=== PATIENT | female | born 1980 | race Caucasian/White ===

== ENCOUNTER → 2018-03-25 11:57 | Outpatient (CLI) | payer MEDICAID, SELFPAY ==
[2018-03-25 14:32] LABS: Microalbumin,Random Urine < 5.0 mg/L (NO RANGE EST.)
[2018-03-25 14:34] LABS: Hematocrit 38.5 % (37-47); Hemoglobin 12.8 g/dl (12.0-15.0); Mean Corp Hgb Conc 33.2 g/gl (32-36); Mean Corpuscular Hgb 27.9 pg (27.0-32.0); Mean Corpuscular Volume 84.1 fL (81-99); Mean Platelet Vol. 9.6 fl (6.2-12.0); Neutrophil % 53.5 % (47-70); Platelet Count 330 K/mm3 (150-450); RBC Distribution Width CV 12.7 % (11.6-14.6); RBC Distribution Width SD 38.5 fl (35.1-43.9); Red Blood Count 4.58 M/mm3 (4.2-5.4); White Blood Count 7.6 K/mm3 (4.4-11.0)
[2018-03-25 14:35] LABS: Absolute Lymphocyte Count 2.82 X10^3/ul (0.83-4.51); Absolute Neutrophil Count 4.1 X10^3/uL (2.0-7.7); Basophil# 0.05 X10^3/uL; Basophil% 0.7 % (0-1); Eosinophil# 0.25 X10^3/uL; Eosinophils% 3.3 % (0-5); Lymphocyte # 2.82 X10^3/ul (4.0); Lymphocyte % 37.1 % (19-41); Monocyte% 5.3 % (0-10); Neutrophil # 4.08 X10^3/uL (2.7-7.7); POSITIVE COUNT NO; POSITIVE DIFFERENTIAL NO; POSITIVE MORPHOLOGY NO
[2018-03-25 14:37] LABS: Hemoglobin A1c 5.9 % (4.2-6.3)
[2018-03-25 14:39] LABS: ALB/GLOB Ratio 1.2 RATIO (0.9-2.4); AST(SGOT) 18 U/L (15-37); Alanine Aminotransfer ALT/SGPT 30 U/L (13-56); Alkaline Phosphatase 62 U/L (45-117); Anion Gap 8 (5-15); BUN 12 mg/dL (7-18); BUN/Creat Ratio 19.6 RATIO (10-20); Calcium,Total 8.4 mg/dL (8.5-10.1); Chloride 105 mmol/L (98-107); Cholesterol 156 mg/dL (200); Creatinine, Serum 0.61 mg/dL (0.55-1.02); EST Glomerular Filtration Rate 116 mL/min (>60); Est Glom Filt Rate - Afr Amer 140 mL/min (>60); Globulin 3.3 g/dL (2.2-4.2); Glucose 88 mg/dL (74-106); High Density Lipoprotein 29 mg/dL; Potassium 3.9 mmol/L (3.5-5.1); Protein, Total 7.3 g/dL (6.4-8.2); Sodium Level 139 mmol/L (136-145); T4 Free Direct 1.02 ng/dL (0.76-1.46); Thyroid Stim Hormone (TSH) 0.81 uIU/mL (0.358-3.74); Triglycerides 374 mg/dL; Very Low Density Lipoprotein 75 mg/dL (5-40)
[2018-03-26 10:59] LABS: Thyroid Peroxidase AB 10 IU/mL (0-34)
== END ==
PROVIDERS: Family Provider Family Medicine; PCP Family Medicine; Visit Provider Family Medicine
DX: E03.9 Hypothyroidism, unspecified (principal); E78.00 Pure hypercholesterolemia, unspecified; E11.9 Type 2 diabetes mellitus without complications
CPT/HCPCS: 36415; 80053; 80061; 82043; 82570; 83036; 84439; 84443; 85025; 86376

== ENCOUNTER → 2018-04-20 11:27 | Outpatient (CLI) | payer OTHER, SELFPAY ==
--- NOTE | 2018-04-20 13:41 | STRESSREP ---
Stress Test Report Date: 04/20/2018 Procedure: Exercise tolerance test Indications: Pain Consent: Per the patient Procedure: The patient exercised on a Harman protocol for 7 minutes and 30 seconds completing Stage II and 1 minute and 30 seconds of Stage III achieving a peak heart rate of 155 bpm (85 % predicted maximal heart rate) with a peak blood pressure 146/70 mmHg and a peak MET capacity of approximately 9 MET's. The baseline ECG demonstrated normal sinus rhythm. The peak exercise ECG demonstrated somatic/motion artifact with no obvious ECG changes. There were no cardiac dysrhythmias pretest, during exercise, or recovery. The functional capacity was considered bridge. The patient had vague chest discomfort at peak exercise with spontaneous resolution in recovery. The examination was discontinued secondary to dyspnea. Impression: 1. Technically adequate (percent predicted maximal heart rate greater than 85%) exercise tolerance test 2. Peak exercise ECG with somatic/motion artifact with no obvious ECG changes 3. There were no cardiac dysrhythmias during exercise or recovery This note was generated with [employer] software. It may contain incorrect words, spelling, and punctuation that were not noted in checking the note before signing.
== END ==
PROVIDERS: Family Provider Family Medicine; PCP Family Medicine; Referring Provider Family Medicine; Visit Provider Family Medicine
DX: R07.9 Chest pain, unspecified (principal)
CPT/HCPCS: 93017

== ENCOUNTER → 2018-08-10 11:02 | Outpatient (CLI) | payer MEDICAID, SELFPAY ==
[2017-11-13 16:20] VITALS: BMI 38.9
[2018-08-10 13:59] LABS: Absolute Lymphocyte Count 2.18 X10^3/ul (0.83-4.51); Absolute Neutrophil Count 5.5 X10^3/uL (2.0-7.7); Basophil# 0.04 X10^3/uL; Basophil% 0.5 % (0-1); Eosinophil# 0.29 X10^3/uL; Eosinophils% 3.4 % (0-5); Hematocrit 38.9 % (37-47); Hemoglobin 12.5 g/dl (12.0-15.0); Lymphocyte # 2.18 X10^3/ul (4.0); Lymphocyte % 25.3 % (19-41); Mean Corp Hgb Conc 32.1 g/gl (32-36); Mean Corpuscular Hgb 27.4 pg (27.0-32.0); Mean Corpuscular Volume 85.3 fL (81-99); Mean Platelet Vol. 9.6 fl (6.2-12.0); Monocyte# 0.59 X10^3/uL; Monocyte% 6.8 % (0-10); Neutrophil # 5.49 X10^3/uL (2.7-7.7); Neutrophil % 63.7 % (47-70); Platelet Count 270 K/mm3 (150-450); RBC Distribution Width CV 13.4 % (11.6-14.6); RBC Distribution Width SD 41.2 fl (35.1-43.9); Red Blood Count 4.56 M/mm3 (4.2-5.4); White Blood Count 8.6 K/mm3 (4.4-11.0)
[2018-08-10 14:02] LABS: POSITIVE COUNT NO; POSITIVE DIFFERENTIAL NO; POSITIVE MORPHOLOGY NO
[2018-08-10 14:19] LABS: Hemoglobin A1c 6.6 % (4.2-6.3)
[2018-08-10 15:18] LABS: ALB/GLOB Ratio 1.2 RATIO (0.9-2.4); AST(SGOT) 22 U/L (15-37); Alanine Aminotransfer ALT/SGPT 35 U/L (13-56); Albumin, Serum 3.8 g/dL (3.2-5.0); Alkaline Phosphatase 65 U/L (45-117); Anion Gap 12 (5-15); BUN 7 mg/dL (7-18); BUN/Creat Ratio 13.1 RATIO (10-20); Calcium,Total 8.5 mg/dL (8.5-10.1); Chloride 105 mmol/L (98-107); Cholesterol 165 mg/dL (200); Creatinine, Serum 0.54 mg/dL (0.55-1.02); EST Glomerular Filtration Rate 134 mL/min (>60); Est Glom Filt Rate - Afr Amer 162 mL/min (>60); Globulin 3.1 g/dL (2.2-4.2); Glucose 62 mg/dL (74-106); High Density Lipoprotein 32 mg/dL; Potassium 3.8 mmol/L (3.5-5.1); Protein, Total 6.9 g/dL (6.4-8.2); Sodium Level 141 mmol/L (136-145); Thyroid Stim Hormone (TSH) 2.02 uIU/mL (0.358-3.74); Triglycerides 287 mg/dL; Very Low Density Lipoprotein 57 mg/dL (5-40)
== END ==
PROVIDERS: Family Provider Family Medicine; PCP Family Medicine; Visit Provider Family Medicine
DX: E11.9 Type 2 diabetes mellitus without complications (principal); E78.00 Pure hypercholesterolemia, unspecified; E03.9 Hypothyroidism, unspecified
CPT/HCPCS: 36415; 80053; 80061; 83036; 84443; 85025

== ENCOUNTER → 2018-12-20 16:18 | Outpatient (CLI) | payer MEDICAID, SELFPAY ==
[2017-11-13 16:20] VITALS: BMI 38.9
[2018-12-20 17:34] LABS: Absolute Lymphocyte Count 3.02 X10^3/ul (0.83-4.51); Absolute Neutrophil Count 5.5 X10^3/uL (2.0-7.7); Basophil# 0.04 X10^3/uL; Basophil% 0.4 % (0-1); Eosinophil# 0.31 X10^3/uL; Eosinophils% 3.3 % (0-5); Hematocrit 37.9 % (37-47); Hemoglobin 12.5 g/dl (12.0-15.0); Lymphocyte # 3.02 X10^3/ul (4.0); Lymphocyte % 32.3 % (19-41); Mean Corpuscular Hgb 27.1 pg (27.0-32.0); Mean Platelet Vol. 9.8 fl (6.2-12.0); Monocyte% 5.4 % (0-10); Neutrophil # 5.46 X10^3/uL (2.7-7.7); Neutrophil % 58.5 % (47-70); Platelet Count 283 K/mm3 (150-450); RBC Distribution Width CV 13.2 % (11.6-14.6); RBC Distribution Width SD 38.3 fl (35.1-43.9); Red Blood Count 4.62 M/mm3 (4.2-5.4); White Blood Count 9.3 K/mm3 (4.4-11.0)
[2018-12-20 17:56] LABS: Hemoglobin A1c 6.2 % (4.2-6.3)
[2018-12-20 17:57] LABS: POSITIVE COUNT NO; POSITIVE DIFFERENTIAL NO; POSITIVE MORPHOLOGY NO
[2018-12-20 18:23] LABS: Microalbumin,Random Urine 18.2 mg/L (NO RANGE EST.); Microalbumin:Creatinine Ratio 15.4 mg/g CRE (<30 mg/g CRE)
[2018-12-20 18:33] LABS: ALB/GLOB Ratio 1.3 RATIO (0.9-2.4); AST(SGOT) 17 U/L (15-37); Alanine Aminotransfer ALT/SGPT 26 U/L (13-56); Albumin, Serum 3.9 g/dL (3.2-5.0); Alkaline Phosphatase 54 U/L (45-117); Anion Gap 12 (5-15); BUN 15 mg/dL (7-18); BUN/Creat Ratio 26.3 RATIO (10-20); Calcium,Total 9.2 mg/dL (8.5-10.1); Chloride 104 mmol/L (98-107); Creatinine, Serum 0.57 mg/dL (0.55-1.02); EST Glomerular Filtration Rate 125 mL/min (>60); Est Glom Filt Rate - Afr Amer 151 mL/min (>60); Globulin 3.1 g/dL (2.2-4.2); Glucose 77 mg/dL (74-106); Potassium 4.1 mmol/L (3.5-5.1); Sodium Level 140 mmol/L (136-145); Thyroid Stim Hormone (TSH) 0.86 uIU/mL (0.358-3.74)
== END ==
PROVIDERS: Family Provider Family Medicine; PCP Family Medicine; Referring Provider Family Medicine; Visit Provider Family Medicine
DX: E03.9 Hypothyroidism, unspecified (principal); E11.9 Type 2 diabetes mellitus without complications; J45.909 Unspecified asthma, uncomplicated
CPT/HCPCS: 36415; 80053; 82043; 82570; 83036; 84439; 84443; 85025

== ENCOUNTER → 2019-04-11 16:11 | Outpatient (CLI) | payer OTHER, SELFPAY ==
--- NOTE | 2019-04-11 16:43 | MRI_ITS ---
STUDY: MRI BRAIN WITH AND WITHOUT CONTRAST REASON FOR EXAM: Female, 38 years old. Occipital headache TECHNIQUE: Standardized multiplanar fat and water weighted pulse sequences were obtained. IV Dotarem 19 was administered for the contrast portion of the examination. COMPARISON: None. FINDINGS: Normal size of the ventricles and extra-axial spaces for the patient's age. Normal white matter tracts of the supratentorial brain. Normal bilateral basal ganglia. Normal thalami. There is no extra-axial fluid accumulation. Normal flow voids within the major intracranial circulation suggesting patency by spin echo criteria. Normal venous enhancement. There is no enhancing intra-axial or extra-axial abnormality. Normal sella turcica, pituitary gland, infundibular stalk, optic chiasm and hypothalamus. Normal tectal plate and pineal gland. Normal midbrain, fredo and medulla. Normal cerebellum. Normal basal cisterns. Normal bilateral temporal bones. Normal bilateral internal auditory canals. No demonstrated orbital abnormality, within the constraints of a routine brain study. Normal visualized paranasal sinuses. Normal calvarium and skull base. Normal visualized soft tissue structures. Normal visualized upper cervical spine. MRI/Brain W/WO Contrast IMPRESSION: Normal unenhanced and enhanced MRI of the brain. Electronically Signed: Janie Matson, at 18:45 EDT Tel , Service support ,
== END ==
LOC: MRI 16:13
PROVIDERS: Family Provider Family Medicine; PCP Family Medicine; Referring Provider Family Medicine; Visit Provider Family Medicine
DX: H47.10 Unspecified papilledema (principal)
CPT/HCPCS: 70553; A9575

== ENCOUNTER 2019-05-20 16:35 | Emergency (ER) | payer OTHER, BC, SELFPAY ==
[2019-05-20 16:36] VITALS: BP 148/77; PULSE 75; RESP 17; TEMP 36.1; O2SAT 96; BMI 35.0
--- NOTE | 2019-05-20 16:41 | ED.RN ---
PT REPORTS SINCE HER WORK INCIDENT SHE HAS BEEN FIRED FROM HER JOB. UNABLE TO FIND COMPANY ON [employer]. CHARGE NURSE SUMAN INFORMED OF PT CIRCUMSTANCES.
--- NOTE | 2019-05-20 16:46 | CT_ITS ---
STUDY: CT BRAIN WITHOUT CONTRAST REASON FOR EXAM: Female, 38 years old. Trauma RADIATION DOSAGE (If Supplied By Facility): DLP = ( 728.62 ) mGycm TECHNIQUE: Transaxial CT imaging of the brain was performed without administration of intravenous contrast material. Individualized dose optimization techniques were used for this CT. COMPARISON: CT head April 11, 2019 FINDINGS: There is no acute bleed or infarct. There are normal white matter tracts. The ventricles are normal in configuration. There is no hydrocephalus. The visualized paranasal sinuses are clear. The mastoid air cells are well aerated. There is no skull fracture. CT/Brain/Head without Contrast IMPRESSION: No acute intracranial abnormality. Electronically Signed: Davis Marin, at 17:08 EST Tel , Service support ,
--- NOTE | 2019-05-20 16:46 | CT_ITS ---
STUDY: CT CERVICAL SPINE WITHOUT CONTRAST REASON FOR EXAM: Female, 38 years old. Headache, recent trauma RADIATION DOSAGE (If Supplied By Facility): CTDIvol = ( 27.24 ) mGy, DLP = ( 511.87 ) mGycm TECHNIQUE: High resolution transaxial imaging was performed without contrast material. Sagittal and coronal images were reconstructed. Individualized dose optimization techniques were used for this CT. COMPARISON: None FINDINGS: Normal craniovertebral junction. Normal anterior atlantoaxial articulation. Normal odontoid process. Normal cervical lordosis. Normal vertebral bodies and posterior osseous elements. C2-3: Normal endplates. Normal disc height and morphology. Normal central canal and intervertebral neuroforamina. C3-4: Normal endplates. Normal disc height and morphology. Normal central canal and intervertebral neuroforamina. C4-5: Normal endplates. Mild disc space narrowing with posterior spurring Normal central canal. There is bilateral foraminal narrowing. C5-6: Normal endplates. Moderate disc space narrowing with prominent posterior spurring to the right of midline. There is right-sided central canal stenosis and bilateral foraminal narrowing. Normal central canal and intervertebral neuroforamina. C6-7: Normal endplates. Normal disc height and morphology. Normal central canal and intervertebral neuroforamina. C7-T1: Normal endplates. Normal disc height and morphology. Normal central canal and intervertebral neuroforamina. Normal visualized soft tissue structures. CT/Spine Cervical without Contras IMPRESSION: No demonstrate a fracture or suspicious osseous lesion Degenerative changes at C4-5 and C5-6 as described, findings most pronounced at C5-6. Electronically Signed: Jered Renae MD at 17:12 EST , Service support ,
--- NOTE | 2019-05-20 16:49 | ED.VISSUMM ---
- ER Visit Summary Date of Service: 05/20/19 Chief Complaint: Head injury History of Present Illness: The patient is a 38 F with a head injury. A box fell on the top of her head on May 16 while she was at work. She has had a headache and right neck pain since. Pain is worse when she moves her neck. She does have some paresthesias in her right forearm, but they are not new. She denies any new paresthesias, weakness, or numbness. Denies any vision changes, nosebleed, ear discharge, or any other associated symptoms. She did not lose consciousness. Denies blood thinners. Physical Examination: Afebrile and vital signs unremarkable. Head and neck atraumatic. HEENT is unremarkable. Right cervical spine tender to palpation. Good strength. Right ulnar forearm paresthesias, not new. 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 Neurovascularly intact. No focal or lateralizing neurologic abnormalities. Test Results: CT brain and cervical spine pending. Emergency Department Course and Treatment: Patient declined pain meds. Will proceed with imaging. CT brain unremarkable. CT cervical spine show degenerative changes. No fractures, bleeding, or other acute process. Patient will be referred to [facility] care for follow-up. Treatment Plan: As above Disposition: Discharge Impression: 1. Concussion 2. Cervical strain This note was generated with [employer] dictation software. It may contain incorrect words, spelling, and punctuation that were not noted in review of the chart prior to signing ED Disposition - Plan for ED Patient: Referrals: Armaan Hadley MD [Primary Care Provider] -
--- NOTE | 2019-05-20 17:24 | DCINST.ED_ITS ---
ED Disposition - Plan for ED Patient: Instructions: Neck Problems: Relieving Your Symptoms Referrals: Corporate,[facility] [GROUP OF PHYSICIANS] -
--- NOTE | 2019-05-20 17:24 | ED.DEP ---
ED Disposition - Plan for ED Patient: Instructions: Neck Problems: Relieving Your Symptoms Referrals: Corporate,[facility] [GROUP OF PHYSICIANS] -
== END 2019-05-20 17:30 | disposition home or self-care (01) ==
PROVIDERS: Emergency Provider Emergency Medicine; Family Provider Family Medicine; PCP Family Medicine
DX: S06.0X0A Concussion without loss of consciousness, initial encounter (principal); W20.8XXA Other cause of strike by thrown, projected or falling object, initial encounter; Y93.89 Activity, other specified; Y92.89 Other specified places as the place of occurrence of the external cause; Y99.0 Civilian activity done for income or pay; R20.2 Paresthesia of skin; S16.1XXA Strain of muscle, fascia and tendon at neck level, initial encounter; I10 Essential (primary) hypertension; E11.9 Type 2 diabetes mellitus without complications; Z72.0 Tobacco use; Z79.899 Other long term (current) drug therapy; Z79.84 Long term (current) use of oral hypoglycemic drugs; E03.9 Hypothyroidism, unspecified
CPT/HCPCS: 70450; 72125; 99283

== ENCOUNTER 2019-06-11 18:16 | Emergency (ER) | payer MEDICAID, SELFPAY ==
[2019-05-26 09:57] VITALS: BMI 35.0
[2019-06-11 18:17] VITALS: BP 148/84; PULSE 72; RESP 18; TEMP 36.8; O2SAT 97; BMI 35.9
--- NOTE | 2019-06-11 18:42 | ED.VISSUMM ---
- ER Visit Summary Date of Service: 06/11/19 Chief Complaint: [Laceration to right thumb] History of Present Illness: The patient is a 38 F [presents to the ER with a laceration to the right thumb that occurred prior to arrival in the emergency department. Patient states she was using a cheese slicer when she accidentally lacerated her thumb. Patient is right-hand dominant. Patient is up-to-date on tetanus. Patient has history of diabetes.] Physical Examination: [Right thumb-patient has an avulsion type laceration measuring approximately 1.5 cm x 1 cm across the medial aspect of the distal phalanx. The avulsion is superficial however it is oozing venous blood. She is neurovascular intact distally. Normal range of motion at the IP joint and normal strength.] Test Results: [None indicated] Emergency Department Course and Treatment: [We used Gelfoam to get good hemostasis to the wound. Clean dressing was applied. Patient did irrigate the wound at home.] Treatment Plan: [Patient to follow-up with primary care physician for wound check in 3 to 5 days. We will leave the Gelfoam on until it falls off naturally.] Disposition: [Discharged home in stable condition] Impression: [Dermal avulsion right thumb] This note was generated with [employer] dictation software. It may contain incorrect words, spelling, and punctuation that were not noted in review of the chart prior to signing ED Disposition - Plan for ED Patient: Referrals: Armaan Hadley MD [Primary Care Provider] -
--- NOTE | 2019-06-11 18:44 | ED.DEP ---
ED Disposition - Plan for ED Patient: Instructions: Skin Avulsion Referrals: Armaan Hadley MD [Primary Care Provider] - 3-5 Days
[2019-06-11 19:21] VITALS: RESP 16
== END 2019-06-11 19:22 | disposition home or self-care (01) ==
LOC: ED 18:46
PROVIDERS: Emergency Provider Emergency Medicine; Family Provider Family Medicine; PCP Family Medicine
DX: S61.011A Laceration without foreign body of right thumb without damage to nail, initial encounter (principal); W27.4XXA Contact with kitchen utensil, initial encounter; Y92.9 Unspecified place or not applicable; Y99.9 Unspecified external cause status; E11.9 Type 2 diabetes mellitus without complications; Z72.0 Tobacco use
CPT/HCPCS: 99282

== ENCOUNTER → 2019-06-22 07:51 | Outpatient (CLI) | payer MEDICAID, SELFPAY ==
[2019-06-15 14:03] VITALS: BMI 35.9
--- NOTE | 2019-06-22 07:53 | US_ITS ---
STUDY: ABDOMINAL ULTRASOUND - RIGHT UPPER QUADRANT REASON FOR VISIT: Female, 38 years old postprandial epigastric pain. TECHNIQUE: Ultrasound evaluation of the right upper quadrant was performed with real-time and static clarke-scale imaging. TECHNICAL QUALITY: Adequate. COMPARISON: None. FINDINGS: Liver: The liver measures 16.9 cm. There is increased echogenicity consistent with fatty infiltration. The bile ducts are within normal limits. There is hepatic color flow. The direction of portal flow is hepatopetal. There is no demonstrated mass lesion. Gallbladder: Normal distended gallbladder. The gallbladder wall measures 1.6 mm. There is a negative sonographic Fan''s sign. There is no pericholecystic fluid. There are no gallstones. There is a 1.2 cm x 1 cm x 0.6 cm gallbladder polyp in the region of the neck of the gallbladder. Common Bile Duct (C.B.D.): The common bile duct measures 4.8 mm. Pancreas: Normal size of the head, body and tail of the pancreas. There is normal echogenicity of the pancreas. There is no demonstrated pancreatic mass or cyst. Right Kidney: Normal size of the right kidney. The right kidney measures 11.3 cm x 6.3 cm x 4.7 cm. Normal renal cortex. The right cortex measures 1.4 cm. There is no demonstrated renal mass or cyst. There is no right hydronephrosis. US/Abdomen Limited IMPRESSION: 1.2 cm x 1 cm x 0.6 cm polyp in the neck of the gallbladder. Electronically Signed: Jesu Tomas, at 15:38 EST , Service support ,
== END ==
PROVIDERS: Family Provider Family Medicine; PCP Family Medicine; Referring Provider Family Medicine; Visit Provider Family Medicine
DX: R10.11 Right upper quadrant pain (principal)
CPT/HCPCS: 76705

== ENCOUNTER 2019-07-04 10:00 | Outpatient (RCR) | payer MEDICAID, SELFPAY ==
[2019-05-26 09:57] VITALS: BMI 35.0
--- NOTE | 2019-06-06 17:13 | HP.PTEVAL_ITS ---
Patient's Visit Information HERMILO GONZALEZ is a 38 year old F referred to Physical Therapy by NINA Mary with a diagnosis of concussion, strain of muscle fascia and tendon of the neck.. Date of Evaluation: 06/06/19 Physical Therapist: OMEGA Wills - Subjective Findings: This incident happened 05-16-19. Pt was putting a box on a skid and did not have it up there all the way and it fell down and hit her on the head. She did not lose consciousness. Pt thought she was ok until she woke up and then her neck hurt and pain down her R arm. She tried to report it at work but it did not get filled out the day of. And a few days later she was fired for no reason. She waited to get insurance cards and went to ER and had an MRI. Current symptoms: still getting pain down her back and down R back of arm to the elbow. Not constant and depends on position of head sometimes. Sometimes she can get pain between her shoulder blades and the R of her spine. She has had some numbness in her back since the injury but none now. She has some dizziness but does relate it to the concussion and she has had that feeling before the accident. She has had no memory issues. She is sleeping like she ususally does which is not a lot. She gets about 8 hours of sleeping depending. She gets vertigo episodes in the past and has constand sinus infection going on but that happened before the accident/concusiion - Pain neck pain Pain Intensity (Out of 10): 0 R arm pain Pain Intensity (Out of 10): 0 - Objective R handed: R 85# and L 82#. c-spine AROM: flexion 100%, Ext 75%, R SB 100%, L SB 50% normal ROM, and approx 90% normal ROtation B. Bicep DTR 2+/3. chin tucks X 10 ( caused posterior c-spine pain and scapular pain more on the R side of spine and caused her to get a little dizzy) Attempted 10 additional chin tucks but not so much to end range.....(pt had less pain and no dizzy).... Chin tucks for an additional pain caused pain down the R side of arm to the elbo w....stopped shortly after stopped the chin tuck. Posture: sits with fw head and rounded shoulders and increase PPT. Palpation: Tender along the R side of the spine and scapular area on the R.... FGA . CATSIB: 110/120. Smooth pursuit horizontal and vertical caused no dizziness and she was able to follow. VOR X 1 caused slight dizziness. amb with head turns vertical and horizontal cause some slight dizziness danie subsides quickly after stopping. - Balance Scores Functional Gait Assessment Score: 26 % Disability: 13.3400 CATSIB Score (Max score 120 seconds): 110 - Rehabilitation Potential Rehabilitation Potential: Good - Anticipated Interventions Thank you for the opportunity to evaluate your patient. For Medicare and Medicare HMO plans, please review the plan of care and approve it. It will need to be FAXED BACK to us at [phone] for Medicare purposes. For Medicare only, by signing this I certify the plan of care. Please let me know if there are questions or concerns regarding this plan of care. Physician Signature: Date:
[2019-06-20 17:30] LABS: Absolute Lymphocyte Count 3.31 X10^3/uL (0.83-4.51); Absolute Neutrophil Count 6.3 X10^3/uL (2.0-7.7); Basophil# 0.07 X10^3/uL; Basophil% 0.7 % (0-1); Eosinophil# 0.29 X10^3/uL; Eosinophils% 2.8 % (0-5); Hematocrit 40.2 % (37-47); Hemoglobin 13.2 g/dL (12.0-15.0); Lymphocyte # 3.31 X10^3/ul (4.0); Lymphocyte % 31.4 % (19-41); Mean Corp Hgb Conc 32.8 g/dL (32-36); Mean Corpuscular Hgb 27.6 pg (27.0-32.0); Mean Corpuscular Volume 83.9 fL (81-99); Mean Platelet Vol. 9.6 fl (6.2-12.0); Monocyte# 0.53 X10^3/uL; NRBC Flagged by Analyzer 0 % (0-5); Neutrophil % 59.8 % (47-70); Platelet Count 307 K/mm3 (150-450); RBC Distribution Width CV 12.3 % (11.6-14.6); RBC Distribution Width SD 37.4 fl (35.1-43.9); Red Blood Count 4.79 M/mm3 (4.2-5.4); White Blood Count 10.5 K/mm3 (4.4-11.0)
[2019-06-20 17:47] LABS: ALB/GLOB Ratio 1.2 RATIO (0.9-2.4); AST(SGOT) 17 U/L (15-37); Alanine Aminotransfer ALT/SGPT 30 U/L (13-56); Alkaline Phosphatase 61 U/L (45-117); Anion Gap 3 (5-15); BUN 14 mg/dL (7-18); BUN/Creat Ratio 21.2 RATIO (10-20); Calcium,Total 8.9 mg/dL (8.5-10.1); Chloride 106 mmol/L (98-107); Creatinine, Serum 0.66 mg/dL (0.55-1.02); EST Glomerular Filtration Rate 105 mL/min (>60); Est Glom Filt Rate - Afr Amer 127 mL/min (>60); Globulin 3.4 g/dL (2.2-4.2); Glucose 87 mg/dL (74-106); Potassium 4.3 mmol/L (3.5-5.1); Protein, Total 7.4 g/dL (6.4-8.2); Sodium Level 137 mmol/L (136-145)
--- NOTE | 2019-07-04 11:33 | HP.PTDCSUM ---
HP - PT D/C Summary It has been my pleasure to treat HERMILO GONZALEZ under orders from NINA Mary, for the diagnosis of concussion, strain of muscle fascia and tendon of the neck. for a total of 11 visit(s). Discharge Date: 07/04/19 Please see the following information for a summary of their discharge status. - Subjective Subjective: Pt reports that she is ready to be discharged. Pt reports that she has been feeling ok. She gets AUGUSTIN sometimes but not sure that it is due to the concussion. She has had no arm pain. Pt feels that she is back to normal. - Pain neck pain Pain Intensity (Out of 10): 0 R arm pain Pain Intensity (Out of 10): 0 AUGUSTIN Pain Intensity (Out of 10): 2 - Overall Improvement % Improvement: 100 - Objective Objective/Function: VOR X 1 horizontal in sitting pt has a tiny bit of dizziness after 30 sec in sitting. VOR X 1 vertical in sitting pt has a trace bit of dizziness. FGA . CATSIB 120/120 - Plan Plan: DC PT to HEP - D/C Information Discharge Comments: DC PT to HEP If there are questions or concerns regarding this patient's physical therapy, please feel free to call me at [phone]. Thank you for the referral of this patient. Sincerely, Corinne Sutherland, MPT
== END 2019-07-04 19:00 | disposition home or self-care (01) ==
LOC: PT 10:00
PROVIDERS: Family Medicine; Family Provider Family Medicine; PCP Family Medicine; Referring Provider Physician Assistant; Visit Provider Physician Assistant
DX: S06.0X9D Concussion with loss of consciousness of unspecified duration, subsequent encounter (principal); S16.1XXD Strain of muscle, fascia and tendon at neck level, subsequent encounter
CPT/HCPCS: 36415; 80053; 85025; 97110; 97162; 97530

== ENCOUNTER → 2019-07-05 09:40 | Outpatient (CLI) | payer MEDICAID, SELFPAY ==
[2019-07-04 11:03] VITALS: BMI 35.9
[2019-07-05 12:04] LABS: Absolute Lymphocyte Count 1.93 X10^3/uL (0.83-4.51); Absolute Neutrophil Count 4.7 X10^3/uL (2.0-7.7); Basophil# 0.07 X10^3/uL; Eosinophil# 0.28 X10^3/uL; Eosinophils% 3.8 % (0-5); Hematocrit 39.5 % (37-47); Hemoglobin 12.9 g/dL (12.0-15.0); Lymphocyte # 1.93 X10^3/ul (4.0); Lymphocyte % 26.2 % (19-41); Mean Corp Hgb Conc 32.7 g/dL (32-36); Mean Corpuscular Hgb 27.2 pg (27.0-32.0); Mean Corpuscular Volume 83.2 fL (81-99); Mean Platelet Vol. 9.8 fl (6.2-12.0); Monocyte% 5.4 % (0-10); NRBC Flagged by Analyzer 0 % (0-5); Neutrophil # 4.66 X10^3/uL (2.7-7.7); Neutrophil % 63.3 % (47-70); Platelet Count 286 K/mm3 (150-450); RBC Distribution Width CV 12.8 % (11.6-14.6); RBC Distribution Width SD 38.8 fl (35.1-43.9); Red Blood Count 4.75 M/mm3 (4.2-5.4); White Blood Count 7.4 K/mm3 (4.4-11.0)
[2019-07-05 12:25] LABS: Hemoglobin A1c 6.3 % (4.2-6.3)
[2019-07-05 12:32] LABS: ALB/GLOB Ratio 1.1 RATIO (0.9-2.4); AST(SGOT) 16 U/L (15-37); Alanine Aminotransfer ALT/SGPT 30 U/L (13-56); Albumin, Serum 3.8 g/dL (3.2-5.0); Alkaline Phosphatase 59 U/L (45-117); Anion Gap 8 (5-15); BUN 13 mg/dL (7-18); BUN/Creat Ratio 16.9 RATIO (10-20); Calcium,Total 8.6 mg/dL (8.5-10.1); Chloride 106 mmol/L (98-107); Cholesterol 215 mg/dL (200); Creatinine, Serum 0.77 mg/dL (0.55-1.02); EST Glomerular Filtration Rate 88 mL/min (>60); Est Glom Filt Rate - Afr Amer 107 mL/min (>60); Globulin 3.5 g/dL (2.2-4.2); Glucose 111 mg/dL (74-106); High Density Lipoprotein 36 mg/dL; Potassium 4.1 mmol/L (3.5-5.1); Protein, Total 7.3 g/dL (6.4-8.2); Sodium Level 138 mmol/L (136-145); T4 Free Direct 1.13 ng/dL (0.76-1.46); Thyroid Stim Hormone (TSH) 2.25 uIU/mL (0.358-3.74); Triglycerides 222 mg/dL; Very Low Density Lipoprotein 44 mg/dL (5-40)
[2019-07-05 12:50] LABS: Microalbumin,Random Urine 14.7 mg/L (NO RANGE EST.); Microalbumin:Creatinine Ratio 13.2 mg/g CRE (<30 mg/g CRE)
== END ==
PROVIDERS: Family Provider Family Medicine; PCP Family Medicine; Visit Provider Family Medicine
DX: E11.9 Type 2 diabetes mellitus without complications (principal); E03.9 Hypothyroidism, unspecified; E78.00 Pure hypercholesterolemia, unspecified; J45.909 Unspecified asthma, uncomplicated
CPT/HCPCS: 36415; 80053; 80061; 82043; 82570; 83036; 84439; 84443; 85025

== ENCOUNTER → 2019-08-19 14:04 | Outpatient (CLI) | payer MEDICAID, SELFPAY ==
[2019-07-04 11:03] VITALS: BMI 35.9
[2019-08-19 15:40] LABS: Hematocrit 39.9 % (37-47); Hemoglobin 13.4 g/dL (12.0-15.0); Mean Corp Hgb Conc 33.6 g/dL (32-36); Mean Corpuscular Volume 83.3 fL (81-99); Mean Platelet Vol. 9.5 fl (6.2-12.0); Platelet Count 308 K/mm3 (150-450); RBC Distribution Width CV 12.3 % (11.6-14.6); RBC Distribution Width SD 36.9 fl (35.1-43.9); Red Blood Count 4.79 M/mm3 (4.2-5.4)
[2019-08-19 16:12] LABS: hCG Titer Quant., Serum < 1 mIU/mL (1-3)
== END ==
PROVIDERS: PCP Family Medicine; Referring Provider Otolaryngology; Visit Provider Otolaryngology
DX: Z01.812 Encounter for preprocedural laboratory examination (principal)
CPT/HCPCS: 36415; 84702; 85027

== ENCOUNTER → 2019-08-26 | Outpatient (CLI) | payer MEDICAID, SELFPAY ==
[2019-07-04 11:03] VITALS: BMI 35.9
--- NOTE | 2019-08-26 | SEP_PTH ---
PATIENT: HERMILO GONZALEZ [facility] U#:[id number] AGE/SX: 38/F ROOM: RE08/26/[address]: Dr. Miguel Yao MD : 1980 BED: DIS: 08/26/2019 SPEC #: [id number] RECD: 08/26/19 15:31 STATUS: MATHEW ALAN #: [id number] INES: 08/26/19 00:[address]: Miguel Yao DEPT: SURGICAL PATHOLOGY RECD BY: Tez Bustillo ENTERED: 08/29/19 09:17 SP TYPE: SEPTUM OTHR DR: Dr. Armaan Hadley MD [facility] Tissues: A - Nasal septum, NOS B - Ethmoid sinus, NOS Procedures: Decalcification bone/plaque Surgery Specimen Level III Surgery Specimen Level IV HEADER OPERATION: Septoplasty, right maxillary antrostomy with tissue removal; right anterior ethmoidectomy, submucous resection inferior turbinates PRE-OP DIAGNOSIS: Allergic rhinitis, chronic sinusitis, maxillary sinus polyp, deviated nasal septum TISSUE SUBMITTED: A - Septum, B - Right sinus contents MICROSCOPIC DIAGNOSIS A. Septum: Fragments of bone and cartilage, clinically deviated nasal septum. B. Right sinus contents: Fragments of respiratory mucosa with chronic inflammation and bone. SJ:irena 09/01/19 MICROSCOPIC DESCRIPTION Slides are reviewed. GROSS DESCRIPTION A - Received in fixative is one container labeled with the patient's name and designated septum. The specimen consists of multiple irregular fragments of joshi-white bone and cartilage that in aggregate measure 2.5 x 1.5 x 0.2 cm. The specimen is totally submitted in one cassette after decalcification. B - Received in fixative is one container labeled with the patient's name and designated right sinus contents. The specimen consists of multiple irregular fragments of light joshi soft tissue that in aggregate measure 2 x 1 x 0.1 cm. The specimen is totally submitted in one cassette. / AM:irena 08/29/19 TC:3 CPT: 88597, 34315, 53299
== END | disposition home or self-care (01) ==
LOC: LABSPEC 16:02
PROVIDERS: PCP Family Medicine; Referring Provider Otolaryngology; Visit Provider Otolaryngology
DX: J30.9 Allergic rhinitis, unspecified (principal); J32.9 Chronic sinusitis, unspecified; J33.8 Other polyp of sinus; J34.2 Deviated nasal septum
CPT/HCPCS: 88304; 88305; 88311

== ENCOUNTER → 2019-09-15 10:58 | Outpatient (CLI) | payer MEDICAID, SELFPAY ==
[2019-09-06 07:25] VITALS: BMI 35.6
[2019-09-15 11:00] VITALS: PULSE 105; PULSE 110; PULSE 111; PULSE 116; PULSE 118; PULSE 120; PULSE 87; PULSE 97; O2SAT 94; O2SAT 95; O2SAT 96; O2SAT 97; O2SAT 98
--- NOTE | 2019-09-16 10:42 | PCM.PSN.6M ---
PSN 6 Minute Walk Test - 6 Minute Walk Test 6 Minute Walk Test: 6 Minute Walk Test PSN:6-Minute Walk Test Start: 09/15/19 11:47 Freq: Status: Active Protocol: RESP.6MINW Document 09/15/19 11:00 EW (Rec: 09/15/19 11:50 EW [id number]) 6 Minute Walk Test Date Performed 09/15/19 Time Performed 11:00 Height 5 ft 4 in Weight: 200 lb Weight in Pounds 200.[address]: David Patricio Assistive device used: None Pre-test Oxygen Delivery Method Room Air Pulse Ox (%) 97 Pulse Rate (60-100 beats/min) 87 Dyspnea Emily Scale (0-10) 1 Exertion Emily Scale (6-20) 6 1st minute Oxygen Delivery Method Room Air Pulse Ox (%) 96 Pulse Rate (60-100 beats/min) 105 H 2nd minute Oxygen Delivery Method Room Air Pulse Ox (%) 95 Pulse Rate (60-100 beats/min) 116 H 3rd minute Oxygen Delivery Method Room Air Pulse Ox (%) 95 Pulse Rate (60-100 beats/min) 118 H 4th minute Oxygen Delivery Method Room Air Pulse Ox (%) 95 Pulse Rate (60-100 beats/min) 110 H 5th minute Oxygen Delivery Method Room Air Pulse Ox (%) 95 Pulse Rate (60-100 beats/min) 111 H 6th minute Oxygen Delivery Method Room Air Pulse Ox (%) 94 Pulse Rate (60-100 beats/min) 120 H Post-test Oxygen Delivery Method Room Air Pulse Ox (%) 98 Pulse Rate (60-100 beats/min) 97 Dyspnea Emily Scale (0-10) 2 Exertion Emily Scale (6-20) 8 Full Laps Walked 24 Partial Lap, Number of Tiles Walked 14 Total Distance Walked (ft) 1430 - Interpretation Interpretation: The patient ambulated 1430 feet over the course of 6 minutes beginning on room air without assistive devices or breaks. Pretesting oxygen saturation was noted to be 97% on room air. With ambulation, the raudel oxygen saturation was 94% with exertion. There was no significant exertional oxygen desaturation. - Recommendations Recommendations: There is no indication for the use of supplemental oxygen at this time.
== END ==
PROVIDERS: PCP Family Medicine; Referring Provider Internal Medicine Critical Care Medicine; Visit Provider Internal Medicine Critical Care Medicine
DX: J45.909 Unspecified asthma, uncomplicated (principal)
CPT/HCPCS: 94618

== ENCOUNTER → 2019-09-19 20:24 | Outpatient (CLI) | payer MEDICAID, SELFPAY ==
[2019-09-06 07:25] VITALS: BMI 35.6
== END ==
PROVIDERS: PCP Family Medicine; Referring Provider Internal Medicine Critical Care Medicine; Visit Provider Internal Medicine Critical Care Medicine
DX: G47.33 Obstructive sleep apnea (adult) (pediatric) (principal)
CPT/HCPCS: 95811

== ENCOUNTER → 2019-09-20 10:01 | Outpatient (CLI) | payer MEDICAID, SELFPAY ==
[2019-09-06 07:25] VITALS: BMI 35.6
--- NOTE | 2019-09-20 15:03 | PFTCOMP ---
COMPLETE PULMONARY FUNCTION TEST INTERPRETATION Brief HPI: Patient is a 38 year old female, currently under the care of Dr. Patricio, who presents to [facility] for complete pulmonary function tests secondary to diagnosis of asthma. Respiratory therapist reports good effort and reproducible results. Interpretation: Forced expiration spirometry shows no large airways obstructive ventilatory defect with an FEV1 of 97% predicted. There is no significant bronchodilator response by strict ATS criteria. Spirograms are of good quality and plateau normally. The respiratory flow volume loop shows a normal pattern. Lung volumes by body plethysmography show a normal total lung capacity at 4.32 L, 86% predicted. All other lung volumes are within reduced symmetrically. Diffusion capacity by carbon monoxide is normal at 81% predicted. The airway resistance is normal. No previous pulmonary function tests were available for review. Impression: These pulmonary function tests are grossly within normal limits.
== END ==
PROVIDERS: PCP Family Medicine; Referring Provider Internal Medicine Critical Care Medicine; Visit Provider Internal Medicine Critical Care Medicine
DX: J45.909 Unspecified asthma, uncomplicated (principal)
CPT/HCPCS: 94060; 94726; 94729

== ENCOUNTER → 2019-10-27 11:00 | Outpatient (CLI) | payer MEDICAID, SELFPAY ==
[2019-10-19 08:08] VITALS: BMI 35.6
== END ==
PROVIDERS: PCP Family Medicine; Visit Provider Nurse Practitioner Acute Care
DX: Z46.89 Encounter for fitting and adjustment of other specified devices (principal)

== ENCOUNTER → 2019-12-22 10:00 | Outpatient (CLI) | payer MEDICAID, SELFPAY ==
[2019-11-30 08:49] VITALS: BMI 35.6
== END ==
PROVIDERS: PCP Family Medicine; Visit Provider Nurse Practitioner Acute Care
DX: Z46.89 Encounter for fitting and adjustment of other specified devices (principal)

== ENCOUNTER → 2019-12-26 14:06 | Outpatient (CLI) | payer MEDICAID, SELFPAY ==
[2019-11-30 08:49] VITALS: BMI 35.6
--- NOTE | 2019-12-26 14:07 | RAD_ITS ---
STUDY: X-RAY CHEST REASON FOR EXAM: Female, 39 years old. SOB TECHNIQUE: PA and lateral views of the chest. COMPARISON: 07/05/2017 FINDINGS: The lungs are clear and expanded. There is no demonstrated pleural abnormality. Normal size heart. Normal mediastinum and [place]. Normal visualized pulmonary arteries. Normal visualized aortic arch and descending thoracic aorta. Normal visualized thoracic spine. Normal visualized ribs, clavicles, and shoulders. There is no demonstrated abnormality of the visualized soft tissue structures of the upper abdomen. RAD/Chest PA and Lateral IMPRESSION: Normal x-ray examination of the chest. Electronically Signed: Jered Renae MD at 14:52 EDT , Service support ,
[2019-12-26 17:11] LABS: AST(SGOT) 28 U/L (15-37); Alanine Aminotransfer ALT/SGPT 40 U/L (13-56); Albumin, Serum 3.8 g/dL (3.2-5.0); Alkaline Phosphatase 70 U/L (45-117); Anion Gap 11 (5-15); BUN 16 mg/dL (7-18); BUN/Creat Ratio 20.4 RATIO (10-20); Calcium,Total 8.8 mg/dL (8.5-10.1); Chloride 96 mmol/L (98-107); Cholesterol 225 mg/dL (200); Creatinine, Serum 0.78 mg/dL (0.55-1.02); EST Glomerular Filtration Rate 86 mL/min (>60); Est Glom Filt Rate - Afr Amer 104 mL/min (>60); Globulin 3.7 g/dL (2.2-4.2); Glucose 253 mg/dL (74-106); High Density Lipoprotein 26 mg/dL; Potassium 3.3 mmol/L (3.5-5.1); Protein, Total 7.5 g/dL (6.4-8.2); Sodium Level 135 mmol/L (136-145); Triglycerides 1605 mg/dL
== END ==
PROVIDERS: PCP Family Medicine; Referring Provider Family Medicine; Visit Provider Family Medicine
DX: R06.02 Shortness of breath (principal); E78.00 Pure hypercholesterolemia, unspecified; E11.9 Type 2 diabetes mellitus without complications
CPT/HCPCS: 36415; 71046; 80053; 80061

== ENCOUNTER 2019-12-29 17:04 | Emergency (ER) | payer MEDICAID, SELFPAY ==
[2019-11-30 08:49] VITALS: BMI 35.6
[2019-12-29 17:05] VITALS: BP 150/94; PULSE 118; RESP 18; TEMP 36.6; O2SAT 94; BMI 37.4
[2019-12-29 17:22] VITALS: BP 150/94; PULSE 118; RESP 18; TEMP 36.6; O2SAT 94
--- NOTE | 2019-12-29 17:23 | EKG12_ITS ---
Test Reason : SOB Blood Pressure : / mmHG Vent. Rate : 110 BPM Atrial Rate : 110 BPM P-R Int : 142 ms QRS Dur : 072 ms QT Int : 336 ms P-R-T Axes : 051 012 023 degrees QTc Int : 454 ms Sinus tachycardia Possible Left atrial enlargement Borderline ECG Confirmed by BHARAT SANTILLAN, MANI ([id number]), telegraph editor BANDAR NUNEZ ([id number]) on 01/03/2020 11:12:05 AM Referred By: Armaan Hadley Confirmed By:MANI NICHOLSON MD
--- NOTE | 2019-12-29 17:50 | RAD_ITS ---
STUDY: X-RAY CHEST REASON FOR EXAM: Female, 39 years old. SOB TECHNIQUE: Single AP portable view of the chest. COMPARISON: December 26, 2019 FINDINGS: The lungs are clear and expanded. There is no demonstrated pleural abnormality. Normal size heart. Normal mediastinum and [place]. Normal visualized pulmonary arteries. Normal visualized aortic arch and descending thoracic aorta. Normal visualized thoracic spine. Normal visualized ribs, clavicles, and shoulders. There is no demonstrated abnormality of the visualized soft tissue structures of the upper abdomen. RAD/Chest 1 View (Portable) IMPRESSION: Normal x-ray examination of the chest. Electronically Signed: Gama Barbosa MD at 18:15 EDT , Service support ,
[2019-12-29] MEDS: 0.9% Normal Saline 1,000 ML 150 ML IV (17:53)
[2019-12-29 18:00] LABS: Absolute Neutrophil Count 10.6 X10^3/uL (2.0-7.7); Basophil# 0.05 X10^3/uL; Basophil% 0.4 % (0-1); Eosinophil# 0.14 X10^3/uL; Eosinophils% 1.1 % (0-5); Hematocrit 41.4 % (37-47); Hemoglobin 13.6 g/dL (12.0-15.0); Lymphocyte % 12.8 % (19-41); Mean Corp Hgb Conc 32.9 g/dL (32-36); Mean Corpuscular Hgb 27.8 pg (27.0-32.0); Mean Corpuscular Volume 84.7 fL (81-99); Mean Platelet Vol. 9.5 fl (6.2-12.0); Monocyte# 0.76 X10^3/uL; Monocyte% 5.7 % (0-10); NRBC Flagged by Analyzer 0 % (0-5); Neutrophil # 10.56 X10^3/uL (2.7-7.7); Neutrophil % 79.5 % (47-70); Platelet Count 278 K/mm3 (150-450); RBC Distribution Width CV 12.7 % (11.6-14.6); RBC Distribution Width SD 38.9 fl (35.1-43.9); Red Blood Count 4.89 M/mm3 (4.2-5.4); White Blood Count 13.3 K/mm3 (4.4-11.0)
[2019-12-29 18:15] LABS: ALB/GLOB Ratio 0.9 RATIO (0.9-2.4); AST(SGOT) 26 U/L (15-37); Alanine Aminotransfer ALT/SGPT 44 U/L (13-56); Albumin, Serum 3.7 g/dL (3.2-5.0); Alkaline Phosphatase 71 U/L (45-117); Anion Gap 8 (5-15); BUN 13 mg/dL (7-18); BUN/Creat Ratio 13.8 RATIO (10-20); Calcium,Total 8.8 mg/dL (8.5-10.1); Chloride 103 mmol/L (98-107); Creatinine, Serum 0.94 mg/dL (0.55-1.02); EST Glomerular Filtration Rate 70 mL/min (>60); Est Glom Filt Rate - Afr Amer 84 mL/min (>60); Estimated Creatinine Clearance 68.01 ml/min; Glucose 241 mg/dL (74-106); Potassium 3.7 mmol/L (3.5-5.1); Protein, Total 7.7 g/dL (6.4-8.2); Sodium Level 137 mmol/L (136-145)
[2019-12-29 18:19] VITALS: BP 124/76; PULSE 107; RESP 18; TEMP 36.6; O2SAT 96
[2019-12-29 18:19] LABS: D-Dimer Quantitative (DVT/PE) 0.78 FEU/ug/m (0.27-0.49)
--- NOTE | 2019-12-29 18:29 | CT_ITS ---
STUDY: CTA CHEST REASON FOR EXAM: Female, 39 years old. PE/SOB. Hx of asthma, diabetes and seizures RADIATION DOSAGE (If Supplied By Facility): CTDIvol = ( 11.48 ) mGy, DLP = ( 530.36 ) mGycm TECHNIQUE: The examination was performed with the intravenous administration of Isovue 370 100ml. Post-processing of the angiographic images was performed, with multiplanar reformation and 3D reconstruction. Individualized dose optimization techniques were used for this CT. COMPARISON: None. FINDINGS: There is suboptimal due to poor enhancement of the main pulmonary artery and right and left pulmonary arteries. There is inadequate/poor enhancement of the bilateral peripheral pulmonary arteries. No large embolus is seen in the main pulmonary arteries. The smaller branches cannot be adequately evaluated on this study rendering them nondiagnostic. Normal thoracic aorta and visualized great vessels. There is no demonstrated aortic dissection. Normal heart size and pericardium. Normal mediastinum. Normal hilar regions. Normal visualized trachea and bronchi. The lungs are well expanded. No consolidation or pulmonary edema or pleural effusion is seen. A 4 mm subpleural nodule is present in the anterior superior aspect of the right lower lobe see image #138/247 series #2. This nodule is somewhat flat and slightly increased in density suggesting a developing granuloma or nodular fibrosis and is favored to be benign. No additional nodules are seen. Normal pleura. Normal chest wall structures. There are degenerative changes of thoracic spine. Normal visualized upper abdomen. CT/CTA Chest W/WO Contrast IMPRESSION: 1. There is suboptimal due to poor enhancement of the main pulmonary artery and right and left pulmonary arteries. There is inadequate/poor enhancement of the bilateral peripheral pulmonary arteries. No large embolus is seen in the main pulmonary arteries. The smaller branches cannot be adequately evaluated on this study rendering them nondiagnostic. 2. Consider nuclear medicine perfusion scan for further assessment of pulmonary embolism. 3. No consolidation or pulmonary edema or pleural effusion is seen. 4. A 4 mm subpleural nodule is present in the anterior superior aspect of the right lower lobe see image #138/247 series #2. This nodule is somewhat flat and slightly increased in density suggesting a developing granuloma or nodular fibrosis and is favored to be benign. No additional nodules are seen. A follow-up exam can be obtained in 6 months and if no changes are seen no further imaging of this nodule will be required. Electronically Signed: Gama Barbosa MD at 19:44 EDT , Service support ,
--- NOTE | 2019-12-29 18:55 | ED.DCSUM_ITS ---
- ER Visit Summary Date of Service: 12/29/19 Chief Complaint: Shortness of breath History of Present Illness: The patient is a [address] Sanchez. She reports she has shortness of breath began 2 weeks ago. Its moderate currently and at worst. Is worsened by exertion. Is unchanged by laying flat. She reports that she used her albuterol MDI with no relief. Patient reports that she has minimal cough and this is nonproductive. However, she has had subjective fever and chills. She reports that she has chest pain that began 2 weeks ago. It is a sharp pain is 5-10 at worst and she is pain- free currently. Last seconds at a time. Is increased with breathing. Denies any personal or family history of DVT. No recent travel. No ankle swelling or calf pain. Patient had a COVID-19 test 6 days ago that was negative. 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 Physical Examination: Vitals: Stable. Afebrile. General: Well-nourished and well-developed. Head: Normocephalic atraumatic. Neck: Supple, no lymphadenopathy. No JVD. Nontender. Cardiovascular: Regular rate and rhythm. No murmurs. Respiratory: No respiratory distress. Clear to auscultation bilaterally. Abdominal: Soft, nontender, nondistended, normal bowel sounds. No guarding, rebound, or peritoneal signs. Back: Nontender. Extremities: Nontender, no edema. Skin: Normal color, no rash. Neurologic: Alert and oriented ?3. Cranial nerves II through XII are intact. Normal strength and sensation. Psych: Normal affect. Test Results: EKG is sinus tach at [address] changes. There is no old EKG for comparison. Troponin is negative. D-dimer is elevated at 0.78. LFTs are normal. Chem-7 shows a glucose of 241. CBC shows a white count of 13.3 with 80 segmented neutrophils and 13 lymphocytes. Clinical Impression(s) from Imaging Studies Chest X-Ray 12/29/19 17:50 IMPRESSION: Normal x-ray examination of the chest. Electronically Signed: Gama Barbosa MD at 18:15 EDT , Service support , Chest CTA 12/29/19 18:29 IMPRESSION: 1. There is suboptimal due to poor enhancement of the main pulmonary artery and right and left pulmonary arteries. There is inadequate/poor enhancement of the bilateral peripheral pulmonary arteries. No large embolus is seen in the main pulmonary arteries. The smaller branches cannot be adequately evaluated on this study rendering them nondiagnostic. 2. Consider nuclear medicine perfusion scan for further assessment of pulmonary embolism. 3. No consolidation or pulmonary edema or pleural effusion is seen. 4. A 4 mm subpleural nodule is present in the anterior superior aspect of the right lower lobe see image #138/247 series #2. This nodule is somewhat flat and slightly increased in density suggesting a developing granuloma or nodular fibrosis and is favored to be benign. No additional nodules are seen. A follow-up exam can be obtained in 6 months and if no changes are seen no further imaging of this nodule will be required. Electronically Signed: Gama Barbosa MD at 19:44 EDT , Service support , Emergency Department Course and Treatment: Patient refused pain or nausea medications. She is resting comfortably. Due to an inadequate CTA of the chest I obtained lower extremity Dopplers on the patient. They are negative. Clinically I do not think the patient has a PE. She has a minimally elevated heart rate at 103. She is not hypoxic. She has a normal troponin. Treatment Plan: Patient will be discharged instructions to follow-up with her primary care physician in 3 to 5 days if not improving. I did discuss with her that she may still have coronavirus. She is instructed to quarantine herself. Return to the emergency department for any worsening symptoms. Disposition: To home in improved and stable condition. Impression: 1 1. Dyspnea, uncertain cause. 2. 4 mm right lower lobe nodule. This note was generated with [employer] software. It may contain incorrect words, spelling, and punctuation that were not noted in review of the chart prior to signing ED Disposition - Plan for ED Patient: Instructions: ED Dyspnea Referrals: Armaan Hadley MD [Primary Care Provider] - 3-5 Days if not improving
[2019-12-29 19:00] VITALS: BP 132/81; PULSE 105; RESP 19; TEMP 36.6; O2SAT 98
--- NOTE | 2019-12-29 20:00 | US_ITS ---
STUDY: VENOUS DOPPLER ULTRASOUND - BILATERAL LOWER EXTREMITIES REASON FOR EXAM: Female, 39 years old. SHORTNESS OF BREATH TECHNIQUE: Ultrasound evaluation of the deep vein system to include lowe-scale imaging and compression was performed. Lowe-scale imaging and Doppler sonographic evaluation, including duplex spectral analysis and qualitative color flow sonography, was performed. COMPARISON: None. FINDINGS: RIGHT LEG Common Femoral Vein: Normal compression, spontaneity and augmentation. Normal color Doppler. Common Femoral Vein/Greater Saphenous Junction: Normal compression, spontaneity and augmentation. Normal color Doppler. Deep Femoral Vein: Normal compression, spontaneity and augmentation. Normal color Doppler. Femoral Proximal: Normal compression, spontaneity and augmentation. Normal color Doppler. Femoral Middle: Normal compression, spontaneity and augmentation. Normal color Doppler. Femoral Distal: Normal compression, spontaneity and augmentation. Normal color Doppler. Popliteal Vein: Normal compression, spontaneity and augmentation. Normal color Doppler. Posterior Tibial Vein: Normal compression, spontaneity and augmentation. Normal color Doppler. Peroneal Vein: Normal compression, spontaneity and augmentation. Normal color Doppler. LEFT LEG Common Femoral Vein: Normal compression, spontaneity and augmentation. Normal color Doppler. Common Femoral Vein/Greater Saphenous Junction: Normal compression, spontaneity and augmentation. Normal color Doppler. Deep Femoral Vein: Normal compression, spontaneity and augmentation. Normal color Doppler. Femoral Proximal: Normal compression, spontaneity and augmentation. Normal color Doppler. Femoral Middle: Normal compression, spontaneity and augmentation. Normal color Doppler. Femoral Distal: Normal compression, spontaneity and augmentation. Normal color Doppler. Popliteal Vein: Normal compression, spontaneity and augmentation. Normal color Doppler. Posterior Tibial Vein: Normal compression, spontaneity and augmentation. Normal color Doppler. Peroneal Vein: Normal compression, spontaneity and augmentation. Normal color Doppler. US/Venous Duplex Imag/Nicanor Extrem IMPRESSION: Normal venous Doppler ultrasound of the bilateral lower extremities. Electronically Signed: Gama Barbosa MD at 21:06 EDT , Service support ,
[2019-12-29 21:09] VITALS: BP 129/78; PULSE 98; RESP 16; O2SAT 98
== END 2019-12-29 21:28 | disposition home or self-care (01) ==
LOC: ED 18:56
PROVIDERS: Emergency Provider Emergency Medicine; PCP Family Medicine
DX: R06.00 Dyspnea, unspecified (principal); R91.1 Solitary pulmonary nodule; R07.9 Chest pain, unspecified; R05 Cough; R53.1 Weakness; R11.0 Nausea; E11.9 Type 2 diabetes mellitus without complications; J45.909 Unspecified asthma, uncomplicated; G47.33 Obstructive sleep apnea (adult) (pediatric); E03.9 Hypothyroidism, unspecified; Z82.49 Family history of ischemic heart disease and other diseases of the circulatory system
CPT/HCPCS: 71045; 71275; 80053; 84484; 85025; 85379; 87040; 87633; 87635; 93005; 93970; 94799; 96360; 96361; 99284; G2023; J7030; Q9967; U0003

== ENCOUNTER 2020-01-01 20:51 | Emergency (ER) | payer MEDICAID, SELFPAY ==
[2020-01-01 20:53] VITALS: BP 130/92; PULSE 93; RESP 17; TEMP 36.6; O2SAT 96; BMI 36.9
[2020-01-01 21:05] LABS: Bedside Glucose 157 mg/dL (70-110)
[2020-01-01 21:33] LABS: Absolute Lymphocyte Count 3.02 X10^3/uL (0.83-4.51); Basophil# 0.05 X10^3/uL; Basophil% 0.5 % (0-1); Eosinophil# 0.26 X10^3/uL; Eosinophils% 2.6 % (0-5); Hematocrit 40.7 % (37-47); Hemoglobin 13.3 g/dL (12.0-15.0); Lymphocyte # 3.02 X10^3/ul (4.0); Lymphocyte % 29.6 % (19-41); Mean Corp Hgb Conc 32.7 g/dL (32-36); Mean Corpuscular Hgb 27.7 pg (27.0-32.0); Mean Corpuscular Volume 84.8 fL (81-99); Mean Platelet Vol. 9.4 fl (6.2-12.0); Monocyte% 7.9 % (0-10); NRBC Flagged by Analyzer 0 % (0-5); Neutrophil % 58.8 % (47-70); Platelet Count 306 K/mm3 (150-450); RBC Distribution Width CV 12.7 % (11.6-14.6); RBC Distribution Width SD 38.6 fl (35.1-43.9); White Blood Count 10.2 K/mm3 (4.4-11.0)
--- NOTE | 2020-01-01 21:34 | ED.DCSUM_ITS ---
History of Present Illness Chief Complaint: Hyperglycemia Detail of Chief Complaint: Numerous symptoms and concerns Informant: Patient Onset: Days Context: Sudden Onset Timing: Continuous - Shortness of breath is continuous Quality: Dyspnea at rest Location: Also believes something is wrong and she does not feel right Current Severity: - - Unable to quantitate severity Worsened by: Nothing Relieved by: Nothing Associated Symptoms: Please read HPI Narrative: Patient is a 39-year-old woman with history of diabetes who was seen on the . She had a significant work-up. The CTA of the chest was suboptimal because of poor timing of contrast. There was no central or significant pulmonary embolus that was noted. A peripheral embolus could be missed. She denies fever, chills night sweats. She denies rhinorrhea, congestion or postnasal drainage. She denies change or loss of taste or smell. She denies sore throat. She denies chest pain. She does report shortness of breath. She denies cough. She does report nausea without vomiting diarrhea. She denies dysuria, frequency, urgency or hematuria. She denies polyuria polydipsia. She denies change in vision. She denies history of PE or DVT. There is no history of trauma. There is no rash or skin lesions noted. There is no bruising noted. Prior similar symptoms: Yes Recent Illness/Hospitalization: Yes - Past Medical History (1) Borderline personality disorder Status: Acute (2) Diabetes Status: Acute (3) Endometriosis Status: Acute (4) History of seizure Status: Acute (5) SOB (shortness of breath) Status: Acute (6) Thyroid disease Status: Acute (7) ZHANNA (obstructive sleep apnea) Status: Chronic Past Medical History - Allergies and Home Meds Allergies/Adverse Reactions: Allergies amoxicillin Allergy (Verified 01/01/20 20:51) Hives Penicillins Allergy (Verified 01/01/20 20:51) Hives phenazopyridine [From Pyridium] Adverse Reaction (Verified 01/01/20 20:51) Other sulfamethoxazole [From Bactrim] Adverse Reaction (Verified 01/01/20 20:51) Other trimethoprim [From Bactrim] Adverse Reaction (Verified 01/01/20 20:51) Other SEASONAL Allergy (Uncoded 01/01/20 20:51) Shortness of breath Primary Care Physician: Armaan Hadley MD [Primary Care Provider] - Prior records reviewed: Yes Surgical History: hysterectomy, - - Septoplasty Lives: Alone Smoking Status: Former smoker Alcohol: None Drugs: None Review of Systems General: Reports: Malaise. Denies: Chills, Fever, Subjective, Sweats, Weight loss Eyes: Denies: Visual changes - bilaterally, Blurred Vision - bilaterally, Diplopia ENT: Denies: Bilateral ear pain, Rhinorrhea, Sore throat Cardiovascular: Denies: Chest pain, Palpitations Respiratory: Reports: Dyspnea. Denies: Cough, Sputum, Dyspnea on exertion, Paroxysmal nocturnal dyspnea Gastrointestinal: Reports: Nausea. Denies: Abdominal pain, Vomiting Genitourinary: Denies: Dysuria, Hematuria, Frequency Musculoskeletal: Reports: Back pain - History of chronic back pain. Denies: Myalgias, Arthralgias, Neck pain, Swelling, Extremity Pain Skin: Denies: Rash, Wounds Neurological: Denies: Headache, Weakness, Numbness Psych: Reports: Depression Hematologic: Reports: Easy bruising. Denies: Easy bleeding Allergy: Denies: Uticaria, Swelling of the mouth, Swelling of the tongue Physical Exam Vital Signs/Narrative: Vital Signs Temp Pulse Resp BP Pulse Ox 01/01/20 20:53 97.8 F 93 17 130/92 H 96 Inital Vital Signs reviewed: Yes General: Well nourished, Well developed, Obese, No Acute Distress Head: Normocephalic, Atraumatic Eyes: Perrl, EOMI ENT: Moist mucous membranes, No rhinorrhea Neck: Supple, Nontender Cardiovascular: Regular rate, Regular rhythm, No murmurs, Normal S1, Normal S2 Respiratory: No distress, CTA bilaterally, Chest nontender Abdomen: Soft, Nontender, Nondistended, Normal bowel sounds, No masses Back: Nontender, Normal Inspection. Negative for: CVA tenderness, Spinal tenderness Extremities: Nontender, No edema, - - There is no asymmetry, swelling, discoloration, leg vein distention, palpable cords or tenderness along the distribution of the deep venous system. Skin: Normal color, No rash, No Trauma. Negative for: Cyanosis, Diaphoresis, Jaundice Neurological: Alert, Oriented x3, Cranial nerves II-XII grossly intact, Normal Strength, Normal Sensation Psychological: Depressed Diagnostic/Tx/Re-eval Laboratory Results 06/28/20 06/28/20 06/28/20 21:00 21:10 21:10 WBC 10.2 RBC 4.80 Hgb 13.3 Hct 40.7 MCV 84.8 MCH 27.7 MCHC 32.7 RDW Std Deviation 38.6 RDW Coeff of Sarai 12.7 Plt Count 306 MPV 9.4 Immature Gran % (Auto) 0.600 Neut % (Auto) 58.8 Lymph % (Auto) 29.6 [place] % (Auto) 7.9 Eos % (Auto) 2.6 Baso % (Auto) 0.5 Absolute Neuts (auto) 6.0 Absolute Lymphs (auto) 3.02 Nucleated RBC % 0 Sodium 139 Potassium 3.6 Chloride 105 Carbon Dioxide 26.0 Anion Gap 8 BUN 8 Creatinine 0.64 Estim Creat Clear Calc 99.89 Est GFR (MDRD) Af Amer 131 Est GFR (MDRD) Non-Af 108 BUN/Creatinine Ratio 12.5 Glucose 145 H Calcium 9.4 Urine Color Urine Clarity Urine pH Ur Specific [place] Urine Protein Urine Glucose (UA) Urine Ketones Urine Occult Blood Urine Nitrite Urine Bilirubin Urine Urobilinogen Ur Leukocyte Esterase POC Glucose 157 H 01/01/20 21:20 WBC RBC Hgb Hct MCV MCH MCHC RDW Std Deviation RDW Coeff of Sarai Plt Count MPV Immature Gran % (Auto) Neut % (Auto) Lymph % (Auto) [place] % (Auto) Eos % (Auto) Baso % (Auto) Absolute Neuts (auto) Absolute Lymphs (auto) Nucleated RBC % Sodium Potassium Chloride Carbon Dioxide Anion Gap BUN Creatinine Estim Creat Clear Calc Est GFR (MDRD) Af Amer Est GFR (MDRD) Non-Af BUN/Creatinine Ratio Glucose Calcium Urine Color Yellow Urine Clarity Clear Urine pH 6.0 Ur Specific [place] 1.015 Urine Protein 100 H Urine Glucose (UA) Normal Urine Ketones Negative Urine Occult Blood Negative Urine Nitrite Negative Urine Bilirubin Negative Urine Urobilinogen 1 H Ur Leukocyte Esterase 25 H POC Glucose Patient's laboratory work-up is unremarkable. She will be discharged to home. - Medical Decision Making Records from December 28 were read. Laboratory values were reviewed. Blood sugar is 157. Since patient had a CAT scan with no evidence of pneumothorax, effusion or any significant pathology a chest x-ray was not obtained today. Since she reported high blood sugar today a BMP was obtained. She also reports history of hypokalemia. She is concerned she may have a urinary tract infection and reason for UA. ED Disposition - Plan for ED Patient: Disposition: Home or Assisted Living Diagnosis: Dyspnea, Hyperglycemia due to type 2 diabetes mellitus Instructions: ED Dyspnea Referrals: Armaan Hadley MD [Primary Care Provider] - 1 Week if not improving
[2020-01-01 21:41] LABS: Color, Urine Yellow (Yellow); Glucose, Dipstick Normal (Normal); Ketone-Dipstick Negative (Negative); Leukocyte Esterase-Dipstick 25 /ul (Negative); Nitrite-Dipstick Negative (Negative); Occult Blood-Urine Negative /ul (Negative); Protein-Dipstick 100 mg/dl (Negative); Specific Gravity, Urine 1.015 (1.002-1.030); Urine Bilirubin Dipstick Negative (Negative); Urine Clarity Clear (Clear); Urine Urobilinogen 1 mg/dl (Normal)
[2020-01-01 21:52] LABS: Anion Gap 8 (5-15); BUN 8 mg/dL (7-18); BUN/Creat Ratio 12.5 RATIO (10-20); Calcium,Total 9.4 mg/dL (8.5-10.1); Chloride 105 mmol/L (98-107); Creatinine, Serum 0.64 mg/dL (0.55-1.02); EST Glomerular Filtration Rate 108 mL/min (>60); Est Glom Filt Rate - Afr Amer 131 mL/min (>60); Estimated Creatinine Clearance 99.89 ml/min; Glucose 145 mg/dL (74-106); Potassium 3.6 mmol/L (3.5-5.1); Sodium Level 139 mmol/L (136-145)
--- NOTE | 2020-01-01 22:05 | ED.RN ---
PT ASKED FOR HS OF LABS/TEST RESULTS. SHE WAS PROVIDED WITH INFORMATION ON [facility].
== END 2020-01-01 22:06 | disposition home or self-care (01) ==
PROVIDERS: Emergency Provider Emergency Medicine; PCP Family Medicine
DX: R06.00 Dyspnea, unspecified (principal); E11.65 Type 2 diabetes mellitus with hyperglycemia; E07.9 Disorder of thyroid, unspecified; F60.3 Borderline personality disorder; G47.33 Obstructive sleep apnea (adult) (pediatric); Z87.891 Personal history of nicotine dependence; Z88.0 Allergy status to penicillin; Z88.1 Allergy status to other antibiotic agents; Z88.2 Allergy status to sulfonamides; Z90.710 Acquired absence of both cervix and uterus
CPT/HCPCS: 80048; 81002; 82962; 85025; 99284; A4216

== ENCOUNTER → 2020-01-02 16:57 | Outpatient (CLI) | payer MEDICAID, SELFPAY ==
[2020-01-01 20:53] VITALS: BMI 36.9
[2020-01-04 16:08] LABS: Endomysial Antibody IgA Negative (Negative)
[2020-01-07 17:45] LABS: Immunoglobulin A 106 mg/dL (87-352); t-Transglutaminase IgA <2 U/mL (0-3)
== END ==
PROVIDERS: PCP Family Medicine; Referring Provider Family Medicine; Visit Provider Family Medicine
DX: K90.0 Celiac disease (principal)
CPT/HCPCS: 36415; 82784; 83516; 86255

== ENCOUNTER → 2020-01-05 10:13 | Outpatient (CLI) | payer MEDICAID, SELFPAY ==
[2020-01-01 20:53] VITALS: BMI 36.9
--- NOTE | 2020-01-05 10:19 | NM_ITS ---
CLINICAL: 39-year-old diabetic female with reported history of abdominal pain. SEMI-SOLID PHASE 99m Tc SULFUR COLLOID GASTRIC EMPTYING STUDY COMPARISON: None available FINDINGS: The patient was administered 1.1 mCi of 99m Tc sulfur colloid mixed with oatmeal and consumed per os. Image acquisitions in the anterior-posterior projections for a total of 60 minutes. There is prompt visualization of the stomach. There is no gastroesophageal reflux identified. First order kinetics are maintained throughout the duration of the acquisitions. The T1/2 linear fit was calculated to be 78.87 minutes, (Normal: 12-56 minutes). NM/Gastric Emptying Study IMPRESSION: 1. ABNORMAL 99m Tc sulfur colloid semi-solid phase (oatmeal) gastric emptying imaging examination. A. There is delayed semi-solid phase gastric emptying compared to normal controls with maintained first order kinetics throughout all components of the examination. (Alonso et al, J Nucl Med Tech 38: 186, 2010). Electronically Signed: Wali Fan DO at 22:54 EDT Tel , Service support ,
== END ==
PROVIDERS: PCP Family Medicine; Referring Provider Family Medicine; Visit Provider Family Medicine
DX: R68.81 Early satiety (principal)
CPT/HCPCS: 78264; A9541

== ENCOUNTER 2020-02-01 14:59 | Outpatient (RCR) | payer MEDICAID, SELFPAY ==
[2020-01-25 08:35] VITALS: BMI 36.8
== END 2020-02-03 23:59 ==
LOC: NS 14:59
PROVIDERS: PCP Family Medicine; Visit Provider Family Medicine
DX: E11.9 Type 2 diabetes mellitus without complications (principal); K31.84 Gastroparesis
CPT/HCPCS: G0108

== ENCOUNTER 2020-02-07 13:00 | Outpatient (RCR) | payer MEDICAID, SELFPAY ==
[2020-01-25 08:35] VITALS: BMI 36.8
== END 2020-02-07 23:59 | disposition home or self-care (01) ==
LOC: DC 13:00
PROVIDERS: PCP Family Medicine; Visit Provider Family Medicine
DX: Z71.3 Dietary counseling and surveillance (principal); E11.9 Type 2 diabetes mellitus without complications; K31.84 Gastroparesis
CPT/HCPCS: 97802

== ENCOUNTER → 2020-02-29 06:57 | Outpatient (CLI) | payer MEDICAID, SELFPAY ==
[2020-01-25 08:35] VITALS: BMI 36.8
--- NOTE | 2020-03-02 10:10 | BRONCHALL ---
Bronchoprovocation Challenge - Bronchoprovocation Challenge Bronchoprovocation Challenge: INTRODUCTION: The patient is a 39-year-old female that presents for a bronchoprovocation challenge secondary to a diagnosis of asthma. Respiratory therapy reported good patient effort and reproducible results. INTERPRETATION: Initial spirometry did not show any large airways obstructive ventilatory defect and preserved airflows throughout. The patient was then given progressively increasing doses of methacholine in a standardized fashion. At no point during testing did the patient's FEV1 drop by 20% to be considered a positive test. IMPRESSION: Negative methacholine challenge.
== END ==
PROVIDERS: PCP Family Medicine; Referring Provider Internal Medicine Critical Care Medicine; Visit Provider Internal Medicine Critical Care Medicine
DX: J45.909 Unspecified asthma, uncomplicated (principal)
CPT/HCPCS: 94070; 95070; J3490; J7674

== ENCOUNTER → 2020-03-15 10:28 | Outpatient (CLI) | payer MEDICAID, SELFPAY ==
[2020-03-08 11:40] VITALS: BMI 36.7
[2020-03-15 13:21] LABS: ALB/GLOB Ratio 1.1 RATIO (0.9-2.4); AST(SGOT) 18 U/L (15-37); Alanine Aminotransfer ALT/SGPT 26 U/L (13-56); Alkaline Phosphatase 67 U/L (45-117); Anion Gap 9 (5-15); BUN 12 mg/dL (7-18); Calcium,Total 8.9 mg/dL (8.5-10.1); Chloride 107 mmol/L (98-107); Cholesterol 156 mg/dL (200); Creatinine, Serum 0.67 mg/dL (0.55-1.02); EST Glomerular Filtration Rate 104 mL/min (>60); Est Glom Filt Rate - Afr Amer 125 mL/min (>60); Globulin 3.6 g/dL (2.2-4.2); Glucose 123 mg/dL (74-106); High Density Lipoprotein 30 mg/dL; Potassium 3.8 mmol/L (3.5-5.1); Protein, Total 7.6 g/dL (6.4-8.2); Sodium Level 139 mmol/L (136-145); T4 Free Direct 1.13 ng/dL (0.76-1.46); Thyroid Stim Hormone (TSH) 1.52 uIU/mL (0.358-3.74); Triglycerides 241 mg/dL; Very Low Density Lipoprotein 48 mg/dL (5-40)
[2020-03-15 13:35] LABS: Microalbumin,Random Urine 16.5 mg/L (NO RANGE EST.); Microalbumin:Creatinine Ratio 12.8 mg/g CRE (<30 mg/g CRE)
== END ==
PROVIDERS: PCP Family Medicine; Referring Provider Family Medicine; Visit Provider Family Medicine
DX: E11.9 Type 2 diabetes mellitus without complications (principal); E03.9 Hypothyroidism, unspecified; E78.00 Pure hypercholesterolemia, unspecified
CPT/HCPCS: 36415; 80053; 80061; 82043; 82570; 83036; 84439; 84443

== ENCOUNTER 2020-04-23 07:57 | Day surgery (SDC) | payer MEDICAID, SELFPAY ==
[2020-01-25 08:35] VITALS: BMI 36.8
[2020-04-04 09:50] VITALS: BMI 36.7
--- NOTE | 2020-04-23 08:10 | EKG12_ITS ---
Test Reason : PREOP Blood Pressure : / mmHG Vent. Rate : 076 BPM Atrial Rate : 076 BPM P-R Int : 156 ms QRS Dur : 080 ms QT Int : 386 ms P-R-T Axes : 024 008 010 degrees QTc Int : 434 ms Normal sinus rhythm Nonspecific T wave abnormality Abnormal ECG When compared with ECG of 29-DEC-2019 17:30, No significant change was found Confirmed by CHARLEEN SANTILLAN, ANGEL ([id number]), news copy editor BANDAR NUNEZ ([id number]) on 04/25/2020 1:09:37 P M Referred By: Miguel Yao Confirmed By:EMILY VILLASEÑOR MD
[2020-04-23 08:24] VITALS: BP 114/71; PULSE 73; RESP 16; TEMP 36.7; O2SAT 96; BMI 35.9
[2020-04-23] MEDS: Lactated Ringers 1,000 ML 100 ML IV (08:35)
[2020-04-23 08:45] LABS: Anion Gap 10 (5-15); BUN 11 mg/dL (7-18); BUN/Creat Ratio 15.9 RATIO (10-20); Calcium,Total 8.7 mg/dL (8.5-10.1); Chloride 103 mmol/L (98-107); Creatinine, Serum 0.69 mg/dL (0.55-1.02); EST Glomerular Filtration Rate 99 mL/min (>60); Est Glom Filt Rate - Afr Amer 120 mL/min (>60); Estimated Creatinine Clearance 92.65 ml/min; Glucose 135 mg/dL (74-106); Potassium 3.9 mmol/L (3.5-5.1); Sodium Level 139 mmol/L (136-145)
--- NOTE | 2020-04-23 09:03 | DCINST_ITS ---
You will use the following diet at home:: Regular Discharge Activity: No Restrictions, - - No nose blowing for a week. Use saline if needed. Allergies/Adverse Reactions: Allergies amoxicillin Allergy (Verified 04/23/20 08:16) Hives Penicillins Allergy (Verified 04/23/20 08:16) Hives phenazopyridine [From Pyridium] Adverse Reaction (Verified 04/23/20 08:16) Other sulfamethoxazole [From Bactrim] Adverse Reaction (Verified 04/23/20 08:16) Other trimethoprim [From Bactrim] Adverse Reaction (Verified 04/23/20 08:16) Other SEASONAL Allergy (Uncoded 04/23/20 08:16) Shortness of breath Medications to take at Discharge Alprazolam [Xanax] 0.5 mg PO DAILY PRN PRN 12/29/19 Atorvastatin Calcium [Lipitor] 20 mg PO QHS 12/29/19 Beet Root 2 tab PO DAILY 12/29/19 Cetirizine HCl 10 mg PO DAILY 12/29/19 Lactobacillus Acidophilus [Probiotic Acidophilus] 1 ea PO DAILY 12/29/19 Levothyroxine Sodium [Synthroid] 100 mcg PO [id number] 12/29/19 Levothyroxine Sodium [Synthroid] 150 mcg PO WAGNER 12/29/19 Lisinopril 2.5 mg PO QHS 12/29/19 Metformin HCl [Metformin HCl ER] 500 mg PO BID 12/29/19 Methylphenidate HCl 5 mg PO BID 12/29/19 Milk Thistle 500 mg PO BID 12/29/19 Multivit with Calcium,Iron,Min [Multiple Vitamins For Women] 1 tab PO DAILY 12/29/19 Oregano Oil [Oil of Oregano] 1,500 mg PO DAILY 12/29/19 paroxetine HCl 20 mg tablet 70 mg PO DAILY tab 04/04/20 Albuterol Inhaler [Ventolin Hfa (SP)] 2 puff INHALATION Q6H PRN PRN 04/12/20 Primary Care Physician: Armaan Hadley MD [Primary Care Provider] - Test Results: Test results from this visit will be discussed in further detail at your follow- up appointment, if applicable.
[2020-04-23 09:51] LABS: Bedside Glucose 140 mg/dL (70-110)
--- NOTE | 2020-04-23 09:51 | OP.PCM_ITS ---
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 She was placed in supine position on the operating table. She was given local MAC anesthesia. The nose was prepped and draped sterilely. 1% lidocaine with epinephrine was injected into the intended injection site as well as along the left lateral sidewall of the nose bilaterally. The Latera implant was aligned above the right external valve and marked. The Latera needle was inserted toward the septum and lateral to the lower lateral cartilage using a ball tipped probe for eversion. Next, the needle was placed in the supraperichondrial plane until it was driven to its intended location. The implant was deployed and held externally while the needle was removed. The Latera needle was inserted toward the septum and lateral to the lower lateral cartilage using a ball tipped probe for eversion on the left hand side. Next, the needle was placed in the supraperichondrial plane until it was driven to its intended location. The implant was deployed and held externally while the needle was removed. Visual inspection and palpation reveal perfect position of the implant bilaterally. Hemostasis was ensured. The procedure was terminated. She was removed from the OR in stable condition. Blood loss minimal, replacement none. Sponge, needle and instrument count were correct at the end of the procedure.
[2020-04-23 10:12] VITALS: BP 110/70; BP 114/71; PULSE 71; RESP 18; TEMP 36.7; O2SAT 92
[2020-04-23 11:16] VITALS: BP 114/71
== END 2020-04-23 11:17 | disposition home or self-care (01) ==
LOC: SDC 07:57 → AC 07:58
PROVIDERS: Anesthesiology; PCP Family Medicine; Referring Provider Otolaryngology; Visit Provider Otolaryngology
PROC: (CPT 30520; principal; 2020-04-23 09:20)
DX: M95.0 Acquired deformity of nose (principal); R09.81 Nasal congestion; E78.00 Pure hypercholesterolemia, unspecified; E03.9 Hypothyroidism, unspecified; Z79.899 Other long term (current) drug therapy; Z87.891 Personal history of nicotine dependence; Z20.828 Contact with and (suspected) exposure to other viral communicable diseases
CPT/HCPCS: 30999; 36415; 80048; 82962; 87635; 93005; C9803; J7120; U0003

== ENCOUNTER 2020-04-25 08:41 | Day surgery (SDC) | payer MEDICAID, SELFPAY ==
[2020-04-04 09:50] VITALS: BMI 36.7
[2020-04-25] VITALS (7 sets, daily range): BP systolic 82–127; BP diastolic 56–82; PULSE 60–84; RESP 16–18; TEMP 36.1–36.6; O2SAT 95–97; BMI 35.9
--- NOTE | 2020-04-25 08:03 | HP_ITS ---
Intake Vital Signs 04/04/20 BMI 36.7 04/04/20 Height 5 ft 4 in 04/04/20 Weight: 210 lb 04/04/20 BP 136/85 H 04/04/20 Blood Pressure Location Rt brachial 04/04/20 Position Sitting 04/04/20 Respiration 16 04/04/20 Pulse 70 04/04/20 Pulse Source Monitor 04/04/20 Temp 97.7 F L 04/04/20 Temp Source Temporal 04/04/20 Pulse Oximetry (%) 97 04/04/20 Oxygen Delivery Method room air Intake Visit Reasons: Upper/Lower Scope Chief Complaint: discuss Upper/ Lower scope Assistant County Engineer Required: No Is patient in pain?: Yes (Epigastric/ RUQ pain) Pain scale (1-10): 3 Allergies amoxicillin Allergy (Verified 04/04/20 09:39) Hives Penicillins Allergy (Verified 04/04/20 09:39) Hives phenazopyridine [From Pyridium] Adverse Reaction (Verified 04/04/20 09:39) Other sulfamethoxazole [From Bactrim] Adverse Reaction (Verified 04/04/20 09:39) Other trimethoprim [From Bactrim] Adverse Reaction (Verified 04/04/20 09:39) Other SEASONAL Allergy (Uncoded 04/04/20 09:39) Shortness of breath Medications Alprazolam [Xanax] 0.5 mg PO DAILY PRN PRN 12/29/19 [History Confirmed 04/04/20] Atorvastatin Calcium [Lipitor] 20 mg PO QHS 12/29/19 [History Confirmed 04/04/20] Beet Root 2 tab PO DAILY 12/29/19 [History Confirmed 04/04/20] Cetirizine HCl 10 mg PO DAILY 12/29/19 [History Confirmed 04/04/20] Lactobacillus Acidophilus [Probiotic Acidophilus] 1 ea PO DAILY 12/29/19 [History Confirmed 04/04/20] Levothyroxine Sodium [Synthroid] 100 mcg PO MOTUWETHFRSA 12/29/19 [History Confirmed 04/04/20] Levothyroxine Sodium [Synthroid] 150 mcg PO WAGNER 12/29/19 [History Confirmed 04/04/20] Lisinopril 2.5 mg PO QHS 12/29/19 [History Confirmed 04/04/20] Metformin HCl [Metformin HCl ER] 500 mg PO BID 12/29/19 [History Confirmed 04/04/20] Methylphenidate HCl 5 mg PO BID 12/29/19 [History Confirmed 04/04/20] Milk Thistle 500 mg PO BID 12/29/19 [History Confirmed 04/04/20] Multivit with Calcium,Iron,Min [Multiple Vitamins For Women] 1 tab PO DAILY 12/29/19 [History Confirmed 04/04/20] Oregano Oil [Oil of Oregano] 1,500 mg PO DAILY 12/29/19 [History Confirmed 04/04/20] albuterol sulfate 2.5 mg INHALATION Q4H PRN #180 ml 03/15/20 [Rx Confirmed 04/04/20] albuterol sulfate 90 mcg/actuation aerosol inhaler 2 puff INHALATION Q6H PRN #18 g 03/15/20 [Rx Confirmed 04/04/20] paroxetine HCl 20 mg tablet 70 mg PO DAILY tab 04/04/20 [History Confirmed 04/04/20] PFSH Medical History Hx of pancreatitis (Acute) Acid reflux (Acute) Constipation (Acute) Nausea (Acute) Abdominal pain (Acute) RUQ abdominal pain (Acute) Epigastric abdominal pain (Acute) Sleep apnea (Acute) Arthritis (Acute) Fatigue (Acute) Depression (Acute) Anxiety (Acute) Borderline personality disorder (Acute) Endometriosis (Acute) SOB (shortness of breath) (Acute) Diabetes (Acute) Knee pain (Acute) Thyroid disease (Acute) Abnormal bruising (Acute) Back pain (Acute) Shoulder pain (Acute) Severe headache (Acute) Chest pain (Acute) Asthma (Acute) History of seizure (Acute) UNEXPLAINED BRUISES (Acute) Difficulty balancing (Acute) NECK AND BACK PAIN (Acute) Blood in stool (Inactive) Surgical History History of esophagogastroduodenoscopy (EGD) (Acute) Hx of colonoscopy (Acute) Hx of removal of cyst (Acute) History of hysterectomy (Resolved) History of nasal septoplasty (Resolved) History of tonsillectomy (Resolved) Family History Father Diabetes Hypertension Mother Uterine cancer Other Heart disease Social History (Updated 04/04/20 @ 10:[address] Hiren Garcia MD) Smoking Status: Former smoker alcohol intake: current alcohol intake frequency: holidays/special occasions only substance use type: does not use caffeine: Yes what type of physical activity do you participate in: none frequency: does not exercise HPI HPI Surgical H&P: Yes HPI: HERMILO GONZALEZ, is a 39 F who presents to the office today for Evaluation for abdominal pain and painless rectal bleeding. Patient states that she has been having some abdominal discomfort a lot of it is in the right upper quadrant some of it goes into her back. But she also is complaining of some lower abdominal discomfort as well. She has had one episode of bright red rectal bleeding which was painless. She has been trying to take higher fiber foods. She has had a gastric emptying study which showed a decrease in her emptying into the duodenum but she however is unable to take erythromycin secondary to an allergy. She states that her weight is been stable she has been having normal stools. She also states that her abdominal pain is worse when she is hungry and that food sometimes improves this. In looking into her past history in 2012 she was scheduled to undergo a laparoscopic cholecystectomy for both cholelithiasis and a reduction in her ejection fraction. She underwent a HIDA scan and at that time it was reported that her pain was evoked during the study. She subsequently canceled her surgery. She is unable to give me much details on exactly what was going on during this time. ROS General General: Yes weight change and fatigue; no appetite, colon cancer or breast cancer HEENT HEENT: Yes swollen glands; no difficulty swallowing, eye injury, eye surgery or hoarseness Endo Endocrine: Yes thyroid disease and diabetes mellitus; no thyroid cancer, Hair loss, heat intolerance or cold intolerance Skin Skin: Yes rash; no changing moles Musc Musculoskeletal: Yes back problems and arthritis; no rheumatoid arthritis, gout or joint pain Cardio Cardiovascular: No murmur, pacemaker, heart disease, atrial fibrillation, high blood pressure, heart attack, heart stent, palpitations, shortness of breat with exertion or chest pain Psych Psychiatric: Yes depression and anxiety; no hearing voices Resp Respiratory: Yes shortness of breath, Yes sleep apnea, No cough, No COPD, Yes asthma, No emphysema, No wheezing Gastro Gastrointestinal: Yes abdominal pain, Yes nausea or vomiting, No diarrhea, Yes constipation, Yes blood in stool, Yes acid reflux, No hemorrhoids, No ulcers, Yes gallbladder problem, No black,tarry stools Brian Hematologic: No blood thinners, No blood disorders, No bleeding, No anemia, No blood clots Neuro Neurologic: Yes numbness, Yes tingling Exam Const General: no acute distress, well developed, well hydrated Orientation: oriented to person, oriented to place, oriented to time [facility] Head: normocephalic, atraumatic Ears: external ears normal Mouth: moist mucous membranes Eyes Sclera: sclerae normal Pupils: normal by confrontation Neck Neck: no lymphadenopathy noted Neck mass: No Thyroid: thyroid normal, symmetrical Chest Chest palpation & inspection: normal inspection of the chest Resp Effort & Inspection: normal respiratory effort Auscultation: clear to auscultation bilaterally Percussion: percussion normal Cardio Rate: regular rate Rhythm: regular rhythm Heart Sounds: no murmurs GI Palpation: soft, no hepatosplenomegaly, no masses, tender Auscultation: normal bowel sounds Rectal Exam: other Other: Rectal exam deferred. Extrem General: normal to inspection, no clubbing, cyanosis or edema Assessment & Plan Problems 1. Abdominal pain, RUQ R10.11 2. Epigastric abdominal pain R10.13 3. Rectal hemorrhage K62.5 Plan I have discussed the above with the patient. I have offered the patient colonoscopy As well as an EGD for evaluation. I have explained the risks/benefits of the procedure and described the procedure. I have discussed the risks with the patient, including but not limited to: infection, bleeding, perforation of the GI tract requiring emergency surgery, inability to complete the procedure, injury to any internal organs, complications of anesthesia, etc. - the patient understands and agrees to proceed. I have answered all the patient's questions to the patient's satisfaction and the patient has no further questions. The patient has been given instructions for the colon cleansing preparation. We will be doing random colon biopsies. If the above tests are negative then I think we can have to reevaluate her gallbladder. Coding Level of Care Code Off vis,new,level 3 Diagnoses Abdominal pain, RUQ R10.11 Epigastric abdominal pain R10.13 Rectal hemorrhage K62.5 COVID (Procedure Consent) Procedure Criteria Procedure Criteria: Yes Elective The surgeon/proceduralist and patient have discussed in detail the risk of exposure to and/or potential harm posed by the COVID-19 virus with having a surgery/procedure at this time versus the risk of? delaying the surgery/procedure. It is not possible to know either the risk of delaying the surgery or procedure or chance of getting an infection with perfect accuracy, but a joint decision was made between the patient and the surgeon/proceduralist ?to proceed at this time with the scheduled surgery/procedure as indicated on the consent form. I have re-examined the patient. There are no clinical changes since date of exam.
[2020-04-25] MEDS: Lactated Ringers 1,000 ML 100 ML IV (09:09)
--- NOTE | 2020-04-25 09:45 | EGD_PTH ---
PATIENT: HERMILO GONZALEZ LOC: EN U#:[id number] AGE/SX: 39/F ROOM: RE04/25/[address]: Dr. Hiren Garcia MD : 1980 BED: DIS: 04/25/2020 SPEC #: [id number] RECD: 04/25/20 11:51 STATUS: MATHEW ALAN #: [id number] INES: 04/25/20 09:[address]: Hiren Garcia DEPT: SURGICAL PATHOLOGY RECD BY: Yesi Delacruz ENTERED: 04/25/20 13:42 SP TYPE: EGD BIOPSY BUZZ DR: Dr. Armaan Hadley MD Tissues: A - Duodenum, NOS B - Gastric mucous membrane C - COLON BIOPSY Procedures: Surgery Specimen Level IV HEADER OPERATION: Colonoscopy, EGD ([facility]) PRE-OP DIAGNOSIS: Abdominal pain, epigastric abdominal pain, rectal hemorrhage TISSUE SUBMITTED: A - Duodenal biopsy, rule out celiac, B - Antrum biopsy for histo and H. pylori, C - Random colonic biopsy MICROSCOPIC DIAGNOSIS A. Duodenal biopsy: Fragments of small intestinal mucosa, no pathologic diagnosis. B. Antrum biopsy: Mild gastritis. See microscopic description and comment. C. Colon, random biopsy: Fragments of colonic mucosa, no pathologic diagnosis. SJ:rg 04/26/20 COMMENT B. The results of immunohistochemistry for Helicobacter pylori will be reported separately ([id number]). MICROSCOPIC DESCRIPTION Slides are reviewed. B. The specimen shows fragments of gastric mucosa with chronic inflammatory cell infiltrates in the lamina propria consisting of lymphocytes and plasma cells, consistent with mild chronic gastritis. GROSS DESCRIPTION A - Received in fixative is one container labeled with the patient's name and designated duodenal biopsy. The specimen consists of two irregular fragments of light joshi soft tissue that in aggregate measure 0.4 x 0.2 x 0.1 cm. The specimen is totally submitted in one cassette. B - Received in fixative is one container labeled with the patient's name and designated antrum biopsy. The specimen consists of one irregular fragment of light joshi soft tissue that measures 0.7 x 0.2 x 0.1 cm. The specimen is totally submitted in one cassette. C - Received in fixative is one container labeled with the patient's name and designated random colonic biopsy. The specimen consists of multiple irregular fragments of light joshi soft tissue that in aggregate measure 2 x 0.8 x 0.1 cm. The specimen is totally submitted in one cassette. / SJ:rg 04/25/20 TC:3 CPT: 15028 x3
--- NOTE | 2020-04-25 09:45 | IMM_PTH ---
PATIENT: HERMILO GONZALEZ LOC: EN U#:[id number] AGE/SX: 39/F ROOM: RE04/25/[address]: Dr. Hiren Garcia MD : 1980 BED: DIS: 04/25/2020 SPEC #: [id number] RECD: 04/25/20 15:27 STATUS: MATHEW RENaif #: [id number] INES: 04/25/20 09:[address]: Hiren Garcia DEPT: IMMUNOHISTOCHEMISTRY RECD BY: Rika Daley ENTERED: 04/25/20 15:28 SP TYPE: IMMUNO OTHR DR: Dr. Armaan Hadley MD Tissues: B - Stomach, NOS Procedures: H Pylori (initial) PHYSICIAN & INSTITUTION [place] [id number] SPECIMEN INFORMATION: Tissue Source: B - Antrum biopsy Clinical Info: Abdominal pain RUQ, epigastric abdominal pain, rectal hemorrhage Specimen Number: [id number] CPT code: 63820 METHODOLOGY: Deparaffinized sections of prefer/formalin-fixed tissue or PAP/DQ stained slides are incubated with monoclonal/polyclonal antibodies/oligonucleotide probes. Localization is made via biotin free immunoperoxidase method. Appropriate controls are performed and reacted as expected. Results on target cell population are indicated in the following table: RESULTS: ANTIBODY / CLONE RESULT Block B H Pylori (polyclonal) negative These tests were developed and their performance characteristics determined by [facility]. They may not have been cleared or approved by the U.S. Food and Drug Administration. The FDA has determined that such clearance or approval is not necessary. INTERPRETATION: B. Antrum biopsy: Negative for Helicobacter pylori organisms. SJ:irena 04/26/20
[2020-04-25 10:01] LABS: Bedside Glucose 143 mg/dL (70-110)
--- NOTE | 2020-04-25 10:04 | OP.CCLET_ITS ---
04/25/2020 Armaan Hadley [address] [place] [address] Re : Upper GI endoscopy procedure for Mary Beth Hollinsfield Dear Dr. Hadley This procedure was performed on Saturday, April 25, 2020. My impressions and recommendations are as follows: Impressions : - Normal esophagus. - Erythematous mucosa in the prepyloric region of the stomach. Biopsied. - Normal examined duodenum. Biopsied. Recommendations : - Await pathology results. - Repeat upper endoscopy (date not yet determined) for surveillance. - Return to my office in 1 week. - Continue present medications. My findings are described in the full procedure note, which is enclosed. If I can be of further assistance, please feel free to contact me at Doctor phone number(s): , Fax: [phone], Work: . Sincerely, MD Hiren Garcia MD 04/25/2020 10:03:48 AM This report has been signed electronically.
--- NOTE | 2020-04-25 10:04 | OP.EGD_ITS ---
Patient Name: Mary Beth Yanes Procedure Date: 04/25/2020 9:32 AM Date of : 1980 Age: 39 Procedure: Upper GI endoscopy Indications: Epigastric abdominal pain, Abdominal pain in the right upper quadrant, Hematochezia Providers: Hiren Garcia MD Referring MD: Armaan Hadley Medicines: See the Anesthesia note for documentation of the administered medications Patient Profile: This is a 39 year old female. Refer to note in patient chart for documentation of history and physical. Complications: No immediate complications. Procedure: Pre-Anesthesia Assessment: - Prior to the procedure, a History and Physical was performed, and patient medications and allergies were reviewed. The patient's tolerance of previous anesthesia was also reviewed. The risks and benefits of the procedure and the sedation options and risks were discussed with the patient. All questions were answered, and informed consent was obtained. Prior Anticoagulants: The patient has taken no previous anticoagulant or antiplatelet agents. ASA Grade Assessment: II - A patient with mild systemic disease. After reviewing the risks and benefits, the patient was deemed in satisfactory condition to undergo the procedure. After obtaining informed consent, the endoscope was passed under direct vision. Throughout the procedure, the patient's blood pressure, pulse, and oxygen saturations were monitored continuously. The Endoscope was introduced through the mouth, and advanced to the second part of duodenum. The upper GI endoscopy was accomplished without difficulty. The patient tolerated the procedure well. Scope In: 9:41:48 AM Scope Out: 9:45:09 AM Total Procedure Duration Time 0 hours 3 minutes 21 seconds Findings: The examined esophagus was normal. Localized mildly erythematous mucosa without bleeding was found in the prepyloric region of the stomach. Biopsies were taken with a cold forceps for Helicobacter pylori testing. The examined duodenum was normal. Biopsies for histology were taken with a cold forceps for evaluation of celiac disease. Impression: - Normal esophagus. - Erythematous mucosa in the prepyloric region of the stomach. Biopsied. - Normal examined duodenum. Biopsied. Recommendation: - Await pathology results. - Repeat upper endoscopy (date not yet determined) for surveillance. - Return to my office in 1 week. - Continue present medications. Procedure Code(s): --- Professional --- 11322, Esophagogastroduodenoscopy, flexible, transoral; with biopsy, single or multiple Diagnosis Code(s): --- Professional --- K31.89, Other diseases of stomach and duodenum R10.13, Epigastric pain R10.11, Right upper quadrant pain K92.1, Melena (includes Hematochezia) CPT copyright 2017 [employer]. All rights reserved. The codes documented in this report are preliminary and upon on site coordinator review may be revised to meet current compliance requirements. MD Hiren Garcia MD 04/25/2020 10:03:48 AM This report has been signed electronically. Number of Addenda: 0 Note Initiated On: 04/25/2020 9:32 AM
--- NOTE | 2020-04-25 10:06 | OP.COLON_ITS ---
Patient Name: Mary Beth Yanes Procedure Date: 04/25/2020 9:45 AM Date of : 1980 Age: 39 Procedure: Colonoscopy Indications: Epigastric abdominal pain, Abdominal pain in the right upper quadrant, Rectal bleeding Providers: Hiren Garcia MD Referring MD: Armaan Hadley Medicines: See the Anesthesia note for documentation of the administered medications Patient Profile: This is a 39 year old female. Refer to note in patient chart for documentation of history and physical. Last Colonoscopy: none. The patient's first colonoscopy is today. Complications: No immediate complications. Procedure: Pre-Anesthesia Assessment: - Prior to the procedure, a History and Physical was performed, and patient medications and allergies were reviewed. The patient's tolerance of previous anesthesia was also reviewed. The risks and benefits of the procedure and the sedation options and risks were discussed with the patient. All questions were answered, and informed consent was obtained. Prior Anticoagulants: The patient has taken no previous anticoagulant or antiplatelet agents. ASA Grade Assessment: II - A patient with mild systemic disease. After reviewing the risks and benefits, the patient was deemed in satisfactory condition to undergo the procedure. After I obtained informed consent, the scope was passed under direct vision. Throughout the procedure, the patient's blood pressure, pulse, and oxygen saturations were monitored continuously. The colonoscope was introduced through the anus and advanced to the cecum, identified by appendiceal orifice and ileocecal valve. The colonoscopy was performed without difficulty. The patient tolerated the procedure well. The quality of the bowel preparation was good. Scope In: 9:47:23 AM Scope Withdrawal Time 0 hours 6 minutes 54 seconds Scope Out: 9:59:32 AM Total Procedure Duration Time 0 hours 12 minutes 9 seconds Findings: The colon (entire examined portion) appeared normal. Biopsies for histology were taken with a cold forceps from the entire colon for evaluation of microscopic colitis. Non-bleeding internal hemorrhoids were found during retroflexion. The hemorrhoids were small. The exam was otherwise without abnormality. Impression: - The entire examined colon is normal. Biopsied. - Non-bleeding internal hemorrhoids. - The examination was otherwise normal. Recommendation: - Discharge patient to home. - Resume previous diet. - Continue present medications. - Await pathology results. - Repeat colonoscopy in 10 years for screening purposes. - Return to my office in 1 week. Procedure Code(s): --- Professional --- 28446, Colonoscopy, flexible; with biopsy, single or multiple Diagnosis Code(s): --- Professional --- K64.8, Other hemorrhoids R10.13, Epigastric pain R10.11, Right upper quadrant pain K62.5, Hemorrhage of anus and rectum CPT copyright 2017 [employer] [place] [employer]. All rights reserved. The codes documented in this report are preliminary and upon smoking tobacco packing machine hand review may be revised to meet current compliance requirements. MD Hiren Garcia MD 04/25/2020 10:06:19 AM This report has been signed electronically. Number of Addenda: 0 Note Initiated On: 04/25/2020 9:45 AM
--- NOTE | 2020-04-25 10:06 | OP.CCLET_ITS ---
04/25/2020 Armaan Hadley [address] [place] [address] Re : Colonoscopy procedure for Mary Beth Hollinsfield Dear Dr. Hadley This procedure was performed on Saturday, April 25, 2020. My impressions and recommendations are as follows: Impressions : - The entire examined colon is normal. Biopsied. - Non-bleeding internal hemorrhoids. - The examination was otherwise normal. Recommendations : - Discharge patient to home. - Resume previous diet. - Continue present medications. - Await pathology results. - Repeat colonoscopy in 10 years for screening purposes. - Return to my office in 1 week. My findings are described in the full procedure note, which is enclosed. If I can be of further assistance, please feel free to contact me at Doctor phone number(s): , Fax: [phone], Work: . Sincerely, MD Hiren Garcia MD 04/25/2020 10:06:19 AM This report has been signed electronically.
== END 2020-04-25 11:15 | disposition home or self-care (01) ==
LOC: EN 08:41 → AC 08:42
PROVIDERS: PCP Family Medicine; Referring Provider Family Medicine; Visit Provider Surgery
PROC: 0DJD8ZZ Inspection of Lower Intestinal Tract, Via Natural or Artificial Opening Endoscopic (ICD-10-PCS; CPT 45378; principal; 2020-04-25 09:40)
DX: K29.50 Unspecified chronic gastritis without bleeding (principal); K92.1 Melena; K64.8 Other hemorrhoids; R10.11 Right upper quadrant pain; R10.13 Epigastric pain; K31.89 Other diseases of stomach and duodenum; Z79.84 Long term (current) use of oral hypoglycemic drugs; Z88.0 Allergy status to penicillin; Z88.1 Allergy status to other antibiotic agents; Z88.2 Allergy status to sulfonamides; E11.9 Type 2 diabetes mellitus without complications; R53.83 Other fatigue
CPT/HCPCS: 43239; 45380; 82962; 88305; 88342; J7120; J2405

== ENCOUNTER → 2020-05-09 14:16 | Outpatient (CLI) | payer MEDICAID, SELFPAY ==
[2020-04-25 08:59] VITALS: BMI 35.9
[2020-05-09 17:29] LABS: Absolute Lymphocyte Count 2.51 X10^3/uL (0.83-4.51); Absolute Neutrophil Count 5.7 X10^3/uL (2.0-7.7); Basophil# 0.07 X10^3/uL; Basophil% 0.8 % (0-1); Eosinophil# 0.41 X10^3/uL; Eosinophils% 4.4 % (0-5); Hematocrit 42.7 % (37-47); Hemoglobin 13.2 g/dL (12.0-15.0); Lymphocyte # 2.51 X10^3/ul (4.0); Lymphocyte % 27.2 % (19-41); Mean Corp Hgb Conc 30.9 g/dL (32-36); Mean Corpuscular Hgb 26.5 pg (27.0-32.0); Mean Corpuscular Volume 85.7 fL (81-99); Mean Platelet Vol. 9.8 fl (6.2-12.0); Monocyte# 0.52 X10^3/uL; Monocyte% 5.6 % (0-10); NRBC Flagged by Analyzer 0 % (0-5); Neutrophil % 61.8 % (47-70); Platelet Count 343 K/mm3 (150-450); RBC Distribution Width CV 12.8 % (11.6-14.6); RBC Distribution Width SD 40.1 fl (35.1-43.9); Red Blood Count 4.98 M/mm3 (4.2-5.4); White Blood Count 9.2 K/mm3 (4.4-11.0)
[2020-05-09 18:04] LABS: AST(SGOT) 18 U/L (15-37); Alanine Aminotransfer ALT/SGPT 29 U/L (13-56); Alkaline Phosphatase 65 U/L (45-117); Anion Gap 5 (5-15); BUN 9 mg/dL (7-18); BUN/Creat Ratio 13.4 RATIO (10-20); Calcium,Total 9.5 mg/dL (8.5-10.1); Chloride 107 mmol/L (98-107); Creatinine, Serum 0.67 mg/dL (0.55-1.02); EST Glomerular Filtration Rate 103 mL/min (>60); Est Glom Filt Rate - Afr Amer 125 mL/min (>60); Globulin 3.9 g/dL (2.2-4.2); Glucose 84 mg/dL (74-106); Protein, Total 7.9 g/dL (6.4-8.2); Sodium Level 138 mmol/L (136-145); Thyroid Stim Hormone (TSH) 0.91 uIU/mL (0.358-3.74)
== END ==
PROVIDERS: PCP Family Medicine; Referring Provider Family Medicine; Visit Provider Family Medicine
DX: R00.2 Palpitations (principal)
CPT/HCPCS: 36415; 80053; 83735; 84443; 85025

== ENCOUNTER → 2020-07-26 14:57 | Outpatient (CLI) | payer MEDICAID, SELFPAY ==
[2020-07-12 14:42] VITALS: BMI 36.1
--- NOTE | 2020-07-26 14:59 | ECHOD_ITS ---
Reason For Study: PALPITATIONS Procedure This was a 2D Doppler, Color Flow transthoracic echocardiogram. The exam was of adequate technical quality. Exam performed in department. Left Ventricle Normal LV size. Left ventricular systolic function is normal. The estimated ejection fraction is 60 %. No evidence for diastolic dysfunction. No regional wall motion abnormalities noted. Right Ventricle Normal RV size. Normal systolic function. Atria Normal left atrium. Normal right atrium. No doppler evidence for ASD. Mitral Valve There is no mitral annular calcification. Normal mitral valve. Trivial mitral valve insufficiency. Tricuspid Valve Normal tricuspid valve. Trivial tricuspid valve insufficiency. Right ventricular systolic pressure estimated to be 29 mmHg. Aortic Valve Trisinus/trileaflet aortic valve. Normal aortic valve. Pulmonic Valve The pulmonic valve is not well visualized. Great Vessels Normal sized aortic root. Pericardium/Pleural No pericardial effusion. MMode/2D Measurements & Calculations LVIDd: 4.2 cm IVSd: 0.91 cm Ao root diam: 3.0 cm LVIDs: 2.4 cm LVPWd: 0.94 cm RVDd: 3.8 cm FS: 43.2 % LAV(MOD-bp): 50.7 ml LA A4 area: 18.9 cm2 LA dimension(2D): 4.1 cm LAV(MOD-bp) Indexed: 25.4 ml/m2 LAV(MOD-sp2): 45.0 ml LAV(MOD-sp4): 51.5 ml RA A4 area: 13.0 cm2 Time Measurements MV dec time: 0.24 sec Doppler Measurements & Calculations MV E max jorge: 80.5 cm/sec Lat Peak E' Jorge: 11.8 cm/sec Med Peak E' Jorge: 7.7 cm/sec MV A max jorge: 64.6 cm/sec E/E' lat: 6.8 E/E' med: 10.4 MV E/A: 1.2 Ao V2 max: 156.1 cm/sec AI max jorge: 386.8 cm/sec LV V1 max: 122.8 cm/sec Ao max P.8 mmHg AI max P.8 mmHg LV V1 max P.0 mmHg AI dec slope: 214.8 cm/sec2 AI P1/2t: 527.3 msec TR max jorge: 253.5 cm/sec TR max P.7 mmHg Interpretation Summary Left ventricular systolic function is normal. The estimated ejection fraction is 60 %. Trivial mitral valve insufficiency. Trivial tricuspid valve insufficiency. Right ventricular systolic pressure estimated to be 29 mmHg. No evidence for diastolic dysfunction. Ordering Physician: Yefri Corral Referring Physician: LOYDA MOY Performed By: Chrystal Lee, RADCS, RVT
== END ==
PROVIDERS: PCP Family Medicine; Referring Provider Internal Medicine Cardiovascular Disease; Visit Provider Internal Medicine Cardiovascular Disease
DX: R00.2 Palpitations (principal)
CPT/HCPCS: 93306

== ENCOUNTER → 2020-08-06 15:43 | Outpatient (CLI) | payer MEDICAID, SELFPAY ==
[2020-08-01 11:01] VITALS: BMI 36.0
--- NOTE | 2020-08-06 15:52 | RAD_ITS ---
STUDY: X-RAY CHEST REASON FOR EXAM: Female, 39 years old. SOB, MALAISE, HEART MONITOR ATTACHED. TECHNIQUE: Frontal and lateral views COMPARISON: 12/29/2019 FINDINGS: The lungs are clear and expanded. There is no demonstrated pleural abnormality. Normal size heart. Normal mediastinum and [place]. Normal visualized pulmonary arteries. Normal visualized aortic arch and descending thoracic aorta. Normal visualized thoracic spine. Normal visualized ribs, clavicles, and shoulders. There is no demonstrated abnormality of the visualized soft tissue structures of the upper abdomen. RAD/Chest PA and Lateral IMPRESSION: Normal x-ray examination of the chest. Electronically Signed: Calvin Lujan DO at 16:06 EST Tel [phone], Service support ,
== END ==
PROVIDERS: PCP Family Medicine; Referring Provider Internal Medicine Critical Care Medicine; Visit Provider Internal Medicine Critical Care Medicine
DX: R53.81 Other malaise (principal); R53.83 Other fatigue
CPT/HCPCS: 71046; 87633

== ENCOUNTER → 2020-08-16 12:26 | Outpatient (CLI) | payer MEDICAID, SELFPAY ==
[2020-08-16 11:21] VITALS: BMI 37.2
[2020-08-16 13:10] LABS: Absolute Neutrophil Count 4.8 X10^3/uL (2.0-7.7); Basophil# 0.06 X10^3/uL; Basophil% 0.8 % (0-1); Eosinophil# 0.39 X10^3/uL; Eosinophils% 5.2 % (0-5); Hematocrit 38.2 % (37-47); Hemoglobin 12.6 g/dL (12.0-15.0); Lymphocyte % 24.1 % (19-41); Mean Corpuscular Hgb 27.4 pg (27.0-32.0); Mean Platelet Vol. 9.2 fl (6.2-12.0); Monocyte% 5.3 % (0-10); NRBC Flagged by Analyzer 0 % (0-5); Neutrophil % 64.2 % (47-70); Platelet Count 327 K/mm3 (150-450); RBC Distribution Width CV 12.7 % (11.6-14.6); RBC Distribution Width SD 38.2 fl (35.1-43.9); White Blood Count 7.5 K/mm3 (4.4-11.0)
[2020-08-19 03:06] LABS: Alternaria alternata <0.10 kU/L (Class 0); Bermuda Grass <0.10 kU/L (Class 0); Bluegrass, Kentucky <0.10 kU/L (Class 0); Cat Hair/Dander, Standard <0.10 kU/L (Class 0); D farinae Mite <0.10 kU/L (Class 0); D pteronyssinus <0.10 kU/L (Class 0); Dog Epithelia <0.10 kU/L (Class 0); Elm, American White <0.10 kU/L (Class 0); Oak, White <0.10 kU/L (Class 0); Plantain, English <0.10 kU/L (Class 0); Ragweed, Short/Common <0.10 kU/L (Class 0)
[2020-08-19 14:07] LABS: Aspirgillus flavus Negative (Neg:<1:1); Aspirgillus fumigatus Negative (Neg:<1:1); Aspirgillus niger Negative (Neg:<1:1); Cytoplasmic Ab (C-ANCA) <1:20 titer (Neg:<1:20)
[2020-08-19 15:37] LABS: Mouse Urine <0.10 kU/L (Class 0)
[2020-08-19 16:51] LABS: Immunoglobulin E 10 IU/mL (6-495); Perinuclear Ab (P-ANCA) <1:20 titer (Neg:<1:20)
== END ==
PROVIDERS: PCP Family Medicine; Referring Provider Nurse Practitioner Acute Care; Visit Provider Nurse Practitioner Acute Care
DX: J02.9 Acute pharyngitis, unspecified (principal); R06.02 Shortness of breath
CPT/HCPCS: 36415; 82785; 85025; 86003; 86256; 86606; 87880

== ENCOUNTER → 2020-09-07 14:19 | Outpatient (CLI) | payer MEDICAID, SELFPAY ==
[2020-08-31 12:45] VITALS: BMI 37.8
[2020-09-07 17:43] LABS: Absolute Lymphocyte Count 2.65 X10^3/uL (0.83-4.51); Absolute Neutrophil Count 5.7 X10^3/uL (2.0-7.7); Basophil# 0.09 X10^3/uL; Basophil% 0.9 % (0-1); Eosinophil# 1.02 X10^3/uL; Eosinophils% 10.2 % (0-5); Hematocrit 39.7 % (37-47); Hemoglobin 12.7 g/dL (12.0-15.0); Lymphocyte # 2.65 X10^3/ul (4.0); Lymphocyte % 26.5 % (19-41); Mean Corpuscular Hgb 26.5 pg (27.0-32.0); Mean Corpuscular Volume 82.7 fL (81-99); Mean Platelet Vol. 9.5 fl (6.2-12.0); Monocyte# 0.54 X10^3/uL; Monocyte% 5.4 % (0-10); NRBC Flagged by Analyzer 0 % (0-5); Neutrophil # 5.66 X10^3/uL (2.7-7.7); Neutrophil % 56.7 % (47-70); Platelet Count 329 K/mm3 (150-450); RBC Distribution Width CV 12.9 % (11.6-14.6); RBC Distribution Width SD 38.9 fl (35.1-43.9)
[2020-09-07 18:14] LABS: Hemoglobin A1c 5.8 % (3.8-5.6)
[2020-09-07 18:38] LABS: Microalbumin,Random Urine 12.2 mg/L (NO RANGE EST.); Microalbumin:Creatinine Ratio 23.8 mg/g CRE (<30 mg/g CRE)
[2020-09-07 18:42] LABS: AST(SGOT) 24 U/L (15-37); Alanine Aminotransfer ALT/SGPT 30 U/L (13-56); Albumin, Serum 3.7 g/dL (3.2-5.0); Alkaline Phosphatase 65 U/L (45-117); Anion Gap 9 (5-15); BUN 13 mg/dL (7-18); BUN/Creat Ratio 18.3 RATIO (10-20); Calcium,Total 8.7 mg/dL (8.5-10.1); Chloride 103 mmol/L (98-107); Cholesterol 201 mg/dL (200); Creatinine, Serum 0.71 mg/dL (0.55-1.02); EST Glomerular Filtration Rate 96 mL/min (>60); Est Glom Filt Rate - Afr Amer 116 mL/min (>60); Globulin 3.6 g/dL (2.2-4.2); Glucose 103 mg/dL (74-106); High Density Lipoprotein 30 mg/dL; Potassium 3.9 mmol/L (3.5-5.1); Protein, Total 7.3 g/dL (6.4-8.2); Sodium Level 137 mmol/L (136-145); T4 Free Direct 1.09 ng/dL (0.76-1.46); Thyroid Stim Hormone (TSH) 1.47 uIU/mL (0.358-3.74); Triglycerides 498 mg/dL
== END ==
PROVIDERS: PCP Family Medicine; Referring Provider Family Medicine; Visit Provider Family Medicine
DX: E11.9 Type 2 diabetes mellitus without complications (principal); E03.9 Hypothyroidism, unspecified; E78.00 Pure hypercholesterolemia, unspecified
CPT/HCPCS: 36415; 80053; 80061; 82043; 82570; 83036; 84439; 84443; 85025

== ENCOUNTER → 2020-10-29 09:33 | Outpatient (CLI) | payer MEDICAID, SELFPAY ==
[2020-08-31 12:45] VITALS: BMI 37.8
[2020-10-18 13:34] VITALS: BMI 37.2
--- NOTE | 2020-10-29 09:41 | BI_ITS ---
MAMMOGRAPHY - BILATERAL DIAGNOSTIC REASON FOR EXAM: Female, 39 years old. Bilateral breast pain. PERTINENT HISTORY: Non-contributory. TECHNIQUE: Digital bilateral breast lucas (3D mammographic acquisition) in the CC and MLO projections. 2-D mediolateral oblique (MLO) and craniocaudad (CC) views of both breasts were obtained. CAD: Full Field Digital Mammography with Computer Added Detection was performed. COMPARISON: Comparison is made with prior outside examination dated 05/15/2015. FINDINGS: Breast Composition: The breasts are heterogeneously dense, which may obscure small masses. There are no dominant masses or suspicious calcifications. No other significant abnormalities are identified. There has been no significant change since the prior study. BI/DIAG MAMM W/CAD, BILAT IMPRESSION: Stable bilateral diagnostic mammogram. With the patient''s history of bilateral breast pain, targeted ultrasound is recommended for further evaluation. ASSESSMENT CATEGORY: BIRADS Category 0: Incomplete. Need additional imaging evaluation. A letter regarding these results will be sent to the patient by the facility within 30 days. Approximately 10% of breast cancers are not detected by mammography. A normal mammogram should not delay biopsy of a clinically suspicious abnormality. Electronically Signed: Jesu Tomas MD at 10:42 EDT , Service support ,
--- NOTE | 2020-10-29 09:42 | US_ITS ---
STUDY: ULTRASOUND BREAST - RIGHT REASON FOR EXAM: Female, 39 years old. Pain in the right breast. TECHNIQUE: Axial and longitudinal images of the RIGHT breast were performed with a high resolution ultrasound transducer. # OF IMAGES: 52 COMPARISON: Comparison is made with prior mammogram dated 10/29/2020. FINDINGS: RIGHT Breast: The lateral half of the right breast was examined by ultrasound. No sonographic abnormality is seen. IMPRESSION: No sonographic abnormality is seen. ASSESSMENT CATEGORY: BIRADS Category 1: Negative. A letter regarding these results will be sent to the patient by the facility within 30 days. Electronically Signed: Jesu Tomas MD at 10:15 EDT , Service support , STUDY: ULTRASOUND BREAST - LEFT REASON FOR EXAM: Female, 39 years old. Pain in the left breast. TECHNIQUE: Axial and longitudinal images of the LEFT breast were performed with a high resolution ultrasound transducer. # OF IMAGES: 52 COMPARISON: Comparison is made with prior mammogram done earlier today. FINDINGS: LEFT Breast: The lateral half of the left breast was examined by ultrasound. No sonographic abnormality is seen. US/Breast Limited Unilateral IMPRESSION: No sonographic abnormality is seen. ASSESSMENT CATEGORY: BIRADS Category 1: Negative. A letter regarding these results will be sent to the patient by the facility within 30 days. Electronically Signed: Jesu Tomas MD at 10:16 EDT , Service support ,
== END ==
PROVIDERS: PCP Family Medicine; Referring Provider Family Medicine; Visit Provider Family Medicine
DX: N64.4 Mastodynia (principal)
CPT/HCPCS: 76642; 77062; 77066; G0279

== ENCOUNTER → 2021-01-29 14:28 | Outpatient (CLI) | payer MEDICAID, SELFPAY ==
[2020-11-27 06:04] VITALS: BMI 37.2
--- NOTE | 2021-01-29 14:30 | CT_ITS ---
STUDY: CT CHEST WITHOUT CONTRAST REASON FOR EXAM: Female, 40 years old. Follow-up for right lower lobe pulmonary nodule. RADIATION DOSAGE (If Supplied By Facility): CTDIvol = ( 18.48 ) mGy, DLP = ( 616.75 ) mGycm TECHNIQUE: Transaxial imaging was performed without the administration of intravenous contrast material. Multiplanar coronal and sagittal images were reformatted. Individualized dose optimization techniques were used for this CT. COMPARISON: Comparison is made with prior study dated 12/29/2019. FINDINGS: Stable 4 mm pleural-based noncalcified nodule in the lateral aspect of the right lower lobe as seen on axial image #57. No new nodule is seen. There is no demonstrated pleural abnormality. Normal heart and pericardium. There are multiple small lymph nodes within the mediastinum, which are normal in size and morphology most compatible with reactive lymph hyperplasia. Normal hilar regions. Normal unenhanced pulmonary arteries. Normal aorta arch and descending thoracic aorta. There are multi-level degenerative changes of the thoracic spine. There is no demonstrated abnormality of the visualized upper abdomen. CT/Chest without Contrast IMPRESSION: Stable examination. 12 month follow-up is recommended. Electronically Signed: Jesu Tomas MD at 15:14 EDT , Service support ,
== END ==
PROVIDERS: PCP Family Medicine; Referring Provider Internal Medicine Critical Care Medicine; Visit Provider Internal Medicine Critical Care Medicine
DX: R91.1 Solitary pulmonary nodule (principal)
CPT/HCPCS: 71250

== ENCOUNTER 2021-09-07 07:48 | Emergency (ER) | payer MEDICAID, SELFPAY ==
[2021-09-07 07:48] VITALS: BP 182/77; PULSE 50; RESP 20; TEMP 36.4; O2SAT 100; BMI 34.3
[2021-09-07 07:59] VITALS: BP 182/77; PULSE 50; RESP 20; TEMP 36.4; O2SAT 100
--- NOTE | 2021-09-07 08:16 | EDS_ITS ---
HPI HPI - GI History of Present Illness Chief Complaint: Abd Pain Informant: patient Abdominal Pain/Flank Pain Onset: Today Context: Sudden Onset Timing: Continuous Quality: Aching Location: Diffuse Worsened by: Movement Relieved by: Nothing Nausea/Vomiting/Emesis GI Symptom: Positive for Nausea; Negative for Vomiting Diarrhea/Melena/Hematochezia GI Symptom: Negative for Diarrhea, Melena and Hematochezia Associated Symptoms Associated Symptoms: Negative for Dysuria and Hematuria Narrative Narrative: Patient presents with abdominal pain that began suddenly today. Patient had a cholecystectomy done 3 days ago at [facility] by Dr. Garcia. Patient states her pain was doing well until today. Patient describes her pain as aching. Patient states her pain is diffuse across her abdomen and radiates into her back. Patient states her pain is worse with movement. Patient admits to nausea but denies any vomiting. Patient denies any diarrhea. Patient states she has not had a bowel movement since the surgery. Patient denies any dysuria or hematuria. [facility] Medical History (Updated 09/07/21 @ 12:[address] Shay Mohamud, DO) Abdominal pain Abnormal bruising Acid reflux Anxiety Arthritis Asthma Back pain Blood in stool Borderline personality disorder Cervical strain Chest pain Constipation Costochondritis Depression Difficulty balancing Endometriosis Epigastric abdominal pain Fatigue Gastroparesis History of seizure Hx of pancreatitis Hypothyroidism Knee pain Nausea NECK AND BACK PAIN ZHANNA (obstructive sleep apnea) Palpitations RUQ abdominal pain Severe headache Shoulder pain SOB (shortness of breath) Type 2 diabetes mellitus UNEXPLAINED BRUISES Home Medications alprazolam 0.5 mg PO DAILY PRN PRN 12/29/19 [History Last Taken Unknown] atorvastatin 20 mg PO QHS 12/29/19 [History Last Taken 12/28/19] cetirizine 10 mg PO DAILY 12/29/19 [History Last Taken 12/29/19] levothyroxine 100 mcg PO MOTUWETHFRSA 12/29/19 [History Last Taken 12/29/19] levothyroxine 150 mcg PO WAGNER 12/29/19 [History Last Taken 12/25/19] lisinopril 2.5 mg PO QHS 12/29/19 [History Last Taken 12/28/19] metformin 500 mg PO BID 12/29/19 [History Last Taken 12/29/19] methylphenidate HCl 5 mg PO BID 12/29/19 [History Last Taken 12/29/19] milk thistle 500 mg PO BID 12/29/19 [History Last Taken 12/29/19] hkaeqayzjtaw-Ld-wiqp-minerals 1 tab PO DAILY 12/29/19 [History Last Taken 12/29/19] oregano oil 1,500 mg PO DAILY 12/29/19 [History Last Taken 12/29/19] albuterol sulfate 2 puff INHALATION Q6H PRN PRN 04/12/20 [History Last Taken 04/25/20] clobetasol 0.05 % topical ointment 1 applic TOPICAL BID 07/02/20 [History Last Taken Unknown] omeprazole 40 mg capsule,delayed release 40 mg PO DAILY 07/02/20 [History Last Taken Unknown] Beet Root 2 tab PO BID 07/12/20 [History Last Taken Unknown] fluticasone propionate 230 mcg-salmeterol 21 mcg/actuation HFA inhaler 2 puff INHALATION BID #12 g 11/27/20 [Rx Last Taken Unknown] diltiazem HCl 120 mg capsule,extended release 24 hr 120 mg PO DAILY #30 cap 04/12/21 [Rx Last Taken Unknown] paroxetine HCl 40 mg tablet 80 mg PO DAILY tab 08/16/21 [History Last Taken Unknown] Allergy/AdvReac Type Severity Reaction Status Date / Time amoxicillin Allergy Hives Verified 09/07/21 07:50 Penicillins Allergy Hives Verified 09/07/21 07:50 phenazopyridine AdvReac Other Verified 09/07/21 07:50 [From Pyridium] sulfamethoxazole AdvReac Other Verified 09/07/21 07:50 [From Bactrim] trimethoprim [From Bactrim] AdvReac Other Verified 09/07/21 07:50 SEASONAL Allergy Shortness Uncoded 09/07/21 07:50 of breath Family History Father Diabetes Hypertension Mother Uterine cancer Other Heart disease Surgical History History of esophagogastroduodenoscopy (EGD) History of hysterectomy History of nasal septoplasty History of tonsillectomy Hx of colonoscopy Hx of removal of cyst Social History Smoking Status: Current every day smoker tobacco type: cigarettes alcohol intake: current alcohol intake frequency: holidays/special occasions only substance use type: does not use caffeine: Yes what type of physical activity do you participate in: none frequency: does not exercise ROS ROS ED Constitutional Constitutional ED: Denies chills or fever(s) Eyes Eyes: Denies blurry vision or change in vision ENT ENT ED: Denies rhinorrhea or sore throat Cardiovascular Cardiovascular: Denies chest pain or palpitations Respiratory/Chest Respiratory/Chest: Denies cough or dyspnea Gastrointestinal Gastrointestinal: Reports abdominal pain and nausea; Denies vomiting Genitourinary Genitourinary ED: Denies dysuria or hematuria Musculoskeletal Musculoskeletal: Reports back pain; Denies neck pain Integumentary Denies abscess or rash Neurologic Neurologic: Denies headache(s) or weakness Allergic/Immunologic Allergic/Immunologic ED: Denies mouth swelling or urticaria EXAM Physical Exam Const Vital Signs: 09/07/21 07:48 09/07/21 07:59 09/07/21 09:48 Temperature 97.6 F L 97.6 F L 97.6 F L Temperature Source Temporal Temporal Temporal Pulse Rate 50 L 50 L 49 L Respiratory Rate 20 H 20 H 22 H Blood Pressure 182/77 H 182/77 H 182/89 H Blood Pressure Mean 112 112 120 Pulse Ox 100 100 88 Oxygen Delivery Method Room Air Room Air Room Air Oxygen Flow Rate (L/min) 09/07/21 10:00 09/07/21 11:00 Temperature 97.8 F 97.8 F Temperature Source Temporal Temporal Pulse Rate 54 L 56 L Respiratory Rate 18 18 Blood Pressure 165/84 H 158/54 H Blood Pressure Mean 111 88 Pulse Ox 95 94 Oxygen Delivery Method Nasal Cannula Nasal Cannula Oxygen Flow Rate (L/min) 2 2 Positive well nourished, well developed and obese General Appearance ED: well developed and NAD Nutritional Appearance: obese HEENT Reports moist mucous membranes Neck supple and no JVD Resp normal respiratory effort and clear to auscultation bilaterally Cardio regular rhythm Rate: bradycardia GI non-distended Palpation: soft and tender other (There is diffuse tenderness but it is worse in the epigastric and right upper quadrant); Negative for guarding or rebound tenderness present Neuro CN's II-XII intact bilaterally, moves all extremities and no sensory deficits noted Sensorium / Orientation: alert, oriented to person, oriented to place and oriented to time Motor Exam: strength 5/5 throughout Psych mental status grossly normal MDM MDM MDM Narrative Medical decision making narrative: Patient was given IV fluids, Zofran, and morphine initially. CBC shows a white count of 11.6. Comprehensive metabolic profile was essentially within normal limits. Lactate was normal. Lipase was normal. Urinalysis does not show any evidence of urinary tract infection. Patient was given repeat dose of morphine and Zofran. CT scan of the abdomen and pelvis was obtained. There is mild free fluid in the pelvis. There is a fluid collection in the right side of the pelvis which could represent a hemorrhagic cyst. Further evaluation with ultrasound is recommended. There is an area of focal narrowing of the rectosigmoid junction likely due to under distention. There is no acute process noted. This was interpreted by the r adiologist and reviewed by myself. Patient was given her dose of Dilaudid. Pelvic ultrasound was obtained. There is no demonstrated pelvic or adnexal mass. There is no acute process. This was interpreted by the radiologist and reviewed by myself. Patient was resting comfortably. Patient states that whenever she moves her pain returns. I discussed the case with Dr. Garza, on- call for Dr. Garcia. She had no further recommendations. Patient was instructed to continue her Percocet as prescribed. Patient was instructed to follow-up with Dr. Garcia in 2 to 3 days. Patient was instructed return if worse in any way. Patient understood and was agreeable with the plan. All questions were answered. Lab Data Attestation: I reviewed the patient's lab results. Labs: Laboratory Results - last 24 hr 09/07/21 09/07/21 09/07/21 08:35 08:35 08:35 WBC 11.6 H RBC 4.73 Hgb 13.5 Hct 41.3 MCV 87.3 MCH 28.5 MCHC 32.7 RDW Std Deviation 41.1 RDW Coeff of Sarai 12.8 Plt Count 271 MPV 9.5 Immature Gran % (Auto) 0.600 Neut % (Auto) 67.8 Lymph % (Auto) 24.3 [place] % (Auto) 5.5 Eos % (Auto) 1.3 Baso % (Auto) 0.5 Absolute Neuts (auto) 7.9 H Absolute Lymphs (auto) 2.81 Nucleated RBC % 0 Sodium 139 Potassium 3.7 Chloride 105 Carbon Dioxide 28.0 Anion Gap 6 BUN 14 Creatinine 0.69 Estim Creat Clear Calc 91.72 Est GFR (MDRD) Af Amer 120 Est GFR (MDRD) Non-Af 99 BUN/Creatinine Ratio 20.3 H Glucose 120 H Lactic Acid 1.1 Calcium 8.8 Total Bilirubin 0.50 AST 22 ALT 53 Alkaline Phosphatase 59 Total Protein 7.0 Albumin 3.6 Globulin 3.4 Albumin/Globulin Ratio 1.1 Lipase 145 Urine Color Urine Clarity Urine pH Ur Specific [place] Urine Protein Urine Glucose (UA) Urine Ketones Urine Occult Blood Urine Nitrite Urine Bilirubin Urine Urobilinogen Ur Leukocyte Esterase Urine RBC Urine WBC Ur Squamous Epith Cells Urine Bacteria Urine Mucus 09/07/21 11:00 WBC RBC Hgb Hct MCV MCH MCHC RDW Std Deviation RDW Coeff of Sarai Plt Count MPV Immature Gran % (Auto) Neut % (Auto) Lymph % (Auto) [place] % (Auto) Eos % (Auto) Baso % (Auto) Absolute Neuts (auto) Absolute Lymphs (auto) Nucleated RBC % Sodium Potassium Chloride Carbon Dioxide Anion Gap BUN Creatinine Estim Creat Clear Calc Est GFR (MDRD) Af Amer Est GFR (MDRD) Non-Af BUN/Creatinine Ratio Glucose Lactic Acid Calcium Total Bilirubin AST ALT Alkaline Phosphatase Total Protein Albumin Globulin Albumin/Globulin Ratio Lipase Urine Color Straw Urine Clarity Clear Urine pH 7.0 Ur Specific [place] 1.010 Urine Protein Negative Urine Glucose (UA) Normal Urine Ketones 5 H Urine Occult Blood Negative Urine Nitrite Negative Urine Bilirubin Negative Urine Urobilinogen Normal Ur Leukocyte Esterase Negative Urine RBC 0 SEEN Urine WBC 0 SEEN Ur Squamous Epith Cells 0-5 SEEN Urine Bacteria 0 SEEN Urine Mucus 0 SEEN Radiography Diagnostic Testing: Clinical Impression(s) from Imaging Studies Abdomen/Pelvis CT 09/07/21 08:19 IMPRESSION: 1. Mild free fluid in the pelvis. 2. Fluid collection on the right side of the pelvis could represent hemorrhagic cyst. Further evaluation with pelvic ultrasound might be of value. 3. Focal narrowing of the rectosigmoid junction likely due to underdistention difficult to evaluate on this exam. 4. Otherwise no focal acute inflammatory process. 5. Degenerative changes at the level of L5-S1. Electronically Signed: Dayday Warner, at 10:59 EST , Pelvis Ultrasound 09/07/21 11:10 IMPRESSION: 1. Status post hysterectomy and left oophorectomy. 2. No demonstrated definite pelvic or adnexal mass. 3. If symptoms persist, follow-up CT scan of the abdomen and pelvis is recommended. Electronically Signed: Dayday Warner, at 12:01 EST , Discharge Plan Triage Chief Complaint: Abd Pain ED Provider: Shay Mohamud Dx/Rx/DC Orders Clinical Impression: Acute postoperative abdominal pain Instructions: ED Abdominal Pain Unkn Cause Fem Prescriptions: No Action clobetasol 0.05 % ointment 1 applic TOPICAL BID RF: 0 omeprazole 40 mg capsule,delayed release(DR/EC) 40 mg PO DAILY RF: 0 Advair HFA 230-21 mcg/actuation HFA aerosol inhaler 2 puff inhalation BID Qty: 12 RF: 6 paroxetine HCl 40 mg tablet 80 mg PO DAILY RF: 0 atorvastatin 20 MG tablet 20 mg PO QHS RF: 0 cetirizine 10 MG tablet 10 mg PO DAILY RF: 0 methylphenidate HCl 5 MG tablet 5 mg PO BID RF: 0 levothyroxine 100 MCG tablet 100 mcg PO MOTUWETHFRSA RF: 0 alprazolam 0.5 MG tablet 0.5 mg PO DAILY PRN PRN (Reason: Anxiety) RF: 0 levothyroxine 150 MCG tablet 150 mcg PO WAGNER RF: 0 lisinopril 5 MG tablet 2.5 mg PO QHS RF: 0 metformin 500 MG tablet extended release 24 hr 500 mg PO BID RF: 0 milk thistle 500 MG capsule 500 mg PO BID RF: 0 jfmxnkmuzgqh-Eb-wmgz-minerals 1 EACH tablet 1 tab PO DAILY RF: 0 oregano oil 1,500 MG capsule 1,500 mg PO DAILY RF: 0 Beet Root 2 tab PO BID RF: 0 albuterol sulfate 1 INHALER inhaler 2 puff INHALATION Q6H PRN PRN (Reason: Sob &/Or Wheezing) RF: 0 diltiazem HCl [Cardizem CD] 120 mg capsule,extended release 24hr 120 mg PO DAILY Qty: 30 RF: 11 Primary Care Provider: Davis Aparicio Referrals: Hiren Garcia MD [STAFF PHYSICIAN] - 2 Days Davis Aparicio MD [Primary Care Provider] - 5-7 Days Disposition Disposition: Home, Self Care
--- NOTE | 2021-09-07 08:19 | CT_ITS ---
STUDY: CT ABDOMEN AND PELVIS WITH CONTRAST REASON FOR EXAM: Female, 40 years old. Abdominal pain RADIATION DOSAGE (If Supplied By Facility): CTDIvol = ( 16.21 ) mGy, DLP = ( 1196.84 ) mGycm TECHNIQUE: Transaxial images were obtained from the dome of the diaphragm to the symphysis pubis with oral contrast. IV 100mL [id number]-300 was administered. Sagittal and coronal images were reconstructed. Individualized dose optimization techniques were used for this CT. COMPARISON: None. FINDINGS: Mild atelectatic changes in the lower lungs. Normal heart size. Borderline liver size. No focal lesion is seen. There is non-visualization of the gallbladder, which may be secondary to either contraction or a prior cholecystectomy. Normal spleen. Normal pancreas. Normal bilateral adrenal glands. Normal right kidney. Normal left kidney. Thickening of the gastric antrum probably due to underdistention. Normal caliber small bowel loops. Fecal retention. Focal narrowing of the rectosigmoid junction probably due to underdistention difficult to evaluate on this exam. No evidence of acute diverticulitis. The appendix is visualized and appears normal. Normal abdominal aorta. Normal inferior vena cava. Normal retroperitoneum. Normal urinary bladder. Mild free fluid in the pelvis. Absent uterus consistent with previous cystectomy. 4.5 cm fluid collection/cyst in the right pelvic region with density within it could represent hemorrhagic cyst. Correlation with pelvic ultrasound is recommended. Normal abdominal wall. Narrowing of L5-S1 disc space with posterior degenerative spur indenting the thecal sac in the left neural foramina. CT/Abdomen/Pelvis WITH Contrast IMPRESSION: 1. Mild free fluid in the pelvis. 2. Fluid collection on the right side of the pelvis could represent hemorrhagic cyst. Further evaluation with pelvic ultrasound might be of value. 3. Focal narrowing of the rectosigmoid junction likely due to underdistention difficult to evaluate on this exam. 4. Otherwise no focal acute inflammatory process. 5. Degenerative changes at the level of L5-S1. Electronically Signed: Maeve Rivas2/03/05 at 10:59 EST ,
[2021-09-07] MEDS: 0.9% Normal Saline 1,000 ML 1000 ML IV (08:34)
[2021-09-07] MEDS: Ondansetron 4 MG/2 ML Vial IV ×2 (08:44→09:22)
[2021-09-07] MEDS: Morphine 4 MG/ML Syringe IV ×2 (08:44→09:21)
[2021-09-07 08:48] LABS: Absolute Lymphocyte Count 2.81 X10^3/uL (0.83-4.51); Absolute Neutrophil Count 7.9 X10^3/uL (2.0-7.7); Basophil# 0.06 X10^3/uL; Basophil% 0.5 % (0-1); Eosinophil# 0.15 X10^3/uL; Eosinophils% 1.3 % (0-5); Hematocrit 41.3 % (37-47); Hemoglobin 13.5 g/dL (12.0-15.0); Lymphocyte # 2.81 X10^3/ul (0.83-4.51); Lymphocyte % 24.3 % (19-41); Mean Corp Hgb Conc 32.7 g/dL (32-36); Mean Corpuscular Hgb 28.5 pg (27.0-32.0); Mean Corpuscular Volume 87.3 fL (81-99); Mean Platelet Vol. 9.5 fl (6.2-12.0); Monocyte# 0.64 X10^3/uL; Monocyte% 5.5 % (0-10); NRBC Flagged by Analyzer 0 % (0-5); Neutrophil # 7.85 X10^3/uL (2.7-7.7); Neutrophil % 67.8 % (47-70); Platelet Count 271 K/mm3 (150-450); RBC Distribution Width CV 12.8 % (11.6-14.6); RBC Distribution Width SD 41.1 fl (35.1-43.9); Red Blood Count 4.73 M/mm3 (4.2-5.4); White Blood Count 11.6 K/mm3 (4.4-11.0)
[2021-09-07 09:11] LABS: Lactic Acid 1.1 mmol/L (0.4-1.9)
[2021-09-07 09:16] LABS: ALB/GLOB Ratio 1.1 RATIO (0.9-2.4); AST(SGOT) 22 U/L (15-37); Alanine Aminotransfer ALT/SGPT 53 U/L (13-56); Albumin, Serum 3.6 g/dL (3.2-5.0); Alkaline Phosphatase 59 U/L (45-117); Anion Gap 6 (5-15); BUN 14 mg/dL (7-18); BUN/Creat Ratio 20.3 RATIO (10-20); Calcium,Total 8.8 mg/dL (8.5-10.1); Chloride 105 mmol/L (98-107); Creatinine, Serum 0.69 mg/dL (0.55-1.02); EST Glomerular Filtration Rate 99 mL/min (>60); Est Glom Filt Rate - Afr Amer 120 mL/min (>60); Estimated Creatinine Clearance 91.72 ml/min; Globulin 3.4 g/dL (2.2-4.2); Glucose 120 mg/dL (74-106); Lipase 145 U/L (73-393); Potassium 3.7 mmol/L (3.5-5.1); Sodium Level 139 mmol/L (136-145)
--- NOTE | 2021-09-07 09:43 | ED.RN ---
Pt complaining of worsening pain. Pt is moaning, diaphoretic, saying Help me. Dr Mohamud made aware of pt current condition.
[2021-09-07 09:48] VITALS: BP 182/89; PULSE 49; RESP 22; TEMP 36.4; O2SAT 88
[2021-09-07] MEDS: HYDROmorphone 1 MG/ML Syringe 0.5 MG IV (09:48)
[2021-09-07 10:00] VITALS: BP 165/84; PULSE 54; RESP 18; TEMP 36.6; O2SAT 95
[2021-09-07 11:00] VITALS: BP 158/54; PULSE 56; RESP 18; TEMP 36.6; O2SAT 94
[2021-09-07 11:08] LABS: Bacteria 0 SEEN /hpf (None Seen); Mucous, Urine 0 SEEN /hpf (<or=2+); Red Blood Cells-Urine 0 SEEN /hpf (0-5); White Blood Cells 0 SEEN /hpf (0-5)
[2021-09-07 11:09] LABS: Color, Urine Straw (Yellow); Glucose, Dipstick Normal (Normal); Ketone-Dipstick 5 mg/dl (Negative); Leukocyte Esterase-Dipstick Negative /ul (Negative); Nitrite-Dipstick Negative (Negative); Occult Blood-Urine Negative /ul (Negative); Protein-Dipstick Negative (Negative); Urine Bilirubin Dipstick Negative (Negative); Urine Clarity Clear (Clear); Urine Urobilinogen Normal (Normal)
--- NOTE | 2021-09-07 11:10 | US_ITS ---
STUDY: ULTRASOUND OF THE FEMALE PELVIS - COMPLETE REASON FOR EXAM: Female, 40 years old. Fluid collection seen on recent CT scan. LMP: Unknown. TECHNIQUE: Transabdominal TECHNICAL QUALITY: Adequate. Limited examination without endovaginal study. COMPARISON: None. FINDINGS: The uterus is surgically absent. The right ovary is visualized. The right ovary measures 4.2 x 5 x 5 cm. No definite ovarian cyst or masses are seen. The fluid collection seen on the CT scan is not seen on this examination. Status post left nephrectomy. There is no fluid in the cul-de-sac. The pre void volume of the bladder was 182 ml. US/Pelvic (Non ) IMPRESSION: 1. Status post hysterectomy and left oophorectomy. 2. No demonstrated definite pelvic or adnexal mass. 3. If symptoms persist, follow-up CT scan of the abdomen and pelvis is recommended. Electronically Signed: Dayday Warner, at 12:01 EST ,
[2021-09-07 11:14] LABS: Squamous Epithelial Cells - UA 0-5 SEEN /hpf (5-10)
[2021-09-07 13:17] VITALS: BP 169/84; PULSE 50; RESP 16; O2SAT 98
== END 2021-09-07 13:20 | disposition home or self-care (01) ==
PROVIDERS: Emergency Provider Emergency Medicine; PCP Family Medicine; Visit Provider Emergency Medicine
DX: R10.9 Unspecified abdominal pain (principal); E11.43 Type 2 diabetes mellitus with diabetic autonomic (poly)neuropathy; F17.210 Nicotine dependence, cigarettes, uncomplicated; R11.0 Nausea
CPT/HCPCS: 74177; 76856; 80053; 81001; 83605; 83690; 85025; 99283; 99285; J7030; Q9967; J2405

== ENCOUNTER 2021-09-07 20:13 | Emergency (ER) | payer MEDICAID, SELFPAY ==
[2021-09-07 20:15] VITALS: BP 175/94; PULSE 53; RESP 20; TEMP 35.7; O2SAT 99; BMI 34.0
--- NOTE | 2021-09-07 20:49 | EDS_ITS ---
HPI HPI - GI History of Present Illness Chief Complaint: Abd Pain Informant: patient Abdominal Pain/Flank Pain Onset: Days Context: Gradual Onset Timing: Continuous Current Severity: Mild Maximum Severity: Mild Worsened by: Nothing Relieved by: Nothing Nausea/Vomiting/Emesis GI Symptom: Positive for Nausea; Negative for Vomiting Severity: Mild Diarrhea/Melena/Hematochezia GI Symptom: Negative for Diarrhea, Melena and Hematochezia Associated Symptoms Associated Symptoms: Negative for Dysuria, Frequency and Hematuria Narrative Narrative: 40-year-old female this past Thursday had a laparoscopic cholecystectomy done by Dr. Hiren Garcia. Patient is done well except she has not a bowel movement since that time. Patient's been nauseated no vomiting. No fever. No dysuria. She has had a prior hysterectomy with one of her ovaries removed. She was seen in emergency department earlier today. Extensive work- up. CAT scan showed constipation. States she still has not had a bowel movement. She tried MiraLAX at home. Prior similar symptoms: Yes Recent Illness/Hospitalization: Yes PFSH PFS Medical History (Updated 09/07/21 @ 20:[address] Trent Patton MD) Abdominal pain Abnormal bruising Acid reflux Anxiety Arthritis Asthma Back pain Blood in stool Borderline personality disorder Cervical strain Chest pain Constipation Costochondritis Depression Difficulty balancing Endometriosis Epigastric abdominal pain Fatigue Gastroparesis History of seizure Hx of pancreatitis Hypothyroidism Knee pain Nausea NECK AND BACK PAIN ZHANNA (obstructive sleep apnea) Palpitations RUQ abdominal pain Severe headache Shoulder pain SOB (shortness of breath) Type 2 diabetes mellitus UNEXPLAINED BRUISES Home Medications alprazolam 0.5 mg PO DAILY PRN PRN 12/29/19 [History Last Taken Unknown] atorvastatin 20 mg PO QHS 12/29/19 [History Last Taken 12/28/19] cetirizine 10 mg PO DAILY 12/29/19 [History Last Taken 12/29/19] levothyroxine 100 mcg PO MOTUWETHFRSA 12/29/19 [History Last Taken 12/29/19] levothyroxine 150 mcg PO WAGNER 12/29/19 [History Last Taken 12/25/19] lisinopril 2.5 mg PO QHS 12/29/19 [History Last Taken 12/28/19] metformin 500 mg PO BID 12/29/19 [History Last Taken 12/29/19] methylphenidate HCl 5 mg PO BID 12/29/19 [History Last Taken 12/29/19] milk thistle 500 mg PO BID 12/29/19 [History Last Taken 12/29/19] bwfhdmkmykae-Cq-ropx-minerals 1 tab PO DAILY 12/29/19 [History Last Taken 0 12/29/19] oregano oil 1,500 mg PO DAILY 12/29/19 [History Last Taken 12/29/19] albuterol sulfate 2 puff INHALATION Q6H PRN PRN 04/12/20 [History Last Taken 04/25/20] clobetasol 0.05 % topical ointment 1 applic TOPICAL BID 07/02/20 [History Last Taken Unknown] omeprazole 40 mg capsule,delayed release 40 mg PO DAILY 07/02/20 [History Last Taken Unknown] Beet Root 2 tab PO BID 07/12/20 [History Last Taken Unknown] fluticasone propionate 230 mcg-salmeterol 21 mcg/actuation HFA inhaler 2 puff INHALATION BID #12 g 11/27/20 [Rx Last Taken Unknown] diltiazem HCl 120 mg capsule,extended release 24 hr 120 mg PO DAILY #30 cap 04/12/21 [Rx Last Taken Unknown] paroxetine HCl 40 mg tablet 80 mg PO DAILY tab 08/16/21 [History Last Taken Unknown] Allergy/AdvReac Type Severity Reaction Status Date / Time amoxicillin Allergy Hives Verified 09/07/21 20:20 Penicillins Allergy Hives Verified 09/07/21 20:20 phenazopyridine AdvReac Other Verified 09/07/21 20:20 [From Pyridium] sulfamethoxazole AdvReac Other Verified 09/07/21 20:20 [From Bactrim] trimethoprim [From Bactrim] AdvReac Other Verified 09/07/21 20:20 SEASONAL Allergy Shortness Uncoded 09/07/21 07:50 of breath Family History Father Diabetes Hypertension Mother Uterine cancer Other Heart disease Surgical History (Updated 09/07/21 @ 20:[address] Trent Patton MD) History of esophagogastroduodenoscopy (EGD) History of hysterectomy History of nasal septoplasty History of tonsillectomy Hx of colonoscopy Hx of removal of cyst Social History Smoking Status: Current every day smoker tobacco type: cigarettes alcohol intake: current alcohol intake frequency: holidays/special occasions only substance use type: does not use caffeine: Yes what type of physical activity do you participate in: none frequency: does not exercise ROS ROS ED ROS Narrative Abdominal pain. Nausea. Constipation. Review of Systems ROS Unobtainable: Denies due to encephalopathy Constitutional Constitutional ED: Denies fever(s) ENT ENT ED: Denies ear pain Cardiovascular Cardiovascular: Denies chest pain Respiratory/Chest Respiratory/Chest: Denies dyspnea Gastrointestinal Gastrointestinal: Reports abdominal pain, constipation and nausea; Denies diarrhea, melena or vomiting Genitourinary Genitourinary ED: Denies dysuria Musculoskeletal Musculoskeletal: Denies myalgias Integumentary Denies rash Neurologic Neurologic: Denies headache(s) Psychiatric Psychiatric: Denies depression Endocrine Endocrinology: Denies polyuria Hematologic/Lymphatic Hematologic/Lymphatic: Denies easy bruising Allergic/Immunologic Allergic/Immunologic ED: Denies urticaria EXAM Physical Exam Narrative Exam Narrative: 40-year-old female no acute distress. Vital signs stable and afebrile. HEENT exam normal. Moist with membranes. Lungs clear to auscultation. Heart regular rhythm no murmur. Rate about 60. Abdomen soft. Nondistended. Normal bowel sounds. No peritoneal signs. No hernia or mass. Laparoscopic incisions are dry and clean. Moving all 4 extremities. Neurologically she is awake and alert. Const Vital Signs: 09/07/21 20:15 Temperature 96.3 F L Temperature Source Temporal Pulse Rate 53 L Respiratory Rate 20 H Blood Pressure 175/94 H Blood Pressure Mean 121 Pulse Ox 99 Oxygen Delivery Method Room Air Positive well nourished, well developed and obese; Negative for cachectic, contractures or unkempt General Appearance ED: well developed and NAD; Negative for unkempt, cachectic, contractures or pallor Nutritional Appearance: obese; Negative for cachectic HEENT Reports moist mucous membranes normocephalic and atraumatic; Negative for trauma or tenderness Eyes PERRL and EOMs intact bilaterally Neck no lymphadenopathy, supple and no JVD General: Negative for tenderness Resp normal respiratory effort and clear to auscultation bilaterally Auscultation: Negative for rales, rhonchi or wheezes Cardio regular rate, regular rhythm, S1 normal heart sound, S2 normal heart sound and no murmurs GI non-tender, non-distended and no masses Inspection: Negative for abdominal distention Auscultation: normoactive bowel sounds; Negative for hyperactive bowel sounds or hypoactive bowel sounds Palpation: soft; Negative for tender, guarding, rigid or rebound tenderness present Back/Spine no CVA tenderness Extremity full ROM General Extremety ED: Yes edema; Negative for tenderness General Extremity: edema Neuro moves all extremities Sensorium / Orientation: alert, oriented to person, oriented to place and oriented to time; Negative for orientation impaired, confused, lethargic or stuporous Motor Exam: strength 5/5 throughout Psych mental status grossly normal and thought process normal Appearance: Negative for unkempt Skin no wounds General Skin Exam: Negative for jaundice or pallor Lesions: no lesions Rashes: no rashes MDM MDM MDM Narrative Medical decision making narrative: 40-year-old with abdominal discomfort status post cholecystectomy with constipation. CAT scan earlier today was unremarkable other than possibly an ovarian cyst and constipation. She will be treated with magnesium citrate. Patient drank the entire bottles magnesium citrate. Were awaiting her to have a bowel movement. Her abdomen is benign. She has been walking in the hallway. She will be turned over to the overnight physician. Discharge Plan Triage Chief Complaint: Abd Pain ED Provider: Trent Patton Dx/Rx/DC Orders Clinical Impression: Constipation, Abdominal pain, Hx of cholecystectomy Instructions: ED Constipation (Adult) Prescriptions: No Action clobetasol 0.05 % ointment 1 applic TOPICAL BID RF: 0 omeprazole 40 mg capsule,delayed release(DR/EC) 40 mg PO DAILY RF: 0 Advair HFA 230-21 mcg/actuation HFA aerosol inhaler 2 puff inhalation BID Qty: 12 RF: 6 paroxetine HCl 40 mg tablet 80 mg PO DAILY RF: 0 atorvastatin 20 MG tablet 20 mg PO QHS RF: 0 cetirizine 10 MG tablet 10 mg PO DAILY RF: 0 methylphenidate HCl 5 MG tablet 5 mg PO BID RF: 0 levothyroxine 100 MCG tablet 100 mcg PO MOTUWETHFRSA RF: 0 alprazolam 0.5 MG tablet 0.5 mg PO DAILY PRN PRN (Reason: Anxiety) RF: 0 levothyroxine 150 MCG tablet 150 mcg PO WAGNER RF: 0 lisinopril 5 MG tablet 2.5 mg PO QHS RF: 0 metformin 500 MG tablet extended release 24 hr 500 mg PO BID RF: 0 milk thistle 500 MG capsule 500 mg PO BID RF: 0 ljzbmkpvhmgk-Kn-urpr-minerals 1 EACH tablet 1 tab PO DAILY RF: 0 oregano oil 1,500 MG capsule 1,500 mg PO DAILY RF: 0 Beet Root 2 tab PO BID RF: 0 albuterol sulfate 1 INHALER inhaler 2 puff INHALATION Q6H PRN PRN (Reason: Sob &/Or Wheezing) RF: 0 diltiazem HCl [Cardizem CD] 120 mg capsule,extended release 24hr 120 mg PO DAILY Qty: 30 RF: 11 Primary Care Provider: Davis Aparicio Referrals: Hiren Garcia MD [STAFF PHYSICIAN] - 3-5 Days if not improving Davis Aparicio MD [Primary Care Provider] - Activity Restrictions/Additional Instructions: Fluids and rest. Fiber and stool softener as needed. Follow-up with Dr. Garcia as needed. Disposition Disposition: Home, Self Care
[2021-09-07] MEDS: Magnesium Citrate 300 ML PO (21:02)
[2021-09-08] MEDS: Dicyclomine 20 MG/2 ML Vial IM (01:14)
[2021-09-08 01:17] VITALS: BP 188/111; PULSE 58; RESP 20; O2SAT 98
== END 2021-09-08 03:05 | disposition home or self-care (01) ==
PROVIDERS: Emergency Provider Emergency Medicine; PCP Family Medicine; Visit Provider Emergency Medicine
DX: K59.00 Constipation, unspecified (principal); E11.43 Type 2 diabetes mellitus with diabetic autonomic (poly)neuropathy; R11.2 Nausea with vomiting, unspecified; Z90.49 Acquired absence of other specified parts of digestive tract; F17.210 Nicotine dependence, cigarettes, uncomplicated; Z90.710 Acquired absence of both cervix and uterus

== ENCOUNTER → 2021-12-16 | Outpatient (CLI) | payer MEDICAID, SELFPAY ==
--- NOTE | 2021-12-16 14:03 | CT_ITS ---
STUDY: CT MAXILLOFACIAL SINUSES REASON FOR EXAM: Female, 41 years old. Constant right facial pain and drainage. Prior sinus surgery. RADIATION DOSAGE (If Supplied By Facility): CTDIvol = ( 33.06 ) mGy, DLP = ( 672.70 ) mGycm TECHNIQUE: The patient was scanned in a multi detector CT scanner. High resolution axial imaging was performed without the administration of intravenous contrast material. Sagittal and coronal images were reconstructed. Individualized dose optimization techniques were used for this CT. COMPARISON: Comparison is made with prior examination dated 06/15/2017. FINDINGS: FRONTAL SINUSES: Normal aeration, without mucosal inflammatory disease. ETHMOIDAL SINUSES: Normal aeration, without mucosal inflammatory disease. MAXILLARY SINUSES: Normal aeration, without mucosal inflammatory disease. Prior resection of the medial fischer of both maxillary sinuses. SPHENOIDAL SINUSES: There is a 6.6 mm polyp along the anterior aspect of the left sphenoid sinus. There is patency of the bilateral maxillary infundibuli with normal uncinate processes, ethmoid bullae, and hiatus semilunaris. Normal bilateral middle turbinates. Normal bilateral inferior turbinates. There is a mild right sided nasal septal deviation, but without a nasal septal spur. There is patency of the bilateral nasal airways. The visualized osseous structures are normal. The visualized bilateral orbital contents are normal. CT/Sinus/Facial Bone IMPRESSION: Prior resection of the medial fischer of both maxillary sinuses. 6.6 mm polyp along the anterior aspect of the left sphenoid sinus. Electronically Signed: Jesu Tomas MD at 14:43 EDT ,
--- NOTE | 2021-12-16 14:04 | CT_ITS ---
STUDY: CT SOFT TISSUE NECK WITH CONTRAST REASON FOR EXAM: Female, 41 years old. ODYNOPHAGIA. Right-sided neck pain. RADIATION DOSAGE (If Supplied By Facility): CTDIvol = ( 18.93 ) mGy, DLP = ( 534.38 ) mGycm TECHNIQUE: The patient was scanned in a multi-detector CT scanner. High resolution transaxial imaging was performed following intravenous administration of IV 75mL [id number]-[id number]. Sagittal and coronal images were reconstructed. Individualized dose optimization techniques were used for this CT. COMPARISON: None. FINDINGS: Normal bilateral parotid glands. Normal bilateral as400 developer spaces. Normal bilateral parapharyngeal spaces. Normal bilateral carotid spaces. Normal bilateral sublingual and submandibular glands and spaces. Normal visualized nasopharynx. Normal retropharyngeal space. Normal perivertebral space. Normal visualized bilateral faucial tonsils. The visualized tongue, tongue base and oropharynx are normal. The visualized cervical lymph nodes (levels I-) are within normal size limits, and maintain normal morphology. There is no demonstrated solid or cystic mass lesion. There is no abnormal contrast enhancement. Normal epiglottis, bilateral vallecula and hypopharynx. The pre-epiglottic and paraglottic adipose spaces are normal. Normal visualized bilateral piriform sinuses, aryepiglottic folds, vocal cords, and arytenoid-cricoid articulations. Normal subglottic trachea. Normal bilateral lobes of the thyroid gland. Normal visualized pulmonary apices. Small mucosal polyp along the anterior aspect of the left sphenoid sinus. Normal visualized cervical spine. CT/Soft Tissue Neck WITH Contrast IMPRESSION: Normal enhanced CT examination of the soft tissues of the neck. Electronically Signed: Jesu Tomas MD at 14:44 EDT ,
[2021-12-16 14:25] LABS: CREATININE FINGERSTICK < 0.9 mg/dL (0.55-1.02); EGFR FINGERSTICK > 60.0000 mL/min (>60)
== END | disposition home or self-care (01) ==
PROVIDERS: PCP Family Medicine; Referring Provider Otolaryngology; Visit Provider Otolaryngology
DX: J32.8 Other chronic sinusitis (principal); K08.89 Other specified disorders of teeth and supporting structures
CPT/HCPCS: 70486; 70491; Q9967

== ENCOUNTER 2022-02-02 19:34 | Emergency (ER) | payer MEDICAID, SELFPAY ==
[2022-02-02 19:35] VITALS: BP 104/72; PULSE 73; RESP 18; TEMP 37; O2SAT 97; BMI 29.6
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
[2022-02-02 20:06] VITALS: BP 118/78; PULSE 70; RESP 18; O2SAT 98
== END 2022-02-02 20:29 | disposition home or self-care (01) ==
PROVIDERS: Emergency Provider Emergency Medicine; PCP Family Medicine; Visit Provider Emergency Medicine
DX: S20.20XA Contusion of thorax, unspecified, initial encounter (principal); E11.43 Type 2 diabetes mellitus with diabetic autonomic (poly)neuropathy; F17.210 Nicotine dependence, cigarettes, uncomplicated; F41.9 Anxiety disorder, unspecified; F32.A Depression, unspecified; G47.33 Obstructive sleep apnea (adult) (pediatric); E66.9 Obesity, unspecified; E03.9 Hypothyroidism, unspecified; J45.909 Unspecified asthma, uncomplicated; Z79.84 Long term (current) use of oral hypoglycemic drugs; Z79.899 Other long term (current) drug therapy; V49.40XA Driver injured in collision with unspecified motor vehicles in traffic accident, initial encounter
CPT/HCPCS: 71046; 93005; 99284

== ENCOUNTER → 2022-02-12 | Outpatient (CLI) | payer MEDICAID, SELFPAY ==
--- NOTE | 2022-02-12 08:51 | NEURO ---
NCS and/or EMG Patient Report Ordering Doctor: Christina De Dios DATE OF SERVICE: 02/12/22 Mary Beth presents for electrodiagnostic testing of the lower limbs. She reports pain and twitching in both legs. Electrodiagnostic findings: On nerve conduction study, peroneal motor nerve demonstrates normal distal latency, amplitude and conduction velocity bilaterally. Normal tibial motor response bilaterally. Normal tibial and peroneal F waves bilaterally. Normal H reflex bilaterally. Sensory responses are within normal limits. On needle EMG, all muscles tested in the lower limbs showed no evidence of denervation with normal motor unit action potentials. Electrodiagnostic assessment: This is a normal electrodiagnostic study of the lower limbs. There is no electrodiagnostic evidence for peripheral neuropathy, lumbosacral radiculopathy or myopathy.
[2022-02-12 09:10] LABS: Hematocrit 40.7 % (37-47); Hemoglobin 13.7 g/dL (12.0-15.0); Mean Corp Hgb Conc 33.7 g/dL (32-36); Mean Corpuscular Hgb 29.1 pg (27.0-32.0); Mean Corpuscular Volume 86.4 fL (81-99); Mean Platelet Vol. 9.7 fl (6.2-12.0); Platelet Count 274 K/mm3 (150-450); RBC Distribution Width CV 12.8 % (11.6-14.6); RBC Distribution Width SD 40.5 fl (35.1-43.9); Red Blood Count 4.71 M/mm3 (4.2-5.4); White Blood Count 10.1 K/mm3 (4.4-11.0)
[2022-02-12 09:18] LABS: ALB/GLOB Ratio 1.1 RATIO (0.9-2.4); AST(SGOT) 17 U/L (15-37); Alanine Aminotransfer ALT/SGPT 27 U/L (13-56); Albumin, Serum 3.7 g/dL (3.2-5.0); Alkaline Phosphatase 50 U/L (45-117); Anion Gap 5 (5-15); BUN 12 mg/dL (7-18); BUN/Creat Ratio 18.6 RATIO (10-20); Bilirubin, Direct 0.07 mg/dL (0.00-0.30); Chloride 106 mmol/L (98-107); Creatinine, Serum 0.64 mg/dL (0.55-1.02); EST Glomerular Filtration Rate 107 mL/min (>60); Est Glom Filt Rate - Afr Amer 129 mL/min (>60); Globulin 3.3 g/dL (2.2-4.2); Glucose 109 mg/dL (74-106); Potassium 4.1 mmol/L (3.5-5.1); Sodium Level 139 mmol/L (136-145)
[2022-02-12 09:20] LABS: Valproic Acid (Depakene) Level 59 ug/mL (50-100)
== END | disposition home or self-care (01) ==
PROVIDERS: Psychiatry & Neurology Psychiatry; PCP Family Medicine; Referring Provider Physician Assistant; Visit Provider Physician Assistant
DX: R25.3 Fasciculation (principal); M79.604 Pain in right leg; M79.605 Pain in left leg; Z79.899 Other long term (current) drug therapy
CPT/HCPCS: 36415; 80053; 80164; 82140; 82248; 85027; 95886; 95912

== ENCOUNTER → 2022-02-14 | Outpatient (CLI) | payer MEDICAID, SELFPAY | END | disposition home or self-care (01) | LOC: LABSPEC 10:30 | PROVIDERS: PCP Family Medicine; Referring Provider Student in an Organized Health Care Education/Training Program; Visit Provider Student in an Organized Health Care Education/Training Program | DX: J45.20 Mild intermittent asthma, uncomplicated (principal) | CPT/HCPCS: 87070; 87205 ==

== ENCOUNTER → 2022-03-13 | Outpatient (CLI) | payer MEDICAID, SELFPAY | END | disposition home or self-care (01) | LOC: LABSPEC 11:50 | PROVIDERS: PCP Family Medicine; Referring Provider Nurse Practitioner Acute Care; Visit Provider Nurse Practitioner Acute Care | DX: J45.20 Mild intermittent asthma, uncomplicated (principal) | CPT/HCPCS: 87206 ==

== ENCOUNTER → 2022-07-04 | Outpatient (CLI) | payer MEDICAID, SELFPAY ==
[2022-07-04 14:39] LABS: Platelet Count 287 K/mm3 (150-450)
[2022-07-04 15:02] LABS: Valproic Acid (Depakene) Level 39 ug/mL (50-100)
[2022-07-04 15:03] LABS: AST(SGOT) 11 U/L (15-37); Alanine Aminotransfer ALT/SGPT 23 U/L (13-56)
== END | disposition home or self-care (01) ==
LOC: LAB 14:21
PROVIDERS: PCP Family Medicine; Visit Provider Psychiatry & Neurology Psychiatry
DX: Z79.899 Other long term (current) drug therapy (principal)
CPT/HCPCS: 36415; 80164; 82140; 84450; 84460; 85049

== ENCOUNTER → 2022-10-02 | Outpatient (CLI) | payer MEDICAID, SELFPAY ==
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
== END | disposition home or self-care (01) ==
PROVIDERS: PCP Family Medicine; Referring Provider Nurse Practitioner Gerontology; Visit Provider Nurse Practitioner Gerontology
DX: R00.2 Palpitations (principal); E11.9 Type 2 diabetes mellitus without complications; R07.9 Chest pain, unspecified; E78.5 Hyperlipidemia, unspecified
CPT/HCPCS: 78452; 93017; 93225; 93226; A9500; A4216

== ENCOUNTER → 2022-10-03 | Outpatient (CLI) | payer MEDICAID, SELFPAY ==
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
[2022-10-03 14:26] LABS: Absolute Lymphocyte Count 1.45 X10^3/uL (0.83-4.51); Absolute Neutrophil Count 4.6 X10^3/uL (2.0-7.7); Basophil# 0.05 X10^3/uL; Basophil% 0.8 % (0-1); Eosinophil# 0.15 X10^3/uL; Eosinophils% 2.3 % (0-5); Hematocrit 42.6 % (37-47); Hemoglobin 14.4 g/dL (12.0-15.0); Lymphocyte # 1.45 X10^3/ul (0.83-4.51); Mean Corp Hgb Conc 33.8 g/dL (32-36); Mean Corpuscular Hgb 29.9 pg (27.0-32.0); Mean Corpuscular Volume 88.4 fL (81-99); Mean Platelet Vol. 10.3 fl (6.2-12.0); Monocyte# 0.34 X10^3/uL; Monocyte% 5.2 % (0-10); NRBC Flagged by Analyzer 0 % (0-5); Neutrophil # 4.58 X10^3/uL (2.7-7.7); Neutrophil % 69.5 % (47-70); Platelet Count 261 K/mm3 (150-450); RBC Distribution Width CV 12.9 % (11.6-14.6); RBC Distribution Width SD 41.7 fl (35.1-43.9); Red Blood Count 4.82 M/mm3 (4.2-5.4); White Blood Count 6.6 K/mm3 (4.4-11.0)
[2022-10-03 14:35] LABS: Internal QC Validated? YES +Cl - CLEAR BKGD
[2022-10-03 14:42] LABS: Pregnancy, Serum, hCG Quali. NEGATIVE Negative
[2022-10-03 14:51] LABS: Anion Gap 5 (5-15); BUN 14 mg/dL (7-18); BUN/Creat Ratio 17.7 RATIO (10-20); Calcium,Total 9.1 mg/dL (8.5-10.1); Chloride 111 mmol/L (98-107); Creatinine, Serum 0.79 mg/dL (0.55-1.02); EST Glomerular Filtration Rate 84 mL/min (>60); Est Glom Filt Rate - Afr Amer 102 mL/min (>60); Glucose 128 mg/dL (74-106); Potassium 3.8 mmol/L (3.5-5.1); Sodium Level 142 mmol/L (136-145)
== END | disposition home or self-care (01) ==
PROVIDERS: PCP Family Medicine; Referring Provider Nurse Practitioner Gerontology; Visit Provider Nurse Practitioner Gerontology
DX: R94.39 Abnormal result of other cardiovascular function study (principal); R07.9 Chest pain, unspecified
CPT/HCPCS: 36415; 71046; 80048; 84703; 85025

== ENCOUNTER 2022-10-15 09:27 | Day surgery (SDC) | payer MEDICAID, SELFPAY ==
[2022-10-14 07:52] VITALS: BMI 31.4
--- NOTE | 2022-10-15 11:40 | CL.D_ITS ---
Patient Name: HERMILO GONZALEZ Study Date: 10/15/2022 Performing: Ellen Palma MD Ht: 64 inches 162.56 cm : 1980 Wt: 183.01 lbs 83.01 kg Age: 41 Gender: female BSA: 1.88 PROCEDURE(S) PERFORMED DC02-(13361)[facility] CLINICAL PROFILE AND INDICATIONS Indications: Suspected CAD Heart Failure: None Stress/Imaging Stress Test w/SPECT MPI: Yes Result: Positive Low RiskStress Test with SPECT MPI: Positive Low Risk CAD Presentations: Symptom unlikely to be ischemic. CONCLUSIONS Minimal non-obstructive CAD Mild bridging Prox distal LAD RECOMMENDATIONS Risk factor modification DESCRIPTION OF PROCEDURE The patient arrived to the procedure lab. The risks and benefits of the procedure as well as a full description of our services here and current unavailability of surgical backup were fully explained to the patient and/or their significant other prior to the catheterization. The Timeout was completed, verifying the correct patient and procedure. The patient's procedural site was prepped and draped in the usual fashion. Local anesthetic was given subcutaneously to right radial region with Lidocaine 2%. Using a modified Seldinger technique, arterial access was obtained via the right radial artery, a 6Fr sheath was inserted. Right Coronary Artery selective angiography was then performed in multiple views using a 5 Fr. 4.0 Applegate catheter. Left Coronary Artery selective angiography was performed in multiple views using a 5 Fr. 4.0 Applegate catheter.The arterial sheath was pulled and a TR Band was applied for hemostasis CORONARY ANGIOGRAPHY DOMINANCE: Right Dominant LEFT HEART ASSESSMENT Left Ventricular Ejection Fraction: Not assessed LVEDP: 22 mmHg LEFT MAIN: Angiographically normal LEFT ANTERIOR DESCENDING ARTERY: LAD: Tubular 20% Mid lesion in LAD OTHER LAD BRANCH: ld bridging Prox distal LAD % Stenosis RIGHT CORONARY ARTERY: RCA: Tubular 10% Proximal lesion in RCA COMPLICATIONS No Complications PROCEDURE MEDICATIONS Versed 1 mg IV Fentanyl 50 mcg IV Oxygen: 2 L/min via nasal cannula Heparin given IA 10/15/2022 10:27:25 Verapamil 2.5mg, Ntg 200mcgs, 2000 units of Heparin given IA 10/15/2022 10:27:25 IV Bolus: .9 NaCl 250 ml total 10/15/2022 10:30:23 SUMMARY OF HEMODYNAMIC DATA Time AIR REST ECG 09:48:17 ECG 10:14:18 AO 122/68 (92) SA 10:32:14 LVp 127/8, 22 10:32:53 AOp 128/73 (99) 10:33:00 Signed By Ellen Palma MD On 10/15/2022 11:36:45 Ellen Palma MD
== END 2022-10-15 13:06 | disposition home or self-care (01) ==
LOC: CLSP 09:29
PROVIDERS: PCP Family Medicine; Referring Provider Internal Medicine Cardiovascular Disease; Visit Provider Internal Medicine Cardiovascular Disease
DX: R00.2 Palpitations (principal); E11.9 Type 2 diabetes mellitus without complications; R07.9 Chest pain, unspecified; E78.5 Hyperlipidemia, unspecified; E03.9 Hypothyroidism, unspecified; R53.83 Other fatigue
CPT/HCPCS: 93454; 99152; 99153; J7040; Q9967; C1769; C1894

== ENCOUNTER → 2022-12-15 | Outpatient (CLI) | payer MEDICAID, SELFPAY ==
[2022-12-15 15:39] LABS: Hematocrit 40.9 % (37-47); Hemoglobin 13.4 g/dL (12.0-15.0); Mean Corp Hgb Conc 32.8 g/dL (32-36); Mean Corpuscular Hgb 28.8 pg (27.0-32.0); Mean Platelet Vol. 9.7 fl (6.2-12.0); Platelet Count 275 K/mm3 (150-450); RBC Distribution Width SD 38.4 fl (35.1-43.9); Red Blood Count 4.65 M/mm3 (4.2-5.4); White Blood Count 8.3 K/mm3 (4.4-11.0)
[2022-12-15 16:32] LABS: Anion Gap 5 (5-15); BUN 10 mg/dL (7-18); Calcium,Total 8.7 mg/dL (8.5-10.1); Chloride 107 mmol/L (98-107); Creatinine, Serum 0.67 mg/dL (0.55-1.02); EST Glomerular Filtration Rate 102 mL/min (>60); Est Glom Filt Rate - Afr Amer 123 mL/min (>60); Glucose 93 mg/dL (74-106); Magnesium 1.8 mg/dL (1.6-2.6); Potassium 3.8 mmol/L (3.5-5.1); Sodium Level 138 mmol/L (136-145); Thyroid Stim Hormone (TSH) 1.37 uIU/mL (0.358-3.74)
== END | disposition home or self-care (01) ==
LOC: LAB 14:41
PROVIDERS: PCP Family Medicine; Referring Provider Nurse Practitioner Gerontology; Visit Provider Nurse Practitioner Gerontology
DX: R00.0 Tachycardia, unspecified (principal); E11.9 Type 2 diabetes mellitus without complications; R00.2 Palpitations; E03.9 Hypothyroidism, unspecified
CPT/HCPCS: 36415; 80048; 83735; 84443; 85027

== ENCOUNTER → 2022-12-22 | Outpatient (CLI) | payer MEDICAID, SELFPAY ==
--- NOTE | 2022-12-22 17:53 | CT_ITS ---
INDICATION: Lung nodule EXAMINATION: CT CHEST WITHOUT CONTRAST - CT Chest W/O Contrast Injection TECHNIQUE: Helically acquired images were obtained of the chest. A radiation dose optimization technique was used for this scan. IV Contrast dosage and agent: None. RADIATION DOSAGE (If Supplied By Facility): CTDIvol = ( 14.39 ) mGy, DLP = ( 496.08 ) mGycm COMPARISON: July 30, 2019 and January 29, 2021 FINDINGS: LUNGS, PLEURA AND LARGE AIRWAYS: Within the right lower lobe there is a stable subpleural 5 mm nodule (image 56 series 4). No pleural effusion or thickening. No pneumothorax. THYROID: No thyroid lesions. HEART AND PERICARDIUM: Heart size is normal. No pericardial effusion. CORONARY ARTERIES: Coronary artery calcification is seen. VESSELS: Thoracic aorta is not dilated. MEDIASTINUM AND KOBI: No mediastinal or hilar adenopathy. There is a stable round low-attenuation focus within the anterior mediastinum which may reflect a cyst. Esophagus is unremarkable. No hiatal hernia. UPPER ABDOMEN: No acute pathology. BONES: There are degenerative changes of the thoracic spine. CT/Chest without Contrast IMPRESSION: Stable 5 mm right lower lobe nodule since December 29, 2019 suggesting a benign process. No follow-up recommended. Atherosclerosis. Electronically Signed: Silvia Da Silva MD at 8:22 EDT ,
== END | disposition home or self-care (01) ==
LOC: CT 17:45
PROVIDERS: PCP Family Medicine; Referring Provider Internal Medicine Critical Care Medicine; Visit Provider Internal Medicine Critical Care Medicine
DX: R91.1 Solitary pulmonary nodule (principal)
CPT/HCPCS: 71250

== ENCOUNTER → 2023-01-14 | Outpatient (CLI) | payer MEDICAID, SELFPAY ==
[2023-01-14 12:52] LABS: Hematocrit 39.3 % (37-47); Hemoglobin 13.8 g/dL (12.0-15.0); Mean Corp Hgb Conc 35.1 g/dL (32-36); Mean Corpuscular Hgb 30.1 pg (27.0-32.0); Mean Corpuscular Volume 85.6 fL (81-99); Mean Platelet Vol. 9.6 fl (6.2-12.0); Platelet Count 246 K/mm3 (150-450); RBC Distribution Width CV 12.1 % (11.6-14.6); RBC Distribution Width SD 37.6 fl (35.1-43.9); Red Blood Count 4.59 M/mm3 (4.2-5.4); White Blood Count 7.2 K/mm3 (4.4-11.0)
[2023-01-14 13:27] LABS: ALB/GLOB Ratio 1.1 RATIO (0.9-2.4); AST(SGOT) 11 U/L (15-37); Alanine Aminotransfer ALT/SGPT 22 U/L (13-56); Albumin, Serum 3.6 g/dL (3.2-5.0); Alkaline Phosphatase 50 U/L (45-117); Anion Gap 5 (5-15); BUN 12 mg/dL (7-18); BUN/Creat Ratio 14.7 RATIO (10-20); Calcium,Total 8.7 mg/dL (8.5-10.1); Chloride 109 mmol/L (98-107); Creatinine, Serum 0.82 mg/dL (0.55-1.02); EST Glomerular Filtration Rate 81 mL/min (>60); Est Glom Filt Rate - Afr Amer 98 mL/min (>60); Globulin 3.4 g/dL (2.2-4.2); Glucose 95 mg/dL (74-106); Potassium 3.9 mmol/L (3.5-5.1); Sodium Level 140 mmol/L (136-145)
[2023-01-14 13:30] LABS: Valproic Acid (Depakene) Level 64 ug/mL (50-100)
== END | disposition home or self-care (01) ==
LOC: LAB 12:20
PROVIDERS: PCP Family Medicine; Referring Provider Psychiatry & Neurology Psychiatry; Visit Provider Psychiatry & Neurology Psychiatry
DX: Z79.899 Other long term (current) drug therapy (principal)
CPT/HCPCS: 36415; 80053; 80164; 82140; 85027

== ENCOUNTER → 2023-03-05 | Outpatient (CLI) | payer MEDICAID, SELFPAY ==
--- NOTE | 2023-03-05 09:05 | RAD_ITS ---
EXAMINATION: Air contrast UPPER GI SERIES INDICATION: Female, 42 years chest pain and palpitations. History of gastroesophageal reflux. FLUOROSCOPY TIME (if supplied): (0:52) minutes/seconds. 19.23 mGy. 28 images were submitted. TECHNIQUE: Radiographic and fluoroscopic images of the distal esophagus, stomach, and proximal small intestine were obtained following the oral ingestion of barium. COMPARISON: Comparison is made with prior study dated July 17, 2011. FINDINGS: There is no evidence for organomegaly, abnormal calcifications, or abnormal bowel gas pattern. The psoas margins and flank stripes are normal. The visualized osseous structures are normal. The mucosa of the esophagus, stomach and duodenum is normal in appearance without evidence for stricture, ulceration, mass or diverticulum. There is evidence of gastroesophageal reflux. RAD/Upper GI Dual Contrast IMPRESSION: 1. Gastroesophageal reflux. Electronically Signed: Jesu Tomas MD at 10:31 EDT ,
== END | disposition home or self-care (01) ==
LOC: RAD 08:57
PROVIDERS: PCP Family Medicine; Referring Provider Family Medicine; Visit Provider Family Medicine
DX: R00.2 Palpitations (principal); R07.9 Chest pain, unspecified
CPT/HCPCS: 74246

== ENCOUNTER 2025-04-03 16:36 | Emergency (ER) | payer MEDICAID, SELFPAY ==
--- OUTSIDE RECORDS SUMMARY | 2025-01-03 12:15 | XMS RPT_ITS ---
Author Name Auto Generated Organization OHIP Care Team Providers Care Sliver Former Name Role Phone DAVIS LINK Referring Unavailable DAVIS LINK Primary Care Unavailable CHRISTINA DE DIOS Referring Unavailable DAVIS LINK Primary Care Unavailable CHRISTINA DE DIOS Attending Unavailable DAVIS LINK Primary Care Unavailable DAVIS LINK Referring Unavailable DAVIS LINK Primary Care Unavailable DAVIS LINK Referring Unavailable NIKOLAY, DAVIS Ugalde Primary Care Unavailable NIKOLAY, DAVIS Ugalde Primary Care Unavailable DAVIS LINK Attending Unavailable CHRISTINA DE DIOS Referring Unavailable DAVIS LINK Primary Care Unavailable DAVIS LINK Attending Unavailable DAVIS LINK A Primary Care Unavailable MANASA LINKREY Aftab Primary Care Unavailable GABRIELLA GARZA Referring Unavailable CHRISTINA DE DIOS Referring Unavailable DAVIS LINK Primary Care Unavailable REJI CHRISTINA Referring Unavailable MANASA LINKREY A Primary Care Unavailable REJI CHRISTINA Referring Unavailable MANASA LINKREY Aftab Primary Care Unavailable KEYANNA WANG Attending Unavailable PROBLEMS DATE TYPE CONDITION / CODE ATTENDING STATUS [facility] 01/03/2025 Active Respiratory crac kles at left lung base / R09.89(ICD-10) NA Active [facility] 01/03/2025 Active Costochondritis / M94.0(ICD-10) DAVIS LINK Active [facility] 11/01/2020 Active Smoker / F17.200(ICD-10) NA Acti ve [facility] 11/30/2024 Active Medication manag ement / Z79.899(ICD-10) DAVIS LINK Active [facility] 11/24/2023 Active Premature atrial beats / I49.1(ICD-10) DAVIS LINK Active [facility] 11/24/2023 Active Moderate persist ent asthma without complication (HCC) / J45.40(ICD-10) DAVIS LINK Active [facility] 09/14/2023 Active Atherosclerosis of coronary artery of [place] heart with angina pectoris, unspecified vessel or lesion type / I25.119(ICD-10) DAVIS LINK Active [facility] 09/14/2023 Active Borderline perso nality disorder (HCC) / F60.3(ICD-10) NIKOLAYDAVIS GUTIERREZ [place]ftab Active [facility] 03/12/2023 Active GERD without eso phagitis / K21.9(ICD-10) NKIOLAYDAVIS GUTIERREZ Active [facility] 11/01/2020 Active Unclassified epi leptic seizures (HCC) / G40.909(ICD-10) NIKOLAYMANASA GUTIERREZREY [place] Active [facility] 11/01/2020 Active Attention defici t disorder, unspecified type / F98.8(ICD-10) MANASA LINKVIRGINIE Ugalde Active [facility] 11/01/2020 Active Major depressive disorder, remission status unspecified, unspecified whether recurrent / F32.9(ICD-10) DAVIS LINK Active [facility] 11/01/2020 Active PTSD (post-traum atic stress disorder) / F43.10(ICD-10) NIKOLAYDAIVS GUTIERREZ [place] Active [facility] 06/09/2024 Active Encounter for sc reening mammogram for breast cancer / Z12.31(ICD-10) NA [facility] 05/30/2024 Active Screening for co jonel cancer / Z12.11(ICD-10) KEYANNA WANG Active [facility] 11/01/2020 Active Controlled type 2 diabetes mellitus without complication, without long-term current use of insulin (HCC) / E11.9(ICD-10) NA Active [facility] 11/01/2020 Active Mixed hyperlipid emia / E78.2(ICD-10) NA Active [facility] 05/27/2024 Active Weight loss / R63.4(ICD-10) NA Active [facility] 11/01/2020 Active Acquired hypothy roidism / E03.9(ICD-10) NA Active [facility] PROCEDURES No Procedure Records Found RESULTS PROGRESS Observed: 04/04/2025 8:52 AM Status: COMPLETED Source: [facility] HNO ID: [id number] Author: APRYL MOELLER MA Service: ? Author Type: Admiralty Lawyer Type: Progress Notes Filed: 04/04/2025 08:52 Note Text: Scan on 04/04/2025 1:17 AM by Provider, External, VERENICE: [facility]-back CNPN Observed: 01/05/2025 12:00 AM Status: COMPLETED Source: [facility] MARY BETH GONZALEZ ([id number]) 1980 F Date Time Provider Department 01/05/25 [facility] During your visit today, we recorded the following information about you: Christen Aguayo RN 01/05/2025 1:21 PM Signed Patient calls and states that medication (Celebrex) that was prescribed is not working. Patient reports that she had 2 flare ups of costochondritis. Please review and advise, SETH Louis Jeffrey A, MD 01/05/2025 4:51 PM Signed Let patient know she has only been on it for 1.5 days and it will take about 2-3 days for it to be in a steady state before being able to say it's not working. In fact I would not make any changes until she has been on it for at least a full week. Apryl Moeller MA 01/05/2025 4:54 PM Signed Pt notified and voiced understanding. Apryl Moeller MA Allergies As of Date: 01/05/2025 Noted Allergy Reaction AMOXICILLIN 07/25/2009 9 - Itching BACTRIM (SULFAMETHOXAZOLE-TRIMETH*08/14/2006 4 - Hives EFFEXOR (VENLAFAXINE ANALOGUES) 08/09/2009 1 - Mental Status Change Comments: suicidal PYRIDIUM (PHENAZOPYRIDINE HCL) 08/14/2006 4 - Hives ADDERALL (DEXTROAMPHETAMINE-AMPHE*03/15/2010 1 - Mental Status Change Comments: paranoid ideation DUST 07/03/2010 9 - Itching MOLD 07/03/2010 9 - Itching PRAVACHOL (PRAVASTATIN SODIUM) 05/15/2015 8 - GI Upset RAGWEED 07/03/2010 9 - Itching Date Reviewed: 01/03/2025 Reviewed by: Davis Link MD - Fully Assessed Reason for Visit: Patient Update [1234] Prescriptions as of 01/05/2025 - doxycycline hyclate (VIBRAMYCIN) 100 mg capsule Take 1 capsule by mouth two times a day for 10 days. - celecoxib (CELEBREX) 200 mg capsule Take 1 capsule by mouth two times a day for 14 days. Repeat when needed for costochondritis flares. - cetirizine (ZYRTEC) 10 mg tablet Take 1 tablet by mouth once daily. - divalproex ER (DEPAKOTE ER) 250 mg 24 hr tablet Take 1 tablet by mouth once daily. Per Psych: Dr. Rainey - levothyroxine (SYNTHROID) 100 mcg tablet Take 1 tablet by mouth once daily. - metFORMIN ER (GLUCOPHAGE XR) 500 mg 24 hr tablet Take 1 tablet by mouth once daily. - atorvastatin (LIPITOR) 20 mg tablet Take 1 tablet by mouth once daily. - buPROPion XL (WELLBUTRIN XL) 300 mg 24 hr tablet take 1 tablet by oral route 1 time per day in the morning - atenolol (TENORMIN) 25 mg tablet Take by mouth. - dilTIAZem CR (TIAZAC, TAZTIA XT) 120 mg 24 hr capsule DAILY - buPROPion XL (WELLBUTRIN XL) 150 mg 24 hr tablet Take 150 mg by mouth once daily. - metoprolol tartrate, short acting, (LOPRESSOR) 25 mg tablet Take 0.5 tablets by mouth two times a day. Per [facility]. - vilazodone (VIIBRYD) 40 mg tablet Take 40 mg by mouth once daily. - ADVAIR HFA 230-21 mcg/actuation inhaler Inhale 2 Puffs as instructed twice daily. - divalproex ER (DEPAKOTE ER) 500 mg 24 hr tablet once daily. - ALPRAZolam (XANAX) 0.5 mg tablet Take 0.5 mg by mouth as needed. - Selenium Sulfide 2.25 % sham Apply 1 application to affected area as needed. - albuterol HFA (VENTOLIN HFA) 90 mcg/actuation inhaler Inhale 2 Puffs as instructed every 4 hours as needed for Wheezing/Shortness of Breath. Per pulDr. Shay isaac - fluticasone (FLONASE) 50 mcg/actuation nasal spray Use 2 Sprays in each nostril once daily. - clobetasol 0.05 % ointment Apply to affected area(s) of active or acute and persistent insect bite or prurigo papular lesions of open areas of arms, legs, trunk, once to twice per day (qday to bid) until clear, and then taper off as able. AVOID face, eyes, eyelids, and deep fold areas. - nitroglycerin sublingual (NITROSTAT) 0.4 mg SL tablet Dissolve 1 tablet under the tongue as needed. FOR CHEST PAIN. IF NO RELIEF CALL 911 - hydrocortisone valerate(WESTCORT 0.2 % TOPICAL CREAM) Apply to psoriasis/rash on folds areas (eg., abdominal fold area), ears, outer face or forehead area, and scalp line selectively qd to bid prn until clear and then taper off as able; AVOID eyes and eyelids, and central face near eyes and nose. Problem List As Of Date 01/05/2025 Noted Resolved Attention deficit disorder [F98.8] 11/27/2006 Unclassified epileptic seizures (HCC) [G40.909] 03/31/2008 Acquired hypothyroidism [E03.9] 07/17/2008 Lumbago [M54.50] 08/07/2008 Psoriasis [L40.9] 07/25/2009 Multiple joint pain [M25.50] 07/25/2009 Cyst 07/25/2009 Smoker [F17.200] 07/25/2009 PTSD (post-traumatic stress disorder) [F43.10] 10/18/2009 Depression [F32.A] 10/18/2009 ZHANNA (obstructive sleep apnea) [G47.33] 05/15/2010 Mixed hyperlipidemia [E78.2] 09/30/2010 Myofascial muscle pain [M79.18] 09/05/2015 Moderate persistent asthma without complication*01/08/2017 Controlled type 2 diabetes mellitus without com*07/11/2008 Premature atrial beats [I49.1] 11/01/2020 Seasonal allergies [J30.2] 11/01/2020 Gallbladder polyp [K82.4] 08/19/2021 09/04/2021 Well adult exam [Z00.00] 12/11/2021 GERD without esophagitis [K21.9] 03/12/2023 Class 1 obesity due to excess calories with bod*06/24/2023 11/24/2023 Atherosclerosis of coronary artery [I25.10] 09/14/2023 Diagnosed: 09/14/2023 Borderline personality disorder (HCC) [F60.3] 09/14/2023 Diagnosed: 09/14/2023 Costochondritis [M94.0] 09/14/2023 11/24/2023 Diagnosed: 09/14/2023 Headache [R51] 09/14/2023 11/24/2023 Diagnosed: 09/14/2023 Lung nodule [R91.1] 09/14/2023 Diagnosed: 09/14/2023 Nicotine dependence [F17.200] 04/22/2022 11/24/2023 Diagnosed: 09/14/2023 Palpitations [R00.2] 10/22/2022 11/24/2023 Diagnosed: 09/14/2023 PVC (premature ventricular contraction) [I49.3] PAC (premature atrial contraction) [I49.1] Over weight [E66.3] 11/24/2023 Weight loss, unintentional [R63.4] 11/24/2023 Marijuana use [F12.90] 07/26/2024 Medication management [Z79.899] 11/30/2024 Encounter Status:Closed by APRYL MOELLER on 01/05/25 XR CHEST 2V FRONTAL/LAT Observed: 2024 12:25 PM Status: F Source: [facility] * * *Final Report* * * DATE OF EXAM: Jan 03 2025 12:25PM WOX [id number] - XR CHEST 2V FRONTAL/LAT / PROCEDURE REASON: Respiratory crackles at left lung base * * * * Physician Interpretation * * * * EXAMINATION: CHEST RADIOGRAPH (2 VIEW FRONTAL and LATERAL) CLINICAL HISTORY: Respiratory crackles at left lung base MQ: [id number] EXAM DATE/TIME: 01/03/2025 12:25 PM COMPARISON: No relevant prior studies available. RESULT: Lines, tubes, and devices: None. Lungs and pleura: No consolidation. No lung mass. No pleural effusion. No pneumothorax. Cardiomediastinal silhouette: Normal cardiomediastinal silhouette. Bones and soft tissues: Unremarkable. IMPRESSION: No acute radiographic abnormality. Inventory Manager: PSCB Transcribe Date/Time: Jan 03 2025 12:26P Dictated by : ETHAN DUBOSE MD This examination was interpreted and the report reviewed and electronically signed by: ETHAN DUBOSE MD on Jan 03 2025 12:27PM EST [id number] PROGRESS Observed: 01/03/2025 12:20 PM Status: COMPLETED Source: [facility] HNO ID: [id number] Author: IJEOMA CAI RT(R) Service: ? Author Type: Dupligraph Operator Type: Progress Notes Filed: 01/03/2025 12:24 Note Text: Radiology Service Progress Note PATIENT NAME: Mary Beth Gonzalez DATE OF SERVICE: January 03, 2025 TIME: 12:17 PM PATIENT IDENTITY VERIFICATION COMPLETED USING TWO (2) IDENTIFIERS: Name and Date of confirmed by patient verbally. FALL SCREENING: Has the patient had 2 falls in the last year or 1 fall with injury or currently using an Ambulatory Assistive Device (Walker, Cane, Wheelchair, Crutches, etc.)? No PATIENT GENDER DATA: Assigned female at . status: : No status: NO. PATIENT RELEVANT IMPLANT DATA REVIEWED: Yes PATIENT PRESENTS WITH AN IMPLANTABLE OR ATTACHED SECURITY AND PRIVACY CONSULTANT: No RADIOLOGY DEPARTMENT: General X-ray: Exam(s) Completed: Chest X-Ray PERIPHERAL IV DATA: Not applicable SIGNED BY: RT Chai(R) January 03, 2025 12:17 PM PROGRESS Observed: 01/03/2025 11:42 AM Status: COMPLETED Source: [facility] HNO ID: [id number] Author: DAVIS LINK MD Service: ? Author Type: Physician Type: Progress Notes Filed: 01/03/2025 21:06 Note Text: Chief Complaint Patient presents with: Musculoskeletal Problem HPI Mary Beth Gonzalez is a 44 year old female who presents here today for an acute visit. Patient has a Hx of myofascial muscle pain. Mary Beth Gonzalez is a 44-year-old female presenting with recurrent costochondritis flares. Mary Beth reports experiencing frequent costochondritis flares, occurring at least every other day, sometimes twice in one day. The pain initiates in various locations, often at the bottom of the ribs, and rapidly intensifies, spreading from front to back. The pain is exacerbated by deep breaths and sneezing, but not by laughing. She denies dyspnea, hemoptysis, or excessive coughing, and has not experienced fevers or chills. Mary Beth also denies any associated nausea or emesis. She has attempted to manage the pain with ibuprofen, muscle relaxers, Cory, Norflex, and naproxen, but reports these medications are ineffective. She has some leftover Percocet, which she uses sparingly. Mary Beth is uncertain about the initial cause of her costochondritis and has not identified any specific triggers for the flares. She notes that the pain is not localized to her abdomen and is not associated with her known rib cysts. Past medical history, appointments, medications, allergies reviewed. Previous Medical History PAST MEDICAL HISTORY Diagnosis Date Acquired hypothyroidism 07/17/2008 Arthritis Asthma ([facility]) Atherosclerosis of coronary artery 09/14/2023 Attention deficit disorder without mention of hyperactivity 11/27/2006 Biliary dyskinesia 12/09/2012 Borderline personality disorder (HCC) 09/14/2023 Brachial neuritis or radiculitis 02/01/2014 Chondromalacia of knee 06/17/2011 Controlled type 2 diabetes mellitus without complication, without long-term current use of insulin (HCC) 07/11/2008 Cyst 07/25/2009 Cysts on lower back, soft tissue Depression 10/18/2009 Diabetes mellitus type II ([facility]) Endometriosis GERD without esophagitis 03/12/2023 Per Upper GI 03/05/2023 Hx of borderline personality disorder Hx of pancreatitis Hypothyroidism Lumbago 08/07/2008 Lung nodule 09/14/2023 12/22/2022: CT stable nodule over 2 years, no further imaging needed Marijuana use 07/26/2024 Medication management 11/30/2024 Mixed hyperlipidemia 09/30/2010 Moderate persistent asthma without complication (HCC) 01/08/2017 Multiple joint pain 07/25/2009 Myofascial muscle pain 09/05/2015 ZHANNA (obstructive sleep apnea) 05/15/2010 Other convulsions 03/31/2008 Over weight 11/24/2023 PAC (premature atrial contraction) Premature atrial beats 11/01/[address] Corral Psoriasis 07/25/2009 PTSD (post-traumatic stress disorder) 10/18/2009 PVC (premature ventricular contraction) Seasonal allergies 11/01/2020 Seborrheic dermatitis Unclassified epileptic seizures (HCC) 03/31/2008 Last seizure 02/11. Under no treatment was never found to have seizure activity on testing (? Pseudoseizures) Well adult exam 12/11/2021 Done: 12/11/2021 Previous Surgical History PAST SURGICAL HISTORY Procedure Laterality Date COLONOSCOPY FLX DX W/COLLJ SPEC WHEN PFRMD 10/27/2011 CONIZATION CERVIX W/WO DANDC RPR ELTRD EXC 07/06/2000 LEEP-Cervix EGD TRANSORAL BIOPSY SINGLE/MULTIPLE 10/27/2011 INSERTION OF DRUG DELIVERY IMPLANT INTO TEAR DUCTS Bilateral LAPAROSCOPIC CHOLECYSTECTOMY 09/04/2021 LEFT HEART CATH,PERCUTANEOUS Left 10/15/2022 Left Heart Catheterization PAST SURGICAL HISTORY OF 07/06/2000 cerviacal cyst removed PAST SURGICAL HISTORY OF 04/25/2008 abdominal hyster and removal one ovary PAST SURGICAL HISTORY OF Left 12/2021 some nodules removed from ribs on left side PAST SURGICAL HISTORY OF Left Titanium clip SEPTOPLASTY 2019 revision and polyp removal SEPTOPLASTY/SUBMUCOUS RESECJ W/WO CARTILAGE GRF 12/04/2010 Septoplasty TONSILLECTOMY PRIMARY/SECONDARY <AGE 12 09/30/2011 Tonsillectomy - Mau Spangler [facility] TOTAL ABDOM HYSTERECTOMY Family History FAMILY HISTORY Problem Relation Age of Onset other (Unknown) Mother Diabetes Father blood pressure problem Heart Father None Brother other (Gastric colitis) Maternal Grandmother No Known Problems Maternal Grandfather other (Heart condition) Paternal Grandmother Kidney failure Paternal Grandmother Diabetes Paternal Grandmother Heart Attack Paternal Grandfather Diabetes Paternal Aunt Diabetes Paternal Uncle No Known Problems Half-brother No Known Problems Half-brother Patient Allergies ALLERGIES Allergen Reactions Amoxicillin Itching Bactrim [Sulfametho* Hives Effexor [Venlafaxin* Mental Status Change suicidal Pyridium [Phenazopy* Hives Adderall [Dextroamp* Mental Status Change paranoid ideation Dust Itching Mold Itching Pravachol [Pravasta* GI Upset Ragweed Itching Current Medications Current Outpatient Medications on File Prior to Visit Medication Sig cetirizine (ZYRTEC) 10 mg tablet Take 1 tablet by mouth once daily. divalproex ER (DEPAKOTE ER) 250 mg 24 hr tablet Take 1 tablet by mouth once daily. Per Psych: Dr. Rainey levothyroxine (SYNTHROID) 100 mcg tablet Take 1 tablet by mouth once daily. metFORMIN ER (GLUCOPHAGE XR) 500 mg 24 hr tablet Take 1 tablet by mouth once daily. atorvastatin (LIPITOR) 20 mg tablet Take 1 tablet by mouth once daily. buPROPion XL (WELLBUTRIN XL) 300 mg 24 hr tablet take 1 tablet by oral route 1 time per day in the morning atenolol (TENORMIN) 25 mg tablet Take by mouth. dilTIAZem CR (TIAZAC, TAZTIA XT) 120 mg 24 hr capsule DAILY buPROPion XL (WELLBUTRIN XL) 150 mg 24 hr tablet Take 150 mg by mouth once daily. metoprolol tartrate, short acting, (LOPRESSOR) 25 mg tablet Take 0.5 tablets by mouth two times a day. Per [facility]. vilazodone (VIIBRYD) 40 mg tablet Take 40 mg by mouth once daily. ADVAIR HFA 230-21 mcg/actuation inhaler Inhale 2 Puffs as instructed twice daily. divalproex ER (DEPAKOTE ER) 500 mg 24 hr tablet once daily. ALPRAZolam (XANAX) 0.5 mg tablet Take 0.5 mg by mouth as needed. Selenium Sulfide 2.25 % sham Apply 1 application to affected area as needed. albuterol HFA (VENTOLIN HFA) 90 mcg/actuation inhaler Inhale 2 Puffs as instructed every 4 hours as needed for Wheezing/Shortness of Breath. Per Dr. Shay alcantara fluticasone (FLONASE) 50 mcg/actuation nasal spray Use 2 Sprays in each nostril once daily. clobetasol 0.05 % ointment Apply to affected area(s) of active or acute and persistent insect bite or prurigo papular lesions of open areas of arms, legs, trunk, once to twice per day (qday to bid) until clear, and then taper off as able. AVOID face, eyes, eyelids, and deep fold areas. nitroglycerin sublingual (NITROSTAT) 0.4 mg SL tablet Dissolve 1 tablet under the tongue as needed. FOR CHEST PAIN. IF NO RELIEF CALL 911 hydrocortisone valerate(WESTCORT 0.2 % TOPICAL CREAM) Apply to psoriasis/rash on folds areas (eg., abdominal fold area), ears, outer face or forehead area, and scalp line selectively qd to bid prn until clear and then taper off as able; AVOID eyes and eyelids, and central face near eyes and nose. No current facility-administered medications on file prior to visit. Social History Social History Tobacco Use Smoking status: Every Day Current packs/day: 0.50 Average packs/day: 0.5 packs/day for 20.0 years (10.0 ttl pk-yrs) Types: Cigarettes Smokeless tobacco: Never Vaping Use Vaping status: Never Used Substance Use Topics Alcohol use: Yes Comment: occassionally Drug use: Yes Types: Marijuana Comment: daily marijuana Review of Symptoms REVIEW OF SYSTEMS SEE HPI EXAM: BP 118/80 (BP Site: Right Arm, BP Position: Sitting, BP Cuff Size: Regular Adult) Pulse 72 Resp 16 Wt 75.2 kg (165 lb 12.8 oz) BMI 28.46 kg/m? General Appearance: Well appearing, alert, in no acute distress, well-hydrated, well nourished.. Lungs: faint crackles in the left lower base. . No wheezing, rhonchi, rales. No friction rubs. . Heart: RRR without murmur, gallop, or rubs. No ectopy. Abdomen: Normal abdominal exam, Abdomen soft, non-tender, non-distended.. Bowel sounds normal. No masses, organomegaly. Musculoskeletal: with palpation of the ribs anteriorly and from the sides no tenderness reproduced. . Health Maintenance List Dilated Retinal Exam due on 01/30/2023 Mammogram Screening due on 06/09/2025 Colorectal Cancer Screening due on 11/30/2025 Influenza Vaccine(1) due on 03/06/2025 LDL Cholesterol due on 05/16/2025 Urine Albumin:Creatinine Ratio due on 05/27/2025 Diabetic Foot Exam due on 05/27/2025 HbA1C due on 06/02/2025 Annual PCP Team Chronic Disease Visit due on 01/03/2026 Cervical Cancer Screening due on 01/23/2027 DTaP,Tdap,Td Vaccine(3 - Td or Tdap) due on 08/07/2032 Hepatitis C Screening Completed HIV Screening Completed Covid-19 Vaccine Completed Pneumococcal Vaccine Completed Hepatitis B Vaccine Discontinued Data reviewed Assessment and Plan 1. Respiratory crackles at left lung base (R09.89) Faint crackles auscultated on the left side; no friction rub detected, reducing suspicion for pleurisy. - Ordered chest X-ray to further evaluate. - Initiated antibiotic therapy for 10 days, dosed twice daily, to address potential inflammatory process in the lungs. 2. Costochondritis (M94.0) Recurrent flares occurring every other day, sometimes twice daily, with pain radiating front to back and exacerbated by deep breathing and sneezing. Previous use of ibuprofen, muscle relaxants, Cory, Norflex, naproxen, and Percocet provided insufficient relief. No initiating event identified; no associated cough, hemoptysis, or fever. - Prescribed Celebrex 200 mg twice daily for 14 days to manage inflammation and pain. - Advised patient to use Celebrex as needed for future flares, with the goal of minimizing routine use. - Educated patient on the anti-inflammatory benefits of Celebrex compared to analgesics like Percocet and Cory. Requested Prescriptions Signed Prescriptions Disp Refills doxycycline hyclate (VIBRAMYCIN) 100 mg capsule 20 capsule 0 Sig: Take 1 capsule by mouth two times a day for 10 days. celecoxib (CELEBREX) 200 mg capsule 28 capsule 5 Sig: Take 1 capsule by mouth two times a day for 14 days. Repeat when needed for costochondritis flares. F/u if not resolving. 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 Patient/authorized automotive leasing sales representative agreed to proceed CNOV Observed: 01/03/2025 11:40 AM Status: COMPLETED Source: [facility] MARY BETH GONZALEZ ([id number]) 1980 F Date Time Provider Department 01/03/25 11:40 AM DAVIS LINK During your visit today, we recorded the following information about you: Pulse Respiration Blood pressure Weight 72/minute 16/minute 118/80 75.2 kg Davis Link MD 01/03/2025 9:06 PM Signed Chief Complaint Patient presents with: Musculoskeletal Problem HPI Mary Beth Gonzalez is a 44 year old female who presents here today for an acute visit. Patient has a Hx of myofascial muscle pain. Mary Beth Gonzalez is a 44-year-old female presenting with recurrent costochondritis flares. Mary Beth reports experiencing frequent costochondritis flares, occurring at least every other day, sometimes twice in one day. The pain initiates in various locations, often at the bottom of the ribs, and rapidly intensifies, spreading from front to back. The pain is exacerbated by deep breaths and sneezing, but not by laughing. She denies dyspnea, hemoptysis, or excessive coughing, and has not experienced fevers or chills. Mary Beth also denies any associated nausea or emesis. She has attempted to manage the pain with ibuprofen, muscle relaxers, Cory, Norflex, and naproxen, but reports these medications are ineffective. She has some leftover Percocet, which she uses sparingly. Mary Beth is uncertain about the initial cause of her costochondritis and has not identified any specific triggers for the flares. She notes that the pain is not localized to her abdomen and is not associated with her known rib cysts. Past medical history, appointments, medications, allergies reviewed. Previous Medical History PAST MEDICAL HISTORY Diagnosis Date Acquired hypothyroidism 07/17/2008 Arthritis Asthma (HCC) Atherosclerosis of coronary artery 09/14/2023 Attention deficit disorder without mention of hyperactivity 11/27/2006 Biliary dyskinesia 12/09/2012 Borderline personality disorder (HCC) 09/14/2023 Brachial neuritis or radiculitis 02/01/2014 Chondromalacia of knee 06/17/2011 Controlled type 2 diabetes mellitus without complication, without long-term current use of insulin (HCC) 07/11/2008 Cyst 07/25/2009 Cysts on lower back, soft tissue Depression 10/18/2009 Diabetes mellitus type II (HCC) Endometriosis GERD without esophagitis 03/12/2023 Per Upper GI 03/05/2023 Hx of borderline personality disorder Hx of pancreatitis Hypothyroidism Lumbago 08/07/2008 Lung nodule 09/14/2023 12/22/2022: CT stable nodule over 2 years, no further imaging needed Marijuana use 07/26/2024 Medication management 11/30/2024 Mixed hyperlipidemia 09/30/2010 Moderate persistent asthma without complication (HCC) 01/08/2017 Multiple joint pain 07/25/2009 Myofascial muscle pain 09/05/2015 ZHANNA (obstructive sleep apnea) 05/15/2010 Other convulsions 03/31/2008 Over weight 11/24/2023 PAC (premature atrial contraction) Premature atrial beats 11/01/[address] Corral Psoriasis 07/25/2009 PTSD (post-traumatic stress disorder) 10/18/2009 PVC (premature ventricular contraction) Seasonal allergies 11/01/2020 Seborrheic dermatitis Unclassified epileptic seizures (HCC) 03/31/2008 Last seizure 02/11. Under no treatment was never found to have seizure activity on testing (? Pseudoseizures) Well adult exam 12/11/2021 Done: 12/11/2021 Previous Surgical History PAST SURGICAL HISTORY Procedure Laterality Date COLONOSCOPY FLX DX W/COLLJ SPEC WHEN PFRMD 10/27/2011 CONIZATION CERVIX W/WO DANDC RPR ELTRD EXC 07/06/2000 LEEP-Cervix EGD TRANSORAL BIOPSY SINGLE/MULTIPLE 10/27/2011 INSERTION OF DRUG DELIVERY IMPLANT INTO TEAR DUCTS Bilateral LAPAROSCOPIC CHOLECYSTECTOMY 09/04/2021 LEFT HEART CATH,PERCUTANEOUS Left 10/15/2022 Left Heart Catheterization PAST SURGICAL HISTORY OF 07/06/2000 cerviacal cyst removed PAST SURGICAL HISTORY OF 04/25/2008 abdominal hyster and removal one ovary PAST SURGICAL HISTORY OF Left 12/2021 some nodules removed from ribs on left side PAST SURGICAL HISTORY OF Left Titanium clip SEPTOPLASTY 2019 revision and polyp removal SEPTOPLASTY/SUBMUCOUS RESECJ W/WO CARTILAGE GRF 12/04/2010 Septoplasty TONSILLECTOMY PRIMARY/SECONDARY <AGE 12 09/30/[address] [facility] TOTAL ABDOM HYSTERECTOMY Family History FAMILY HISTORY Problem Relation Age of Onset other (Unknown) Mother Diabetes Father blood pressure problem Heart Father None Brother other (Gastric colitis) Maternal Grandmother No Known Problems Maternal Grandfather other (Heart condition) Paternal Grandmother Kidney failure Paternal Grandmother Diabetes Paternal Grandmother Heart Attack Paternal Grandfather Diabetes Paternal Aunt Diabetes Paternal Uncle No Known Problems Half-brother No Known Problems Half-brother Patient Allergies ALLERGIES Allergen Reactions Amoxicillin Itching Bactrim [Sulfametho* Hives Effexor [Venlafaxin* Mental Status Change suicidal Pyridium [Phenazopy* Hives Adderall [Dextroamp* Mental Status Change paranoid ideation Dust Itching Mold Itching Pravachol [Pravasta* GI Upset Ragweed Itching Current Medications Current Outpatient Medications on File Prior to Visit Medication Sig cetirizine (ZYRTEC) 10 mg tablet Take 1 tablet by mouth once daily. divalproex ER (DEPAKOTE ER) 250 mg 24 hr tablet Take 1 tablet by mouth once daily. Per Psych: Dr. Rainey levothyroxine (SYNTHROID) 100 mcg tablet Take 1 tablet by mouth once daily. metFORMIN ER (GLUCOPHAGE XR) 500 mg 24 hr tablet Take 1 tablet by mouth once daily. atorvastatin (LIPITOR) 20 mg tablet Take 1 tablet by mouth once daily. buPROPion XL (WELLBUTRIN XL) 300 mg 24 hr tablet take 1 tablet by oral route 1 time per day in the morning atenolol (TENORMIN) 25 mg tablet Take by mouth. dilTIAZem CR (TIAZAC, TAZTIA XT) 120 mg 24 hr capsule DAILY buPROPion XL (WELLBUTRIN XL) 150 mg 24 hr tablet Take 150 mg by mouth once daily. metoprolol tartrate, short acting, (LOPRESSOR) 25 mg tablet Take 0.5 tablets by mouth two times a day. Per [facility]. vilazodone (VIIBRYD) 40 mg tablet Take 40 mg by mouth once daily. ADVAIR HFA 230-21 mcg/actuation inhaler Inhale 2 Puffs as instructed twice daily. divalproex ER (DEPAKOTE ER) 500 mg 24 hr tablet once daily. ALPRAZolam (XANAX) 0.5 mg tablet Take 0.5 mg by mouth as needed. Selenium Sulfide 2.25 % sham Apply 1 application to affected area as needed. albuterol HFA (VENTOLIN HFA) 90 mcg/actuation inhaler Inhale 2 Puffs as instructed every 4 hours as needed for Wheezing/Shortness of Breath. Per pulm, Dr. Shay Patricio fluticasone (FLONASE) 50 mcg/actuation nasal spray Use 2 Sprays in each nostril once daily. clobetasol 0.05 % ointment Apply to affected area(s) of active or acute and persistent insect bite or prurigo papular lesions of open areas of arms, legs, trunk, once to twice per day (qday to bid) until clear, and then taper off as able. AVOID face, eyes, eyelids, and deep fold areas. nitroglycerin sublingual (NITROSTAT) 0.4 mg SL tablet Dissolve 1 tablet under the tongue as needed. FOR CHEST PAIN. IF NO RELIEF CALL 911 hydrocortisone valerate(WESTCORT 0.2 % TOPICAL CREAM) Apply to psoriasis/rash on folds areas (eg., abdominal fold area), ears, outer face or forehead area, and scalp line selectively qd to bid prn until clear and then taper off as able; AVOID eyes and eyelids, and central face near eyes and nose. No current facility-administered medications on file prior to visit. Social History Social History Tobacco Use Smoking status: Every Day Current packs/day: 0.50 Average packs/day: 0.5 packs/day for 20.0 years (10.0 ttl pk-yrs) Types: Cigarettes Smokeless tobacco: Never Vaping Use Vaping status: Never Used Substance Use Topics Alcohol use: Yes Comment: occassionally Drug use: Yes Types: Marijuana Comment: daily marijuana Review of Symptoms REVIEW OF SYSTEMS SEE HPI EXAM: BP 118/80 (BP Site: Right Arm, BP Position: Sitting, BP Cuff Size: Regular Adult) Pulse 72 Resp 16 Wt 75.2 kg (165 lb 12.8 oz) BMI 28.46 kg/m? General Appearance: Well appearing, alert, in no acute distress, well-hydrated, well nourished.. Lungs: faint crackles in the left lower base. . No wheezing, rhonchi, rales. No friction rubs. . Heart: RRR without murmur, gallop, or rubs. No ectopy. Abdomen: Normal abdominal exam, Abdomen soft, non-tender, non-distended.. Bowel sounds normal. No masses, organomegaly. Musculoskeletal: with palpation of the ribs anteriorly and from the sides no tenderness reproduced. . Health Maintenance List Dilated Retinal Exam due on 01/30/2023 Mammogram Screening due on 06/09/2025 Colorectal Cancer Screening due on 11/30/2025 Influenza Vaccine(1) due on 03/06/2025 LDL Cholesterol due on 05/16/2025 Urine Albumin:Creatinine Ratio due on 05/27/2025 Diabetic Foot Exam due on 05/27/2025 HbA1C due on 06/02/2025 Annual PCP Team Chronic Disease Visit due on 01/03/2026 Cervical Cancer Screening due on 01/23/2027 DTaP,Tdap,Td Vaccine(3 - Td or Tdap) due on 08/07/2032 Hepatitis C Screening Completed HIV Screening Completed Covid-19 Vaccine Completed Pneumococcal Vaccine Completed Hepatitis B Vaccine Discontinued Data reviewed Assessment and Plan 1. Respiratory crackles at left lung base (R09.89) Faint crackles auscultated on the left side; no friction rub detected, reducing suspicion for pleurisy. - Ordered chest X-ray to further evaluate. - Initiated antibiotic therapy for 10 days, dosed twice daily, to address potential inflammatory process in the lungs. 2. Costochondritis (M94.0) Recurrent flares occurring every other day, sometimes twice daily, with pain radiating front to back and exacerbated by deep breathing and sneezing. Previous use of ibuprofen, muscle relaxants, Cory, Norflex, naproxen, and Percocet provided insufficient relief. No initiating event identified; no associated cough, hemoptysis, or fever. - Prescribed Celebrex 200 mg twice daily for 14 days to manage inflammation and pain. - Advised patient to use Celebrex as needed for future flares, with the goal of minimizing routine use. - Educated patient on the anti-inflammatory benefits of Celebrex compared to analgesics like Percocet and Cory. Requested Prescriptions Signed Prescriptions Disp Refills doxycycline hyclate (VIBRAMYCIN) 100 mg capsule 20 capsule 0 Sig: Take 1 capsule by mouth two times a day for 10 days. celecoxib (CELEBREX) 200 mg capsule 28 capsule 5 Sig: Take 1 capsule by mouth two times a day for 14 days. Repeat when needed for costochondritis flares. F/u if not resolving. 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 Patient/authorized automotive leasing sales representative agreed to proceed Davis Link MD 01/03/2025 12:12 PM Signed We discussed your costochondritis: - I am prescribing an anti-inflammatory medication, Celebrex (celecoxib), to take twice daily for 14 days. This has been sent to your preferred pharmacy. - You may use this medication as needed for future flares. If you notice your symptoms returning after a period of improvement, you can restart Celebrex for another 14-day course. Ideally, this should not be needed frequently, but it can be used occasionally to manage flares. - I am also prescribing an antibiotic to take twice daily for 10 days. This is to address any potential inflammatory process in your lungs that may be contributing to your symptoms. This has also been sent to your pharmacy. We discussed your symptoms and triggers: - Your pain does not appear to be related to pleurisy, as I did not hear a friction rub during the exam. - I will order a chest X-ray to further evaluate your symptoms and rule out other potential causes. Please monitor your symptoms: - If your pain worsens, does not improve with the prescribed medications, or if you develop new symptoms such as shortness of breath, fever, or coughing up blood, please contact our office immediately. Your prescriptions have been sent to [facility]. Please follow up with me if you have any questions or concerns about your treatment plan. Allergies As of Date: 01/03/2025 Noted Allergy Reaction AMOXICILLIN 07/25/2009 9 - Itching BACTRIM (SULFAMETHOXAZOLE-TRIMETH*08/14/2006 4 - Hives EFFEXOR (VENLAFAXINE ANALOGUES) 08/09/2009 1 - Mental Status Change Comments: suicidal PYRIDIUM (PHENAZOPYRIDINE HCL) 08/14/2006 4 - Hives ADDERALL (DEXTROAMPHETAMINE-AMPHE*03/15/2010 1 - Mental Status Change Comments: paranoid ideation DUST 07/03/2010 9 - Itching MOLD 07/03/2010 9 - Itching PRAVACHOL (PRAVASTATIN SODIUM) 05/15/2015 8 - GI Upset RAGWEED 07/03/2010 9 - Itching Date Reviewed: 01/03/2025 Reviewed by: Davis Link MD - Fully Assessed Reason for Visit: Musculoskeletal Problem [69] Primary Visit Diagnosis:Respiratory crackles at left lung base [R09.89] Other Visit Diagnosis:Costochondritis [M94.0] Order(s):XR CHEST 2V FRONTAL/LAT [[id number]] Order #: [id number] FUTURE doxycycline hyclate (VIBRAMYCIN) 100 mg capsuleTake 1 capsule by mouth two times a day for 10 days.Disp: 20 capsuleRfl: 0 celecoxib (CELEBREX) 200 mg capsuleTake 1 capsule by mouth two times a day for 14 days. Repeat when needed for costochondritis flares.Disp: 28 capsuleRfl: 5 Prescriptions as of 01/03/2025 - doxycycline hyclate (VIBRAMYCIN) 100 mg capsule Take 1 capsule by mouth two times a day for 10 days. - celecoxib (CELEBREX) 200 mg capsule Take 1 capsule by mouth two times a day for 14 days. Repeat when needed for costochondritis flares. - cetirizine (ZYRTEC) 10 mg tablet Take 1 tablet by mouth once daily. - divalproex ER (DEPAKOTE ER) 250 mg 24 hr tablet Take 1 tablet by mouth once daily. Per Psych: Dr. Rainey - levothyroxine (SYNTHROID) 100 mcg tablet Take 1 tablet by mouth once daily. - metFORMIN ER (GLUCOPHAGE XR) 500 mg 24 hr tablet Take 1 tablet by mouth once daily. - atorvastatin (LIPITOR) 20 mg tablet Take 1 tablet by mouth once daily. - buPROPion XL (WELLBUTRIN XL) 300 mg 24 hr tablet take 1 tablet by oral route 1 time per day in the morning - atenolol (TENORMIN) 25 mg tablet Take by mouth. - dilTIAZem CR (TIAZAC, TAZTIA XT) 120 mg 24 hr capsule DAILY - buPROPion XL (WELLBUTRIN XL) 150 mg 24 hr tablet Take 150 mg by mouth once daily. - metoprolol tartrate, short acting, (LOPRESSOR) 25 mg tablet Take 0.5 tablets by mouth two times a day. Per [facility]. - vilazodone (VIIBRYD) 40 mg tablet Take 40 mg by mouth once daily. - ADVAIR HFA 230-21 mcg/actuation inhaler Inhale 2 Puffs as instructed twice daily. - divalproex ER (DEPAKOTE ER) 500 mg 24 hr tablet once daily. - ALPRAZolam (XANAX) 0.5 mg tablet Take 0.5 mg by mouth as needed. - Selenium Sulfide 2.25 % sham Apply 1 application to affected area as needed. - albuterol HFA (VENTOLIN HFA) 90 mcg/actuation inhaler Inhale 2 Puffs as instructed every 4 hours as needed for Wheezing/Shortness of Breath. Per Dr. Shay alcantara - fluticasone (FLONASE) 50 mcg/actuation nasal spray Use 2 Sprays in each nostril once daily. - clobetasol 0.05 % ointment Apply to affected area(s) of active or acute and persistent insect bite or prurigo papular lesions of open areas of arms, legs, trunk, once to twice per day (qday to bid) until clear, and then taper off as able. AVOID face, eyes, eyelids, and deep fold areas. - nitroglycerin sublingual (NITROSTAT) 0.4 mg SL tablet Dissolve 1 tablet under the tongue as needed. FOR CHEST PAIN. IF NO RELIEF CALL 911 - hydrocortisone valerate(WESTCORT 0.2 % TOPICAL CREAM) Apply to psoriasis/rash on folds areas (eg., abdominal fold area), ears, outer face or forehead area, and scalp line selectively qd to bid prn until clear and then taper off as able; AVOID eyes and eyelids, and central face near eyes and nose. Problem List As Of Date 01/03/2025 Noted Resolved Attention deficit disorder [F98.8] 11/27/2006 Unclassified epileptic seizures (HCC) [G40.909] 03/31/2008 Acquired hypothyroidism [E03.9] 07/17/2008 Lumbago [M54.50] 08/07/2008 Psoriasis [L40.9] 07/25/2009 Multiple joint pain [M25.50] 07/25/2009 Cyst 07/25/2009 Smoker [F17.200] 07/25/2009 PTSD (post-traumatic stress disorder) [F43.10] 10/18/2009 Depression [F32.A] 10/18/2009 ZHANNA (obstructive sleep apnea) [G47.33] 05/15/2010 Mixed hyperlipidemia [E78.2] 09/30/2010 Myofascial muscle pain [M79.18] 09/05/2015 Moderate persistent asthma without complication*01/08/2017 Controlled type 2 diabetes mellitus without com*07/11/2008 Premature atrial beats [I49.1] 11/01/2020 Seasonal allergies [J30.2] 11/01/2020 Gallbladder polyp [K82.4] 08/19/2021 09/04/2021 Well adult exam [Z00.00] 12/11/2021 GERD without esophagitis [K21.9] 03/12/2023 Class 1 obesity due to excess calories with bod*06/24/2023 11/24/2023 Atherosclerosis of coronary artery [I25.10] 09/14/2023 Diagnosed: 09/14/2023 Borderline personality disorder (HCC) [F60.3] 09/14/2023 Diagnosed: 09/14/2023 Costochondritis [M94.0] 09/14/2023 11/24/2023 Diagnosed: 09/14/2023 Headache [R51] 09/14/2023 11/24/2023 Diagnosed: 09/14/2023 Lung nodule [R91.1] 09/14/2023 Diagnosed: 09/14/2023 Nicotine dependence [F17.200] 04/22/2022 11/24/2023 Diagnosed: 09/14/2023 Palpitations [R00.2] 10/22/2022 11/24/2023 Diagnosed: 09/14/2023 PVC (premature ventricular contraction) [I49.3] PAC (premature atrial contraction) [I49.1] Over weight [E66.3] 11/24/2023 Weight loss, unintentional [R63.4] 11/24/2023 Marijuana use [F12.90] 07/26/2024 Medication management [Z79.899] 11/30/2024 Other instructions from your clinician: We discussed your costochondritis: - I am prescribing an anti-inflammatory medication, Celebrex (celecoxib), to take twice daily for 14 days. This has been sent to your preferred pharmacy. - You may use this medication as needed for future flares. If you notice your symptoms returning after a period of improvement, you can restart Celebrex for another 14-day course. Ideally, this should not be needed frequently, but it can be used occasionally to manage flares. - I am also prescribing an antibiotic to take twice daily for 10 days. This is to address any potential inflammatory process in your lungs that may be contributing to your symptoms. This has also been sent to your pharmacy. We discussed your symptoms and triggers: - Your pain does not appear to be related to pleurisy, as I did not hear a friction rub during the exam. - I will order a chest X-ray to further evaluate your symptoms and rule out other potential causes. Please monitor your symptoms: - If your pain worsens, does not improve with the prescribed medications, or if you develop new symptoms such as shortness of breath, fever, or coughing up blood, please contact our office immediately. Your prescriptions have been sent to [facility]. Please follow up with me if you have any questions or concerns about your treatment plan. Prescriptions ordered this encounter Disp Refills Start End DOXYCYCLINE HYCLATE 100 MG CAPSULE 20 c* 0 01/03/2025 01/13/2025 Route: PO Sig: Take 1 capsule by mouth two times a day for 10 days. CELECOXIB 200 MG CAPSULE 28 c* 5 01/03/2025 01/17/2025 Route: PO Sig: Take 1 capsule by mouth two times a day for 14 days. Repeat when needed for costochondritis flares. Disposition: Return if symptoms worsen or fail to improve. LOS History for Encounter Level of Service: OFFICE/OUTPATIENT ESTABLISHED [facility] 20 MIN[76812] Date AND Time: 01-03-2025 12:11 PM Recorded by User: DAVIS LINK Follow-up and Disposition History for Encounter Date Provider Department Center 01/03/2025 [id number] LINK [facility] Encounter Status:Closed by DAVIS LINK on 01/03/25 CBC W AUTO DIFF BLD Collected: 11/30/2024 2:[address] atus: F Source: [facility] Order Comment: Specimen Type : BLOOD SPECIMEN Ordering Facility: [facility] Address: [address] [place] [id number] TYPE CODE TESTS RESULT OUT OF RANGE REFERENCE UNITS LAB 6690-2([facility]) WBC # Bld Auto 7.06 3.70-11.00 k/uL LAB 789-8([facility]) RBC # Bld Auto 4.90 3.90-5.20 m/ uL LAB 718-7([facility]) Hgb Bld-mCnc 14.2 11.5-15.5 g/dL LAB 4544-3([facility]) Hct VFr Bld Auto 42.8 36.0-46.0 % LAB 787-2([facility]) MCV RBC Auto 87.3 80.0-100.0 fL LAB 785-6([facility]) MCH RBC Qn Auto 29.0 26.0-34.0 p g LAB 786-4([facility]) MCHC RBC Auto-mCnc 33.2 30.5-36.0 g/dL LAB 54732-9([facility]) RDW RBC-Rto 11.9 11.5-15.0 % LAB 777-3([facility]) Platelet # Bld Auto 269 150-400 k/uL LAB 92886-0([facility]) PMV Bld Auto 9.7 9.0-12.7 fL LAB 770-8([facility]) Neutrophils/leuk NFr Bld Auto 52.5 % LAB 751-8([facility]) Neutrophils # Bld Auto 3.70 1.45-7.50 k/uL LAB 736-9([facility]) Lymphocytes/leuk NFr Bld Auto 36.8 % LAB 731-0([facility]) Lymphocytes # Bld Auto 2.60 1.00-4.00 k/uL LAB 5905-5([facility]) Monocytes/leuk NFr Bld Auto 7.8 % LAB 742-7([facility]) Monocytes # Bld Auto 0.55 <0.87 k/uL LAB 713-8([facility]) Eosinophil/leuk NFr Bld Auto 1.8 % LAB 711-2([facility]) Eosinophil # Bld Auto 0.13 <0.46 k/uL LAB 706-2([facility]) Basophils/leuk NFr Bld Auto 0.7 % LAB 704-7([facility]) Basophils # Bld Auto 0.05 <0.11 k/uL LAB 85014-4([facility]) Imm Granulocytes/[place] k NFr Bld Auto 0.4 % LAB 96177-2([facility]) Imm Granulocytes # Bld Auto 0.03 <0.10 k/uL LAB 72987-2([facility]) nRBC/100 WBC Bld-Rto 0.0 /100 WBC LAB 771-6([facility]) nRBC # Bld Auto <0.01 <0.01 k/u L LAB 90892-2([facility]) Differential method Bld Auto Performed By: #### [id number] # ### [facility] CLIA [id number] [address] [place] [address] DEPRECATED HGB A1C BLD Collected: 11/30 2:54 PM Status: F Source: [facility] Comment: Specimen Type : BLOOD SPECIMEN Ordering Facility: [facility] Address: [address] [place] [address] TYPE CODE TESTS RESULT OUT OF RANGE REFERENCE UNITS LAB 4548-4([facility]) HbA1c MFr Bld 5.2 4.3-5.6 % Result Comment: [place] [employer] betes [employer] guidelines indicate that patients with HgbA1c in the range 5.7-6.4% are at increased risk for development of diabetes, and intervention by lifestyle modification may be beneficial. HgbA1c greater or equal to 6.5% is considered diagnostic of diabetes. LAB 80775-8([facility]) Est. average glucose Bld gHb Est-mCnc 103 mg/dL Result Comment: eAG: (Estima nirali average glucose) is a calculated value from HgbA1c and is automotive leasing sales representative of the average blood glucose level in the last 2-3 month period. Performed By: #### 80007-9 # ### [facility] CLIA [id number] [address] [place] [address] COMP METAB 2000 PNL SERPL Collected: 2:54 PM Status: F Source: [facility] Comment: Specimen Type : BLOOD SPECIMEN Ordering Facility: [facility] Address: [address] [place], [place] [address] [id number] TYPE CODE TESTS RESULT OUT OF RANGE REFERENCE UNITS LAB 2885-2([facility]) Prot SerPl-mCnc 7.0 6.3-8.0 g/dL LAB 1751-7([facility]) Albumin SerPl-mCnc 4.5 3.9-4.9 g/dL LAB 23745-4([facility]) Calcium SerPl-mCnc 9.1 8.5-10.2 mg/dL LAB 1975-2([facility]) Bilirub SerPl-mCnc 0.5 0.2-1.3 mg/dL LAB 6768-6([facility]) ALP SerPl-cCnc 45 34-123 U/L LAB 1920-8([facility]) AST SerPl-cCnc 18 13-35 U/L LAB 1742-6(LO[facility]) ALT SerPl-cCnc 23 7-38 U/L LAB 2345-7([facility]) Glucose SerPl-mCnc 79 74-99 mg/dL Result Comment: The [place] Diabetes [employer] (ADA) provides guidance for cutoff values for fasting glucose and random glucose. The ADA defines fasting as no caloric intake for at least 8 hours. Fasting plasma glucose results between 100 to 125 mg/dL indicate increased risk for diabetes (prediabetes). Fasting plasma glucose results greater than or equal to 126 mg/dL meet the criteria for diagnosis of diabetes. In the absence of unequivocal hyperglycemia, results should be confirmed by repeat testing. In a patient with classic symptoms of hyperglycemia or hyperglycemic crisis, random plasma glucose results greater than or equal to 200 mg/dL meet the criteria for diagnosis of diabetes. Reference: Standards of Medical Care in Diabetes 2016, [place] [employer] Association. Diabetes Care. 2016.39(Suppl 1). LAB 3094-0(LO[facility]) BUN SerPl-mCnc 15 7-21 mg/ dL LAB 2160-0([facility]) Creat SerPl-mCnc 0.78 0.58-0.96 mg/dL LAB 2951-2([facility]) Sodium SerPl-sCnc 139 136-144 mmol/L LAB 2823-3([facility]) Potassium SerPl-sCnc 4.3 3.7-5.1 mmol/L LAB 2075-0([facility]) Chloride SerPl-sCnc 103 98-107 mmol/L LAB 2027-9([facility]) CO2 SerPl-sCnc 23 22-30 mmo l/L LAB 24964-7([facility]) Anion Gap SerPl-sCnc 13 8-15 mmol/L LAB 87584-6([facility]) Creatinine + eGFR Pnl SerPlBld 95 >=60 mL/min/1 .73m??? Result Comment: Estimated Gl omerular Filtration Rate (eGFR) is calculated using the 2020 CKD-EPI creatinine equation. This equation utilizes serum creatinine, sex, and age as parameters. The creatinine assay has traceable calibration to isotope dilution-mass spectrometry. Refer to KDIGO guidelines for clinical interpretation. In patients with unstable renal function, e.g. those with acute kidney injury, the eGFR may not accurately reflect actual GFR. Performed By: #### 3016-3, 2 432-8 #### [facility] CLIA [id number] [address] [place] [address] [facility] TSH SERPL-ACNC Collected: 5 2:54 PM Status: F Source: [facility] Order Comment: Specimen Type : BLOOD SPECIMEN Ordering Facility: [facility] Address: [address] [place] [address] TYPE CODE TESTS RESULT OUT OF RANGE REFERENCE UNITS LAB 6-3(INC) TSH SerPl-aCnc 0.852 0.270-4.200 mIU/L Result Comment: If the patie nt is , TSH reference range varies by gestational period: First Trimester (weeks 9-12): 0.180-2.990 mIU/L Second Trimester: 0.110-3.980 mIU/L Third Trimester: 0.480-4.710 mIU/L Dylon Eckert, et al. A Practical Approach for the Verifications and Determination of Site- and Trimester-Specific Reference Intervals for Thyroid Function tests in . Thyroid, 2019:29:3:412-420. Familia Ty, et al. 2017 Guidelines of the [place] [employer] for the Diagnosis and Management of Thyroid Disease during and the . Thyroid, 2017:27:3:315-389. Performed By: #### 3016-3, 2 4322-8 #### [facility] CLIA [id number] [address] [place] [address] [place] Observed: 11/30/2024 1:40 PM Status: COMPLETED Source: [facility] MARY BETH GONZALEZ ([id number]) 1980 F Date Time Provider Department 11/30/24 1:40 PM [facility] During your visit today, we recorded the following information about you: Pulse Respiration Blood pressure Weight 72/minute 16/minute 118/60 72.6 kg Davis Link MD 11/30/2024 2:59 PM Signed Chief Complaint Patient presents with: F/U 6 months HPI Mary Bethhannah Gonzalez is a 44 year old female who presents here today for 6 month follow up. Patient with hx of asthma, ZHANNA, smoker, GERD, hypothyroid, DM2, seizures, psoriasis, add, depression, PTSD and those as below. Patient saw Cardiology 07/2024 Patient has been doing ok. No new issues or concerns. Still smoking. [facility]. Past medical history, appointments, medications, allergies reviewed. Previous Medical History PAST MEDICAL HISTORY Diagnosis Date Acquired hypothyroidism 07/17/2008 Arthritis Asthma Atherosclerosis of coronary artery 09/14/2023 Attention deficit disorder without mention of hyperactivity 11/27/2006 Biliary dyskinesia 12/09/2012 Borderline personality disorder (HCC) 09/14/2023 Brachial neuritis or radiculitis 02/01/2014 Chondromalacia of knee 06/17/2011 Controlled type 2 diabetes mellitus without complication, without long-term current use of insulin (HCC) 07/11/2008 Cyst 07/25/2009 Cysts on lower back, soft tissue Depression 10/18/2009 Diabetes mellitus type II (HCC) Endometriosis GERD without esophagitis 03/12/2023 Per Upper GI 03/05/2023 Hx of borderline personality disorder Hx of pancreatitis Hypothyroidism Lumbago 08/07/2008 Lung nodule 09/14/2023 12/22/2022: CT stable nodule over 2 years, no further imaging needed Mixed hyperlipidemia 09/30/2010 Moderate persistent asthma without complication 01/08/2017 Multiple joint pain 07/25/2009 Myofascial muscle pain 09/05/2015 ZHANNA (obstructive sleep apnea) 05/15/2010 Other convulsions 03/31/2008 Over weight 11/24/2023 PAC (premature atrial contraction) Premature atrial beats 11/01/[address] Corral Psoriasis 07/25/2009 PTSD (post-traumatic stress disorder) 10/18/2009 PVC (premature ventricular contraction) Seasonal allergies 11/01/2020 Seborrheic dermatitis Unclassified epileptic seizures (HCC) 03/31/2008 Last seizure 02/11. Under no treatment was never found to have seizure activity on testing (? Pseudoseizures) Well adult exam 12/11/2021 Done: 12/11/2021 Previous Surgical History PAST SURGICAL HISTORY Procedure Laterality Date COLONOSCOPY FLX DX W/COLLJ SPEC WHEN PFRMD 10/27/2011 CONIZATION CERVIX W/WO DANDC RPR ELTRD EXC 07/06/2000 LEEP-Cervix EGD TRANSORAL BIOPSY SINGLE/MULTIPLE 10/27/2011 INSERTION OF DRUG DELIVERY IMPLANT INTO TEAR DUCTS Bilateral LAPAROSCOPIC CHOLECYSTECTOMY 09/04/2021 LEFT HEART CATH,PERCUTANEOUS Left 10/15/2022 Left Heart Catheterization PAST SURGICAL HISTORY OF 07/06/2000 cerviacal cyst removed PAST SURGICAL HISTORY OF 04/25/2008 abdominal hyster and removal one ovary PAST SURGICAL HISTORY OF Left 12/2021 some nodules removed from ribs on left side PAST SURGICAL HISTORY OF Left Titanium clip SEPTOPLASTY 2019 revision and polyp removal SEPTOPLASTY/SUBMUCOUS RESECJ W/WO CARTILAGE GRF 12/04/2010 Septoplasty TONSILLECTOMY PRIMARY/SECONDARY <AGE 10 09/30/2011 Tonsillectomy - Mau Spangler [facility] TOTAL ABDOM HYSTERECTOMY Family History FAMILY HISTORY Problem Relation Age of Onset other (Unknown) Mother Diabetes Father blood pressure problem Heart Father None Brother other (Gastric colitis) Maternal Grandmother No Known Problems Maternal Grandfather other (Heart condition) Paternal Grandmother Kidney failure Paternal Grandmother Diabetes Paternal Grandmother Heart Attack Paternal Grandfather Diabetes Paternal Aunt Diabetes Paternal Uncle No Known Problems Half-brother No Known Problems Half-brother Patient Allergies ALLERGIES Allergen Reactions Amoxicillin Itching Bactrim [Sulfametho* Hives Effexor [Venlafaxin* Mental Status Change suicidal Pyridium [Phenazopy* Hives Adderall [Dextroamp* Mental Status Change paranoid ideation Dust Itching Mold Itching Pravachol [Pravasta* GI Upset Ragweed Itching Current Medications Current Outpatient Medications on File Prior to Visit Medication Sig levothyroxine (SYNTHROID) 100 mcg tablet Take 1 tablet by mouth once daily. metFORMIN ER (GLUCOPHAGE XR) 500 mg 24 hr tablet Take 1 tablet by mouth once daily. atorvastatin (LIPITOR) 20 mg tablet Take 1 tablet by mouth once daily. buPROPion XL (WELLBUTRIN XL) 300 mg 24 hr tablet take 1 tablet by oral route 1 time per day in the morning cetirizine (ZYRTEC) 10 mg tablet Take 1 tablet by mouth once daily. atenolol (TENORMIN) 25 mg tablet Take by mouth. dilTIAZem CR (TIAZAC, TAZTIA XT) 120 mg 24 hr capsule DAILY divalproex ER (DEPAKOTE ER) 250 mg 24 hr tablet Take 250 mg by mouth once daily. buPROPion XL (WELLBUTRIN XL) 150 mg 24 hr tablet Take 150 mg by mouth once daily. metoprolol tartrate, short acting, (LOPRESSOR) 25 mg tablet Take 0.5 tablets by mouth two times a day. Per [facility]. vilazodone (VIIBRYD) 40 mg tablet Take 40 mg by mouth once daily. ADVAIR HFA 230-21 mcg/actuation inhaler Inhale 2 Puffs as instructed twice daily. divalproex ER (DEPAKOTE ER) 500 mg 24 hr tablet once daily. ALPRAZolam (XANAX) 0.5 mg tablet Take 0.5 mg by mouth as needed. Selenium Sulfide 2.25 % sham Apply 1 application to affected area as needed. albuterol HFA (VENTOLIN HFA) 90 mcg/actuation inhaler Inhale 2 Puffs as instructed every 4 hours as needed for Wheezing/Shortness of Breath. Per Dr. Shay alcantara fluticasone (FLONASE) 50 mcg/actuation nasal spray Use 2 Sprays in each nostril once daily. clobetasol 0.05 % ointment Apply to affected area(s) of active or acute and persistent insect bite or prurigo papular lesions of open areas of arms, legs, trunk, once to twice per day (qday to bid) until clear, and then taper off as able. AVOID face, eyes, eyelids, and deep fold areas. nitroglycerin sublingual (NITROSTAT) 0.4 mg SL tablet Dissolve 1 tablet under the tongue as needed. FOR CHEST PAIN. IF NO RELIEF CALL 911 hydrocortisone valerate(WESTCORT 0.2 % TOPICAL CREAM) Apply to psoriasis/rash on folds areas (eg., abdominal fold area), ears, outer face or forehead area, and scalp line selectively qd to bid prn until clear and then taper off as able; AVOID eyes and eyelids, and central face near eyes and nose. No current facility-administered medications on file prior to visit. Social History Social History Tobacco Use Smoking status: Every Day Current packs/day: 0.50 Average packs/day: 0.5 packs/day for 20.0 years (10.0 ttl pk-yrs) Types: Cigarettes Smokeless tobacco: Never Vaping Use Vaping status: Never Used Substance Use Topics Alcohol use: Yes Comment: occassionally Drug use: Yes Types: Marijuana Comment: daily marijuana Review of Symptoms REVIEW OF SYSTEMS GENERAL: No weight loss, malaise or fevers NECK: Negative for lumps, goiter, pain and significant neck swelling RESPIRATORY: Negative for cough, hemoptysis, wheezing, COPD, dyspnea or shortness of breath CARDIOVASCULAR: Negative for chest pain, leg swelling, hypertension, CHF or increased palpitations GI: No nausea, vomiting, or diarrhea and No heartburn or reflux symptoms : No history of dysuria, frequency or blood ENDOCRINE: Negative for symptoms of low BS's NEURO: No history of headaches, syncope, paralysis, seizures or tremors SEE HPI EXAM: BP 122/86 Pulse 72 Resp 16 Wt 72.6 kg (160 lb) BMI 27.46 kg/m? BP 118/60 Pulse 72 Resp 16 Wt 72.6 kg (160 lb) BMI 27.46 kg/m? Last 5 Encounter Wt Readings: Date: Wt: 11/30/2024 72.6 kg (160 lb) 07/25/2024 67.6 kg (149 lb) 05/30/2024 66 kg (145 lb 9.6 oz) 05/27/2024 66.2 kg (146 lb) 11/24/2023 71.7 kg (158 lb) General Appearance: Well appearing, alert, in no acute distress, well-hydrated, well nourished. and Overweight. Eyes: Anicteric sclera. Pupils are equally round and reactive to light. Extraocular movements are intact. . Neck: Supple, no adenopathy; thyroid symmetric, normal size, no bruits. Lungs: Lungs clear to auscultation. No wheezing, rhonchi, rales.. Heart: RRR without murmur, gallop, or rubs. No ectopy. Abdomen: Normal abdominal exam, Abdomen soft, non-tender. Bowel sounds normal. No masses, organomegaly. Extremities: No deformities, edema, skin discoloration, . Good capillary refill. . Peripheral Pulses: Normal. Neurologic: Gait normal. Sensation grossly intact.. Health Maintenance List Hepatitis B Vaccine(1 of 3 - 19+ 3-dose series) Never done Dilated Retinal Exam due on 01/30/2023 Colorectal Cancer Screening due on 11/27/2023 HbA1C due on 11/13/2024 LDL Cholesterol due on 05/16/2025 Urine Albumin:Creatinine Ratio due on 05/27/2025 Diabetic Foot Exam due on 05/27/2025 Annual PCP Team Chronic Disease Visit due on 05/27/2025 Mammogram Screening due on 06/09/2025 Cervical Cancer Screening due on 01/23/2027 DTaP,Tdap,Td Vaccine(3 - Td or Tdap) due on 08/07/2032 Influenza Vaccine Completed Hepatitis C Screening Completed HIV Screening Completed Covid-19 Vaccine Completed Pneumococcal Vaccine Completed Data reviewed Assessment and Plan ASSESSMENT/PLAN: 1. Controlled type 2 diabetes mellitus without complication, without long-term current use of insulin (HCC) - ICD9: 250.00, ICD10: E11.9 (primary diagnosis) - Control undetermined, due for labs - Continue current medications - Counseled on healthy diet and regular exercise - Discussed need for and benefit of weight loss. BMI 27.46 kg/(m2) 2. Mixed hyperlipidemia - ICD9: 272.2, ICD10: E78.2 - Control undetermined, due for labs - Continue current medications - Counseled on healthy diet and regular exercise - Discussed need for and benefit of weight loss. BMI 27.46 kg/(m2) 3. Acquired hypothyroidism - ICD9: 244.9, ICD10: E03.9 - Instructed patient on importance of taking on an empty stomach either first thing in the morning or at bedtime. - continue current dose of Synthroid Await labs 4. Atherosclerosis of coronary artery of [place] heart with angina pectoris, unspecified vessel or lesion type - ICD9: 414.01, 413.9, ICD10: I25.119 - clinically stable. No imaging needd. Follows with cardio 5. Premature atrial beats - ICD9: 427.61, ICD10: I49.1 - patient needs to set up EPS appt. 6. Moderate persistent asthma without complication (HCC) - ICD9: 493.90, ICD10: J45.40 - Moderate persistent asthma stable - Continue current medications - Avoidance of triggers recommended - cont management with pulm 7. GERD without esophagitis - ICD9: 530.81, ICD10: K21.9 - managed with diet and controlled. 8. Major depressive disorder, remission status unspecified, unspecified whether recurrent - ICD9: 296.20, ICD10: F32.9 - on meds and managed per Psych 9. Borderline personality disorder (HCC) - ICD9: 301.83, ICD10: F60.3 - as per #8 10. Attention deficit disorder, unspecified type - ICD9: 314.00, ICD10: F98.8 - as per #8 11. PTSD (post-traumatic stress disorder) - ICD9: 309.81, ICD10: F43.10 - as per #8 12. Smoker - ICD9: 305.1, ICD10: F17.200 - Cessation encouraged. - Counseling was given focusing on the harmful effects of this addiction especially given the patient's medical condition(s) which will be worsened because of the chemicals in tobacco. 13. Unclassified epileptic seizures (HCC) - ICD9: 345.90, ICD10: G40.909 - pseudo seizures. Managed per psych. F/u 6 month's WAE check CMP, lipid, urine micro albumin, UA, A1c, CBC, TSH prior MD Nikolay Domingo Jeffrey A, MD 11/30/2024 2:38 PM Signed Please get labs and urine test done on or after 05/19/2025 prior to your next visit. Allergies As of Date: 11/30/2024 Noted Allergy Reaction AMOXICILLIN 07/25/2009 9 - Itching BACTRIM (SULFAMETHOXAZOLE-TRIMETH*08/14/2006 4 - Hives EFFEXOR (VENLAFAXINE ANALOGUES) 08/09/2009 1 - Mental Status Change Comments: suicidal PYRIDIUM (PHENAZOPYRIDINE HCL) 08/14/2006 4 - Hives ADDERALL (DEXTROAMPHETAMINE-AMPHE*03/15/2010 1 - Mental Status Change Comments: paranoid ideation DUST 07/03/2010 9 - Itching MOLD 07/03/2010 9 - Itching PRAVACHOL (PRAVASTATIN SODIUM) 05/15/2015 8 - GI Upset RAGWEED 07/03/2010 9 - Itching Date Reviewed: 11/30/2024 Reviewed by: Davis Link MD - Fully Assessed Reason for Visit: F/U 6 months [1177] Primary Visit Diagnosis:Controlled type 2 diabetes mellitus without complication, without long-term current use of insulin (HCC) [E11.9] Other Visit Diagnoses:Mixed hyperlipidemia [E78.2] Acquired hypothyroidism [E03.9] Atherosclerosis of coronary artery of [place] heart with angina pectoris, unspecified vessel or lesion type [I25.119] Premature atrial beats [I49.1] Moderate persistent asthma without complication (HCC) [J45.40] GERD without esophagitis [K21.9] Major depressive disorder, remission status unspecified, unspecified whether recurrent [F32.9] Borderline personality disorder (HCC) [F60.3] Attention deficit disorder, unspecified type [F98.8] PTSD (post-traumatic stress disorder) [F43.10] Smoker [F17.200] Unclassified epileptic seizures (HCC) [G40.909] Medication management [Z79.899] Order(s):divalproex ER (DEPAKOTE ER) 250 mg 24 hr tabletTake 1 tablet by mouth once daily. Per Psych: Dr. Ridley: Rfl: ALBUMIN/CREATININE RATIO, URINE [SQUACR] Order #: [id number] FUTURE COMPREHENSIVE METABOLIC PANEL [SQCMP] Order #: [id number] FUTURE HEMOGLOBIN A1C [FGQSA8L] Order #: [id number] FUTURE THYROID STIMULATING HORMONE [SQTSH] Order #: [id number] FUTURE URINALYSIS, WITH MICROSCOPIC [SQUAWMIC] Order #: [id number] FUTURE LIPID PANEL, NONFASTING [SQLIPNF] Order #: [id number] FUTURE COMPLETE BLOOD COUNT AND DIFFERENTIAL [SQCBCDIF] Order #: [id number] FUTURE Prescriptions as of 11/30/2024 - divalproex ER (DEPAKOTE ER) 250 mg 24 hr tablet Take 1 tablet by mouth once daily. Per Psych: Dr. Rainey - levothyroxine (SYNTHROID) 100 mcg tablet Take 1 tablet by mouth once daily. - metFORMIN ER (GLUCOPHAGE XR) 500 mg 24 hr tablet Take 1 tablet by mouth once daily. - atorvastatin (LIPITOR) 20 mg tablet Take 1 tablet by mouth once daily. - buPROPion XL (WELLBUTRIN XL) 300 mg 24 hr tablet take 1 tablet by oral route 1 time per day in the morning - cetirizine (ZYRTEC) 10 mg tablet Take 1 tablet by mouth once daily. - atenolol (TENORMIN) 25 mg tablet Take by mouth. - dilTIAZem CR (TIAZAC, TAZTIA XT) 120 mg 24 hr capsule DAILY - buPROPion XL (WELLBUTRIN XL) 150 mg 24 hr tablet Take 150 mg by mouth once daily. - metoprolol tartrate, short acting, (LOPRESSOR) 25 mg tablet Take 0.5 tablets by mouth two times a day. Per [facility]. - vilazodone (VIIBRYD) 40 mg tablet Take 40 mg by mouth once daily. - ADVAIR HFA 230-21 mcg/actuation inhaler Inhale 2 Puffs as instructed twice daily. - divalproex ER (DEPAKOTE ER) 500 mg 24 hr tablet once daily. - ALPRAZolam (XANAX) 0.5 mg tablet Take 0.5 mg by mouth as needed. - Selenium Sulfide 2.25 % sham Apply 1 application to affected area as needed. - albuterol HFA (VENTOLIN HFA) 90 mcg/actuation inhaler Inhale 2 Puffs as instructed every 4 hours as needed for Wheezing/Shortness of Breath. Per Dr. Shay alcantara - fluticasone (FLONASE) 50 mcg/actuation nasal spray Use 2 Sprays in each nostril once daily. - clobetasol 0.05 % ointment Apply to affected area(s) of active or acute and persistent insect bite or prurigo papular lesions of open areas of arms, legs, trunk, once to twice per day (qday to bid) until clear, and then taper off as able. AVOID face, eyes, eyelids, and deep fold areas. - nitroglycerin sublingual (NITROSTAT) 0.4 mg SL tablet Dissolve 1 tablet under the tongue as needed. FOR CHEST PAIN. IF NO RELIEF CALL 911 - hydrocortisone valerate(WESTCORT 0.2 % TOPICAL CREAM) Apply to psoriasis/rash on folds areas (eg., abdominal fold area), ears, outer face or forehead area, and scalp line selectively qd to bid prn until clear and then taper off as able; AVOID eyes and eyelids, and central face near eyes and nose. Problem List As Of Date 11/30/2024 Noted Resolved Attention deficit disorder [F98.8] 11/27/2006 Unclassified epileptic seizures (HCC) [G40.909] 03/31/2008 Acquired hypothyroidism [E03.9] 07/17/2008 Lumbago [M54.50] 08/07/2008 Psoriasis [L40.9] 07/25/2009 Multiple joint pain [M25.50] 07/25/2009 Cyst 07/25/2009 Smoker [F17.200] 07/25/2009 PTSD (post-traumatic stress disorder) [F43.10] 10/18/2009 Depression [F32.A] 10/18/2009 ZHANNA (obstructive sleep apnea) [G47.33] 05/15/2010 Mixed hyperlipidemia [E78.2] 09/30/2010 Myofascial muscle pain [M79.18] 09/05/2015 Moderate persistent asthma without complication*01/08/2017 Controlled type 2 diabetes mellitus without com*07/11/2008 Premature atrial beats [I49.1] 11/01/2020 Seasonal allergies [J30.2] 11/01/2020 Gallbladder polyp [K82.4] 08/19/2021 09/04/2021 Well adult exam [Z00.00] 12/11/2021 GERD without esophagitis [K21.9] 03/12/2023 Class 1 obesity due to excess calories with bod*06/24/2023 11/24/2023 Atherosclerosis of coronary artery [I25.10] 09/14/2023 Diagnosed: 09/14/2023 Borderline personality disorder (HCC) [F60.3] 09/14/2023 Diagnosed: 09/14/2023 Costochondritis [M94.0] 09/14/2023 11/24/2023 Diagnosed: 09/14/2023 Headache [R51] 09/14/2023 11/24/2023 Diagnosed: 09/14/2023 Lung nodule [R91.1] 09/14/2023 Diagnosed: 09/14/2023 Nicotine dependence [F17.200] 04/22/2022 11/24/2023 Diagnosed: 09/14/2023 Palpitations [R00.2] 10/22/2022 11/24/2023 Diagnosed: 09/14/2023 PVC (premature ventricular contraction) [I49.3] PAC (premature atrial contraction) [I49.1] Over weight [E66.3] 11/24/2023 Weight loss, unintentional [R63.4] 11/24/2023 Marijuana use [F12.90] 07/26/2024 Medication management [Z79.899] 11/30/2024 Other instructions from your clinician: Please get labs and urine test done on or after 05/19/2025 prior to your next visit. Prescriptions ordered this encounter Disp Refills Start End DIVALPROEX ER 250 MG TABLET,EXTENDED* 11/30/2024 Class: Med Update Route: PO Sig: Take 1 tablet by mouth once daily. Per Psych: Dr. Rainey Medications Discontinued During This Encounter Prescriptions - divalproex ER (DEPAKOTE ER) 250 mg 24 hr tablet (Discontinued) Take 250 mg by mouth once daily. Disposition: Return in about 6 months (around 06/02/2025) for complete PE with Manish. Follow-up and Disposition History for Encounter Date Provider Department Center 11/30/2024 [id number] LINK [facility] Encounter Status:Closed by DAVIS LINK on 11/30/24 PROGRESS Observed: 11/30/2024 1:33 PM Status: COMPLETED Source: [facility] ID: [id number] Author: DAVIS LINK MD Service: ? Author Type: Physician Type: Progress Notes Filed: 11/30/2024 14:59 Note Text: Chief Complaint Patient presents with: F/U 6 months HPI Mary Beth Gonzalez is a 44 year old female who presents here today for 6 month follow up. Patient with hx of asthma, ZHANNA, smoker, GERD, hypothyroid, DM2, seizures, psoriasis, add, depression, PTSD and those as below. Patient saw Cardiology 07/2024 Patient has been doing ok. No new issues or concerns. Still smoking. [facility]. Past medical history, appointments, medications, allergies reviewed. Previous Medical History PAST MEDICAL HISTORY Diagnosis Date Acquired hypothyroidism 07/17/2008 Arthritis Asthma Atherosclerosis of coronary artery 09/14/2023 Attention deficit disorder without mention of hyperactivity 11/27/2006 Biliary dyskinesia 12/09/2012 Borderline personality disorder (HCC) 09/14/2023 Brachial neuritis or radiculitis 02/01/2014 Chondromalacia of knee 06/17/2011 Controlled type 2 diabetes mellitus without complication, without long-term current use of insulin (HCC) 07/11/2008 Cyst 07/25/2009 Cysts on lower back, soft tissue Depression 10/18/2009 Diabetes mellitus type II (HCC) Endometriosis GERD without esophagitis 03/12/2023 Per Upper GI 03/05/2023 Hx of borderline personality disorder Hx of pancreatitis Hypothyroidism Lumbago 08/07/2008 Lung nodule 09/14/2023 12/22/2022: CT stable nodule over 2 years, no further imaging needed Mixed hyperlipidemia 09/30/2010 Moderate persistent asthma without complication 01/08/2017 Multiple joint pain 07/25/2009 Myofascial muscle pain 09/05/2015 ZHANNA (obstructive sleep apnea) 05/15/2010 Other convulsions 03/31/2008 Over weight 11/24/2023 PAC (premature atrial contraction) Premature atrial beats 11/01/[address] Corral Psoriasis 07/25/2009 PTSD (post-traumatic stress disorder) 10/18/2009 PVC (premature ventricular contraction) Seasonal allergies 11/01/2020 Seborrheic dermatitis Unclassified epileptic seizures (HCC) 03/31/2008 Last seizure 02/11. Under no treatment was never found to have seizure activity on testing (? Pseudoseizures) Well adult exam 12/11/2021 Done: 12/11/2021 Previous Surgical History PAST SURGICAL HISTORY Procedure Laterality Date COLONOSCOPY FLX DX W/COLLJ SPEC WHEN PFRMD 10/27/2011 CONIZATION CERVIX W/WO DANDC RPR ELTRD EXC 07/06/2000 LEEP-Cervix EGD TRANSORAL BIOPSY SINGLE/MULTIPLE 10/27/2011 INSERTION OF DRUG DELIVERY IMPLANT INTO TEAR DUCTS Bilateral LAPAROSCOPIC CHOLECYSTECTOMY 09/04/2021 LEFT HEART CATH,PERCUTANEOUS Left 10/15/2022 Left Heart Catheterization PAST SURGICAL HISTORY OF 07/06/2000 cerviacal cyst removed PAST SURGICAL HISTORY OF 04/25/2008 abdominal hyster and removal one ovary PAST SURGICAL HISTORY OF Left 12/2021 some nodules removed from ribs on left side PAST SURGICAL HISTORY OF Left Titanium clip SEPTOPLASTY 2019 revision and polyp removal SEPTOPLASTY/SUBMUCOUS RESECJ W/WO CARTILAGE GRF 12/04/2010 Septoplasty TONSILLECTOMY PRIMARY/SECONDARY <AGE 10 09/30/2011 Tonsillectomy - Mau Spangler [facility] TOTAL ABDOM HYSTERECTOMY Family History FAMILY HISTORY Problem Relation Age of Onset other (Unknown) Mother Diabetes Father blood pressure problem Heart Father None Brother other (Gastric colitis) Maternal Grandmother No Known Problems Maternal Grandfather other (Heart condition) Paternal Grandmother Kidney failure Paternal Grandmother Diabetes Paternal Grandmother Heart Attack Paternal Grandfather Diabetes Paternal Aunt Diabetes Paternal Uncle No Known Problems Half-brother No Known Problems Half-brother Patient Allergies ALLERGIES Allergen Reactions Amoxicillin Itching Bactrim [Sulfametho* Hives Effexor [Venlafaxin* Mental Status Change suicidal Pyridium [Phenazopy* Hives Adderall [Dextroamp* Mental Status Change paranoid ideation Dust Itching Mold Itching Pravachol [Pravasta* GI Upset Ragweed Itching Current Medications Current Outpatient Medications on File Prior to Visit Medication Sig levothyroxine (SYNTHROID) 100 mcg tablet Take 1 tablet by mouth once daily. metFORMIN ER (GLUCOPHAGE XR) 500 mg 24 hr tablet Take 1 tablet by mouth once daily. atorvastatin (LIPITOR) 20 mg tablet Take 1 tablet by mouth once daily. buPROPion XL (WELLBUTRIN XL) 300 mg 24 hr tablet take 1 tablet by oral route 1 time per day in the morning cetirizine (ZYRTEC) 10 mg tablet Take 1 tablet by mouth once daily. atenolol (TENORMIN) 25 mg tablet Take by mouth. dilTIAZem CR (TIAZAC, TAZTIA XT) 120 mg 24 hr capsule DAILY divalproex ER (DEPAKOTE ER) 250 mg 24 hr tablet Take 250 mg by mouth once daily. buPROPion XL (WELLBUTRIN XL) 150 mg 24 hr tablet Take 150 mg by mouth once daily. metoprolol tartrate, short acting, (LOPRESSOR) 25 mg tablet Take 0.5 tablets by mouth two times a day. Per [facility]. vilazodone (VIIBRYD) 40 mg tablet Take 40 mg by mouth once daily. ADVAIR HFA 230-21 mcg/actuation inhaler Inhale 2 Puffs as instructed twice daily. divalproex ER (DEPAKOTE ER) 500 mg 24 hr tablet once daily. ALPRAZolam (XANAX) 0.5 mg tablet Take 0.5 mg by mouth as needed. Selenium Sulfide 2.25 % sham Apply 1 application to affected area as needed. albuterol HFA (VENTOLIN HFA) 90 mcg/actuation inhaler Inhale 2 Puffs as instructed every 4 hours as needed for Wheezing/Shortness of Breath. Per Dr. Shay alcantara fluticasone (FLONASE) 50 mcg/actuation nasal spray Use 2 Sprays in each nostril once daily. clobetasol 0.05 % ointment Apply to affected area(s) of active or acute and persistent insect bite or prurigo papular lesions of open areas of arms, legs, trunk, once to twice per day (qday to bid) until clear, and then taper off as able. AVOID face, eyes, eyelids, and deep fold areas. nitroglycerin sublingual (NITROSTAT) 0.4 mg SL tablet Dissolve 1 tablet under the tongue as needed. FOR CHEST PAIN. IF NO RELIEF CALL 911 hydrocortisone valerate(WESTCORT 0.2 % TOPICAL CREAM) Apply to psoriasis/rash on folds areas (eg., abdominal fold area), ears, outer face or forehead area, and scalp line selectively qd to bid prn until clear and then taper off as able; AVOID eyes and eyelids, and central face near eyes and nose. No current facility-administered medications on file prior to visit. Social History Social History Tobacco Use Smoking status: Every Day Current packs/day: 0.50 Average packs/day: 0.5 packs/day for 20.0 years (10.0 ttl pk-yrs) Types: Cigarettes Smokeless tobacco: Never Vaping Use Vaping status: Never Used Substance Use Topics Alcohol use: Yes Comment: occassionally Drug use: Yes Types: Marijuana Comment: daily marijuana Review of Symptoms REVIEW OF SYSTEMS GENERAL: No weight loss, malaise or fevers NECK: Negative for lumps, goiter, pain and significant neck swelling RESPIRATORY: Negative for cough, hemoptysis, wheezing, COPD, dyspnea or shortness of breath CARDIOVASCULAR: Negative for chest pain, leg swelling, hypertension, CHF or increased palpitations GI: No nausea, vomiting, or diarrhea and No heartburn or reflux symptoms : No history of dysuria, frequency or blood ENDOCRINE: Negative for symptoms of low BS's NEURO: No history of headaches, syncope, paralysis, seizures or tremors SEE HPI EXAM: BP 122/86 Pulse 72 Resp 16 Wt 72.6 kg (160 lb) BMI 27.46 kg/m? BP 118/60 Pulse 72 Resp 16 Wt 72.6 kg (160 lb) BMI 27.46 kg/m? Last 5 Encounter Wt Readings: Date: Wt: 11/30/2024 72.6 kg (160 lb) 07/25/2024 67.6 kg (149 lb) 05/30/2024 66 kg (145 lb 9.6 oz) 05/27/2024 66.2 kg (146 lb) 11/24/2023 71.7 kg (158 lb) General Appearance: Well appearing, alert, in no acute distress, well-hydrated, well nourished. and Overweight. Eyes: Anicteric sclera. Pupils are equally round and reactive to light. Extraocular movements are intact. . Neck: Supple, no adenopathy; thyroid symmetric, normal size, no bruits. Lungs: Lungs clear to auscultation. No wheezing, rhonchi, rales.. Heart: RRR without murmur, gallop, or rubs. No ectopy. Abdomen: Normal abdominal exam, Abdomen soft, non-tender. Bowel sounds normal. No masses, organomegaly. Extremities: No deformities, edema, skin discoloration, . Good capillary refill. . Peripheral Pulses: Normal. Neurologic: Gait normal. Sensation grossly intact.. Health Maintenance List Hepatitis B Vaccine(1 of 3 - 19+ 3-dose series) Never done Dilated Retinal Exam due on 01/30/2023 Colorectal Cancer Screening due on 11/27/2023 HbA1C due on 11/13/2024 LDL Cholesterol due on 05/16/2025 Urine Albumin:Creatinine Ratio due on 05/27/2025 Diabetic Foot Exam due on 05/27/2025 Annual PCP Team Chronic Disease Visit due on 05/27/2025 Mammogram Screening due on 06/09/2025 Cervical Cancer Screening due on 01/23/2027 DTaP,Tdap,Td Vaccine(3 - Td or Tdap) due on 08/07/2032 Influenza Vaccine Completed Hepatitis C Screening Completed HIV Screening Completed Covid-19 Vaccine Completed Pneumococcal Vaccine Completed Data reviewed Assessment and Plan ASSESSMENT/PLAN: 1. Controlled type 2 diabetes mellitus without complication, without long-term current use of insulin (HCC) - ICD9: 250.00, ICD10: E11.9 (primary diagnosis) - Control undetermined, due for labs - Continue current medications - Counseled on healthy diet and regular exercise - Discussed need for and benefit of weight loss. BMI 27.46 kg/(m2) 2. Mixed hyperlipidemia - ICD9: 272.2, ICD10: E78.2 - Control undetermined, due for labs - Continue current medications - Counseled on healthy diet and regular exercise - Discussed need for and benefit of weight loss. BMI 27.46 kg/(m2) 3. Acquired hypothyroidism - ICD9: 244.9, ICD10: E03.9 - Instructed patient on importance of taking on an empty stomach either first thing in the morning or at bedtime. - continue current dose of Synthroid Await labs 4. Atherosclerosis of coronary artery of [place] heart with angina pectoris, unspecified vessel or lesion type - ICD9: 414.01, 413.9, ICD10: I25.119 - clinically stable. No imaging needd. Follows with cardio 5. Premature atrial beats - ICD9: 427.61, ICD10: I49.1 - patient needs to set up EPS appt. 6. Moderate persistent asthma without complication (HCC) - ICD9: 493.90, ICD10: J45.40 - Moderate persistent asthma stable - Continue current medications - Avoidance of triggers recommended - cont management with pulm 7. GERD without esophagitis - ICD9: 530.81, ICD10: K21.9 - managed with diet and controlled. 8. Major depressive disorder, remission status unspecified, unspecified whether recurrent - ICD9: 296.20, ICD10: F32.9 - on meds and managed per Psych 9. Borderline personality disorder (HCC) - ICD9: 301.83, ICD10: F60.3 - as per #8 10. Attention deficit disorder, unspecified type - ICD9: 314.00, ICD10: F98.8 - as per #8 11. PTSD (post-traumatic stress disorder) - ICD9: 309.81, ICD10: F43.10 - as per #8 12. Smoker - ICD9: 305.1, ICD10: F17.200 - Cessation encouraged. - Counseling was given focusing on the harmful effects of this addiction especially given the patient's medical condition(s) which will be worsened because of the chemicals in tobacco. 13. Unclassified epileptic seizures (HCC) - ICD9: 345.90, ICD10: G40.909 - pseudo seizures. Managed per psych. F/u 6 month's WAE check CMP, lipid, urine micro albumin, UA, A1c, CBC, TSH prior Davis Link MD CNPN Observed: 08/16/2024 12:00 AM Status: COMPLETED Source: [facility] Telephone ([facility]) MARY BETH GONZALEZ ([id number]) 1980 F Date Time Provider Department 08/16/24 KEYANNA WANG [employer] During your visit today, we recorded the following information about you: Veronica Russell 08/16/2024 10:45 AM Signed patient cancelled her scheduled colonoscopy and EGD refused to reschedule. Allergies As of Date: 08/16/2024 Noted Allergy Reaction AMOXICILLIN 07/25/2009 9 - Itching BACTRIM (SULFAMETHOXAZOLE-TRIMETH*08/14/2006 4 - Hives EFFEXOR (VENLAFAXINE ANALOGUES) 08/09/2009 1 - Mental Status Change Comments: suicidal PYRIDIUM (PHENAZOPYRIDINE HCL) 08/14/2006 4 - Hives ADDERALL (DEXTROAMPHETAMINE-AMPHE*03/15/2010 1 - Mental Status Change Comments: paranoid ideation DUST 07/03/2010 9 - Itching MOLD 07/03/2010 9 - Itching PRAVACHOL (PRAVASTATIN SODIUM) 05/15/2015 8 - GI Upset RAGWEED 07/03/2010 9 - Itching Date Reviewed: 07/26/2024 Reviewed by: Estefania Zamora APRN.STOCK CONTROL SUPERVISOR - Fully Assessed Reason for Visit: Outpatient Colonoscopy [482] Prescriptions as of 10/04/2024 - atorvastatin (LIPITOR) 20 mg tablet Take 1 tablet by mouth once daily. - buPROPion XL (WELLBUTRIN XL) 300 mg 24 hr tablet take 1 tablet by oral route 1 time per day in the morning - cetirizine (ZYRTEC) 10 mg tablet Take 1 tablet by mouth once daily. - levothyroxine (SYNTHROID) 100 mcg tablet Take 1 tablet by mouth once daily. - metFORMIN ER (GLUCOPHAGE XR) 500 mg 24 hr tablet Take 1 tablet by mouth once daily. - atenolol (TENORMIN) 25 mg tablet Take by mouth. - dilTIAZem CR (TIAZAC, TAZTIA XT) 120 mg 24 hr capsule DAILY - divalproex ER (DEPAKOTE ER) 250 mg 24 hr tablet Take 250 mg by mouth once daily. - buPROPion XL (WELLBUTRIN XL) 150 mg 24 hr tablet Take 150 mg by mouth once daily. - metoprolol tartrate, short acting, (LOPRESSOR) 25 mg tablet Take 0.5 tablets by mouth two times a day. Per [facility]. - vilazodone (VIIBRYD) 40 mg tablet Take 40 mg by mouth once daily. - ADVAIR HFA 230-21 mcg/actuation inhaler Inhale 2 Puffs as instructed twice daily. - divalproex ER (DEPAKOTE ER) 500 mg 24 hr tablet once daily. - ALPRAZolam (XANAX) 0.5 mg tablet Take 0.5 mg by mouth as needed. - Selenium Sulfide 2.25 % sham Apply 1 application to affected area as needed. - albuterol HFA (VENTOLIN HFA) 90 mcg/actuation inhaler Inhale 2 Puffs as instructed every 4 hours as needed for Wheezing/Shortness of Breath. Per pulDr. Shay isaac - fluticasone (FLONASE) 50 mcg/actuation nasal spray Use 2 Sprays in each nostril once daily. - clobetasol 0.05 % ointment Apply to affected area(s) of active or acute and persistent insect bite or prurigo papular lesions of open areas of arms, legs, trunk, once to twice per day (qday to bid) until clear, and then taper off as able. AVOID face, eyes, eyelids, and deep fold areas. - nitroglycerin sublingual (NITROSTAT) 0.4 mg SL tablet Dissolve 1 tablet under the tongue as needed. FOR CHEST PAIN. IF NO RELIEF CALL 911 - hydrocortisone valerate(WESTCORT 0.2 % TOPICAL CREAM) Apply to psoriasis/rash on folds areas (eg., abdominal fold area), ears, outer face or forehead area, and scalp line selectively qd to bid prn until clear and then taper off as able; AVOID eyes and eyelids, and central face near eyes and nose. Problem List As Of Date 08/16/2024 Noted Resolved Attention deficit disorder [F98.8] 11/27/2006 Unclassified epileptic seizures (HCC) [G40.909] 03/31/2008 Acquired hypothyroidism [E03.9] 07/17/2008 Lumbago [M54.50] 08/07/2008 Psoriasis [L40.9] 07/25/2009 Multiple joint pain [M25.50] 07/25/2009 Cyst 07/25/2009 Smoker [F17.200] 07/25/2009 PTSD (post-traumatic stress disorder) [F43.10] 10/18/2009 Depression [F32.A] 10/18/2009 ZHANNA (obstructive sleep apnea) [G47.33] 05/15/2010 Mixed hyperlipidemia [E78.2] 09/30/2010 Myofascial muscle pain [M79.18] 09/05/2015 Moderate persistent asthma without complication*01/08/2017 Controlled type 2 diabetes mellitus without com*07/11/2008 Premature atrial beats [I49.1] 11/01/2020 Seasonal allergies [J30.2] 11/01/2020 Gallbladder polyp [K82.4] 08/19/2021 09/04/2021 Well adult exam [Z00.00] 12/11/2021 GERD without esophagitis [K21.9] 03/12/2023 Class 1 obesity due to excess calories with bod*06/24/2023 11/24/2023 Atherosclerosis of coronary artery [I25.10] 09/14/2023 Diagnosed: 09/14/2023 Borderline personality disorder (HCC) [F60.3] 09/14/2023 Diagnosed: 09/14/2023 Costochondritis [M94.0] 09/14/2023 11/24/2023 Diagnosed: 09/14/2023 Headache [R51] 09/14/2023 11/24/2023 Diagnosed: 09/14/2023 Lung nodule [R91.1] 09/14/2023 Diagnosed: 09/14/2023 Nicotine dependence [F17.200] 04/22/2022 11/24/2023 Diagnosed: 09/14/2023 Palpitations [R00.2] 10/22/2022 11/24/2023 Diagnosed: 09/14/2023 PVC (premature ventricular contraction) [I49.3] PAC (premature atrial contraction) [I49.1] Over weight [E66.3] 11/24/2023 Weight loss, unintentional [R63.4] 11/24/2023 Marijuana use [F12.90] 07/26/2024 Encounter Status:Closed by VERONICA RUSSELL on 10/04/24 FELIPA Observed: 08/10/2024 12:00 AM Status: COMPLETED Source: [facility] Telephone ([facility]AY[facility]) MARY BETH GONZALEZ ([id number]) 1980 F Date Time Provider Department 08/10/24 GABRIELLA GARZA During your visit today, we recorded the following information about you: Tara Garcia 08/10/2024 3:52 PM Signed Left patient message to confirm colonoscopy procedure date AND bowel prep instructions with my phone number [phone]. Allergies As of Date: 08/10/2024 Noted Allergy Reaction AMOXICILLIN 07/25/2009 9 - Itching BACTRIM (SULFAMETHOXAZOLE-TRIMETH*08/14/2006 4 - Hives EFFEXOR (VENLAFAXINE ANALOGUES) 08/09/2009 1 - Mental Status Change Comments: suicidal PYRIDIUM (PHENAZOPYRIDINE HCL) 08/14/2006 4 - Hives ADDERALL (DEXTROAMPHETAMINE-AMPHE*03/15/2010 1 - Mental Status Change Comments: paranoid ideation DUST 07/03/2010 9 - Itching MOLD 07/03/2010 9 - Itching PRAVACHOL (PRAVASTATIN SODIUM) 05/15/2015 8 - GI Upset RAGWEED 07/03/2010 9 - Itching Date Reviewed: 07/26/2024 Reviewed by: Estefania Zamora APRN.STOCK CONTROL SUPERVISOR - Fully Assessed Reason for Visit: Outpatient Colonoscopy [482] Cmt: AND EGD Prescriptions as of 08/10/2024 - buPROPion XL (WELLBUTRIN XL) 300 mg 24 hr tablet take 1 tablet by oral route 1 time per day in the morning - cetirizine (ZYRTEC) 10 mg tablet Take 1 tablet by mouth once daily. - levothyroxine (SYNTHROID) 100 mcg tablet Take 1 tablet by mouth once daily. - metFORMIN ER (GLUCOPHAGE XR) 500 mg 24 hr tablet Take 1 tablet by mouth once daily. - atorvastatin (LIPITOR) 20 mg tablet Take 1 tablet by mouth once daily. - atenolol (TENORMIN) 25 mg tablet Take by mouth. - dilTIAZem CR (TIAZAC, TAZTIA XT) 120 mg 24 hr capsule DAILY - divalproex ER (DEPAKOTE ER) 250 mg 24 hr tablet Take 250 mg by mouth once daily. - buPROPion XL (WELLBUTRIN XL) 150 mg 24 hr tablet Take 150 mg by mouth once daily. - metoprolol tartrate, short acting, (LOPRESSOR) 25 mg tablet Take 0.5 tablets by mouth two times a day. Per [facility]. - vilazodone (VIIBRYD) 40 mg tablet Take 40 mg by mouth once daily. - ADVAIR HFA 230-21 mcg/actuation inhaler Inhale 2 Puffs as instructed twice daily. - divalproex ER (DEPAKOTE ER) 500 mg 24 hr tablet once daily. - ALPRAZolam (XANAX) 0.5 mg tablet Take 0.5 mg by mouth as needed. - Selenium Sulfide 2.25 % sham Apply 1 application to affected area as needed. - albuterol HFA (VENTOLIN HFA) 90 mcg/actuation inhaler Inhale 2 Puffs as instructed every 4 hours as needed for Wheezing/Shortness of Breath. Per Dr. Shay alcantara - fluticasone (FLONASE) 50 mcg/actuation nasal spray Use 2 Sprays in each nostril once daily. - clobetasol 0.05 % ointment Apply to affected area(s) of active or acute and persistent insect bite or prurigo papular lesions of open areas of arms, legs, trunk, once to twice per day (qday to bid) until clear, and then taper off as able. AVOID face, eyes, eyelids, and deep fold areas. - nitroglycerin sublingual (NITROSTAT) 0.4 mg SL tablet Dissolve 1 tablet under the tongue as needed. FOR CHEST PAIN. IF NO RELIEF CALL 911 - hydrocortisone valerate(WESTCORT 0.2 % TOPICAL CREAM) Apply to psoriasis/rash on folds areas (eg., abdominal fold area), ears, outer face or forehead area, and scalp line selectively qd to bid prn until clear and then taper off as able; AVOID eyes and eyelids, and central face near eyes and nose. Problem List As Of Date 08/10/2024 Noted Resolved Attention deficit disorder [F98.8] 11/27/2006 Unclassified epileptic seizures (HCC) [G40.909] 03/31/2008 Acquired hypothyroidism [E03.9] 07/17/2008 Lumbago [M54.50] 08/07/2008 Psoriasis [L40.9] 07/25/2009 Multiple joint pain [M25.50] 07/25/2009 Cyst 07/25/2009 Smoker [F17.200] 07/25/2009 PTSD (post-traumatic stress disorder) [F43.10] 10/18/2009 Depression [F32.A] 10/18/2009 ZHANNA (obstructive sleep apnea) [G47.33] 05/15/2010 Mixed hyperlipidemia [E78.2] 09/30/2010 Myofascial muscle pain [M79.18] 09/05/2015 Moderate persistent asthma without complication*01/08/2017 Controlled type 2 diabetes mellitus without com*07/11/2008 Premature atrial beats [I49.1] 11/01/2020 Seasonal allergies [J30.2] 11/01/2020 Gallbladder polyp [K82.4] 08/19/2021 09/04/2021 Well adult exam [Z00.00] 12/11/2021 GERD without esophagitis [K21.9] 03/12/2023 Class 1 obesity due to excess calories with bod*06/24/2023 11/24/2023 Atherosclerosis of coronary artery [I25.10] 09/14/2023 Diagnosed: 09/14/2023 Borderline personality disorder (HCC) [F60.3] 09/14/2023 Diagnosed: 09/14/2023 Costochondritis [M94.0] 09/14/2023 11/24/2023 Diagnosed: 09/14/2023 Headache [R51] 09/14/2023 11/24/2023 Diagnosed: 09/14/2023 Lung nodule [R91.1] 09/14/2023 Diagnosed: 09/14/2023 Nicotine dependence [F17.200] 04/22/2022 11/24/2023 Diagnosed: 09/14/2023 Palpitations [R00.2] 10/22/2022 11/24/2023 Diagnosed: 09/14/2023 PVC (premature ventricular contraction) [I49.3] PAC (premature atrial contraction) [I49.1] Over weight [E66.3] 11/24/2023 Weight loss, unintentional [R63.4] 11/24/2023 Marijuana use [F12.90] 07/26/2024 Encounter Status:Closed by TARA GARCIA on 08/10/24 ECG01 Observed: 07/25/2024 2:41 PM Status: F Source: [facility] Ventricular Rate : 73 BPM Atrial Rate : 73 BPM P-R Interval : 140 ms QRS Duration : 76 ms Q-T Interval : 402 ms QTC Calculation(Bazett) : 442 ms Calculated P Bertrand : 40 degrees Calculated R Bertrand : 37 degrees Calculated T Bertrand : 37 degrees NORMAL SINUS RHYTHM NORMAL ECG Confirmed by MD KEARNEY QARAB ([id number]) on 07/26/2024 11:04:37 AM NAME : MARY BETH GONZALEZ PID : [id number] : 1980 Gender : Female Race : ORD : Procedure Date : Jul 25 2024 14:41:45 Edit Date : Jul 26 2024 11:04:42 Diagnosis: NORMAL SINUS RHYTHM NORMAL ECG Confirmed by MD KEARNEY QARAB ([id number]) on 07/26/2024 11:04:37 AM Test Reason : Location : 636 : [facility] Overread By : MD KEARNEY QARAB Edited By : MD KEARNEY QARAB Referred By : GABRIELLA GARZA Acquired by : alta, HISTORY PHYSICAL Observed: 07/25/2024 12:55 PM Status: COMPLETED Source: [facility] HNO ID: [id number] Author: ESTEFANIA ZAMORA APRN.CNP Service: ? Author Type: Nurse Practitioner Type: H&P Filed: 07/26/2024 09:24 Note Text: [facility] HISTORY AND PHYSICAL EXAMINATION SERVICE DATE: 07/25/2024 SERVICE TIME: 9:23 AM PRIMARY CARE PHYSICIAN: Davis Link MD Assessment Patient has the following medical conditions which may affect agatha-operative course: Unclassified epileptic seizures (HCC) Assessment: ?hx, last possible seizure 2008, no tx and was never found to have seizure activity on testing Atherosclerosis of coronary artery Assessment: non-obstructing, EKG today NSR Mixed hyperlipidemia Assessment: c/w statin PAC (premature atrial contraction) Assessment: controlled on rx, echo 2020 wnl 08/04/2023 Armaan Crain CNP, Scanned into [facility] Lung nodule Assessment: CT stable over 2 years, per PCP no further imaging needed Moderate persistent asthma without complication Assessment: rx as needed, following Dr. Patricio dynamo repairer at [facility] ZHANNA (obstructive sleep apnea) Assessment: non-compliant with CPAP Smoker Assessment: 0.5ppd/20 years, denies COPD, +asthma GERD without esophagitis Assessment: controlled on rx Acquired hypothyroidism Assessment: stable on rx Controlled type 2 diabetes mellitus without complication, without long-term current use of insulin (HCC) Assessment: controlled on oral agent Hemoglobin A1C (%) Date Value 05/16/2024 5.0 06/04/2021 5.8 Psoriasis Assessment: rx as needed Attention deficit disorder Assessment: no current tx Depression Assessment: and anxiety, stable on rx per pt and attends counseling PTSD (post-traumatic stress disorder) Assessment: hx Marijuana use Assessment: instructed to withhold prior to surgery, pt verbalized understanding. [place] Activity Status Index: METS: Climb a flight of stairs or walk up a hill (5.50 METs) DASI Score: 5.5 Patient denies any chest pain or undue shortness of breath with the above physical activity. Clinical Frailty Scale: 3. Well, with treated comorbid disease STOP-Bang Score: Snores loudly Has or is being treated for high blood pressure Denies feeling tired, fatigued, or sleepy during the daytime Has not been observed to stop breathing or choking/gasping during sleep BMI less than or equal to 35 kg/m2 Patient 50 years old or younger Does not have a large neck Non-male patient STOP-Bang Score: 2 [id number] Score: Age: <65 Sex: female CHF history: No Hypertension history: No Stroke/TIA/thromboembolism history: No Vascular disease history: No Diabetes history: Yes [id number] Score: 2 ARISCAT Score: Age: <=50 Preoperative SpO2: >=96% Respiratory infection in the last month: No Preoperative anemia: No Surgical incision: peripheral Duration of surgery: <2 hrs Emergency procedure: No ARISCAT Score: 0 ANESTHESIA FINDINGS: Intubation History: No history of difficult intubation Significant Anesthesia Considerations: none Airway History: No history of difficult airway I - PHYSICAL EVALUATION AIRWAY Patient intubated: No. Tracheostomy tube not present Mallampati: II. TM distance: >3 FB. Neck ROM: full ROM without neurological symptoms. Mouth opening: adequate. Short neck: no. Thick neck: no Diaz present: no Lip Bite Test: I Microretrognathia/Micronagthia/Recessed Chin: No DENTAL Dental findings: teeth intact. II - ANESTHESIA PLAN Anesthetic Plan: other Anesthetic plan additional comments: *PACC/TCI - anesthesia choice. Beta Laquita Monitoring Plan Post Procedure Analgesic Plan Prepared for Surgery: optimally prepared for surgery. EKG-reviewed, okay to proceed-JL CONSULTS: Patient does not require consults for optimization at this time Planned Anesthetic: other anesthesia choice The Following Tests/Procedures Have Been Initiated: Orders Placed This Encounter buPROPion XL (WELLBUTRIN XL) 300 mg 24 hr tablet Sig: take 1 tablet by oral route 1 time per day in the morning ECG COMPLETE Order Comments: Ordered by an unspecified provider REASON FOR VISIT: Mary Beth Gonzalez is a 43 year old female who is scheduled for EGD/colonoscopy at the request of Dr. Gabriella Garza for consultation. My final recommendation will be communicated back to the requesting physician by way of shared medical record or letter. Subjective The patient has the following: COVID-19 Immunization Status Covid-19 Vaccine (Series Information) Completed 05/27/2024 Imm Admin: COVID-19 vaccine, age 12+ yr (PFIZER-BIONTECH COMIRNATY) 05/12/2023 Imm Admin: COVID-19 vaccine, age 12+ yr (PFIZER-BIONTECH COMIRNATY) 05/16/2022 Imm Admin: COVID-19 vaccine, age 12+ yr, bivalent (PFIZER-BIONTECH) Only the first 3 history entries have been loaded, but more history exists. CHIEF COMPLAINT: Pre-op exam HPI: Mary Beth Gonzalez is a 43 year old seen for PAC due to scheduled above procedure for colon cancer screening. 05/30/2024 Melonie Wang CNP HPI: Mary Beth is a 43 year old female referred for endoscopy. Mary Beth notes unintentional weight loss. Mary Beth denies abdominal pain. Mary Beth denies diarrhea. Mary Beth denies constipation. Mary Beth denies a change in bowel habits. Mary Beth denies melena. Mary Beth denies bright red blood per rectum. Mary Beth denies hemorrhoids. Mary Beth notes a distant history of heartburn. -no longer takes medication Denies nausea or vomiting -States she doesn't really have an appetite but "eats junk" and is still losing weight. Mary Beth denies dysphagia. Mary Beth denies a history of ulcers/ peptic ulcer disease. Mary Beth notes she has a hx of gastroparesis- does not follow with GI. Mary Beth denies family history of colon issues. Mary Beth has a hx of seizures- Mary Beth notes there has never been any identified seizures on EEG and she hasn't had any recently- She does take Depakote Daily marijuana use. Mary Beth notes recall from previous endoscopy. Mary Beth has undergone prior endoscopy. EGD AND colonoscopy 10/[address] Fan @ [facility]. Sedation:Meperidine 100 mg IV, Midazolam 3.5 mg IV EGD Impression: - Z-line variable. - Erythema at the gastroesophageal junction. - Gastric mucosal abnormality characterized by very mild erythema. - Biopsies were taken with a cold forceps for Helicobacter pylori testing. COLONOSCOPY Impression: - Non-bleeding internal hemorrhoids. - Tortuous colon. REVIEW OF SYSTEMS: General: No weight loss, malaise or fevers. Neurological: Positive for: seizures. Negative for: cerebral palsy, HEALTH AND WELLNESS ADVISOR tumor, headaches, multiple sclerosis, Parkinson's disease, peripheral neuropathy, TIA and strokes. Respiratory: Positive for: asthma (rx as needed), tobacco use, obstructive sleep apnea and CPAP/BiPAP noncompliant. Negative for: COPD, pneumonia within 6 weeks and URI < 2 weeks. Cardiovascular: Positive for: arrhythmia (+palpitations, on rx), CAD (non-obstructing) and hyperlipidemia (on rx) Patient's last office visit The following tests and/or procedures were not performed: cardiac stents. Negative for: abdominal aortic aneurysm, AICD/PPM, angina, anticoagulation therapy, atrial fibrillation, chest pain, CHF, congenital heart defect, DVT/PE, hypertension, recent VT, murmur/valvular heart disease, PTCA, PVD, open heart surgery and valve surgery. GI: See HPI. Positive for: GERD (on rx) Negative for: abdominal pain, dysphagia, hepatitis, irritable bowel syndrome, inflammatory bowel disease, liver disease, nausea, pancreatitis, vomiting and ETOH >2 drinks/day. : No history of dysuria, frequency or incontinence, stones or chronic kidney disease. No difficulty urinating, nocturia > 1 time per night or hematuria. RN CONCURRENT REVIEW: Negative for abnormal vaginal bleeding, abnormal vaginal discharge. Endocrine: Positive for: diabetes mellitus and hypothyroidism (on rx). Patient's diabetes mellitus is controlled by oral agents. Hematology: No history of bleeding or clotting disorder. Patient is not taking anti-coagulation or platelet medications. No history of hematological symptoms or problems. Oncology: No history of CA metastasis, chemo within 30 days, or radiotherapy within 90 days. No history of oncological symptoms or problems. Psych: Positive for: anxiety (on rx), bipolar disorder (on rx), depression (on rx) and Marijuana Use. Product type: Flower. Route of administration: Inhalation. Frequency: Daily. Musculoskeletal: Positive for: back pain (DDD) and joint pain. Skin: +psoriasis, rx as needed Implanted Devices: No implanted devices. PAST MEDICAL HISTORY Diagnosis Date Acquired hypothyroidism 07/17/2008 Arthritis Asthma Atherosclerosis of coronary artery 09/14/2023 Attention deficit disorder without mention of hyperactivity 11/27/2006 Biliary dyskinesia 12/09/2012 Borderline personality disorder (HCC) 09/14/2023 Brachial neuritis or radiculitis 02/01/2014 Chondromalacia of knee 06/17/2011 Controlled type 2 diabetes mellitus without complication, without long-term current use of insulin (HCC) 07/11/2008 Cyst 07/25/2009 Cysts on lower back, soft tissue Depression 10/18/2009 Diabetes mellitus type II (HCC) Endometriosis GERD without esophagitis 03/12/2023 Per Upper GI 03/05/2023 Hx of borderline personality disorder Hx of pancreatitis Hypothyroidism Lumbago 08/07/2008 Lung nodule 09/14/2023 12/22/2022: CT stable nodule over 2 years, no further imaging needed Mixed hyperlipidemia 09/30/2010 Moderate persistent asthma without complication 01/08/2017 Multiple joint pain 07/25/2009 Myofascial muscle pain 09/05/2015 ZHANNA (obstructive sleep apnea) 05/15/2010 Other convulsions 03/31/2008 Over weight 11/24/2023 PAC (premature atrial contraction) Premature atrial beats 11/01/[address] Corral Psoriasis 07/25/2009 PTSD (post-traumatic stress disorder) 10/18/2009 PVC (premature ventricular contraction) Seasonal allergies 11/01/2020 Seborrheic dermatitis Unclassified epileptic seizures (HCC) 03/31/2008 Last seizure 02/11. Under no treatment was never found to have seizure activity on testing (? Pseudoseizures) Well adult exam 12/11/2021 Done: 12/11/2021 PAST SURGICAL HISTORY Procedure Laterality Date COLONOSCOPY FLX DX W/COLLJ SPEC WHEN PFRMD 10/27/2011 CONIZATION CERVIX W/WO DANDC RPR ELTRD EXC 07/06/2000 LEEP-Cervix EGD TRANSORAL BIOPSY SINGLE/MULTIPLE 10/27/2011 INSERTION OF DRUG DELIVERY IMPLANT INTO TEAR DUCTS Bilateral LAPAROSCOPIC CHOLECYSTECTOMY 09/04/2021 LEFT HEART CATH,PERCUTANEOUS Left 10/15/2022 Left Heart Catheterization PAST SURGICAL HISTORY OF 07/06/2000 cerviacal cyst removed PAST SURGICAL HISTORY OF 04/25/2008 abdominal hyster and removal one ovary PAST SURGICAL HISTORY OF Left 12/2021 some nodules removed from ribs on left side PAST SURGICAL HISTORY OF Left Titanium clip SEPTOPLASTY 2019 revision and polyp removal SEPTOPLASTY/SUBMUCOUS RESECJ W/WO CARTILAGE GRF 12/04/2010 Septoplasty TONSILLECTOMY PRIMARY/SECONDARY <AGE 10 09/30/2011 Tonsillectomy - , Mau Yao [facility] TOTAL ABDOM HYSTERECTOMY FAMILY HISTORY Problem Relation Age of Onset other (Unknown) Mother Diabetes Father blood pressure problem Heart Father None Brother other (Gastric colitis) Maternal Grandmother No Known Problems Maternal Grandfather other (Heart condition) Paternal Grandmother Kidney failure Paternal Grandmother Diabetes Paternal Grandmother Heart Attack Paternal Grandfather Diabetes Paternal Aunt Diabetes Paternal Uncle No Known Problems Half-brother No Known Problems Half-brother Social History Tobacco Use Smoking status: Every Day Current packs/day: 0.50 Average packs/day: 0.5 packs/day for 20.0 years (10.0 ttl pk-yrs) Types: Cigarettes Smokeless tobacco: Never Vaping Use Vaping status: Never Used Substance Use Topics Alcohol use: Yes Comment: occassionally Drug use: Yes Types: Marijuana Comment: daily marijuana Prior to Admission medications as of 07/26/24 0854 Medication Sig Last Dose Taking buPROPion XL (WELLBUTRIN XL) 300 mg 24 hr tablet take 1 tablet by oral route 1 time per day in the morning Taking Yes cetirizine (ZYRTEC) 10 mg tablet Take 1 tablet by mouth once daily. Taking Yes levothyroxine (SYNTHROID) 100 mcg tablet Take 1 tablet by mouth once daily. Taking Yes metFORMIN ER (GLUCOPHAGE XR) 500 mg 24 hr tablet Take 1 tablet by mouth once daily. Taking Yes atorvastatin (LIPITOR) 20 mg tablet Take 1 tablet by mouth once daily. Taking Yes atenolol (TENORMIN) 25 mg tablet Take by mouth. Taking Yes dilTIAZem CR (TIAZAC, TAZTIA XT) 120 mg 24 hr capsule DAILY Taking Yes divalproex ER (DEPAKOTE ER) 250 mg 24 hr tablet Take 250 mg by mouth once daily. Taking Yes buPROPion XL (WELLBUTRIN XL) 150 mg 24 hr tablet Take 150 mg by mouth once daily. Taking Yes metoprolol tartrate, short acting, (LOPRESSOR) 25 mg tablet Take 0.5 tablets by mouth two times a day. Per [facility]. Taking Yes vilazodone (VIIBRYD) 40 mg tablet Take 40 mg by mouth once daily. Taking Yes ADVAIR HFA 230-21 mcg/actuation inhaler Inhale 2 Puffs as instructed twice daily. Taking Yes divalproex ER (DEPAKOTE ER) 500 mg 24 hr tablet once daily. Taking Yes ALPRAZolam (XANAX) 0.5 mg tablet Take 0.5 mg by mouth as needed. Taking Yes Selenium Sulfide 2.25 % sham Apply 1 application to affected area as needed. Taking Yes albuterol HFA (VENTOLIN HFA) 90 mcg/actuation inhaler Inhale 2 Puffs as instructed every 4 hours as needed for Wheezing/Shortness of Breath. Per Dr. Shay alcantara Taking Yes fluticasone (FLONASE) 50 mcg/actuation nasal spray Use 2 Sprays in each nostril once daily. Taking Yes clobetasol 0.05 % ointment Apply to affected area(s) of active or acute and persistent insect bite or prurigo papular lesions of open areas of arms, legs, trunk, once to twice per day (qday to bid) until clear, and then taper off as able. AVOID face, eyes, eyelids, and deep fold areas. Taking Yes nitroglycerin sublingual (NITROSTAT) 0.4 mg SL tablet Dissolve 1 tablet under the tongue as needed. FOR CHEST PAIN. IF NO RELIEF CALL 911 Taking Yes hydrocortisone valerate(WESTCORT 0.2 % TOPICAL CREAM) Apply to psoriasis/rash on folds areas (eg., abdominal fold area), ears, outer face or forehead area, and scalp line selectively qd to bid prn until clear and then taper off as able; AVOID eyes and eyelids, and central face near eyes and nose. Taking Yes No medication comments found. ALLERGIES Allergen Reactions Amoxicillin Itching Bactrim [Sulfametho* Hives Effexor [Venlafaxin* Mental Status Change suicidal Pyridium [Phenazopy* Hives Adderall [Dextroamp* Mental Status Change paranoid ideation Dust Itching Mold Itching Pravachol [Pravasta* GI Upset Ragweed Itching Objective PHYSICAL EXAM: General: alert and oriented (x3) and healthy appearance. Pertinent negatives noted - not distressed. Skin: normal color, no rash or lesions. HEENT: EOM intact and pupils equal round. Pertinent negatives noted - no carotid bruit. Cardiovascular: regular rate and rhythm, normal S1 and S2, no rub, murmurs, or gallop. Respiratory: normal breath sounds, no wheezes or crackles. No chest wall deformity or tenderness. Abdomen: soft. Pertinent negatives noted - not tender. Extremities: no deformity, no edema or tenderness, no joint swelling or clubbing. Neurological: normal cognition and motor skills. Gait normal. No weakness or sensory deficit. PAIN ASSESSMENT: VITALS: BP 134/82 Pulse 73 Temp (Src) 97 (Temporal) Resp 14 Ht 5' 4" (1.63m) Wt 149 lb (67.6kg) SpO2 97% BMI 25.56 kg/(m2). Diagnostic tests reviewed for today's visit: Lab Value Units Date High Low HB 13.5 g/dL 05/16/2024 15.5 11.5 HCT 40.8 % 05/16/2024 46.0 36.0 WBC 6.84 k/uL 05/16/2024 11.00 3.70 PLT 217 k/uL 05/16/2024 400 150 NA 141 mmol/L 05/16/2024 144 136 K 3.9 mmol/L 05/16/2024 5.1 3.7 GLUC 84 mg/dL 05/16/2024 99 74 BUN 14 mg/dL 05/16/2024 21 7 CREAT 0.77 mg/dL 05/16/2024 0.96 0.58 PTSEC No results within date range. INR No results within date range. APTT No results within date range. ALT 31 U/L 05/16/2024 38 7 AST 24 U/L 05/16/2024 35 13 TBILI 0.4 mg/dL 05/16/2024 1.3 0.2 TSH 0.515 mIU/L 05/16/2024 4.200 0.270 Lab Value Units Date High Low HCGQT No results within date range. UHCG No results within date range. HCG, BODY* No results within date range. Lab Value Units Date High Low ABORHD No results within date range. ABSCREEN No results within date range. Hemoglobin A1C (%) Date Value 05/16/2024 5.0 11/24/2023 5.3 05/26/2023 5.3 01/30/2023 5.7 07/09/2022 5.6 06/04/2021 5.8 11/01/2020 6.1 12/15/2017 5.8 09/05/2017 5.8 07/12/2016 6.5 Recent Results (from the past 8760 hour(s)) ECG COMPLETE Collection Time: 07/25/24 2:41 PM Result Value Ventricular Rate 73 Atrial Rate 73 P-R Interval 140 QRS Duration 76 QT Interval 402 QTC Calculation (Bazett) 442 Calculated P Bertrand 40 Calculated R Bertrand 37 Calculated T Bertrand 37 Impression NORMAL SINUS RHYTHM NORMAL ECG No results found for this or any previous visit (from the past 85773 hour(s)). Instructions Given to Patient: Instructions located in the after visit summary. Patient given verbal and written preop instructions and voices comprehension and compliance. SIGNATURE: Estefania Zamora APRN.[facility] PATIENT NAME: Mary Beth Gonzalez DATE: July 25, 2024 TIME: 12:55 PM PAGER/CONTACT #: [id number] Observed: 06/10/2024 12:00 AM Status: COMPLETED Source: [facility] Telephone ([place]) MARY BETH GONZALEZ ([id number]) 1980 F FNS Date Time Provider Department 06/10/24 CHRISTINA DE DIOS During your visit today, we recorded the following information about you: Camilla Tafoya LPN 06/10/2024 12:13 PM Signed ----- Message from Christina De Dios PA-C sent at 06/10/2024 11:44 AM EST ----- Normal mammogram. Repeat in 1 year. Camilla Tafoya LPN 06/10/2024 12:16 PM Signed Pt notified of same. Camilla Tafoya LPN Allergies As of Date: 06/10/2024 Noted Allergy Reaction AMOXICILLIN 07/25/2009 9 - Itching BACTRIM (SULFAMETHOXAZOLE-TRIMETH*08/14/2006 4 - Hives EFFEXOR (VENLAFAXINE ANALOGUES) 08/09/2009 1 - Mental Status Change Comments: suicidal PYRIDIUM (PHENAZOPYRIDINE HCL) 08/14/2006 4 - Hives ADDERALL (DEXTROAMPHETAMINE-AMPHE*03/15/2010 1 - Mental Status Change Comments: paranoid ideation DUST 07/03/2010 9 - Itching MOLD 07/03/2010 9 - Itching PRAVACHOL (PRAVASTATIN SODIUM) 05/15/2015 8 - GI Upset RAGWEED 07/03/2010 9 - Itching Date Reviewed: 05/30/2024 Reviewed by: Karis Mulligan, RN - Fully Assessed Prescriptions as of 06/10/2024 - cetirizine (ZYRTEC) 10 mg tablet Take 1 tablet by mouth once daily. - levothyroxine (SYNTHROID) 100 mcg tablet Take 1 tablet by mouth once daily. - metFORMIN ER (GLUCOPHAGE XR) 500 mg 24 hr tablet Take 1 tablet by mouth once daily. - atorvastatin (LIPITOR) 20 mg tablet Take 1 tablet by mouth once daily. - atenolol (TENORMIN) 25 mg tablet Take by mouth. - dilTIAZem CR (TIAZAC, TAZTIA XT) 120 mg 24 hr capsule DAILY - divalproex ER (DEPAKOTE ER) 250 mg 24 hr tablet Take 250 mg by mouth once daily. - buPROPion XL (WELLBUTRIN XL) 150 mg 24 hr tablet Take 150 mg by mouth once daily. - metoprolol tartrate, short acting, (LOPRESSOR) 25 mg tablet Take 0.5 tablets by mouth two times a day. Per [facility]. - vilazodone (VIIBRYD) 40 mg tablet Take 40 mg by mouth once daily. - ADVAIR HFA 230-21 mcg/actuation inhaler Inhale 2 Puffs as instructed twice daily. - divalproex ER (DEPAKOTE ER) 500 mg 24 hr tablet once daily. - ALPRAZolam (XANAX) 0.5 mg tablet Take 0.5 mg by mouth as needed. - Selenium Sulfide 2.25 % sham Apply 1 application to affected area as needed. - albuterol HFA (VENTOLIN HFA) 90 mcg/actuation inhaler Inhale 2 Puffs as instructed every 4 hours as needed for Wheezing/Shortness of Breath. Per Dr. Shay alcantara - fluticasone (FLONASE) 50 mcg/actuation nasal spray Use 2 Sprays in each nostril once daily. - clobetasol 0.05 % ointment Apply to affected area(s) of active or acute and persistent insect bite or prurigo papular lesions of open areas of arms, legs, trunk, once to twice per day (qday to bid) until clear, and then taper off as able. AVOID face, eyes, eyelids, and deep fold areas. - nitroglycerin sublingual (NITROSTAT) 0.4 mg SL tablet Dissolve 1 tablet under the tongue as needed. FOR CHEST PAIN. IF NO RELIEF CALL 911 - hydrocortisone valerate(WESTCORT 0.2 % TOPICAL CREAM) Apply to psoriasis/rash on folds areas (eg., abdominal fold area), ears, outer face or forehead area, and scalp line selectively qd to bid prn until clear and then taper off as able; AVOID eyes and eyelids, and central face near eyes and nose. Problem List As Of Date 06/10/2024 Noted Resolved Attention deficit disorder [F98.8] 11/27/2006 Unclassified epileptic seizures (HCC) [G40.909] 03/31/2008 Acquired hypothyroidism [E03.9] 07/17/2008 Lumbago [M54.50] 08/07/2008 Psoriasis [L40.9] 07/25/2009 Multiple joint pain [M25.50] 07/25/2009 Cyst 07/25/2009 Smoker [F17.200] 07/25/2009 PTSD (post-traumatic stress disorder) [F43.10] 10/18/2009 Depression [F32.A] 10/18/2009 ZHANNA (obstructive sleep apnea) [G47.33] 05/15/2010 Mixed hyperlipidemia [E78.2] 09/30/2010 Myofascial muscle pain [M79.18] 09/05/2015 Moderate persistent asthma without complication*01/08/2017 Controlled type 2 diabetes mellitus without com*07/11/2008 Premature atrial beats [I49.1] 11/01/2020 Seasonal allergies [J30.2] 11/01/2020 Gallbladder polyp [K82.4] 08/19/2021 09/04/2021 Well adult exam [Z00.00] 12/11/2021 GERD without esophagitis [K21.9] 03/12/2023 Class 1 obesity due to excess calories with bod*06/24/2023 11/24/2023 Atherosclerosis of coronary artery [I25.10] 09/14/2023 Diagnosed: 09/14/2023 Borderline personality disorder (HCC) [F60.3] 09/14/2023 Diagnosed: 09/14/2023 Costochondritis [M94.0] 09/14/2023 11/24/2023 Diagnosed: 09/14/2023 Headache [R51] 09/14/2023 11/24/2023 Diagnosed: 09/14/2023 Lung nodule [R91.1] 09/14/2023 Diagnosed: 09/14/2023 Nicotine dependence [F17.200] 04/22/2022 11/24/2023 Diagnosed: 09/14/2023 Palpitations [R00.2] 10/22/2022 11/24/2023 Diagnosed: 09/14/2023 PVC (premature ventricular contraction) [I49.3] PAC (premature atrial contraction) [I49.1] Over weight [E66.3] 11/24/2023 Weight loss, unintentional [R63.4] 11/24/2023 Encounter Status:Closed by CAMILLA TAFOYA on 06/10/24 TANISHA SCREENING W KAYLENE Observed: 1:20 PM Status: F Source: [facility] * * *Final Report* * * DATE OF EXAM: Jun 09 2024 1:20PM [id number] - TANISHA SCREENING W KAYLENE / PROCEDURE REASON: Encounter for screening mammogram for breast cancer * * * * Physician Interpretation * * * * RESULT: [place] [address] #[id number] - [facility] SCREENING W KAYLENE HISTORY: Patient is 43 years old and is seen for screening and is asymptomatic in both breasts. Patient states no personal history of breast cancer. Patient states no personal history of other cancers. COMPARISON STUDIES: The present examination has been compared to prior imaging studies dated 03/19/2022 (ultrasound), 03/19/2022 (mammogram), 04/18/2022 (mammogram) and 05/27/2023 (mammogram). MAMMOGRAM TECHNIQUE: The study was acquired using full field digital technology and interpreted from soft copy. Digital Breast Tomosynthesis (DBT) images were obtained and used to assist in the interpretation of this examination. Computer-aided detection was utilized by the radiologist in the interpretation of this examination. MAMMOGRAM FINDINGS: The breasts are heterogeneously dense, which may obscure small masses. No suspicious masses, calcifications or other abnormalities are seen in either breast. There are no significant changes from the prior study. IMPRESSION: There are no suspicious mammographic findings in either breast. Routine screening mammogram is recommended. Annual mammogram will be due in 1 year. BI-RADS Category 1: Negative RISK: Based on the Tyrer-Cuzick (TC) risk assessment model, this patient has a 3.6% lifetime risk of developing breast cancer, meaning they are at average risk for developing breast cancer. However, this is only an estimate based on available history provided on the patient's questionnaire. We encourage all patients to talk with their providers about these results, further recommendations for managing breast health, and appropriate supplemental screening options if the patient has dense breast tissue. Interpreting Radiologist: Atif Russell M.D. Electronically signed on: 06/10/2024 Inventory Manager: JOSE MANUEL Transcribe Date/Time: Jun 09 2024 1:02P Dictated by: ATIF RUSSELL MD This examination was interpreted and the report reviewed and electronically signed by: ATIF RUSSELL MD on Jun 10 2024 11:33AM EST [id number] CNPN Observed: 06/01/2024 12:00 AM Status: COMPLETED Source: [facility] Telephone ([facility]) JOAQUÍNMARY BETH Ugalde ([id number]) 1980 F FNS Date Time Provider Department 06/01/24 KEYANNA WANG During your visit today, we recorded the following information about you: Veronica Russell 06/01/2024 12:56 PM Signed 08-17-2024 Egd Colon Lopez Provider went over all prep information and gave patietn direct number to call with any questions. Veronica Russell Allergies As of Date: 06/01/2024 Noted Allergy Reaction AMOXICILLIN 07/25/2009 9 - Itching BACTRIM (SULFAMETHOXAZOLE-TRIMETH*08/14/2006 4 - Hives EFFEXOR (VENLAFAXINE ANALOGUES) 08/09/2009 1 - Mental Status Change Comments: suicidal PYRIDIUM (PHENAZOPYRIDINE HCL) 08/14/2006 4 - Hives ADDERALL (DEXTROAMPHETAMINE-AMPHE*03/15/2010 1 - Mental Status Change Comments: paranoid ideation DUST 07/03/2010 9 - Itching MOLD 07/03/2010 9 - Itching PRAVACHOL (PRAVASTATIN SODIUM) 05/15/2015 8 - GI Upset RAGWEED 07/03/2010 9 - Itching Date Reviewed: 05/30/2024 Reviewed by: Karis Mulligan, RN - Fully Assessed Reason for Visit: 08-17-2023 colon EGD [Other] Prescriptions as of 06/01/2024 - levothyroxine (SYNTHROID) 100 mcg tablet Take 1 tablet by mouth once daily. - metFORMIN ER (GLUCOPHAGE XR) 500 mg 24 hr tablet Take 1 tablet by mouth once daily. - atorvastatin (LIPITOR) 20 mg tablet Take 1 tablet by mouth once daily. - cetirizine (ZYRTEC) 10 mg tablet take 1 tablet by mouth once daily. - atenolol (TENORMIN) 25 mg tablet Take by mouth. - dilTIAZem CR (TIAZAC, TAZTIA XT) 120 mg 24 hr capsule DAILY - divalproex ER (DEPAKOTE ER) 250 mg 24 hr tablet Take 250 mg by mouth once daily. - buPROPion XL (WELLBUTRIN XL) 150 mg 24 hr tablet Take 150 mg by mouth once daily. - metoprolol tartrate, short acting, (LOPRESSOR) 25 mg tablet Take 0.5 tablets by mouth two times a day. Per [facility]. - vilazodone (VIIBRYD) 40 mg tablet Take 40 mg by mouth once daily. - ADVAIR HFA 230-21 mcg/actuation inhaler Inhale 2 Puffs as instructed twice daily. - divalproex ER (DEPAKOTE ER) 500 mg 24 hr tablet once daily. - ALPRAZolam (XANAX) 0.5 mg tablet Take 0.5 mg by mouth as needed. - Selenium Sulfide 2.25 % sham Apply 1 application to affected area as needed. - albuterol HFA (VENTOLIN HFA) 90 mcg/actuation inhaler Inhale 2 Puffs as instructed every 4 hours as needed for Wheezing/Shortness of Breath. Per Dr. Shay alcantara - fluticasone (FLONASE) 50 mcg/actuation nasal spray Use 2 Sprays in each nostril once daily. - clobetasol 0.05 % ointment Apply to affected area(s) of active or acute and persistent insect bite or prurigo papular lesions of open areas of arms, legs, trunk, once to twice per day (qday to bid) until clear, and then taper off as able. AVOID face, eyes, eyelids, and deep fold areas. - nitroglycerin sublingual (NITROSTAT) 0.4 mg SL tablet Dissolve 1 tablet under the tongue as needed. FOR CHEST PAIN. IF NO RELIEF CALL 911 - hydrocortisone valerate(WESTCORT 0.2 % TOPICAL CREAM) Apply to psoriasis/rash on folds areas (eg., abdominal fold area), ears, outer face or forehead area, and scalp line selectively qd to bid prn until clear and then taper off as able; AVOID eyes and eyelids, and central face near eyes and nose. Problem List As Of Date 06/01/2024 Noted Resolved Attention deficit disorder [F98.8] 11/27/2006 Unclassified epileptic seizures (HCC) [G40.909] 03/31/2008 Acquired hypothyroidism [E03.9] 07/17/2008 Lumbago [M54.50] 08/07/2008 Psoriasis [L40.9] 07/25/2009 Multiple joint pain [M25.50] 07/25/2009 Cyst 07/25/2009 Smoker [F17.200] 07/25/2009 PTSD (post-traumatic stress disorder) [F43.10] 10/18/2009 Depression [F32.A] 10/18/2009 ZHANNA (obstructive sleep apnea) [G47.33] 05/15/2010 Mixed hyperlipidemia [E78.2] 09/30/2010 Myofascial muscle pain [M79.18] 09/05/2015 Moderate persistent asthma without complication*01/08/2017 Controlled type 2 diabetes mellitus without com*07/11/2008 Premature atrial beats [I49.1] 11/01/2020 Seasonal allergies [J30.2] 11/01/2020 Gallbladder polyp [K82.4] 08/19/2021 09/04/2021 Well adult exam [Z00.00] 12/11/2021 GERD without esophagitis [K21.9] 03/12/2023 Class 1 obesity due to excess calories with bod*06/24/2023 11/24/2023 Atherosclerosis of coronary artery [I25.10] 09/14/2023 Diagnosed: 09/14/2023 Borderline personality disorder (HCC) [F60.3] 09/14/2023 Diagnosed: 09/14/2023 Costochondritis [M94.0] 09/14/2023 11/24/2023 Diagnosed: 09/14/2023 Headache [R51] 09/14/2023 11/24/2023 Diagnosed: 09/14/2023 Lung nodule [R91.1] 09/14/2023 Diagnosed: 09/14/2023 Nicotine dependence [F17.200] 04/22/2022 11/24/2023 Diagnosed: 09/14/2023 Palpitations [R00.2] 10/22/2022 11/24/2023 Diagnosed: 09/14/2023 PVC (premature ventricular contraction) [I49.3] PAC (premature atrial contraction) [I49.1] Over weight [E66.3] 11/24/2023 Weight loss, unintentional [R63.4] 11/24/2023 Encounter Status:Closed by VERONICA RUSSELL on 06/01/24 FRANCIAN Observed: 05/31/2024 12:00 AM Status: COMPLETED Source: [facility] Telephone ([facility]) MARY BETH GONZALEZ ([id number]) 1980 F FNS Date Time Provider Department 05/31/24 [facility] During your visit today, we recorded the following information about you: Manish Nicholson APRN.[employer] 05/31/2024 10:07 AM Signed Please let patient know her US is normal. Awais Mixon MA 05/31/2024 10:15 AM Signed Pt notified and verbalized understanding Awais Mixon MA Allergies As of Date: 05/31/2024 Noted Allergy Reaction AMOXICILLIN 07/25/2009 9 - Itching BACTRIM (SULFAMETHOXAZOLE-TRIMETH*08/14/2006 4 - Hives EFFEXOR (VENLAFAXINE ANALOGUES) 08/09/2009 1 - Mental Status Change Comments: suicidal PYRIDIUM (PHENAZOPYRIDINE HCL) 08/14/2006 4 - Hives ADDERALL (DEXTROAMPHETAMINE-AMPHE*03/15/2010 1 - Mental Status Change Comments: paranoid ideation DUST 07/03/2010 9 - Itching MOLD 07/03/2010 9 - Itching PRAVACHOL (PRAVASTATIN SODIUM) 05/15/2015 8 - GI Upset RAGWEED 07/03/2010 9 - Itching Date Reviewed: 05/30/2024 Reviewed by: Kairs Mulligan, SETH - Fully Assessed Reason for Visit: Results [95] Prescriptions as of 05/31/2024 - levothyroxine (SYNTHROID) 100 mcg tablet Take 1 tablet by mouth once daily. - metFORMIN ER (GLUCOPHAGE XR) 500 mg 24 hr tablet Take 1 tablet by mouth once daily. - atorvastatin (LIPITOR) 20 mg tablet Take 1 tablet by mouth once daily. - cetirizine (ZYRTEC) 10 mg tablet take 1 tablet by mouth once daily. - atenolol (TENORMIN) 25 mg tablet Take by mouth. - dilTIAZem CR (TIAZAC, TAZTIA XT) 120 mg 24 hr capsule DAILY - divalproex ER (DEPAKOTE ER) 250 mg 24 hr tablet Take 250 mg by mouth once daily. - buPROPion XL (WELLBUTRIN XL) 150 mg 24 hr tablet Take 150 mg by mouth once daily. - metoprolol tartrate, short acting, (LOPRESSOR) 25 mg tablet Take 0.5 tablets by mouth two times a day. Per [facility]. - vilazodone (VIIBRYD) 40 mg tablet Take 40 mg by mouth once daily. - ADVAIR HFA 230-21 mcg/actuation inhaler Inhale 2 Puffs as instructed twice daily. - divalproex ER (DEPAKOTE ER) 500 mg 24 hr tablet once daily. - ALPRAZolam (XANAX) 0.5 mg tablet Take 0.5 mg by mouth as needed. - Selenium Sulfide 2.25 % sham Apply 1 application to affected area as needed. - albuterol HFA (VENTOLIN HFA) 90 mcg/actuation inhaler Inhale 2 Puffs as instructed every 4 hours as needed for Wheezing/Shortness of Breath. Per Dr. Shay alcantara - fluticasone (FLONASE) 50 mcg/actuation nasal spray Use 2 Sprays in each nostril once daily. - clobetasol 0.05 % ointment Apply to affected area(s) of active or acute and persistent insect bite or prurigo papular lesions of open areas of arms, legs, trunk, once to twice per day (qday to bid) until clear, and then taper off as able. AVOID face, eyes, eyelids, and deep fold areas. - nitroglycerin sublingual (NITROSTAT) 0.4 mg SL tablet Dissolve 1 tablet under the tongue as needed. FOR CHEST PAIN. IF NO RELIEF CALL 911 - hydrocortisone valerate(WESTCORT 0.2 % TOPICAL CREAM) Apply to psoriasis/rash on folds areas (eg., abdominal fold area), ears, outer face or forehead area, and scalp line selectively qd to bid prn until clear and then taper off as able; AVOID eyes and eyelids, and central face near eyes and nose. Problem List As Of Date 05/31/2024 Noted Resolved Attention deficit disorder [F98.8] 11/27/2006 Unclassified epileptic seizures (HCC) [G40.909] 03/31/2008 Acquired hypothyroidism [E03.9] 07/17/2008 Lumbago [M54.50] 08/07/2008 Psoriasis [L40.9] 07/25/2009 Multiple joint pain [M25.50] 07/25/2009 Cyst 07/25/2009 Smoker [F17.200] 07/25/2009 PTSD (post-traumatic stress disorder) [F43.10] 10/18/2009 Depression [F32.A] 10/18/2009 ZHANNA (obstructive sleep apnea) [G47.33] 05/15/2010 Mixed hyperlipidemia [E78.2] 09/30/2010 Myofascial muscle pain [M79.18] 09/05/2015 Moderate persistent asthma without complication*01/08/2017 Controlled type 2 diabetes mellitus without com*07/11/2008 Premature atrial beats [I49.1] 11/01/2020 Seasonal allergies [J30.2] 11/01/2020 Gallbladder polyp [K82.4] 08/19/2021 09/04/2021 Well adult exam [Z00.00] 12/11/2021 GERD without esophagitis [K21.9] 03/12/2023 Class 1 obesity due to excess calories with bod*06/24/2023 11/24/2023 Atherosclerosis of coronary artery [I25.10] 09/14/2023 Diagnosed: 09/14/2023 Borderline personality disorder (HCC) [F60.3] 09/14/2023 Diagnosed: 09/14/2023 Costochondritis [M94.0] 09/14/2023 11/24/2023 Diagnosed: 09/14/2023 Headache [R51] 09/14/2023 11/24/2023 Diagnosed: 09/14/2023 Lung nodule [R91.1] 09/14/2023 Diagnosed: 09/14/2023 Nicotine dependence [F17.200] 04/22/2022 11/24/2023 Diagnosed: 09/14/2023 Palpitations [R00.2] 10/22/2022 11/24/2023 Diagnosed: 09/14/2023 PVC (premature ventricular contraction) [I49.3] PAC (premature atrial contraction) [I49.1] Over weight [E66.3] 11/24/2023 Weight loss, unintentional [R63.4] 11/24/2023 Encounter Status:Closed by WORKMAN AWAIS VIDAL on 05/31/24 US ABD SPLEEN -NB Observed: 05/30/2024 3:03 PM Status: F Source: [facility] * * *Final Report* * * DATE OF EXAM: May 30 2024 3:03PM WRU 1232 - US ABD SPLEEN -NB / PROCEDURE REASON: multiple diagnoses * * * * Physician Interpretation * * * * EXAM TITLE: US ABD RIGHT UPPER QUADRANT, US ABD SPLEEN -NB HISTORY: Weight loss. TECHNIQUE: Sonography of the right upper quadrant and spleen was performed. Images were obtained and stored in a permanent archive. MQ: URUQ_1 COMPARISON: Ultrasound abdomen on 06/10/2021 RESULT: Pancreas: Normal sonographic appearance in the visualized portions. Portions obscured: tail Liver: Echotexture: Normal, homogeneous. Echogenicity: Normal Surface contour: Smooth Lesions: None. MPV: Patent. Biliary: No intrahepatic biliary duct dilation. CBD: 3 mm in diameter. Gallbladder: Surgically absent -Other: Negative sonographic Fan's sign. Kidney: Within normal limits. Spleen: No splenomegaly or mass lesion identified. The spleen measures 10.6 cm in length. IMPRESSION: Unremarkable sonographic exam of the right upper quadrant abdomen. Status post cholecystectomy. Inventory Manager: PSCB Transcribe Date/Time: May 30 2024 3:09P Dictated by : ETHAN DUBOSE MD This examination was interpreted and the report reviewed and electronically signed by: ETHAN DUBOSE MD on May 30 2024 3:13PM EST [id number] US ABD RIGHT UPPER QUADRANT Observed: 3:03 PM Status: F Source: [facility] * * *Final Report* * * DATE OF EXAM: May 30 2024 3:03PM WRU 1032 - US ABD RIGHT UPPER QUADRANT / PROCEDURE REASON: multiple diagnoses * * * * Physician Interpretation * * * * EXAM TITLE: US ABD RIGHT UPPER QUADRANT, US ABD SPLEEN -NB HISTORY: Weight loss. TECHNIQUE: Sonography of the right upper quadrant and spleen was performed. Images were obtained and stored in a permanent archive. MQ: URUQ_1 COMPARISON: Ultrasound abdomen on 06/10/2021 RESULT: Pancreas: Normal sonographic appearance in the visualized portions. Portions obscured: tail Liver: Echotexture: Normal, homogeneous. Echogenicity: Normal Surface contour: Smooth Lesions: None. MPV: Patent. Biliary: No intrahepatic biliary duct dilation. CBD: 3 mm in diameter. Gallbladder: Surgically absent -Other: Negative sonographic Fan's sign. Kidney: Within normal limits. Spleen: No splenomegaly or mass lesion identified. The spleen measures 10.6 cm in length. IMPRESSION: Unremarkable sonographic exam of the right upper quadrant abdomen. Status post cholecystectomy. Inventory Manager: STEWART Transcribe Date/Time: May 30 2024 3:09P Dictated by : ETHAN DUBOSE MD This examination was interpreted and the report reviewed and electronically signed by: ETHAN DUBOSE MD on May 30 2024 3:13PM EST [id number] PROGRESS Observed: 05/30/2024 2:30 PM Status: COMPLETED Source: [facility] ID: [id number] Author: GERMAINE LEAL RDMS Service: ? Author Type: Dupligraph Operator Type: Progress Notes Filed: 05/30/2024 15:01 Note Text: Radiology Service Progress Note PATIENT NAME: Mary Beth Gonzalez DATE OF SERVICE: May 30, 2024 TIME: 3:01 PM PATIENT IDENTITY VERIFICATION COMPLETED USING TWO (2) IDENTIFIERS: Name and Date of confirmed by patient verbally. FALL SCREENING: Has the patient had 2 falls in the last year or 1 fall with injury or currently using an Ambulatory Assistive Device (Walker, Cane, Wheelchair, Crutches, etc.)? No PATIENT GENDER DATA: Female. status: : No status: NO. PATIENT RELEVANT IMPLANT DATA REVIEWED: Not Applicable PATIENT PRESENTS WITH AN IMPLANTABLE OR ATTACHED SECURITY AND PRIVACY CONSULTANT: No RADIOLOGY DEPARTMENT: Ultrasound PERIPHERAL IV DATA: Not applicable SIGNED BY: Germaine Leal RDMS May 30, 2024 3:01 PM PROGRESS Observed: 05/30/2024 10:30 AM Status: COMPLETED Source: [facility] HNO ID: [id number] Author: KEYANNA WANG APRN.STOCK CONTROL SUPERVISOR Service: ? Author Type: Nurse Practitioner Type: Progress Notes Filed: 05/30/2024 11:52 Note Text: HISTORY AND PHYSICAL Mary Beth Gonzalez : 1980 REFERRING PHYSICIAN: Christina De Dios [address] [facility] [id number] CHIEF COMPLAINT: Patient presents with: Consult: colonoscopy HPI: Mary Beth is a 43 year old female referred for endoscopy. Mary Beth notes unintentional weight loss. Mary Beth denies abdominal pain. Mary Beth denies diarrhea. Mary Beth denies constipation. Mary Beth denies a change in bowel habits. Mary Beth denies melena. Mary Beth denies bright red blood per rectum. Mary Beth denies hemorrhoids. Mary Beth notes a distant history of heartburn. -no longer takes medication Denies nausea or vomiting -States she doesn't really have an appetite but "eats junk" and is still losing weight. Mary Beth denies dysphagia. Mary Beth denies a history of ulcers/ peptic ulcer disease. Mary Beth notes she has a hx of gastroparesis- does not follow with GI. Mary Beth denies family history of colon issues. Mary Beth has a hx of seizures- Mary Beth notes there has never been any identified seizures on EEG and she hasn't had any recently- She does take Depakote Daily marijuana use. Mary Beth notes recall from previous endoscopy. Mary Beth has undergone prior endoscopy. EGD AND colonoscopy 10/[address] Fan @ [facility]. Sedation:Meperidine 100 mg IV, Midazolam 3.5 mg IV EGD Impression: - Z-line variable. - Erythema at the gastroesophageal junction. - Gastric mucosal abnormality characterized by very mild erythema. - Biopsies were taken with a cold forceps for Helicobacter pylori testing. COLONOSCOPY Impression: - Non-bleeding internal hemorrhoids. - Tortuous colon. Current Outpatient Medications Medication Sig levothyroxine (SYNTHROID) 100 mcg tablet Take 1 tablet by mouth once daily. metFORMIN ER (GLUCOPHAGE XR) 500 mg 24 hr tablet Take 1 tablet by mouth once daily. atorvastatin (LIPITOR) 20 mg tablet Take 1 tablet by mouth once daily. cetirizine (ZYRTEC) 10 mg tablet take 1 tablet by mouth once daily. atenolol (TENORMIN) 25 mg tablet Take by mouth. dilTIAZem CR (TIAZAC, TAZTIA XT) 120 mg 24 hr capsule DAILY divalproex ER (DEPAKOTE ER) 250 mg 24 hr tablet Take 250 mg by mouth once daily. buPROPion XL (WELLBUTRIN XL) 150 mg 24 hr tablet Take 150 mg by mouth once daily. metoprolol tartrate, short acting, (LOPRESSOR) 25 mg tablet Take 0.5 tablets by mouth two times a day. Per [facility]. vilazodone (VIIBRYD) 40 mg tablet Take 40 mg by mouth once daily. ADVAIR HFA 230-21 mcg/actuation inhaler Inhale 2 Puffs as instructed twice daily. divalproex ER (DEPAKOTE ER) 500 mg 24 hr tablet once daily. ALPRAZolam (XANAX) 0.5 mg tablet Take 0.5 mg by mouth as needed. Selenium Sulfide 2.25 % sham Apply 1 application to affected area as needed. albuterol HFA (VENTOLIN HFA) 90 mcg/actuation inhaler Inhale 2 Puffs as instructed every 4 hours as needed for Wheezing/Shortness of Breath. Per Dr. Shay alcantara fluticasone (FLONASE) 50 mcg/actuation nasal spray Use 2 Sprays in each nostril once daily. clobetasol 0.05 % ointment Apply to affected area(s) of active or acute and persistent insect bite or prurigo papular lesions of open areas of arms, legs, trunk, once to twice per day (qday to bid) until clear, and then taper off as able. AVOID face, eyes, eyelids, and deep fold areas. nitroglycerin sublingual (NITROSTAT) 0.4 mg SL tablet Dissolve 1 tablet under the tongue as needed. FOR CHEST PAIN. IF NO RELIEF CALL 911 hydrocortisone valerate(WESTCORT 0.2 % TOPICAL CREAM) Apply to psoriasis/rash on folds areas (eg., abdominal fold area), ears, outer face or forehead area, and scalp line selectively qd to bid prn until clear and then taper off as able; AVOID eyes and eyelids, and central face near eyes and nose. No current facility-administered medications for this visit. ALLERGIES: Amoxicillin, Bactrim [Sulfamethoxazole-Trimethoprim], Effexor [Venlafaxine Analogues], Pyridium [Phenazopyridine Hcl], Adderall [Dextroamphetamine-Amphetamine], Dust, Mold, Pravachol [Pravastatin Sodium], and Ragweed PAST MEDICAL HISTORY Diagnosis Date Acquired hypothyroidism 07/17/2008 Arthritis Asthma Atherosclerosis of coronary artery 09/14/2023 Attention deficit disorder without mention of hyperactivity 11/27/2006 Biliary dyskinesia 12/09/2012 Borderline personality disorder (HCC) 09/14/2023 Brachial neuritis or radiculitis 02/01/2014 Chondromalacia of knee 06/17/2011 Controlled type 2 diabetes mellitus without complication, without long-term current use of insulin (HCC) 07/11/2008 Cyst 07/25/2009 Cysts on lower back, soft tissue Depression 10/18/2009 Diabetes mellitus type II (HCC) Endometriosis GERD without esophagitis 03/12/2023 Per Upper GI 03/05/2023 Hx of borderline personality disorder Hx of pancreatitis Hypothyroidism Lumbago 08/07/2008 Lung nodule 09/14/2023 12/22/2022: CT stable nodule over 2 years, no further imaging needed Mixed hyperlipidemia 09/30/2010 Moderate persistent asthma without complication 01/08/2017 Multiple joint pain 07/25/2009 Myofascial muscle pain 09/05/2015 ZHANNA (obstructive sleep apnea) 05/15/2010 Other convulsions 03/31/2008 Over weight 11/24/2023 PAC (premature atrial contraction) Premature atrial beats 11/01/[address] Corral Psoriasis 07/25/2009 PTSD (post-traumatic stress disorder) 10/18/2009 PVC (premature ventricular contraction) Seasonal allergies 11/01/2020 Seborrheic dermatitis Unclassified epileptic seizures (HCC) 03/31/2008 Last seizure 02/11. Under no treatment was never found to have seizure activity on testing (? Pseudoseizures) Well adult exam 12/11/2021 Done: 12/11/2021 PAST SURGICAL HISTORY Procedure Laterality Date COLONOSCOPY FLX DX W/COLLJ SPEC WHEN PFRMD 10/27/2011 CONIZATION CERVIX W/WO DANDC RPR ELTRD EXC 07/06/2000 LEEP-Cervix EGD TRANSORAL BIOPSY SINGLE/MULTIPLE 10/27/2011 INSERTION OF DRUG DELIVERY IMPLANT INTO TEAR DUCTS Bilateral LAPAROSCOPIC CHOLECYSTECTOMY 09/04/2021 LEFT HEART CATH,PERCUTANEOUS Left 10/15/2022 Left Heart Catheterization PAST SURGICAL HISTORY OF 07/06/2000 cerviacal cyst removed PAST SURGICAL HISTORY OF 04/25/2008 abdominal hyster and removal one ovary PAST SURGICAL HISTORY OF Left 12/2021 some nodules removed from ribs on left side PAST SURGICAL HISTORY OF Left Titanium clip SEPTOPLASTY 2019 revision and polyp removal SEPTOPLASTY/SUBMUCOUS RESECJ W/WO CARTILAGE GRF 12/04/2010 Septoplasty TONSILLECTOMY PRIMARY/SECONDARY <AGE 12 09/30/2011 Tonsillectomy - , [facility] TOTAL ABDOM HYSTERECTOMY FAMILY HISTORY Problem Relation Age of Onset other (Unknown) Mother Diabetes Father blood pressure problem Heart Father None Brother other (Gastric colitis) Maternal Grandmother No Known Problems Maternal Grandfather other (Heart condition) Paternal Grandmother Kidney failure Paternal Grandmother Diabetes Paternal Grandmother Heart Attack Paternal Grandfather Diabetes Paternal Aunt Diabetes Paternal Uncle No Known Problems Half-brother No Known Problems Half-brother Social History Tobacco Use Smoking status: Every Day Current packs/day: 0.50 Average packs/day: 0.5 packs/day for 20.0 years (10.0 ttl pk-yrs) Types: Cigarettes Smokeless tobacco: Never Vaping Use Vaping status: Never Used Substance Use Topics Alcohol use: Yes Comment: occassionally Drug use: Yes Types: Marijuana Comment: daily marijuana REVIEW OF SYMPTOMS: The review of systems data was entered by the nurse and reviewed by ct Nursing Notes: Karis Mulligan RN 05/30/2024 10:44 AM Signed REVIEW OF SYSTEMS: General: The patient denies fatigue, NOTES weight loss, denies weight gain, denies feeling hot, and denies feelings of cold. Eyes: The patient denies glaucoma, denies eye injury/surgery, wears glasses or contacts. Ear/Nose/Throat: The patient denies allergies, denies hayfever, NOTES ear infections, and denies bloody noses. Cardiovascular: The patient NOTES chest pain, denies heart disease, NOTES high blood pressure,denies cardiac stent, denies prior heart attack, NOTES irregular heart beat, NOTES high cholesterol, denies poor circulation, NOTES heart failure, other cardiac issues, denies claudication, denies cold feet, denies peripheral arterial stent. Respiratory: The patient denies tuberculosis, NOTES pneumonia, denies frequent cough, denies pulmonary embolism, denies shortness of breath, and denies coughing up blood. Gastrointestinal: The patient denies difficulty swallowing, NOTES acid reflux, denies ulcers, denies vomiting, denies jaundice/hepatitis, NOTES gallbladder problems, denies black or tarry stools, denies hemorrhoids, denies bleeding from rectum, denies diverticulitis, NOTES constipation, NOTES diarrhea, denies loss of stool control, and denies hernias. Kidney/Bladder: The patient denies kidney stones, denies urine infections, and denies bloody urine. Skin: The patient denies a history of skin cancer, denies bleeding/changing moles, and denies a history of skin rash. Neurologic: The patient NOTES a history of epilepsy/convulsions, denies headaches, denies head/spinal injuries, and denies stroke/TIA. Psychiatric: The patient NOTES psychiatric medications, denies depression, and denies voices, denies substance abuse. Endocrine: The patient NOTES thyroid disorders, denies diabetes, and denies hormonal problems. Hematologic: The patient denies a history of bruising, denies bleeding, and denies anemia, denies blood clots. Infections: The patient denies a history of measles and mumps, denies rheumatic fever, and denies sexually transmitted diseases. Musculoskeletal: The patient denies back pain/injury, NOTES back problems, denies sciatica, denies knee/foot trouble, denies arthritis, or denies gout. When was patient's last Mammogram screening? 05/2023 Last Colonoscopy: 10/17/2011 Karis Mulligan RN PHYSICAL EXAMINATION: General: The patient is 43 year old, female well nourished, well hydrated in no acute distress. The patient is oriented to time, place, and person. VITALS: Blood pressure 124/82, pulse 86, temperature 36.3 ?C (97.3 ?F), height 162.6 cm (5' 4"), weight 66 kg (145 lb 9.6 oz), SpO2 97%. Body mass index is 24.99 kg/m?. HEENT: Normal cephalic, ataumatic, pupils are equally round, sclera are anicteric, mucous membranes are moist, oropharynx is clear. Neck has no masses, asymmetry or lymphadenopathy. Respiratory: Clear to auscultation and percussion. Normal respiratory excursion and pattern. Cardiac: Examination is regular rate and rhythm. Normal S1/S2 Abdominal exam: Soft, nontender, with no palpable masses. No hepatosplenomegaly. No palpable hernias. Extremities: no clubbing, cyanosis or edema. No adenopathy. LABORATORY VALUES: As Noted RADIOLOGIC STUDIES: As Noted Assessment IMPRESSION: unintentional weight loss, screen for colon cancer, tortuous colon PLAN: I have reviewed my findings with the surgeon. Will plan for upper and lower endoscopy. We discussed the risks and benefits of the planned endoscopy. I have informed the patient that complications can occur including failure to complete the endoscopy and perforation. Mary Beth had the opportunity to ask questions concerning the planned endoscopy. My staff has also explained the procedure to the patient in understandable terms and has given the patient printed material concerning the procedure. Mary Beth freely consents to surgery. I plan to use Golytely bowel preparation I have explained to the patient the difference between IV conscious sedation and MAC anesthesia - and I have offered either, according to the patient's wishes. I have explained that with IV conscious sedation there is no anesthesia provider available and therefore there is a limitation of the amount of IV medications that can be given and that the patient may wake up in the middle of the procedure and/or experience pain/discomfort during the procedure. Further discussion was done and the patient was given the opportunity to ask questions and all questions were answered. MAC anesthesia d/t daily marijuana use, tortuous colon. Mary Beth was counseled that if there are changes in his/her medical condition, to let the office know if surgery should proceed. If there are changes in patient's medical condition from time of this encounter to the day of the procedure that preclude anesthesia, patient may have procedure cancelled for patient's safety. Diagnoses: (Q43.8) Tortuous colon (primary encounter diagnosis) (R63.4) Weight loss (Z12.11) Screening for colon cancer Consultation requested by Christina De Dios PA-C for an opinion regarding weight loss AND colon cancer screening. My final recommendations will be communicated back to the requesting physician by way of shared Medical record or letter to requesting physician via US mail. Portions of this documentation were copied and pasted from previous office visit notes in order to provide a cohesive continuity of the history. The note has been reviewed and edited and updated as necessary. Keyanna aWng APRN.CNP CNOV Observed: 05/30/2024 10:30 AM Status: COMPLETED Source: [facility] Office Visit (GENSWS) MARY BETH GONZALEZ ([id number]) 1980 F FNS Date Time Provider Department 05/30/24 10:30 AM KEYANNA WANG During your visit today, we recorded the following information about you: Temperature Pulse Blood pressure Weight 97.3 degrees 86/minute 124/82 66 kg Height 1.626 m Keyanna Wang APRN.CNP 05/30/2024 11:52 AM Signed HISTORY AND PHYSICAL Mary Beth A Joaquín : 1980 REFERRING PHYSICIAN: Christina De Dios [address] [facility] [id number] CHIEF COMPLAINT: Patient presents with: Consult: colonoscopy HPI: Mary Beth is a 43 year old female referred for endoscopy. Mary Beth notes unintentional weight loss. Mary Beth denies abdominal pain. Mary Beth denies diarrhea. Mary Beth denies constipation. Mary Beth denies a change in bowel habits. Mary Beth denies melena. Mary Beth denies bright red blood per rectum. Mary Beth denies hemorrhoids. Mary Beth notes a distant history of heartburn. -no longer takes medication Denies nausea or vomiting -States she doesn't really have an appetite but "eats junk" and is still losing weight. Mary Beth denies dysphagia. Mary Beth denies a history of ulcers/ peptic ulcer disease. Mary Beth notes she has a hx of gastroparesis- does not follow with GI. Mary Beth denies family history of colon issues. Mary Beth has a hx of seizures- Mary Beth notes there has never been any identified seizures on EEG and she hasn't had any recently- She does take Depakote Daily marijuana use. Mary Beth notes recall from previous endoscopy. Mary Beth has undergone prior endoscopy. EGD AND colonoscopy 10/[address] Fan @ [facility]. Sedation:Meperidine 100 mg IV, Midazolam 3.5 mg IV EGD Impression: - Z-line variable. - Erythema at the gastroesophageal junction. - Gastric mucosal abnormality characterized by very mild erythema. - Biopsies were taken with a cold forceps for Helicobacter pylori testing. COLONOSCOPY Impression: - Non-bleeding internal hemorrhoids. - Tortuous colon. Current Outpatient Medications Medication Sig levothyroxine (SYNTHROID) 100 mcg tablet Take 1 tablet by mouth once daily. metFORMIN ER (GLUCOPHAGE XR) 500 mg 24 hr tablet Take 1 tablet by mouth once daily. atorvastatin (LIPITOR) 20 mg tablet Take 1 tablet by mouth once daily. cetirizine (ZYRTEC) 10 mg tablet take 1 tablet by mouth once daily. atenolol (TENORMIN) 25 mg tablet Take by mouth. dilTIAZem CR (TIAZAC, TAZTIA XT) 120 mg 24 hr capsule DAILY divalproex ER (DEPAKOTE ER) 250 mg 24 hr tablet Take 250 mg by mouth once daily. buPROPion XL (WELLBUTRIN XL) 150 mg 24 hr tablet Take 150 mg by mouth once daily. metoprolol tartrate, short acting, (LOPRESSOR) 25 mg tablet Take 0.5 tablets by mouth two times a day. Per [facility]. vilazodone (VIIBRYD) 40 mg tablet Take 40 mg by mouth once daily. ADVAIR HFA 230-21 mcg/actuation inhaler Inhale 2 Puffs as instructed twice daily. divalproex ER (DEPAKOTE ER) 500 mg 24 hr tablet once daily. ALPRAZolam (XANAX) 0.5 mg tablet Take 0.5 mg by mouth as needed. Selenium Sulfide 2.25 % sham Apply 1 application to affected area as needed. albuterol HFA (VENTOLIN HFA) 90 mcg/actuation inhaler Inhale 2 Puffs as instructed every 4 hours as needed for Wheezing/Shortness of Breath. Per Dr. Shay alcantara fluticasone (FLONASE) 50 mcg/actuation nasal spray Use 2 Sprays in each nostril once daily. clobetasol 0.05 % ointment Apply to affected area(s) of active or acute and persistent insect bite or prurigo papular lesions of open areas of arms, legs, trunk, once to twice per day (qday to bid) until clear, and then taper off as able. AVOID face, eyes, eyelids, and deep fold areas. nitroglycerin sublingual (NITROSTAT) 0.4 mg SL tablet Dissolve 1 tablet under the tongue as needed. FOR CHEST PAIN. IF NO RELIEF CALL 911 hydrocortisone valerate(WESTCORT 0.2 % TOPICAL CREAM) Apply to psoriasis/rash on folds areas (eg., abdominal fold area), ears, outer face or forehead area, and scalp line selectively qd to bid prn until clear and then taper off as able; AVOID eyes and eyelids, and central face near eyes and nose. No current facility-administered medications for this visit. ALLERGIES: Amoxicillin, Bactrim [Sulfamethoxazole-Trimethoprim], Effexor [Venlafaxine Analogues], Pyridium [Phenazopyridine Hcl], Adderall [Dextroamphetamine-Amphetamine], Dust, Mold, Pravachol [Pravastatin Sodium], and Ragweed PAST MEDICAL HISTORY Diagnosis Date Acquired hypothyroidism 07/17/2008 Arthritis Asthma Atherosclerosis of coronary artery 09/14/2023 Attention deficit disorder without mention of hyperactivity 11/27/2006 Biliary dyskinesia 12/09/2012 Borderline personality disorder (HCC) 09/14/2023 Brachial neuritis or radiculitis 02/01/2014 Chondromalacia of knee 06/17/2011 Controlled type 2 diabetes mellitus without complication, without long-term current use of insulin (HCC) 07/11/2008 Cyst 07/25/2009 Cysts on lower back, soft tissue Depression 10/18/2009 Diabetes mellitus type II (HCC) Endometriosis GERD without esophagitis 03/12/2023 Per Upper GI 03/05/2023 Hx of borderline personality disorder Hx of pancreatitis Hypothyroidism Lumbago 08/07/2008 Lung nodule 09/14/2023 12/22/2022: CT stable nodule over 2 years, no further imaging needed Mixed hyperlipidemia 09/30/2010 Moderate persistent asthma without complication 01/08/2017 Multiple joint pain 07/25/2009 Myofascial muscle pain 09/05/2015 ZHANNA (obstructive sleep apnea) 05/15/2010 Other convulsions 03/31/2008 Over weight 11/24/2023 PAC (premature atrial contraction) Premature atrial beats 11/01/[address] Corral Psoriasis 07/25/2009 PTSD (post-traumatic stress disorder) 10/18/2009 PVC (premature ventricular contraction) Seasonal allergies 11/01/2020 Seborrheic dermatitis Unclassified epileptic seizures (HCC) 03/31/2008 Last seizure 02/11. Under no treatment was never found to have seizure activity on testing (? Pseudoseizures) Well adult exam 12/11/2021 Done: 12/11/2021 PAST SURGICAL HISTORY Procedure Laterality Date COLONOSCOPY FLX DX W/COLLJ SPEC WHEN PFRMD 10/27/2011 CONIZATION CERVIX W/WO DANDC RPR ELTRD EXC 07/06/2000 LEEP-Cervix EGD TRANSORAL BIOPSY SINGLE/MULTIPLE 10/27/2011 INSERTION OF DRUG DELIVERY IMPLANT INTO TEAR DUCTS Bilateral LAPAROSCOPIC CHOLECYSTECTOMY 09/04/2021 LEFT HEART CATH,PERCUTANEOUS Left 10/15/2022 Left Heart Catheterization PAST SURGICAL HISTORY OF 07/06/2000 cerviacal cyst removed PAST SURGICAL HISTORY OF 04/25/2008 abdominal hyster and removal one ovary PAST SURGICAL HISTORY OF Left 12/2021 some nodules removed from ribs on left side PAST SURGICAL HISTORY OF Left Titanium clip SEPTOPLASTY 2019 revision and polyp removal SEPTOPLASTY/SUBMUCOUS RESECJ W/WO CARTILAGE GRF 12/04/2010 Septoplasty TONSILLECTOMY PRIMARY/SECONDARY <AGE 12 09/30/2011 Tonsillectomy - Mau Spangler [facility] TOTAL ABDOM HYSTERECTOMY FAMILY HISTORY Problem Relation Age of Onset other (Unknown) Mother Diabetes Father blood pressure problem Heart Father None Brother other (Gastric colitis) Maternal Grandmother No Known Problems Maternal Grandfather other (Heart condition) Paternal Grandmother Kidney failure Paternal Grandmother Diabetes Paternal Grandmother Heart Attack Paternal Grandfather Diabetes Paternal Aunt Diabetes Paternal Uncle No Known Problems Half-brother No Known Problems Half-brother Social History Tobacco Use Smoking status: Every Day Current packs/day: 0.50 Average packs/day: 0.5 packs/day for 20.0 years (10.0 ttl pk-yrs) Types: Cigarettes Smokeless tobacco: Never Vaping Use Vaping status: Never Used Substance Use Topics Alcohol use: Yes Comment: occassionally Drug use: Yes Types: Marijuana Comment: daily marijuana REVIEW OF SYMPTOMS: The review of systems data was entered by the nurse and reviewed by me Nursing Notes: Karis Mulligan RN 05/30/2024 10:44 AM Signed REVIEW OF SYSTEMS: General: The patient denies fatigue, NOTES weight loss, denies weight gain, denies feeling hot, and denies feelings of cold. Eyes: The patient denies glaucoma, denies eye injury/surgery, wears glasses or contacts. Ear/Nose/Throat: The patient denies allergies, denies hayfever, NOTES ear infections, and denies bloody noses. Cardiovascular: The patient NOTES chest pain, denies heart disease, NOTES high blood pressure,denies cardiac stent, denies prior heart attack, NOTES irregular heart beat, NOTES high cholesterol, denies poor circulation, NOTES heart failure, other cardiac issues, denies claudication, denies cold feet, denies peripheral arterial stent. Respiratory: The patient denies tuberculosis, NOTES pneumonia, denies frequent cough, denies pulmonary embolism, denies shortness of breath, and denies coughing up blood. Gastrointestinal: The patient denies difficulty swallowing, NOTES acid reflux, denies ulcers, denies vomiting, denies jaundice/hepatitis, NOTES gallbladder problems, denies black or tarry stools, denies hemorrhoids, denies bleeding from rectum, denies diverticulitis, NOTES constipation, NOTES diarrhea, denies loss of stool control, and denies hernias. Kidney/Bladder: The patient denies kidney stones, denies urine infections, and denies bloody urine. Skin: The patient denies a history of skin cancer, denies bleeding/changing moles, and denies a history of skin rash. Neurologic: The patient NOTES a history of epilepsy/convulsions, denies headaches, denies head/spinal injuries, and denies stroke/TIA. Psychiatric: The patient NOTES psychiatric medications, denies depression, and denies voices, denies substance abuse. Endocrine: The patient NOTES thyroid disorders, denies diabetes, and denies hormonal problems. Hematologic: The patient denies a history of bruising, denies bleeding, and denies anemia, denies blood clots. Infections: The patient denies a history of measles and mumps, denies rheumatic fever, and denies sexually transmitted diseases. Musculoskeletal: The patient denies back pain/injury, NOTES back problems, denies sciatica, denies knee/foot trouble, denies arthritis, or denies gout. When was patient's last Mammogram screening? 05/2023 Last Colonoscopy: 10/17/2011 Karis Mulligan RN PHYSICAL EXAMINATION: General: The patient is 43 year old, female well nourished, well hydrated in no acute distress. The patient is oriented to time, place, and person. VITALS: Blood pressure 124/82, pulse 86, temperature 36.3 ?C (97.3 ?F), height 162.6 cm (5' 4"), weight 66 kg (145 lb 9.6 oz), SpO2 97%. Body mass index is 24.99 kg/m?. HEENT: Normal cephalic, ataumatic, pupils are equally round, sclera are anicteric, mucous membranes are moist, oropharynx is clear. Neck has no masses, asymmetry or lymphadenopathy. Respiratory: Clear to auscultation and percussion. Normal respiratory excursion and pattern. Cardiac: Examination is regular rate and rhythm. Normal S1/S2 Abdominal exam: Soft, nontender, with no palpable masses. No hepatosplenomegaly. No palpable hernias. Extremities: no clubbing, cyanosis or edema. No adenopathy. LABORATORY VALUES: As Noted RADIOLOGIC STUDIES: As Noted Assessment IMPRESSION: unintentional weight loss, screen for colon cancer, tortuous colon PLAN: I have reviewed my findings with the surgeon. Will plan for upper and lower endoscopy. We discussed the risks and benefits of the planned endoscopy. I have informed the patient that complications can occur including failure to complete the endoscopy and perforation. Mary Beth had the opportunity to ask questions concerning the planned endoscopy. My staff has also explained the procedure to the patient in understandable terms and has given the patient printed material concerning the procedure. Mary Beth freely consents to surgery. I plan to use Golytely bowel preparation I have explained to the patient the difference between IV conscious sedation and MAC anesthesia - and I have offered either, according to the patient's wishes. I have explained that with IV conscious sedation there is no anesthesia provider available and therefore there is a limitation of the amount of IV medications that can be given and that the patient may wake up in the middle of the procedure and/or experience pain/discomfort during the procedure. Further discussion was done and the patient was given the opportunity to ask questions and all questions were answered. MAC anesthesia d/t daily marijuana use, tortuous colon. Mary Beth was counseled that if there are changes in his/her medical condition, to let the office know if surgery should proceed. If there are changes in patient's medical condition from time of this encounter to the day of the procedure that preclude anesthesia, patient may have procedure cancelled for patient's safety. Diagnoses: (Q43.8) Tortuous colon (primary encounter diagnosis) (R63.4) Weight loss (Z12.11) Screening for colon cancer Consultation requested by Christina De Dios PA-C for an opinion regarding weight loss AND colon cancer screening. My final recommendations will be communicated back to the requesting physician by way of shared Medical record or letter to requesting physician via US mail. Portions of this documentation were copied and pasted from previous office visit notes in order to provide a cohesive continuity of the history. The note has been reviewed and edited and updated as necessary. Keyanna Wang APRN.Karis Ibrahim RN 05/30/2024 10:44 AM Signed REVIEW OF SYSTEMS: General: The patient denies fatigue, NOTES weight loss, denies weight gain, denies feeling hot, and denies feelings of cold. Eyes: The patient denies glaucoma, denies eye injury/surgery, wears glasses or contacts. Ear/Nose/Throat: The patient denies allergies, denies hayfever, NOTES ear infections, and denies bloody noses. Cardiovascular: The patient NOTES chest pain, denies heart disease, NOTES high blood pressure,denies cardiac stent, denies prior heart attack, NOTES irregular heart beat, NOTES high cholesterol, denies poor circulation, NOTES heart failure, other cardiac issues, denies claudication, denies cold feet, denies peripheral arterial stent. Respiratory: The patient denies tuberculosis, NOTES pneumonia, denies frequent cough, denies pulmonary embolism, denies shortness of breath, and denies coughing up blood. Gastrointestinal: The patient denies difficulty swallowing, NOTES acid reflux, denies ulcers, denies vomiting, denies jaundice/hepatitis, NOTES gallbladder problems, denies black or tarry stools, denies hemorrhoids, denies bleeding from rectum, denies diverticulitis, NOTES constipation, NOTES diarrhea, denies loss of stool control, and denies hernias. Kidney/Bladder: The patient denies kidney stones, denies urine infections, and denies bloody urine. Skin: The patient denies a history of skin cancer, denies bleeding/changing moles, and denies a history of skin rash. Neurologic: The patient NOTES a history of epilepsy/convulsions, denies headaches, denies head/spinal injuries, and denies stroke/TIA. Psychiatric: The patient NOTES psychiatric medications, denies depression, and denies voices, denies substance abuse. Endocrine: The patient NOTES thyroid disorders, denies diabetes, and denies hormonal problems. Hematologic: The patient denies a history of bruising, denies bleeding, and denies anemia, denies blood clots. Infections: The patient denies a history of measles and mumps, denies rheumatic fever, and denies sexually transmitted diseases. Musculoskeletal: The patient denies back pain/injury, NOTES back problems, denies sciatica, denies knee/foot trouble, denies arthritis, or denies gout. When was patient's last Mammogram screening? 05/2023 Last Colonoscopy: 10/17/2011 Karis Mulligan RN Referring Provider: CHRISTINA DE DIOS [[id number]] Allergies As of Date: 05/30/2024 Noted Allergy Reaction AMOXICILLIN 07/25/2009 9 - Itching BACTRIM (SULFAMETHOXAZOLE-TRIMETH*08/14/2006 4 - Hives EFFEXOR (VENLAFAXINE ANALOGUES) 08/09/2009 1 - Mental Status Change Comments: suicidal PYRIDIUM (PHENAZOPYRIDINE HCL) 08/14/2006 4 - Hives ADDERALL (DEXTROAMPHETAMINE-AMPHE*03/15/2010 1 - Mental Status Change Comments: paranoid ideation DUST 07/03/2010 9 - Itching MOLD 07/03/2010 9 - Itching PRAVACHOL (PRAVASTATIN SODIUM) 05/15/2015 8 - GI Upset RAGWEED 07/03/2010 9 - Itching Date Reviewed: 05/30/2024 Reviewed by: Karis Mulligan RN - Fully Assessed Reason for Visit: Consult [173] Cmt: colonoscopy Primary Visit Diagnosis:Tortuous colon [Q43.8] Other Visit Diagnoses:Weight loss [R63.4] Screening for colon cancer [Z12.11] Order(s):CONSULT TO GENERAL SURGERY [9011] Order #: [id number]: 1 peg 3350-Electrolytes (GOLYTELY) 236-22.74-6.74 -5.86 gram suspensionTake 4,000 mL by mouth one time only for 1 dose. Refer to printed prep instructions from your provider.Disp: 4000 mLRfl: 0 EGD DIAGNOSTIC [GI9] Order #: [id number] FUTURE COLONOSCOPY DIAGNOSTIC [GI11] Order #: [id number] FUTURE Prescriptions as of 05/30/2024 - peg 3350-Electrolytes (GOLYTELY) 236-22.74-6.74 -5.86 gram suspension Take 4,000 mL by mouth one time only for 1 dose. Refer to printed prep instructions from your provider. - levothyroxine (SYNTHROID) 100 mcg tablet Take 1 tablet by mouth once daily. - metFORMIN ER (GLUCOPHAGE XR) 500 mg 24 hr tablet Take 1 tablet by mouth once daily. - atorvastatin (LIPITOR) 20 mg tablet Take 1 tablet by mouth once daily. - cetirizine (ZYRTEC) 10 mg tablet take 1 tablet by mouth once daily. - atenolol (TENORMIN) 25 mg tablet Take by mouth. - dilTIAZem CR (TIAZAC, TAZTIA XT) 120 mg 24 hr capsule DAILY - divalproex ER (DEPAKOTE ER) 250 mg 24 hr tablet Take 250 mg by mouth once daily. - buPROPion XL (WELLBUTRIN XL) 150 mg 24 hr tablet Take 150 mg by mouth once daily. - metoprolol tartrate, short acting, (LOPRESSOR) 25 mg tablet Take 0.5 tablets by mouth two times a day. Per [facility]. - vilazodone (VIIBRYD) 40 mg tablet Take 40 mg by mouth once daily. - ADVAIR HFA 230-21 mcg/actuation inhaler Inhale 2 Puffs as instructed twice daily. - divalproex ER (DEPAKOTE ER) 500 mg 24 hr tablet once daily. - ALPRAZolam (XANAX) 0.5 mg tablet Take 0.5 mg by mouth as needed. - Selenium Sulfide 2.25 % sham Apply 1 application to affected area as needed. - albuterol HFA (VENTOLIN HFA) 90 mcg/actuation inhaler Inhale 2 Puffs as instructed every 4 hours as needed for Wheezing/Shortness of Breath. Per pulDr. Shay isaac - fluticasone (FLONASE) 50 mcg/actuation nasal spray Use 2 Sprays in each nostril once daily. - clobetasol 0.05 % ointment Apply to affected area(s) of active or acute and persistent insect bite or prurigo papular lesions of open areas of arms, legs, trunk, once to twice per day (qday to bid) until clear, and then taper off as able. AVOID face, eyes, eyelids, and deep fold areas. - nitroglycerin sublingual (NITROSTAT) 0.4 mg SL tablet Dissolve 1 tablet under the tongue as needed. FOR CHEST PAIN. IF NO RELIEF CALL 911 - hydrocortisone valerate(WESTCORT 0.2 % TOPICAL CREAM) Apply to psoriasis/rash on folds areas (eg., abdominal fold area), ears, outer face or forehead area, and scalp line selectively qd to bid prn until clear and then taper off as able; AVOID eyes and eyelids, and central face near eyes and nose. Problem List As Of Date 05/30/2024 Noted Resolved Attention deficit disorder [F98.8] 11/27/2006 Unclassified epileptic seizures (HCC) [G40.909] 03/31/2008 Acquired hypothyroidism [E03.9] 07/17/2008 Lumbago [M54.50] 08/07/2008 Psoriasis [L40.9] 07/25/2009 Multiple joint pain [M25.50] 07/25/2009 Cyst 07/25/2009 Smoker [F17.200] 07/25/2009 PTSD (post-traumatic stress disorder) [F43.10] 10/18/2009 Depression [F32.A] 10/18/2009 ZHANNA (obstructive sleep apnea) [G47.33] 05/15/2010 Mixed hyperlipidemia [E78.2] 09/30/2010 Myofascial muscle pain [M79.18] 09/05/2015 Moderate persistent asthma without complication*01/08/2017 Controlled type 2 diabetes mellitus without com*07/11/2008 Premature atrial beats [I49.1] 11/01/2020 Seasonal allergies [J30.2] 11/01/2020 Gallbladder polyp [K82.4] 08/19/2021 09/04/2021 Well adult exam [Z00.00] 12/11/2021 GERD without esophagitis [K21.9] 03/12/2023 Class 1 obesity due to excess calories with bod*06/24/2023 11/24/2023 Atherosclerosis of coronary artery [I25.10] 09/14/2023 Diagnosed: 09/14/2023 Borderline personality disorder (HCC) [F60.3] 09/14/2023 Diagnosed: 09/14/2023 Costochondritis [M94.0] 09/14/2023 11/24/2023 Diagnosed: 09/14/2023 Headache [R51] 09/14/2023 11/24/2023 Diagnosed: 09/14/2023 Lung nodule [R91.1] 09/14/2023 Diagnosed: 09/14/2023 Nicotine dependence [F17.200] 04/22/2022 11/24/2023 Diagnosed: 09/14/2023 Palpitations [R00.2] 10/22/2022 11/24/2023 Diagnosed: 09/14/2023 PVC (premature ventricular contraction) [I49.3] PAC (premature atrial contraction) [I49.1] Over weight [E66.3] 11/24/2023 Weight loss, unintentional [R63.4] 11/24/2023 Visit Notes: >> Karis Mulligan RN Mon May 30, 2024 10:41 AM Status: Signed REVIEW OF SYSTEMS: General: The patient denies fatigue, NOTES weight loss, denies weight gain, denies feeling hot, and denies feelings of cold. Eyes: The patient denies glaucoma, denies eye injury/surgery, wears glasses or contacts. Ear/Nose/Throat: The patient denies allergies, denies hayfever, NOTES ear infections, and denies bloody noses. Cardiovascular: The patient NOTES chest pain, denies heart disease, NOTES high blood pressure,denies cardiac stent, denies prior heart attack, NOTES irregular heart beat, NOTES high cholesterol, denies poor circulation, NOTES heart failure, other cardiac issues, denies claudication, denies cold feet, denies peripheral arterial stent. Respiratory: The patient denies tuberculosis, NOTES pneumonia, denies frequent cough, denies pulmonary embolism, denies shortness of breath, and denies coughing up blood. Gastrointestinal: The patient denies difficulty swallowing, NOTES acid reflux, denies ulcers, denies vomiting, denies jaundice/hepatitis, NOTES gallbladder problems, denies black or tarry stools, denies hemorrhoids, denies bleeding from rectum, denies diverticulitis, NOTES constipation, NOTES diarrhea, denies loss of stool control, and denies hernias. Kidney/Bladder: The patient denies kidney stones, denies urine infections, and denies bloody urine. Skin: The patient denies a history of skin cancer, denies bleeding/changing moles, and denies a history of skin rash. Neurologic: The patient NOTES a history of epilepsy/convulsions, denies headaches, denies head/spinal injuries, and denies stroke/TIA. Psychiatric: The patient NOTES psychiatric medications, denies depression, and denies voices, denies substance abuse. Endocrine: The patient NOTES thyroid disorders, denies diabetes, and denies hormonal problems. Hematologic: The patient denies a history of bruising, denies bleeding, and denies anemia, denies blood clots. Infections: The patient denies a history of measles and mumps, denies rheumatic fever, and denies sexually transmitted diseases. Musculoskeletal: The patient denies back pain/injury, NOTES back problems, denies sciatica, denies knee/foot trouble, denies arthritis, or denies gout. When was patient's last Mammogram screening? 05/2023 Last Colonoscopy: 10/17/2011 Karis Mulligan RN Prescriptions ordered this encounter Disp Refills Start End PEG 3350-ELECTROLYTES 236 GRAM-22.74* 4000* 0 05/30/2024 05/30/2024 Route: ORAL Sig: Take 4,000 mL by mouth one time only for 1 dose. Refer to printed prep instructions from your provider. Encounter Status:Closed by KEYANNA WANG on 05/30/24 FRANCIAN Observed: 05/30/2024 12:00 AM Status: COMPLETED Source[facility] MARY BETH GONZALEZ ([id number]) 1980 F FNS Date Time Provider Department 05/30/24 CHRISTINA DE DIOS During your visit today, we recorded the following information about you: Christina De Dios PA-C 05/30/2024 7:29 AM Addendum Chest xray is negative. Urine was normal. Apryl Moeller MA 05/30/2024 1:27 PM Signed Message left for pt to call back for results. Erum Blanco MA, LPN 05/30/2024 1:44 PM Signed Patient returned call and went over results, notes from Og WOOD with understanding. Allergies As of Date: 05/30/2024 Noted Allergy Reaction AMOXICILLIN 07/25/2009 9 - Itching BACTRIM (SULFAMETHOXAZOLE-TRIMETH*08/14/2006 4 - Hives EFFEXOR (VENLAFAXINE ANALOGUES) 08/09/2009 1 - Mental Status Change Comments: suicidal PYRIDIUM (PHENAZOPYRIDINE HCL) 08/14/2006 4 - Hives ADDERALL (DEXTROAMPHETAMINE-AMPHE*03/15/2010 1 - Mental Status Change Comments: paranoid ideation DUST 07/03/2010 9 - Itching MOLD 07/03/2010 9 - Itching PRAVACHOL (PRAVASTATIN SODIUM) 05/15/2015 8 - GI Upset RAGWEED 07/03/2010 9 - Itching Date Reviewed: 05/30/2024 Reviewed by: Karis Mulligan, RN - Fully Assessed Reason for Visit: Results [95] Prescriptions as of 05/30/2024 - peg 3350-Electrolytes (GOLYTELY) 236-22.74-6.74 -5.86 gram suspension Take 4,000 mL by mouth one time only for 1 dose. Refer to printed prep instructions from your provider. - levothyroxine (SYNTHROID) 100 mcg tablet Take 1 tablet by mouth once daily. - metFORMIN ER (GLUCOPHAGE XR) 500 mg 24 hr tablet Take 1 tablet by mouth once daily. - atorvastatin (LIPITOR) 20 mg tablet Take 1 tablet by mouth once daily. - cetirizine (ZYRTEC) 10 mg tablet take 1 tablet by mouth once daily. - atenolol (TENORMIN) 25 mg tablet Take by mouth. - dilTIAZem CR (TIAZAC, TAZTIA XT) 120 mg 24 hr capsule DAILY - divalproex ER (DEPAKOTE ER) 250 mg 24 hr tablet Take 250 mg by mouth once daily. - buPROPion XL (WELLBUTRIN XL) 150 mg 24 hr tablet Take 150 mg by mouth once daily. - metoprolol tartrate, short acting, (LOPRESSOR) 25 mg tablet Take 0.5 tablets by mouth two times a day. Per [facility]. - vilazodone (VIIBRYD) 40 mg tablet Take 40 mg by mouth once daily. - ADVAIR HFA 230-21 mcg/actuation inhaler Inhale 2 Puffs as instructed twice daily. - divalproex ER (DEPAKOTE ER) 500 mg 24 hr tablet once daily. - ALPRAZolam (XANAX) 0.5 mg tablet Take 0.5 mg by mouth as needed. - Selenium Sulfide 2.25 % sham Apply 1 application to affected area as needed. - albuterol HFA (VENTOLIN HFA) 90 mcg/actuation inhaler Inhale 2 Puffs as instructed every 4 hours as needed for Wheezing/Shortness of Breath. Per Dr. Shay alcantara - fluticasone (FLONASE) 50 mcg/actuation nasal spray Use 2 Sprays in each nostril once daily. - clobetasol 0.05 % ointment Apply to affected area(s) of active or acute and persistent insect bite or prurigo papular lesions of open areas of arms, legs, trunk, once to twice per day (qday to bid) until clear, and then taper off as able. AVOID face, eyes, eyelids, and deep fold areas. - nitroglycerin sublingual (NITROSTAT) 0.4 mg SL tablet Dissolve 1 tablet under the tongue as needed. FOR CHEST PAIN. IF NO RELIEF CALL 911 - hydrocortisone valerate(WESTCORT 0.2 % TOPICAL CREAM) Apply to psoriasis/rash on folds areas (eg., abdominal fold area), ears, outer face or forehead area, and scalp line selectively qd to bid prn until clear and then taper off as able; AVOID eyes and eyelids, and central face near eyes and nose. Problem List As Of Date 05/30/2024 Noted Resolved Attention deficit disorder [F98.8] 11/27/2006 Unclassified epileptic seizures (HCC) [G40.909] 03/31/2008 Acquired hypothyroidism [E03.9] 07/17/2008 Lumbago [M54.50] 08/07/2008 Psoriasis [L40.9] 07/25/2009 Multiple joint pain [M25.50] 07/25/2009 Cyst 07/25/2009 Smoker [F17.200] 07/25/2009 PTSD (post-traumatic stress disorder) [F43.10] 10/18/2009 Depression [F32.A] 10/18/2009 ZHANNA (obstructive sleep apnea) [G47.33] 05/15/2010 Mixed hyperlipidemia [E78.2] 09/30/2010 Myofascial muscle pain [M79.18] 09/05/2015 Moderate persistent asthma without complication*01/08/2017 Controlled type 2 diabetes mellitus without com*07/11/2008 Premature atrial beats [I49.1] 11/01/2020 Seasonal allergies [J30.2] 11/01/2020 Gallbladder polyp [K82.4] 08/19/2021 09/04/2021 Well adult exam [Z00.00] 12/11/2021 GERD without esophagitis [K21.9] 03/12/2023 Class 1 obesity due to excess calories with bod*06/24/2023 11/24/2023 Atherosclerosis of coronary artery [I25.10] 09/14/2023 Diagnosed: 09/14/2023 Borderline personality disorder (HCC) [F60.3] 09/14/2023 Diagnosed: 09/14/2023 Costochondritis [M94.0] 09/14/2023 11/24/2023 Diagnosed: 09/14/2023 Headache [R51] 09/14/2023 11/24/2023 Diagnosed: 09/14/2023 Lung nodule [R91.1] 09/14/2023 Diagnosed: 09/14/2023 Nicotine dependence [F17.200] 04/22/2022 11/24/2023 Diagnosed: 09/14/2023 Palpitations [R00.2] 10/22/2022 11/24/2023 Diagnosed: 09/14/2023 PVC (premature ventricular contraction) [I49.3] PAC (premature atrial contraction) [I49.1] Over weight [E66.3] 11/24/2023 Weight loss, unintentional [R63.4] 11/24/2023 Encounter Status:Closed by ERUM YADAV on 05/30/24 ALBUMIN/CREATININE RATIO, URINE Collect ed: 05/27/2024 2:31 PM Status: F Source: [facility] Order Comment: Specimen Type : URINE SPECIMEN Ordering Facility: [facility] Address: [address] [place] [address] TYPE CODE TESTS RESULT OUT OF RANGE REFERENCE UNITS LAB 2161-8(LOINC) Creat Ur-mCnc 53.9 20.0-300.0 m g/dL LAB 86899-5(LOINC ) Microalbumin Ur-mCnc <12.0 mg/L LAB 9318-7(LOINC) Albumin/Creat Ur <22 <30 mg/g Result Comment: Adult Male a nd Female Nephrotic Criteria: <30 mg/g is considered normal to mildly increased 30-300 mg/g is considered moderately increased >300 mg/g is considered severely increased KDIGO. (2013). KDIGO 2012 Clinical Practice Guideline for the Evaluation and Management of Chronic Kidney Disease. Official Journal of the International Society of Nephrology, 3(1), 1-150. Performed By: #### UACR #### [facility] CLIA [id number] [address] [place], [place] [address] [id number] [place] URINALYSIS COMPLETE PNL UR Collected: 05/27/2024 2:31 PM Status: F Source: [facility] Order Comment: Specimen Type : URINE SPECIMEN Ordering Facility: [facility] Address: [address] [place] [address] TYPE CODE TESTS RESULT OUT OF RANGE REFERENCE UNITS LAB 5778-6(LOINC) Color Ur Yellow Yellow LAB 07272-5(LOINC) Clarity Spec Clear Clear LAB 5792-7(LOINC) Glucose Ur Strip-mCnc Negative Negative LAB 5770-3(LOINC) Bilirub Ur Ql Strip Negative Negative LAB 2514-8(LOINC) Ketones Ur Strip Negative Negative LAB 5811-5(LOINC) Sp Gr Ur Strip 1.009 1.005-1.030 LAB 5794-3(LOINC) Hgb Ur Ql Strip Negative Negative LAB 5803-2(LOINC) pH Ur Strip 7.0 <8.5 LAB 5804-0(LOINC) Prot Ur Strip-mCnc Negative Negative LAB 5818-0(LOINC) Urobilinogen Ur Strip 0.2 EU/dL 0.2-1.0 EU/dL LAB 5802-4(LOINC) Nitrite Ur Ql Strip Negative Negative LAB 5799-2(LOINC) Leukocyte esterase Ur Ql Strip Negative Negative LAB 5821-4(LOINC) WBC #/area UrnS HPF 0-5 /HPF 0-5 /HPF LAB 82282-8(LOINC) RBC #/area UrnS HPF 0-2 /HPF 0-2 /HPF LAB 5769-5(LOINC) Bacteria #/area UrnS HPF Negative Negative /HPF LAB 5787-7(LOINC) Epi Cells #/area UrnS HPF None Seen /HPF LAB 5796-8(LOINC) Hyaline Casts #/area UrnS LPF 0 /LPF 0 /LPF Performed By: #### [id number] # ### [facility] CLIA [id number] [address] [place] [address] [place] XR CHEST 2V FRONTAL/LAT Observed: 2023 2:17 PM Status: F Source: [facility] * * *Final Report* * * DATE OF EXAM: May 27 2024 2:17PM WOX 5291 - XR CHEST 2V FRONTAL/LAT / PROCEDURE REASON: Weight loss * * * * Physician Interpretation * * * * EXAMINATION: CHEST RADIOGRAPH (2 VIEW FRONTAL and LATERAL) CLINICAL HISTORY: Weight loss MQ: [id number] EXAM DATE/TIME: 05/27/2024 2:17 PM COMPARISON: Chest x-ray on 07/18/2022 RESULT: Lines, tubes, and devices: None. Lungs and pleura: No consolidation. No lung mass. No pleural effusion. No pneumothorax. Cardiomediastinal silhouette: Normal cardiomediastinal silhouette. Bones and soft tissues: Unremarkable. IMPRESSION: No acute radiographic abnormality. Inventory Manager: STEWART Transcribe Date/Time: May 27 2024 2:32P Dictated by : ETHAN DUBOSE MD This examination was interpreted and the report reviewed and electronically signed by: ETHAN DUBOSE MD on May 27 2024 2:33PM EST [id number] PROGRESS Observed: 05/27/2024 2:10 PM Status: COMPLETED Source: [facility] HNO ID: [id number] Author: BETTE DUTTON RT(R) Service: Radiology Author Type: Technologist Type: Progress Notes Filed: 05/27/2024 14:18 Note Text: Radiology Service Progress Note PATIENT NAME: Mary Beth Gonzalez DATE OF SERVICE: May 27, 2024 TIME: 2:10 PM PATIENT IDENTITY VERIFICATION COMPLETED USING TWO (2) IDENTIFIERS: Name and Date of confirmed by patient verbally. FALL SCREENING: Has the patient had 2 falls in the last year or 1 fall with injury or currently using an Ambulatory Assistive Device (Walker, Cane, Wheelchair, Crutches, etc.)? No PATIENT GENDER DATA: Female. status: : No status: NO. PATIENT RELEVANT IMPLANT DATA REVIEWED: Not Applicable PATIENT PRESENTS WITH AN IMPLANTABLE OR ATTACHED SECURITY AND PRIVACY CONSULTANT: No RADIOLOGY DEPARTMENT: General X-ray: Exam(s) Completed: Chest X-Ray PERIPHERAL IV DATA: Not applicable SIGNED BY: RT Denita(R) May 27, 2024 2:10 PM PROGRESS Observed: 05/27/2024 1:16 PM Status: COMPLETED Source: [facility] HNO ID: [id number] Author: CHRISTINA DE DIOS PA-C Service: ? Author Type: Physician Health Informatics Instructor Type: Progress Notes Filed: 05/27/2024 14:03 Note Text: Chief Complaint Patient presents with: Physical HPI Mary Beth Gonzalez is a 43 year old female who presents here today for Chronic Medical Conditions.. Patient with hx of asthma, ZHANNA, smoker, GERD, hypothyroid, DM2, seizures, psoriasis, add, depression, PTSD and those as below. Patient overall doing okay. Has continued to lose some weight. Not trying. Has lost an additional 12 lbs since last visit. Is down 30lbs since last year. Last 3 Encounter Wt Readings: Date: Wt: 05/27/2024 66.2 kg (146 lb) 11/24/2023 71.7 kg (158 lb) 06/24/2023 79.4 kg (175 lb) Past medical history, appointments, medications, allergies reviewed. Previous Medical History PAST MEDICAL HISTORY Diagnosis Date Acquired hypothyroidism 07/17/2008 Arthritis Asthma Atherosclerosis of coronary artery 09/14/2023 Attention deficit disorder without mention of hyperactivity 11/27/2006 Biliary dyskinesia 12/09/2012 Borderline personality disorder (HCC) 09/14/2023 Brachial neuritis or radiculitis 02/01/2014 Chondromalacia of knee 06/17/2011 Controlled type 2 diabetes mellitus without complication, without long-term current use of insulin (HCC) 07/11/2008 Cyst 07/25/2009 Cysts on lower back, soft tissue Depression 10/18/2009 Diabetes mellitus type II (HCC) Endometriosis GERD without esophagitis 03/12/2023 Per Upper GI 03/05/2023 Hx of borderline personality disorder Hx of pancreatitis Hypothyroidism Lumbago 08/07/2008 Lung nodule 09/14/2023 12/22/2022: CT stable nodule over 2 years, no further imaging needed Mixed hyperlipidemia 09/30/2010 Moderate persistent asthma without complication 01/08/2017 Multiple joint pain 07/25/2009 Myofascial muscle pain 09/05/2015 ZHANNA (obstructive sleep apnea) 05/15/2010 Other convulsions 03/31/2008 Over weight 11/24/2023 PAC (premature atrial contraction) Premature atrial beats 11/01/[address] Corral Psoriasis 07/25/2009 PTSD (post-traumatic stress disorder) 10/18/2009 PVC (premature ventricular contraction) Seasonal allergies 11/01/2020 Seborrheic dermatitis Unclassified epileptic seizures (HCC) 03/31/2008 Last seizure 02/11. Under no treatment was never found to have seizure activity on testing (? Pseudoseizures) Well adult exam 12/11/2021 Done: 12/11/2021 Previous Surgical History PAST SURGICAL HISTORY Procedure Laterality Date COLONOSCOPY FLX DX W/COLLJ SPEC WHEN PFRMD 10/27/2011 CONIZATION CERVIX W/WO [facility] RPR ELTRD EXC 07/06/2000 LEEP-Cervix EGD TRANSORAL BIOPSY SINGLE/MULTIPLE 10/27/2011 INSERTION OF DRUG DELIVERY IMPLANT INTO TEAR DUCTS Bilateral LAPAROSCOPIC CHOLECYSTECTOMY 09/04/2021 LEFT HEART CATH,PERCUTANEOUS Left 10/15/2022 Left Heart Catheterization PAST SURGICAL HISTORY OF 07/06/2000 cerviacal cyst removed PAST SURGICAL HISTORY OF 04/25/2008 abdominal hyster and removal one ovary PAST SURGICAL HISTORY OF Left 12/2021 some nodules removed from ribs on left side PAST SURGICAL HISTORY OF Left Titanium clip SEPTOPLASTY 2019 revision and polyp removal SEPTOPLASTY/SUBMUCOUS RESECJ W/WO CARTILAGE GRF 12/04/2010 Septoplasty TONSILLECTOMY PRIMARY/SECONDARY <AGE 12 09/30/2011 Tonsillectomy - , [facility] TOTAL ABDOM HYSTERECTOMY Family History FAMILY HISTORY Problem Relation Age of Onset other (Unknown) Mother Diabetes Father blood pressure problem Heart Father None Brother other (Gastric colitis) Maternal Grandmother No Known Problems Maternal Grandfather other (Heart condition) Paternal Grandmother Kidney failure Paternal Grandmother Diabetes Paternal Grandmother Heart Attack Paternal Grandfather Diabetes Paternal Aunt Diabetes Paternal Uncle No Known Problems Half-brother No Known Problems Half-brother Patient Allergies ALLERGIES Allergen Reactions Amoxicillin Itching Bactrim [Sulfametho* Hives Effexor [Venlafaxin* Mental Status Change suicidal Pyridium [Phenazopy* Hives Adderall [Dextroamp* Mental Status Change paranoid ideation Dust Itching Mold Itching Pravachol [Pravasta* GI Upset Ragweed Itching Current Medications Current Outpatient Medications on File Prior to Visit Medication Sig metFORMIN ER (GLUCOPHAGE XR) 500 mg 24 hr tablet Take 1 tablet by mouth once daily. atorvastatin (LIPITOR) 20 mg tablet Take 1 tablet by mouth once daily. cetirizine (ZYRTEC) 10 mg tablet take 1 tablet by mouth once daily. levothyroxine (SYNTHROID) 100 mcg tablet Take 1 tablet by mouth once daily. atenolol (TENORMIN) 25 mg tablet Take by mouth. dilTIAZem CR (TIAZAC, TAZTIA XT) 120 mg 24 hr capsule DAILY divalproex ER (DEPAKOTE ER) 250 mg 24 hr tablet Take 250 mg by mouth once daily. buPROPion XL (WELLBUTRIN XL) 150 mg 24 hr tablet Take 150 mg by mouth once daily. metoprolol tartrate, short acting, (LOPRESSOR) 25 mg tablet Take 0.5 tablets by mouth two times a day. Per [facility]. vilazodone (VIIBRYD) 40 mg tablet Take 40 mg by mouth once daily. ADVAIR HFA 230-21 mcg/actuation inhaler Inhale 2 Puffs as instructed twice daily. divalproex ER (DEPAKOTE ER) 500 mg 24 hr tablet once daily. ALPRAZolam (XANAX) 0.5 mg tablet Take 0.5 mg by mouth as needed. Selenium Sulfide 2.25 % sham Apply 1 application to affected area as needed. albuterol HFA (VENTOLIN HFA) 90 mcg/actuation inhaler Inhale 2 Puffs as instructed every 4 hours as needed for Wheezing/Shortness of Breath. Per Dr. Shay alcantara fluticasone (FLONASE) 50 mcg/actuation nasal spray Use 2 Sprays in each nostril once daily. clobetasol 0.05 % ointment Apply to affected area(s) of active or acute and persistent insect bite or prurigo papular lesions of open areas of arms, legs, trunk, once to twice per day (qday to bid) until clear, and then taper off as able. AVOID face, eyes, eyelids, and deep fold areas. nitroglycerin sublingual (NITROSTAT) 0.4 mg SL tablet Dissolve 1 tablet under the tongue as needed. FOR CHEST PAIN. IF NO RELIEF CALL 911 hydrocortisone valerate(WESTCORT 0.2 % TOPICAL CREAM) Apply to psoriasis/rash on folds areas (eg., abdominal fold area), ears, outer face or forehead area, and scalp line selectively qd to bid prn until clear and then taper off as able; AVOID eyes and eyelids, and central face near eyes and nose. No current facility-administered medications on file prior to visit. Social History Social History Tobacco Use Smoking status: Every Day Current packs/day: 0.50 Average packs/day: 0.5 packs/day for 20.0 years (10.0 ttl pk-yrs) Types: Cigarettes Smokeless tobacco: Never Vaping Use Vaping status: Never Used Substance Use Topics Alcohol use: Yes Comment: occassionally Drug use: Yes Types: Marijuana Comment: daily marijuana Review of Symptoms REVIEW OF SYSTEMS GENERAL: +weight loss. No malaise or fevers HEENT: No changes in hearing or vision, no nose bleeds or other nasal problems NECK: Negative for lumps, goiter, pain and significant neck swelling RESPIRATORY: Negative for cough, hemoptysis, wheezing, COPD, dyspnea or shortness of breath CARDIOVASCULAR: Negative for chest pain, leg swelling, hypertension, CHF or palpitations GI: Negative for abdominal discomfort, blood in stools or black stools, change in bowel habit, heart burn, nausea, vomiting : No history of dysuria, frequency or incontinence RN CONCURRENT REVIEW: Negative for abnormal vaginal bleeding, abnormal vaginal discharge MUSCULOSKELETAL: Negative for joint pain or swelling, back pain or muscle pain SKIN: Negative for lesions, rash, and itching PSYCH: stable- seeing psych HEMATOLOGY/LYMPHOLOGY: Negative for prolonged bleeding, bruising easily or swollen nodes ENDOCRINE: Negative for cold or heat intolerance, polyuria, polydipsia and goiter NEURO: No history of headaches, syncope, paralysis,or tremors. No recent seizure like activity. EXAM: BP 118/80 (BP Site: Left Arm, BP Position: Sitting, BP Cuff Size: Regular Adult) Pulse 80 Temp 36.4 ?C (97.5 ?F) Resp 18 Ht 161 cm (5' 3.39") Wt 66.2 kg (146 lb) SpO2 99% BMI 25.55 kg/m? Last 6 Encounter Wt Readings: Date: Wt: 05/27/2024 66.2 kg (146 lb) 11/24/2023 71.7 kg (158 lb) 06/24/2023 79.4 kg (175 lb) 05/26/2023 79.8 kg (176 lb) 04/28/2023 82.1 kg (181 lb) 03/12/2023 81.6 kg (180 lb) General Appearance: Well appearing, alert, in no acute distress, well-hydrated, well nourished.. Skin: patient deferred. Head: Normocephalic, no masses, lesions, tenderness or abnormalities. Eyes: Anicteric sclera. Pupils are equally round and reactive to light. Extraocular movements are intact. . Ears: External ears normal, canals clear, TMs pearly natarajan. Nose/Sinuses: Nares normal, septum midline, mucosa normal, no drainage or sinus tenderness. Oropharynx: Lips, mucosa, and tongue normal, teeth and gums normal, oropharynx normal. Neck: Supple, no adenopathy; thyroid symmetric, normal size, no bruits. Lungs: Lungs clear to auscultation. No wheezing, rhonchi, rales.. Heart: RRR without murmur, gallop, or rubs. No ectopy. Abdomen: Normal abdominal exam, Abdomen soft, non-tender. Bowel sounds normal. No masses, organomegaly. Extremities: No deformities, edema, skin discoloration, clubbing or cyanosis. Good capillary refill. . Peripheral Pulses: Normal. Neurologic: Gait normal. Reflexes normal and symmetric. Sensation grossly intact.. Feet:Shoes and socks removed, No deformities, ulcers, calluses, normal distal pulses, sensitive to 10 gm monofilament, and vibratory perception normal Health Maintenance List Hepatitis B Vaccine(1 of 3 - 19+ 3-dose series) Never done Dilated Retinal Exam due on 01/30/2023 Diabetic Foot Exam due on 08/07/2023 Colorectal Cancer Screening due on 11/27/2023 Urine Albumin:Creatinine Ratio due on 01/31/2024 Influenza Vaccine(1) due on 03/06/2024 Covid-19 Vaccine(2023- season) due on 03/06/2024 Mammogram Screening due on 05/27/2024 HbA1C due on 11/13/2024 Annual PCP Team Chronic Disease Visit due on 11/23/2024 LDL Cholesterol due on 05/16/2025 Cervical Cancer Screening due on 01/23/2027 DTaP,Tdap,Td Vaccine(3 - Td or Tdap) due on 08/07/2032 Spirometry Completed Hepatitis C Screening Completed HIV Screening Completed Pneumococcal Vaccine Completed HPV Vaccine Aged Out Data reviewed Latest Ref Rng 05/16/2024 WBC 3.70 - 11.00 k/uL 6.84 RBC 3.90 - 5.20 m/uL 4.52 Hemoglobin 11.5 - 15.5 g/dL 13.5 Hematocrit 36.0 - 46.0 % 40.8 MCV 80.0 - 100.0 fL 90.3 MCH 26.0 - 34.0 pg 29.9 MCHC 30.5 - 36.0 g/dL 33.1 RDW-CV 11.5 - 15.0 % 12.3 Platelet Count 150 - 400 k/uL 217 MPV 9.0 - 12.7 fL 9.9 Neut% % 58.1 Abs Neut (ANC) 1.45 - 7.50 k/uL 3.97 Lymph% % 33.5 Abs Lymph 1.00 - 4.00 k/uL 2.29 Arthur% % 6.4 Abs Arthur <0.87 k/uL 0.44 Eosin% % 1.0 Abs Eosin <0.46 k/uL 0.07 Baso% % 0.9 Abs Baso <0.11 k/uL 0.06 Immature Gran % % 0.1 IMMATURE GRANS (ABS) <0.10 k/uL <0.03 NRBC /100 WBC 0.0 Absolute nRBC <0.01 k/uL <0.01 DTYPE Auto Protein, Total 6.3 - 8.0 g/dL 6.6 Albumin 3.9 - 4.9 g/dL 4.3 Calcium 8.5 - 10.2 mg/dL 8.9 Bilirubin, Total 0.2 - 1.3 mg/dL 0.4 Alkaline Phosphatase 34 - 123 U/L 40 AST 13 - 35 U/L 24 ALT 7 - 38 U/L 31 Glucose 74 - 99 mg/dL 84 BUN 7 - 21 mg/dL 14 Creatinine 0.58 - 0.96 mg/dL 0.77 Sodium 136 - 144 mmol/L 141 Potassium 3.7 - 5.1 mmol/L 3.9 Chloride 98 - 107 mmol/L 106 CO2 22 - 30 mmol/L 23 Anion Gap 8 - 15 mmol/L 12 eGFR >=60 mL/min/1.73m? 97 Total Cholesterol, Nonfasting <200 mg/dL 134 Triglycerides, Nonfasting <150 mg/dL 67 HDL Cholesterol, Nonfasting >39 mg/dL 50 LDL Cholesterol, Nonfasting <100 mg/dL 71 Non HDL Cholesterol, Nonfasting <130 mg/dL 84 VLDL Cholesterol, Nonfasting <30 mg/dL 13 Total Chol/HDL Ratio, Nonfasting <5.10 mg/dL 2.68 LDL/HDL Ratio, Nonfasting <2.54 mg/dL 1.42 Hemoglobin A1C 4.3 - 5.6 % 5.0 Estimated Average Glucose mg/dL 97 TSH 0.270 - 4.200 mIU/L 0.515 ASSESSMENT/PLAN: 1. Well adult exam - ICD9: V70.0, ICD10: Z00.00 (primary diagnosis) - Counseled on healthy diet and regular exercise - Colorectal cancer screening recommended - agrees to Colonoscopy Patient may need EGD as well given abnormal weight loss - Mammogram ordered - exam recommended once yearly - Smoking cessation encouraged; discussed risks to health and quitting strategies. Patient is ready to quit 2. Encounter for immunization - ICD9: V03.89, ICD10: Z23 - INFLUENZA VACCINE, AGE 6MO-64YR, TRIVALENT (AFLURIA, FLULAVAL, FLUVIRIN, FLUZONE) - [email or web address] COVID-19 VACCINE AGE 12+ YR (COMIRNATY) 3. Mixed hyperlipidemia - ICD9: 272.2, ICD10: E78.2 - Controlled - Continue current medications - Counseled on healthy diet and regular exercise 4. Encounter for screening mammogram for breast cancer - ICD9: V76.12, ICD10: Z12.31 - TANISHA SCREENING W KAYLENE 5. Controlled type 2 diabetes mellitus without complication, without long-term current use of insulin (HCC) - ICD9: 250.00, ICD10: E11.9 - controlled - Continue current medications - Counseled on healthy diet and regular exercise - COMPREHENSIVE METABOLIC PANEL - COMPLETE BLOOD COUNT AND DIFFERENTIAL - HEMOGLOBIN A1C 6. Weight loss - ICD9: 783.21, ICD10: R63.4 Check US and CXR Set up for scopes. - CONSULT TO GENERAL SURGERY - XR CHEST 2V FRONTAL/LAT - US ABD RIGHT UPPER QUADRANT 7. Screening for colon cancer - ICD9: V76.51, ICD10: Z12.11 - CONSULT TO GENERAL SURGERY 8. Unclassified epileptic seizures (HCC) - ICD9: 345.90, ICD10: G40.909 Cont current management 9. Premature atrial beats - ICD9: 427.61, ICD10: I49.1 Follow up with cardio 10. PAC (premature atrial contraction) - ICD9: 427.61, ICD10: I49.1 Follow up with cardio 11. PVC (premature ventricular contraction) - ICD9: 427.69, ICD10: I49.3 Follow up with cardio 12. Moderate persistent asthma without complication - ICD9: 493.90, ICD10: J45.40 Follow up with pulm - Avoidance of triggers recommended 13. ZHANNA (obstructive sleep apnea) - ICD9: 327.23, ICD10: G47.33 Cont with specialist 14. Smoker - ICD9: 305.1, ICD10: F17.200 - Cessation encouraged. - Physiologic and physical aspects of tobacco addiction as well as strategies for quitting were discussed. - Counseling was given focusing on the harmful effects of this addiction especially given the patient's medical condition(s) which will be worsened because of the chemicals in tobacco. - COMPLETE BLOOD COUNT AND DIFFERENTIAL 15. GERD without esophagitis - ICD9: 530.81, ICD10: K21.9 Stable - US ABD RIGHT UPPER QUADRANT 16. Acquired hypothyroidism - ICD9: 244.9, ICD10: E03.9 - Instructed patient on importance of taking on an empty stomach either first thing in the morning or at bedtime. - THYROID STIMULATING HORMONE 17. Major depressive disorder, remission status unspecified, unspecified whether recurrent - ICD9: 296.20, ICD10: F32.9 Continue with psych 18. PTSD (post-traumatic stress disorder) - ICD9: 309.81, ICD10: F43.10 Continue with psych. Christina De Dios PA-C CNOV Observed: 05/27/2024 1:00 PM Status: COMPLETED Source: [facility] Office Visit (FAMPWS) MARY BETH GONZALEZ ([id number]) 1980 [facility] Date Time Provider Department 05/27/24 1:00 PM [facility] During your visit today, we recorded the following information about you: Temperature Pulse Respiration Blood pressure 97.5 degrees 80/minute 18/minute 118/80 Weight Height 66.2 kg 1.61 m Christina De Dios PA-C 05/27/2024 2:03 PM Signed Chief Complaint Patient presents with: Physical HPI Mary Bethhannah Gonzalez is a 43 year old female who presents here today for Chronic Medical Conditions.. Patient with hx of asthma, ZHANNA, smoker, GERD, hypothyroid, DM2, seizures, psoriasis, add, depression, PTSD and those as below. Patient overall doing okay. Has continued to lose some weight. Not trying. Has lost an additional 12 lbs since last visit. Is down 30lbs since last year. Last 3 Encounter Wt Readings: Date: Wt: 05/27/2024 66.2 kg (146 lb) 11/24/2023 71.7 kg (158 lb) 06/24/2023 79.4 kg (175 lb) Past medical history, appointments, medications, allergies reviewed. Previous Medical History PAST MEDICAL HISTORY Diagnosis Date Acquired hypothyroidism 07/17/2008 Arthritis Asthma Atherosclerosis of coronary artery 09/14/2023 Attention deficit disorder without mention of hyperactivity 11/27/2006 Biliary dyskinesia 12/09/2012 Borderline personality disorder (HCC) 09/14/2023 Brachial neuritis or radiculitis 02/01/2014 Chondromalacia of knee 06/17/2011 Controlled type 2 diabetes mellitus without complication, without long-term current use of insulin (HCC) 07/11/2008 Cyst 07/25/2009 Cysts on lower back, soft tissue Depression 10/18/2009 Diabetes mellitus type II (HCC) Endometriosis GERD without esophagitis 03/12/2023 Per Upper GI 03/05/2023 Hx of borderline personality disorder Hx of pancreatitis Hypothyroidism Lumbago 08/07/2008 Lung nodule 09/14/2023 12/22/2022: CT stable nodule over 2 years, no further imaging needed Mixed hyperlipidemia 09/30/2010 Moderate persistent asthma without complication 01/08/2017 Multiple joint pain 07/25/2009 Myofascial muscle pain 09/05/2015 ZHANNA (obstructive sleep apnea) 05/15/2010 Other convulsions 03/31/2008 Over weight 11/24/2023 PAC (premature atrial contraction) Premature atrial beats 11/01/[address] Corral Psoriasis 07/25/2009 PTSD (post-traumatic stress disorder) 10/18/2009 PVC (premature ventricular contraction) Seasonal allergies 11/01/2020 Seborrheic dermatitis Unclassified epileptic seizures (HCC) 03/31/2008 Last seizure 02/11. Under no treatment was never found to have seizure activity on testing (? Pseudoseizures) Well adult exam 12/11/2021 Done: 12/11/2021 Previous Surgical History PAST SURGICAL HISTORY Procedure Laterality Date COLONOSCOPY FLX DX W/COLLJ SPEC WHEN PFRMD 10/27/2011 CONIZATION CERVIX W/WO [facility] RPR ELTRD EXC 07/06/2000 LEEP-Cervix EGD TRANSORAL BIOPSY SINGLE/MULTIPLE 10/27/2011 INSERTION OF DRUG DELIVERY IMPLANT INTO TEAR DUCTS Bilateral LAPAROSCOPIC CHOLECYSTECTOMY 09/04/2021 LEFT HEART CATH,PERCUTANEOUS Left 10/15/2022 Left Heart Catheterization PAST SURGICAL HISTORY OF 07/06/2000 cerviacal cyst removed PAST SURGICAL HISTORY OF 04/25/2008 abdominal hyster and removal one ovary PAST SURGICAL HISTORY OF Left 12/2021 some nodules removed from ribs on left side PAST SURGICAL HISTORY OF Left Titanium clip SEPTOPLASTY 2019 revision and polyp removal SEPTOPLASTY/SUBMUCOUS RESECJ W/WO CARTILAGE GRF 12/04/2010 Septoplasty TONSILLECTOMY PRIMARY/SECONDARY <AGE 10 09/30/2011 Tonsillectomy - , [facility] TOTAL ABDOM HYSTERECTOMY Family History FAMILY HISTORY Problem Relation Age of Onset other (Unknown) Mother Diabetes Father blood pressure problem Heart Father None Brother other (Gastric colitis) Maternal Grandmother No Known Problems Maternal Grandfather other (Heart condition) Paternal Grandmother Kidney failure Paternal Grandmother Diabetes Paternal Grandmother Heart Attack Paternal Grandfather Diabetes Paternal Aunt Diabetes Paternal Uncle No Known Problems Half-brother No Known Problems Half-brother Patient Allergies ALLERGIES Allergen Reactions Amoxicillin Itching Bactrim [Sulfametho* Hives Effexor [Venlafaxin* Mental Status Change suicidal Pyridium [Phenazopy* Hives Adderall [Dextroamp* Mental Status Change paranoid ideation Dust Itching Mold Itching Pravachol [Pravasta* GI Upset Ragweed Itching Current Medications Current Outpatient Medications on File Prior to Visit Medication Sig metFORMIN ER (GLUCOPHAGE XR) 500 mg 24 hr tablet Take 1 tablet by mouth once daily. atorvastatin (LIPITOR) 20 mg tablet Take 1 tablet by mouth once daily. cetirizine (ZYRTEC) 10 mg tablet take 1 tablet by mouth once daily. levothyroxine (SYNTHROID) 100 mcg tablet Take 1 tablet by mouth once daily. atenolol (TENORMIN) 25 mg tablet Take by mouth. dilTIAZem CR (TIAZAC, TAZTIA XT) 120 mg 24 hr capsule DAILY divalproex ER (DEPAKOTE ER) 250 mg 24 hr tablet Take 250 mg by mouth once daily. buPROPion XL (WELLBUTRIN XL) 150 mg 24 hr tablet Take 150 mg by mouth once daily. metoprolol tartrate, short acting, (LOPRESSOR) 25 mg tablet Take 0.5 tablets by mouth two times a day. Per [facility]. vilazodone (VIIBRYD) 40 mg tablet Take 40 mg by mouth once daily. ADVAIR HFA 230-21 mcg/actuation inhaler Inhale 2 Puffs as instructed twice daily. divalproex ER (DEPAKOTE ER) 500 mg 24 hr tablet once daily. ALPRAZolam (XANAX) 0.5 mg tablet Take 0.5 mg by mouth as needed. Selenium Sulfide 2.25 % sham Apply 1 application to affected area as needed. albuterol HFA (VENTOLIN HFA) 90 mcg/actuation inhaler Inhale 2 Puffs as instructed every 4 hours as needed for Wheezing/Shortness of Breath. Per Dr. Shay alcantara fluticasone (FLONASE) 50 mcg/actuation nasal spray Use 2 Sprays in each nostril once daily. clobetasol 0.05 % ointment Apply to affected area(s) of active or acute and persistent insect bite or prurigo papular lesions of open areas of arms, legs, trunk, once to twice per day (qday to bid) until clear, and then taper off as able. AVOID face, eyes, eyelids, and deep fold areas. nitroglycerin sublingual (NITROSTAT) 0.4 mg SL tablet Dissolve 1 tablet under the tongue as needed. FOR CHEST PAIN. IF NO RELIEF CALL 911 hydrocortisone valerate(WESTCORT 0.2 % TOPICAL CREAM) Apply to psoriasis/rash on folds areas (eg., abdominal fold area), ears, outer face or forehead area, and scalp line selectively qd to bid prn until clear and then taper off as able; AVOID eyes and eyelids, and central face near eyes and nose. No current facility-administered medications on file prior to visit. Social History Social History Tobacco Use Smoking status: Every Day Current packs/day: 0.50 Average packs/day: 0.5 packs/day for 20.0 years (10.0 ttl pk-yrs) Types: Cigarettes Smokeless tobacco: Never Vaping Use Vaping status: Never Used Substance Use Topics Alcohol use: Yes Comment: occassionally Drug use: Yes Types: Marijuana Comment: daily marijuana Review of Symptoms REVIEW OF SYSTEMS GENERAL: +weight loss. No malaise or fevers HEENT: No changes in hearing or vision, no nose bleeds or other nasal problems NECK: Negative for lumps, goiter, pain and significant neck swelling RESPIRATORY: Negative for cough, hemoptysis, wheezing, COPD, dyspnea or shortness of breath CARDIOVASCULAR: Negative for chest pain, leg swelling, hypertension, CHF or palpitations GI: Negative for abdominal discomfort, blood in stools or black stools, change in bowel habit, heart burn, nausea, vomiting : No history of dysuria, frequency or incontinence RN CONCURRENT REVIEW: Negative for abnormal vaginal bleeding, abnormal vaginal discharge MUSCULOSKELETAL: Negative for joint pain or swelling, back pain or muscle pain SKIN: Negative for lesions, rash, and itching PSYCH: stable- seeing psych HEMATOLOGY/LYMPHOLOGY: Negative for prolonged bleeding, bruising easily or swollen nodes ENDOCRINE: Negative for cold or heat intolerance, polyuria, polydipsia and goiter NEURO: No history of headaches, syncope, paralysis,or tremors. No recent seizure like activity. EXAM: BP 118/80 (BP Site: Left Arm, BP Position: Sitting, BP Cuff Size: Regular Adult) Pulse 80 Temp 36.4 ?C (97.5 ?F) Resp 18 Ht 161 cm (5' 3.39") Wt 66.2 kg (146 lb) SpO2 99% BMI 25.55 kg/m? Last 6 Encounter Wt Readings: Date: Wt: 05/27/2024 66.2 kg (146 lb) 11/24/2023 71.7 kg (158 lb) 06/24/2023 79.4 kg (175 lb) 05/26/2023 79.8 kg (176 lb) 04/28/2023 82.1 kg (181 lb) 03/12/2023 81.6 kg (180 lb) General Appearance: Well appearing, alert, in no acute distress, well-hydrated, well nourished.. Skin: patient deferred. Head: Normocephalic, no masses, lesions, tenderness or abnormalities. Eyes: Anicteric sclera. Pupils are equally round and reactive to light. Extraocular movements are intact. . Ears: External ears normal, canals clear, TMs pearly natarajan. Nose/Sinuses: Nares normal, septum midline, mucosa normal, no drainage or sinus tenderness. Oropharynx: Lips, mucosa, and tongue normal, teeth and gums normal, oropharynx normal. Neck: Supple, no adenopathy; thyroid symmetric, normal size, no bruits. Lungs: Lungs clear to auscultation. No wheezing, rhonchi, rales.. Heart: RRR without murmur, gallop, or rubs. No ectopy. Abdomen: Normal abdominal exam, Abdomen soft, non-tender. Bowel sounds normal. No masses, organomegaly. Extremities: No deformities, edema, skin discoloration, clubbing or cyanosis. Good capillary refill. . Peripheral Pulses: Normal. Neurologic: Gait normal. Reflexes normal and symmetric. Sensation grossly intact.. Feet:Shoes and socks removed, No deformities, ulcers, calluses, normal distal pulses, sensitive to 10 gm monofilament, and vibratory perception normal Health Maintenance List Hepatitis B Vaccine(1 of 3 - 19+ 3-dose series) Never done Dilated Retinal Exam due on 01/30/2023 Diabetic Foot Exam due on 08/07/2023 Colorectal Cancer Screening due on 11/27/2023 Urine Albumin:Creatinine Ratio due on 01/31/2024 Influenza Vaccine(1) due on 03/06/2024 Covid-19 Vaccine(2023- season) due on 03/06/2024 Mammogram Screening due on 05/27/2024 HbA1C due on 11/13/2024 Annual PCP Team Chronic Disease Visit due on 11/23/2024 LDL Cholesterol due on 05/16/2025 Cervical Cancer Screening due on 01/23/2027 DTaP,Tdap,Td Vaccine(3 - Td or Tdap) due on 08/07/2032 Spirometry Completed Hepatitis C Screening Completed HIV Screening Completed Pneumococcal Vaccine Completed HPV Vaccine Aged Out Data reviewed Latest Ref Rng 05/16/2024 WBC 3.70 - 11.00 k/uL 6.84 RBC 3.90 - 5.20 m/uL 4.52 Hemoglobin 11.5 - 15.5 g/dL 13.5 Hematocrit 36.0 - 46.0 % 40.8 MCV 80.0 - 100.0 fL 90.3 MCH 26.0 - 34.0 pg 29.9 MCHC 30.5 - 36.0 g/dL 33.1 RDW-CV 11.5 - 15.0 % 12.3 Platelet Count 150 - 400 k/uL 217 MPV 9.0 - 12.7 fL 9.9 Neut% % 58.1 Abs Neut (ANC) 1.45 - 7.50 k/uL 3.97 Lymph% % 33.5 Abs Lymph 1.00 - 4.00 k/uL 2.29 Arthur% % 6.4 Abs Arthur <0.87 k/uL 0.44 Eosin% % 1.0 Abs Eosin <0.46 k/uL 0.07 Baso% % 0.9 Abs Baso <0.11 k/uL 0.06 Immature Gran % % 0.1 IMMATURE GRANS (ABS) <0.10 k/uL <0.03 NRBC /100 WBC 0.0 Absolute nRBC <0.01 k/uL <0.01 DTYPE Auto Protein, Total 6.3 - 8.0 g/dL 6.6 Albumin 3.9 - 4.9 g/dL 4.3 Calcium 8.5 - 10.2 mg/dL 8.9 Bilirubin, Total 0.2 - 1.3 mg/dL 0.4 Alkaline Phosphatase 34 - 123 U/L 40 AST 13 - 35 U/L 24 ALT 7 - 38 U/L 31 Glucose 74 - 99 mg/dL 84 BUN 7 - 21 mg/dL 14 Creatinine 0.58 - 0.96 mg/dL 0.77 Sodium 136 - 144 mmol/L 141 Potassium 3.7 - 5.1 mmol/L 3.9 Chloride 98 - 107 mmol/L 106 CO2 22 - 30 mmol/L 23 Anion Gap 8 - 15 mmol/L 12 eGFR >=60 mL/min/1.73m? 97 Total Cholesterol, Nonfasting <200 mg/dL 134 Triglycerides, Nonfasting <150 mg/dL 67 HDL Cholesterol, Nonfasting >39 mg/dL 50 LDL Cholesterol, Nonfasting <100 mg/dL 71 Non HDL Cholesterol, Nonfasting <130 mg/dL 84 VLDL Cholesterol, Nonfasting <30 mg/dL 13 Total Chol/HDL Ratio, Nonfasting <5.10 mg/dL 2.68 LDL/HDL Ratio, Nonfasting <2.54 mg/dL 1.42 Hemoglobin A1C 4.3 - 5.6 % 5.0 Estimated Average Glucose mg/dL 97 TSH 0.270 - 4.200 mIU/L 0.515 ASSESSMENT/PLAN: 1. Well adult exam - ICD9: V70.0, ICD10: Z00.00 (primary diagnosis) - Counseled on healthy diet and regular exercise - Colorectal cancer screening recommended - agrees to Colonoscopy Patient may need EGD as well given abnormal weight loss - Mammogram ordered - exam recommended once yearly - Smoking cessation encouraged; discussed risks to health and quitting strategies. Patient is ready to quit 2. Encounter for immunization - ICD9: V03.89, ICD10: Z23 - INFLUENZA VACCINE, AGE 6MO-64YR, TRIVALENT (AFLURIA, FLULAVAL, FLUVIRIN, FLUZONE) - [email or web address] COVID-19 VACCINE AGE 12+ YR (COMIRNATY) 3. Mixed hyperlipidemia - ICD9: 272.2, ICD10: E78.2 - Controlled - Continue current medications - Counseled on healthy diet and regular exercise 4. Encounter for screening mammogram for breast cancer - ICD9: V76.12, ICD10: Z12.31 - TANISHA SCREENING W KAYLENE 5. Controlled type 2 diabetes mellitus without complication, without long-term current use of insulin (HCC) - ICD9: 250.00, ICD10: E11.9 - controlled - Continue current medications - Counseled on healthy diet and regular exercise - COMPREHENSIVE METABOLIC PANEL - COMPLETE BLOOD COUNT AND DIFFERENTIAL - HEMOGLOBIN A1C 6. Weight loss - ICD9: 783.21, ICD10: R63.4 Check US and CXR Set up for scopes. - CONSULT TO GENERAL SURGERY - XR CHEST 2V FRONTAL/LAT - US ABD RIGHT UPPER QUADRANT 7. Screening for colon cancer - ICD9: V76.51, ICD10: Z12.11 - CONSULT TO GENERAL SURGERY 8. Unclassified epileptic seizures (HCC) - ICD9: 345.90, ICD10: G40.909 Cont current management 9. Premature atrial beats - ICD9: 427.61, ICD10: I49.1 Follow up with cardio 10. PAC (premature atrial contraction) - ICD9: 427.61, ICD10: I49.1 Follow up with cardio 11. PVC (premature ventricular contraction) - ICD9: 427.69, ICD10: I49.3 Follow up with cardio 12. Moderate persistent asthma without complication - ICD9: 493.90, ICD10: J45.40 Follow up with pulm - Avoidance of triggers recommended 13. ZHANNA (obstructive sleep apnea) - ICD9: 327.23, ICD10: G47.33 Cont with specialist 14. Smoker - ICD9: 305.1, ICD10: F17.200 - Cessation encouraged. - Physiologic and physical aspects of tobacco addiction as well as strategies for quitting were discussed. - Counseling was given focusing on the harmful effects of this addiction especially given the patient's medical condition(s) which will be worsened because of the chemicals in tobacco. - COMPLETE BLOOD COUNT AND DIFFERENTIAL 15. GERD without esophagitis - ICD9: 530.81, ICD10: K21.9 Stable - US ABD RIGHT UPPER QUADRANT 16. Acquired hypothyroidism - ICD9: 244.9, ICD10: E03.9 - Instructed patient on importance of taking on an empty stomach either first thing in the morning or at bedtime. - THYROID STIMULATING HORMONE 17. Major depressive disorder, remission status unspecified, unspecified whether recurrent - ICD9: 296.20, ICD10: F32.9 Continue with psych 18. PTSD (post-traumatic stress disorder) - ICD9: 309.81, ICD10: F43.10 Continue with psych. VERENICE Hernandez Rayanne, PA-C 05/27/2024 1:26 PM Signed Please schedule eye exam Schedule with general surgery to discuss weight loss and colonoscopy/egd. Set up with specialists- cardio and pulm. To schedule a diabetic eye exam at the [facility] [place], please call: [phone] Online resources to learn more [email or web address] https://www.aoa.org/healthy-eyes/aom-hrt-nacuvz-conditions/diabetic-retinopathy- ?sso=y https://www.[employer] References 1. National Diabetes Statistics Report 2020: Estimates of Diabetes and Its [place] in the [facility] States. Center for Disease Control and Prevention; 2020. Available at: https://www.cdc.gov/diabetes/pdfs/data/statistics/sijmcmcq-hrbwppof-swjqzuhbtm-- report.pdf 2. Amber Yun, Kelli Stringer, Car Marquez, Elvira Hauser, Mary Beth Rosario, Alexis Beck, Elijah Hurd, Reji Hsieh; Diabetic Retinopathy: A Position Statement by the [place] Diabetes Association. Diabetes Care 03 September 2016; 40 (3): 412-418 Allergies As of Date: 05/27/2024 Noted Allergy Reaction AMOXICILLIN 07/25/2009 9 - Itching BACTRIM (SULFAMETHOXAZOLE-TRIMETH*08/14/2006 4 - Hives EFFEXOR (VENLAFAXINE ANALOGUES) 08/09/2009 1 - Mental Status Change Comments: suicidal PYRIDIUM (PHENAZOPYRIDINE HCL) 08/14/2006 4 - Hives ADDERALL (DEXTROAMPHETAMINE-AMPHE*03/15/2010 1 - Mental Status Change Comments: paranoid ideation DUST 07/03/2010 9 - Itching MOLD 07/03/2010 9 - Itching PRAVACHOL (PRAVASTATIN SODIUM) 05/15/2015 8 - GI Upset RAGWEED 07/03/2010 9 - Itching Date Reviewed: 05/27/2024 Reviewed by: Camilla Tafoya LPN - Fully Assessed Reason for Visit: Physical [83] Primary Visit Diagnosis:Well adult exam [Z00.00] Other Visit Diagnoses:Encounter for immunization [Z23] Mixed hyperlipidemia [E78.2] Encounter for screening mammogram for breast cancer [Z12.31] Controlled type 2 diabetes mellitus without complication, without long-term current use of insulin (HCC) [E11.9] Weight loss [R63.4] Screening for colon cancer [Z12.11] Unclassified epileptic seizures (HCC) [G40.909] Premature atrial beats [I49.1] PAC (premature atrial contraction) [I49.1] PVC (premature ventricular contraction) [I49.3] Moderate persistent asthma without complication [J45.40] ZHANNA (obstructive sleep apnea) [G47.33] Smoker [F17.200] GERD without esophagitis [K21.9] Acquired hypothyroidism [E03.9] Major depressive disorder, remission status unspecified, unspecified whether recurrent [F32.9] PTSD (post-traumatic stress disorder) [F43.10] Order(s):INFLUENZA VACCINE, AGE 6MO-64YR, TRIVALENT (AFLURIA, FLULAVAL, FLUVIRIN, FLUZONE) [[id number]] Order #: [id number] [employer] COVID-19 VACCINE AGE 12+ YR (COMIRNATTram) [08571VQK] Order #: [id number] TANISHA SCREENING W KAYLENE [3747129] Order #: [id number] FUTURE levothyroxine (SYNTHROID) 100 mcg tabletTake 1 tablet by mouth once daily.Disp: 90 tabletRfl: 1 CONSULT TO GENERAL SURGERY [9011] Order #: [id number]: 1 FUTURE XR CHEST 2V FRONTAL/LAT [[id number]] Order #: [id number] FUTURE US ABD RIGHT UPPER QUADRANT [[id number]] Order #: [id number] FUTURE COMPREHENSIVE METABOLIC PANEL [SQCMP] Order #: [id number] FUTURE COMPLETE BLOOD COUNT AND DIFFERENTIAL [SQCBCDIF] Order #: [id number] FUTURE THYROID STIMULATING HORMONE [SQTSH] Order #: [id number] FUTURE HEMOGLOBIN A1C [KVLCA9X] Order #: [id number] FUTURE Prescriptions as of 05/27/2024 - levothyroxine (SYNTHROID) 100 mcg tablet Take 1 tablet by mouth once daily. - metFORMIN ER (GLUCOPHAGE XR) 500 mg 24 hr tablet Take 1 tablet by mouth once daily. - atorvastatin (LIPITOR) 20 mg tablet Take 1 tablet by mouth once daily. - cetirizine (ZYRTEC) 10 mg tablet take 1 tablet by mouth once daily. - atenolol (TENORMIN) 25 mg tablet Take by mouth. - dilTIAZem CR (TIAZAC, TAZTIA XT) 120 mg 24 hr capsule DAILY - divalproex ER (DEPAKOTE ER) 250 mg 24 hr tablet Take 250 mg by mouth once daily. - buPROPion XL (WELLBUTRIN XL) 150 mg 24 hr tablet Take 150 mg by mouth once daily. - metoprolol tartrate, short acting, (LOPRESSOR) 25 mg tablet Take 0.5 tablets by mouth two times a day. Per [facility]. - vilazodone (VIIBRYD) 40 mg tablet Take 40 mg by mouth once daily. - ADVAIR HFA 230-21 mcg/actuation inhaler Inhale 2 Puffs as instructed twice daily. - divalproex ER (DEPAKOTE ER) 500 mg 24 hr tablet once daily. - ALPRAZolam (XANAX) 0.5 mg tablet Take 0.5 mg by mouth as needed. - Selenium Sulfide 2.25 % sham Apply 1 application to affected area as needed. - albuterol HFA (VENTOLIN HFA) 90 mcg/actuation inhaler Inhale 2 Puffs as instructed every 4 hours as needed for Wheezing/Shortness of Breath. Per Dr. Shay alcantara - fluticasone (FLONASE) 50 mcg/actuation nasal spray Use 2 Sprays in each nostril once daily. - clobetasol 0.05 % ointment Apply to affected area(s) of active or acute and persistent insect bite or prurigo papular lesions of open areas of arms, legs, trunk, once to twice per day (qday to bid) until clear, and then taper off as able. AVOID face, eyes, eyelids, and deep fold areas. - nitroglycerin sublingual (NITROSTAT) 0.4 mg SL tablet Dissolve 1 tablet under the tongue as needed. FOR CHEST PAIN. IF NO RELIEF CALL 911 - hydrocortisone valerate(WESTCORT 0.2 % TOPICAL CREAM) Apply to psoriasis/rash on folds areas (eg., abdominal fold area), ears, outer face or forehead area, and scalp line selectively qd to bid prn until clear and then taper off as able; AVOID eyes and eyelids, and central face near eyes and nose. Problem List As Of Date 05/27/2024 Noted Resolved Attention deficit disorder [F98.8] 11/27/2006 Unclassified epileptic seizures (HCC) [G40.909] 03/31/2008 Acquired hypothyroidism [E03.9] 07/17/2008 Lumbago [M54.50] 08/07/2008 Psoriasis [L40.9] 07/25/2009 Multiple joint pain [M25.50] 07/25/2009 Cyst 07/25/2009 Smoker [F17.200] 07/25/2009 PTSD (post-traumatic stress disorder) [F43.10] 10/18/2009 Depression [F32.A] 10/18/2009 ZHANNA (obstructive sleep apnea) [G47.33] 05/15/2010 Mixed hyperlipidemia [E78.2] 09/30/2010 Myofascial muscle pain [M79.18] 09/05/2015 Moderate persistent asthma without complication*01/08/2017 Controlled type 2 diabetes mellitus without com*07/11/2008 Premature atrial beats [I49.1] 11/01/2020 Seasonal allergies [J30.2] 11/01/2020 Gallbladder polyp [K82.4] 08/19/2021 09/04/2021 Well adult exam [Z00.00] 12/11/2021 GERD without esophagitis [K21.9] 03/12/2023 Class 1 obesity due to excess calories with bod*06/24/2023 11/24/2023 Atherosclerosis of coronary artery [I25.10] 09/14/2023 Diagnosed: 09/14/2023 Borderline personality disorder (HCC) [F60.3] 09/14/2023 Diagnosed: 09/14/2023 Costochondritis [M94.0] 09/14/2023 11/24/2023 Diagnosed: 09/14/2023 Headache [R51] 09/14/2023 11/24/2023 Diagnosed: 09/14/2023 Lung nodule [R91.1] 09/14/2023 Diagnosed: 09/14/2023 Nicotine dependence [F17.200] 04/22/2022 11/24/2023 Diagnosed: 09/14/2023 Palpitations [R00.2] 10/22/2022 11/24/2023 Diagnosed: 09/14/2023 PVC (premature ventricular contraction) [I49.3] PAC (premature atrial contraction) [I49.1] Over weight [E66.3] 11/24/2023 Weight loss, unintentional [R63.4] 11/24/2023 Other instructions from your clinician: Please schedule eye exam Schedule with general surgery to discuss weight loss and colonoscopy/egd. Set up with specialists- cardio and pulm. To schedule a diabetic eye exam at the [facility] [place], please call: [phone] Online resources to learn more [email or web address] [email or web address].[email or web address]/eye-complications https://www.aoa.org/healthy-eyes/uxa-eng-dieqhp-conditions/diabetic-retinop athy?sso=y https://www.Flinto.[employer] References 1. National Diabetes Statistics Report 2020: Estimates of Diabetes and Its [place] in the [place]. Center for Disease Control and Prevention; 2020. Available at: https://www.cdc.gov/diabetes/pdfs/data/statistics/yqnvheqg-njioqpko-nocucxf ics-report.pdf 2. Amber Yun, Kelli Stringer, Car Marquez, Elvira Hauser, Mary Beth Rosario, Alexis Beck, Elijah Hurd, Reji Hsieh; Diabetic Retinopathy: A Position Statement by the [place] Diabetes Association. Diabetes Care 03 September 2016; 40 (3): 412-418 Prescriptions ordered this encounter Disp Refills Start End LEVOTHYROXINE 100 MCG TABLET 90 t* 1 05/27/2024 Route: ORAL Sig: Take 1 tablet by mouth once daily. Medications Discontinued During This Encounter Prescriptions - lurasidone (LATUDA) 60 mg tab tablet (Discontinued) Reported on 05/27/2024 - levothyroxine (SYNTHROID) 100 mcg tablet (Discontinued) Take 1 tablet by mouth once daily. Disposition: Return in about 6 months (around 11/24/2024) for routine OV with Dr. link. Follow-up and Disposition History for Encounter Date Provider Department Center 05/27/2024 [id number], RAYANNE FAMPWS [facility] Encounter Status:Closed by CHRISTINA MARSH on 05/27/24 DEPRECATED HGB A1C BLD Collected: 05/16 2:49 PM Status: F Source: [facility] Order Comment: Specimen Type : BLOOD SPECIMEN Ordering Facility: [facility] Address: [address] [place] [address] TYPE CODE TESTS RESULT OUT OF RANGE REFERENCE UNITS LAB 4548-4(LOINC) HbA1c MFr Bld 5.0 4.3-5.6 % Result Comment: [place] Martine betes Association guidelines indicate that patients with HgbA1c in the range 5.7-6.4% are at increased risk for development of diabetes, and intervention by lifestyle modification may be beneficial. HgbA1c greater or equal to 6.5% is considered diagnostic of diabetes. LAB 28363-9(LOINC) Est. average glucose Bld gHb Est-mCnc 97 mg/dL Result Comment: eAG: (Estima nirali average glucose) is a calculated value from HgbA1c and is automotive leasing sales representative of the average blood glucose level in the last 2-3 month period. Performed By: #### [id number] # ### [facility] CLIA [id number] [address] [place] [address] [place] TSH SERPL-ACNC Collected: 2:49 PM Status: F Source: [facility] Comment: Specimen Type : BLOOD SPECIMEN Ordering Facility: [facility] Address: [address] [place] [address] TYPE CODE TESTS RESULT OUT OF RANGE REFERENCE UNITS LAB 3016-3(LOINC) TSH SerPl-aCnc 0.515 0.270-4.200 mIU/L Result Comment: If the patie nt is , TSH reference range varies by gestational period: First Trimester (weeks 9-12): 0.180-2.990 mIU/L Second Trimester: 0.110-3.980 mIU/L Third Trimester: 0.480-4.710 mIU/L Dylon Eckert et al. A Practical Approach for the Verifications and Determination of Site- and Trimester-Specific Reference Intervals for Thyroid Function tests in . Thyroid, 2019:29:3:412-420. Familia E, et al. 2017 Guidelines of the [place] Thyroid Association for the Diagnosis and Management of Thyroid Disease during and the . Thyroid, 2017:27:3:315-389. Performed By: #### 3016-3, 2 4323-8, LIPNF #### [facility] CLIA [id number] [address] [place] [address] [place] COMP METAB 2000 PNL SERPL Collected: 2:49 PM Status: F Source: [facility] Order Comment: Specimen Type : BLOOD SPECIMEN Ordering Facility: [facility] Address: [address] [place] [address] TYPE CODE TESTS RESULT OUT OF RANGE REFERENCE UNITS LAB 2885-2(LOINC) Prot SerPl-mCnc 6.6 6.3-8.0 g/dL LAB 1751-7(LOINC) Albumin SerPl-mCnc 4.3 3.9-4.9 g/dL LAB 72499-1(LOINC) Calcium SerPl-mCnc 8.9 8.5-10.2 mg/dL LAB 1975-2(LOINC) Bilirub SerPl-mCnc 0.4 0.2-1.3 mg/dL LAB 6768-6(LOINC) ALP SerPl-cCnc 40 34-123 U/L LAB 1920-8(LOINC) AST SerPl-cCnc 24 13-35 U/L LAB 1742-6(LOINC) ALT SerPl-cCnc 31 7-38 U/L LAB 2345-7(LOINC) Glucose SerPl-mCnc 84 74-99 mg/dL Result Comment: The [place] Diabetes Association (ADA) provides guidance for cutoff values for fasting glucose and random glucose. The ADA defines fasting as no caloric intake for at least 8 hours. Fasting plasma glucose results between 100 to 125 mg/dL indicate increased risk for diabetes (prediabetes). Fasting plasma glucose results greater than or equal to 126 mg/dL meet the criteria for diagnosis of diabetes. In the absence of unequivocal hyperglycemia, results should be confirmed by repeat testing. In a patient with classic symptoms of hyperglycemia or hyperglycemic crisis, random plasma glucose results greater than or equal to 200 mg/dL meet the criteria for diagnosis of diabetes. Reference: Standards of Medical Care in Diabetes 2016, [place] [employer]. Diabetes Care. 2016.39(Suppl 1). LAB 3094-0(LOINC) BUN SerPl-mCnc 14 7-21 mg/ dL LAB 2160-0(LOINC) Creat SerPl-mCnc 0.77 0.58-0.96 mg/dL LAB 2951-2(LOINC) Sodium SerPl-sCnc 141 136-144 mmol/L LAB 2823-3(LOINC) Potassium SerPl-sCnc 3.9 3.7-5.1 mmol/L LAB 2075-0(LOINC) Chloride SerPl-sCnc 106 98-107 mmol/L LAB 2028-9(LOINC) CO2 SerPl-sCnc 23 22-30 mmo l/L LAB 75684-6(LOINC) Anion Gap SerPl-sCnc 12 8-15 mmol/L LAB 51936-3(LOINC) Creatinine + eGFR Pnl SerPlBld 97 >=60 mL/min/1 .73m??? Result Comment: Estimated Gl omerular Filtration Rate (eGFR) is calculated using the 2020 CKD-EPI creatinine equation. This equation utilizes serum creatinine, sex, and age as parameters. The creatinine assay has traceable calibration to isotope dilution-mass spectrometry. Refer to KDIGO guidelines for clinical interpretation. In patients with unstable renal function, e.g. those with acute kidney injury, the eGFR may not accurately reflect actual GFR. Performed By: #### 3016-3, 2 4323-8, LIPNF #### [facility] CLIA [id number] [address] [place] [address] [place] [address] [place] LIPID PANEL, NONFASTING Collected: 05/16/2024 2:49 PM Status: F Source: [facility] Order Comment: Specimen Type : BLOOD SPECIMEN Ordering Facility: [facility] Address: [address] [place] [address] TYPE CODE TESTS RESULT OUT OF RANGE REFERENCE UNITS LAB CHOLNF TOTAL CHOLESTEROL NF 134 <200 mg/dL Result Comment: <200 mg/dL, Desirable 200-239 mg/dL, Borderline high >239 mg/dL, High LAB TRIGNF TRIGLYCERIDES, NF 67 <150 mg/dL Result Comment: <150 mg/dL, Normal 150-199 mg/dL, Borderline high 200-499 mg/dL, High >499 mg/dL, Very high LAB HDLNF HDL CHOLESTEROL, NF 50 >39 mg/dL Result Comment: 40-59 mg/dL, Acceptable >59 mg/dL, High: Negative risk factor for coronary heart disease <40 mg/dL, Low: Positive risk factor for coronary heart disease LAB LDLNF LDL CHOLESTEROL, NF 71 <100 mg/dL Result Comment: <100 mg/dL, Optimal 100-129 mg/dL, Near optimal/above optimal 130-159 mg/dL, Borderline high 160-189 mg/dL, High >189 mg/dL, Very high Secondary prevention optimal LDL Cholesterol levels are recommended to be < 70 mg/dL LAB NOHDLN NON HDL CHOL, NF 84 <130 mg/dL Result Comment: <130 mg/dL, Optimal 130-159 mg/dL, Near optimal/above optimal 160-189 mg/dL, Borderline high 190-219 mg/dL, High >219 mg/dL, Very high Secondary prevention optimal non HDL Cholesterol levels are recommended to be <100 mg/dL LAB VLDLNF VLDL CHOLESTEROL, NF 13 <30 mg/dL LAB TCHDLN T CHOL/HDL RATIO NF 2.68 <5.10 mg/dL LAB LDLHDN LDL/HDL RATIO, NF 1.42 <2.54 mg/dL Result Comment: Reference: 1. National Cholesterol Education Program ATP III Guideline At-A-Glance Quick Desk Reference: National Heart, Lung, and Blood [place]. National Institutes of Health. 2001: NIH Publication No. 01-3305. 2. An International Atherosclerosis Society position paper: global recommendations for the management of dyslipidemia: executive summary, Atherosclerosis. 2014: 232(2):410-413. Performed By: #### 3016-3, 2 4323-8, LIPNF #### [facility] CLIA [id number] [address] [place] [address] [place] CBC W AUTO DIFF BLD Collected: 05/16/2024 2:[address] atus: F Source: [facility] Order Comment: Specimen Type : BLOOD SPECIMEN Ordering Facility: [facility] Address: [address] [place] [address] TYPE CODE TESTS RESULT OUT OF RANGE REFERENCE UNITS LAB 6690-2(LOINC) WBC # Bld Auto 6.84 3.70-11.00 k/uL LAB 789-8(LOINC) RBC # Bld Auto 4.52 3.90-5.20 m/ uL LAB 718-7(LOINC) Hgb Bld-mCnc 13.5 11.5-15.5 g/dL LAB 4544-3(LOINC) Hct VFr Bld Auto 40.8 36.0-46.0 % LAB 787-2(LOINC) MCV RBC Auto 90.3 80.0-100.0 fL LAB 785-6(LOINC) MCH RBC Qn Auto 29.9 26.0-34.0 p g LAB 786-4(LOINC) MCHC RBC Auto-mCnc 33.1 30.5-36.0 g/dL LAB 41059-5(LOINC) RDW RBC-Rto 12.3 11.5-15.0 % LAB 777-3(LOINC) Platelet # Bld Auto 217 150-400 k/uL LAB 61622-4([facility]) PMV Bld Auto 9.9 9.0-12.7 fL LAB 770-8([facility]) Neutrophils/leuk NFr Bld Auto 58.1 % LAB 751-8([facility]) Neutrophils # Bld Auto 3.97 1.45-7.50 k/uL LAB 736-9([facility]) Lymphocytes/leuk NFr Bld Auto 33.5 % LAB 731-0([facility]) Lymphocytes # Bld Auto 2.29 1.00-4.00 k/uL LAB 5905-5([facility]) Monocytes/leuk NFr Bld Auto 6.4 % LAB 742-7([facility]) Monocytes # Bld Auto 0.44 <0.87 k/uL LAB 713-8([facility]) Eosinophil/leuk NFr Bld Auto 1.0 % LAB 711-2([facility]) Eosinophil # Bld Auto 0.07 <0.46 k/uL LAB 706-2([facility]) Basophils/leuk NFr Bld Auto 0.9 % LAB 704-7([facility]) Basophils # Bld Auto 0.06 <0.11 k/uL LAB 33326-8([facility]) Imm Granulocytes/[place] k NFr Bld Auto 0.1 % LAB 30171-6([facility]) Imm Granulocytes # Bld Auto <0.03 <0.10 k/uL LAB 82875-6([facility]) nRBC/100 WBC Bld-Rto 0.0 /100 WBC LAB 771-6([facility]) nRBC # Bld Auto <0.01 <0.01 k/u L LAB 37299-0([facility]) Differential method Bld Auto Performed By: #### 43110-9 # ### [facility] CLIA [id number] [address] [place] [address] [place] ALLERGIES DATE TYPE / CODE NAME / CODE REACTION SEVERITY SOURCE 05/15/2015 DRUG INGREDI/74232 1003(SNOMED CT) PRAVASTATIN SODIUM GI UPSET Low [facility] 07/03/2010 Environ/33677 4006(SNOMED CT) DUST ITCHING Low [facility] 07/03/2010 DRUG INGREDI/60850 1003(SNOMED CT) MOLD ITCHING Low [facility] 07/03/2010 Environ/04043 4006(SNOMED CT) RAGWEED ITCHING [facility] 03/15/2010 DRUG/74672608 3(SNOMED CT) DEXTROAMPHETAMINE-AMPHET AMINE Mental Ch[facility] 08/09/2009 Drug Class/9790260 03(SNOMED CT) VENLAFAXINE ANALOGUES Mental Chg [facility] 07/25/2009 DRUG INGREDI/03959 1003(SNOMED CT) AMOXICILLIN ITCHING [facility] 08/14/2006 DRUG/36597424 3(SNOMED CT) SULFAMETHOXAZOLE-TRIMETH OPRIM HIVES [facility] 08/14/2006 DRUG INGREDI/79530 1003(SNOMED CT) PHENAZOPYRIDINE HCL HIVES [facility] ENCOUNTERS ADMIT/DISCHARGE ACCOUNT NUMBER ADMITTING ENCOUNTER CLASS LOC ATION SOURCE 01/03/2025 [id number] [facility] HospitalBuild ing:WORG [facility] 01/03/2025/ 5 [id number] [facility] HospitalBuild ing:WOFM [facility] 11/30/2024/ 5 [id number] [facility] HospitalBuild ing:WOLB [facility] 11/30/2024/ 5 [id number] [facility] HospitalBuild ing:WOFM [facility] 07/25/2024/ 5 [id number] [facility] HospitalBuild ing:WOPA [facility] 06/09/2024/ 4 [id number] [facility] HospitalBuild ing:WODM [facility] 05/30/2024/ 4 [id number] [facility] HospitalBuild ing:WOUS [facility] 05/30/2024/ 4 [id number] [facility] HospitalBuild ing:WOGS [facility] 05/27/2024/ 4 [id number] [facility] HospitalBuild ing:EMILIANO [facility] 05/27/2024/ 4 [id number] [facility] HospitalBuild ing:NARCISAG [facility] 05/27/2024/ 4 [id number] [facility] HospitalBuild ing:WOKEVIN [facility] 05/16/2024/ 4 [id number] [facility] HospitalBuild ing:WOLB [facility] PAYERS ENCOUNTER GUARANTOR PAYER SUBSCRIBER SOURCE 01/03/2025 [facility] [place] Number: [id number] Date:7375-11-62Iflx Name:Deloris Ugalde THELMA: [id number] [place], [place] [id number] [place] [address] 01/03/2025 Primary Insurance:[employer] MEDICAIDPolicy Number: [id number] Date:6216-01-48Fpmz Name:Deloris Ugalde NELIDAB: [id number] [place], [place] [id number] [place] [address] 11/30/2024 Primary Insurance:[employer] MEDICAIDPolicy Number: [id number] Date:2941-09-98Kzeh Name:Deloris Ugalde NELIDAB: [id number] [place] [address] [facility] 11/30/2024 Primary Insurance:[employer] MEDICAIDPolicy Number: [id number] Date:7614-67-45Gusd Name:Deloris Ugalde NELIDAB: [id number] [place], [place] [id number] [place] [address] 07/25/2024 Primary Insurance:[employer] MEDICAIDPolicy Number: [id number] Date:4380-06-19Vqhv Name:Deloris Ugalde NELIDAB: [id number] [place], [place] [address] [place] [address] 06/09/2024 Primary Insurance:[employer] MEDICAIDPolicy Number: [id number] Date:3826-26-50Avos Name:Deloris KRAUSEB: [id number] [place] [address] [facility] 05/30/2024 [facility] Number: [id number] Date:1376-78-24Fikt Name:Deloris KRAUSEB: [id number] [place] [address] [facility] 05/30/2024 Primary [facility] [place]Policy Number: [id number] Date:5787-35-22Jceo Name:Deloris KRAUSEB: [id number] [place], [place] [address] [place] [address] 05/27/2024 Primary Insurance:[facility] [place]Policy Number: [id number] Date:0422-36-13Xfso Name:Deloris KRAUSEB: [id number] [place] [address] [facility] 05/27/2024 Primary Insurance[facility] [place] MEDICA[place]Policy Number: [id number] Date:9234-99-53Hjur Name:Deloris GONZALEZDOB: [id number] [place] [address] [facility] 05/27/2024 Primary Insurance:[facility] [place] MEDICAIDPolicy Number: [id number] Date:7027-84-63Bknj Name:Deloris GONZALEZDOB: [id number] [place] [address] [facility] 05/16/2024 Primary Insurance:[facility] [place] MEDICAIDPolicy Number: [id number] Date:6309-06-75Asdc Name:Deloris GONZALEZDOB: [id number] [place] [address] [facility]
[2025-04-03 16:36] VITALS: BP 128/76; PULSE 81; RESP 16; TEMP 36.8; O2SAT 98; BMI 29.5
[2025-04-03] MEDS: Lidocaine 5% Patch 1 PATCH TOPICAL (18:24)
[2025-04-03] MEDS: Ketorolac 30 MG/ML Syringe IM (18:24)
--- NOTE | 2025-04-03 18:29 | ED.VIS.BACK ---
HPI History of Present Illness Chief Complaint: Back Narrative Narrative: Patient is a 44-year-old female presenting to the emergency department for low back pain. Patient has a past medical history of degenerative disc disease, hyperlipidemia, chest pain, tobacco use, type 2 diabetes, palpitations. Patient states that over the weekend she lifted a 40 pound bag of dog food. That evening she developed left lower back pain. States she has tried taking anti-inflammatories as well as Percocet for pain control. She denies any falls or specific trauma to her back. She denies any IV drug use, fevers, chills, cancer history, recent weight loss. Denies any saddle anesthesia, bowel or bladder retention or incontinence, weakness or numbness in her legs. Denies abdominal pain, chest pain or SOB. [facility] Medical History Smoker History of left heart catheterization (LHC) (~10/15/22) Type 2 diabetes mellitus Costochondritis Hypothyroidism Palpitations Hx of pancreatitis Acid reflux Blood in stool Constipation Nausea Abdominal pain RUQ abdominal pain Epigastric abdominal pain Arthritis Fatigue Gastroparesis ZHANNA (obstructive sleep apnea) Depression Anxiety Borderline personality disorder Endometriosis Cervical strain NECK AND BACK PAIN Difficulty balancing UNEXPLAINED BRUISES History of seizure Asthma Chest pain Severe headache Shoulder pain Back pain Abnormal bruising Knee pain SOB (shortness of breath) Home Medications Medication Instructions Recorded Last Taken Type alprazolam 0.5 mg tablet 0.5 mg PO DAILY PRN PRN Anxiety 12/29/19 Unknown History atorvastatin 20 mg tablet 20 mg PO QHS 12/29/19 12/28/19 History cetirizine 10 mg tablet 10 mg PO DAILY ALLERGIES 12/29/19 12/29/19 History levothyroxine 100 mcg tablet 100 mcg PO DAILY 12/29/19 10/15/22 History milk thistle 500 mg capsule 500 mg PO BID 12/29/19 12/29/19 History tpttultxpdoo-Ml-hbdc-minerals 1 tab PO DAILY SUPPLEMENT 12/29/19 12/29/19 History oregano oil 1,500 mg capsule 1,500 mg PO DAILY SUPPLEMENT 12/29/19 12/29/19 History clobetasol 0.05 % topical ointment 1 applic topical BID 07/02/20 Unknown History omeprazole 40 mg capsule,delayed 40 mg PO DAILY 07/02/20 Unknown History release Beet Root 2 tab PO BID SUPPLEMENT 07/12/20 Unknown History albuterol sulfate 90 mcg/actuation 2 inh inhalation Q6H PRN PRN Sob 12/23/22 Unknown Rx aerosol inhaler &/Or Wheezing #8.5 grams lurasidone 60 mg tablet 60 mg PO DAILY 05/04/23 Unknown History bupropion HCl 150 mg 24 hr tablet, 150 mg PO DAILY 08/04/23 Unknown History extended release divalproex 250 mg tablet,extended 250 mg PO QHS 08/04/23 Unknown History release 24 hr divalproex 500 mg tablet,extended 500 mg PO QHS 08/04/23 Unknown History release 24 hr metformin 500 mg tablet,extended 500 mg PO DAILY DM 08/04/23 Unknown History release 24 hr vilazodone 40 mg tablet 40 mg PO DAILY 08/04/23 Unknown History fluticasone propionate 230 2 puff inhalation BID #12 grams 02/29/24 Unknown Rx mcg-salmeterol 21 mcg/actuation HFA inhaler (Advair HFA) metoprolol tartrate 25 mg tablet 12.5 mg (1/2 x 25 mg) PO BID #60 08/24/24 Unknown Rx tabs cyclobenzaprine 10 mg tablet 10 mg PO TID PRN muscle spasm #20 04/03/25 Unknown Rx tabs ketorolac 10 mg tablet 10 mg PO Q8H PRN pain 4 days #14 04/03/25 Unknown Rx tabs lidocaine 5 % topical patch 2 patch topical DAILY #15 ea 04/03/25 Unknown Rx (Lidoderm) Allergy/AdvReac Type Severity Reaction Status Date / Time amoxicillin Allergy Hives Verified 04/03/25 16:36 Penicillins Allergy Hives Verified 04/03/25 16:36 Seasonal Allergies: Uncoded Allergy Shortness Verified 04/03/25 16:36 of breath phenazopyridine (From AdvReac Other Verified 04/03/25 16:36 Pyridium) sulfamethoxazole (From AdvReac Other Verified 04/03/25 16:36 Bactrim) trimethoprim (From Bactrim) AdvReac Other Verified 04/03/25 16:36 Family History Father Diabetes Hypertension Mother Uterine cancer Other Heart disease Surgical History History of esophagogastroduodenoscopy (EGD) Hx of colonoscopy Hx of removal of cyst (07/14/23) History of tonsillectomy History of nasal septoplasty History of hysterectomy Social History Smoking Status: Current every day smoker tobacco type: cigarettes alcohol intake: current alcohol intake frequency: holidays/special occasions only substance use type: does not use caffeine: Yes Type: carbonated beverages Number of servings: 5 what type of physical activity do you participate in: none frequency: does not exercise ROS ROS ED ROS Narrative See HPI EXAM Physical Exam Narrative Exam Narrative: Vital signs: Reviewed General: Alert and orientedx3. No acute distress HEENT: Head is normocephalic and atraumatic, sinuses nontender, pupils equal round and reactive. Nares are patent. Oropharynx and throat exams normal. Neck: Supple without lymphadenopathy nontender Cardiovascular: Regular rate and rhythm, no murmurs. No rubs or gallops. Normal S1 and S2 Respiratory: Clear to auscultation bilaterally. No wheezes, rales, rhonchi Abdominal: Soft and nontender. Normal bowel sounds. No guarding or rebound. Nonsurgical abdomen. No CVA tenderness to palpation. Extremities: No tenderness. No bruising. Normal range of motion. Normal sensation. Back: No midline cervical, thoracic or lumbar spinal tenderness to palpation. No step-offs or deformities. No erythema or rash to the back. There is left lumbar paraspinal tenderness to palpation. No tenderness of the SI joint. 5 out of 5 strength in bilateral lower extremities. Sensation intact in bilateral lower extremities. Skin: No rash or redness. Neurological: Cranial nerves II through XII are grossly intact. Normal strength and sensation. Normal cerebellar function The rest of the physical exam is unremarkable Const Vital Signs: 04/03/25 16:36 04/03/25 18:35 04/03/25 20:24 Temperature 98.2 F 98.2 F Temperature Source Oral Pulse Rate 81 63 62 Respiratory Rate 16 16 16 Blood Pressure 128/76 H 131/85 H 123/88 H Blood Pressure Mean 93 100 99 Pulse Ox 98 98 99 Oxygen Delivery Method Room Air Room Air MDM MDM MDM Narrative Medical decision making narrative: Patient is a 44-year-old female presenting to the emergency department for acute on chronic back pain. Patient was seen and examined. Vitals are stable. Patient resting in bed comfortably in no acute distress. Differential includes but is not limited to: Musculoskeletal back pain, less likely epidural abscess, cauda equina, herniated disc, discitis. No red flag back pain signs. No midline tenderness to palpation of the spine. No fevers. No radiculopathy. Patient has no midline spinal tenderness to palpation. No red flag back pain signs as detailed in the HPI and physical exam. There is no indication for imaging of the spine at this time. Will treat patient's pain with Toradol, Flexeril and Lidoderm patch. Patient reevaluated, pain is mildly improved. She was offered an oral opiate for pain however states that she drove here and I explained that I cannot give her this medication if she does not have a ride. Patient ambulated to the bathroom without any difficulties. Discussed prescriptions that I will send to her pharmacy including Toradol, Flexeril and Lidoderm patches. Instructed how to use these. Instructed to follow-up with her primary care doctor soon as possible. Patient discharged from the Emergency Department. I do not feel that the patient's evaluation reveals any acute reason for admission at this time. I instructed them to either follow-up with their primary care physician or promptly return to the Emergency Department for reevaluation should symptoms worsen or new symptoms develop. I explained what symptoms would indicate the need to return to the emergency department. Shared decision making was used. The patient voiced understanding of the treatment plan and is agreeable with it. Clinical impression Acute on chronic back pain History & Record Review Discussion w/independent historian: Patient Discharge Plan Triage Chief Complaint: Back ED Provider: Aleyda Schofield Dx/Rx/DC Orders Clinical Impression: Acute exacerbation of chronic low back pain Instructions: ED Back Sprain/Strain Prescriptions: New lidocaine [Lidoderm] 5 % adhesive patch,medicated 2 patch topical DAILY Qty: 15 0RF Rx Instructions: leave on most painful area for up to 12 hrs cyclobenzaprine 10 mg tablet 10 mg PO TID PRN (Reason: muscle spasm) Qty: 20 0RF ketorolac 10 mg tablet 10 mg PO Q8H PRN (Reason: pain) 4 Days Qty: 14 0RF No Action clobetasol 0.05 % ointment 1 applic TOPICAL BID omeprazole 40 mg capsule,delayed release(DR/EC) 40 mg PO DAILY albuterol sulfate 90 mcg/actuation HFA aerosol inhaler 2 inh INHALATION Q6H PRN PRN (Reason: Sob &/Or Wheezing) Qty: 8.5 2RF lurasidone 60 mg tablet 60 mg PO DAILY Patient Comments: Take 1 Tablet By Oral Route 1 time per day with food (at least 350 calories) vilazodone 40 mg tablet 40 mg PO DAILY Patient Comments: TAKE 1 TABLET BY MOUTH ONCE DAILY WITH FOOD divalproex 250 mg tablet extended release 24 hr 250 mg PO QHS Patient Comments: TAKE 1 TABLET BY MOUTH ONCE DAILY DIRECTED Rx Instructions: Take with 500 mg tablet to = 750 mg daily bupropion HCl 150 mg tablet extended release 24 hr 150 mg PO DAILY Patient Comments: TAKE 1 TABLET BY MOUTH EVERY MORNING atorvastatin 20 MG tablet 20 mg PO QHS cetirizine 10 MG tablet 10 mg PO DAILY levothyroxine 100 MCG tablet 100 mcg PO DAILY alprazolam 0.5 MG tablet 0.5 mg PO DAILY PRN PRN (Reason: Anxiety) milk thistle 500 MG capsule 500 mg PO BID pymapdbqotwv-Dp-cxbd-minerals 1 EACH tablet 1 tab PO DAILY oregano oil 1,500 MG capsule 1,500 mg PO DAILY Beet Root 2 tab PO BID metformin 500 mg tablet extended release 24 hr 500 mg PO DAILY divalproex 500 mg tablet extended release 24 hr 500 mg PO QHS Patient Comments: TAKE 1 TABLET BY MOUTH ONCE DAILY AT BEDTIME Rx Instructions: Take with 250 mg tablet to = 750 mg QHS Advair HFA 230-21 mcg/actuation HFA aerosol inhaler 2 puff inhalation BID Qty: 12 11RF metoprolol tartrate 25 mg tablet 12.5 mg PO BID Qty: 60 11RF Primary Care Provider: Davis Aparicio Referrals: Davis Aparicio MD [Primary Care Provider, Family Practice] - As soon as possible Activity Restrictions/Additional Instructions: Use the medications as prescribed. Follow-up with your primary care doctor as soon as possible. Your evaluation in the Emergency Department did not reveal any acute reason for admission. However, I want to emphasize that you may be early in the course of a disease process or illness even if it is not present. For this reason you should follow-up within 24 hours for reevaluation with either your primary care physician or if necessary back here in the Emergency Department. You should return to the Emergency Department immediately if your symptoms worsen or new symptoms develop. Print Language: Niuean Disposition Disposition: Home, Self Care Discharge Date/Time: 04/03/25 20:27
[2025-04-03 18:35] VITALS: BP 131/85; PULSE 63; RESP 16; O2SAT 98
[2025-04-03 20:24] VITALS: BP 123/88; PULSE 62; RESP 16; TEMP 36.8; O2SAT 99
== END 2025-04-03 20:27 | disposition home or self-care (01) ==
PROVIDERS: Emergency Provider Student in an Organized Health Care Education/Training Program; PCP Family Medicine; Visit Provider Student in an Organized Health Care Education/Training Program
DX: M54.50 Low back pain, unspecified (principal); E11.43 Type 2 diabetes mellitus with diabetic autonomic (poly)neuropathy; Z90.710 Acquired absence of both cervix and uterus; E78.5 Hyperlipidemia, unspecified; E03.9 Hypothyroidism, unspecified; F17.210 Nicotine dependence, cigarettes, uncomplicated; G89.29 Other chronic pain; K31.84 Gastroparesis
CPT/HCPCS: 96372; 99283